=== PATIENT | female | born 1935 | race Caucasian/White ===

== ENCOUNTER → 2018-07-06 14:31 | Outpatient (POV) | payer MEDICAID, SELFPAY | PROVIDERS: Visit Provider Dermatology | DX: Z00.00 Encounter for general adult medical examination without abnormal findings (principal) ==

== ENCOUNTER 2023-04-29 20:09 | Emergency (ER) | payer MEDICARE, MEDICAID, SELFPAY ==
[2023-04-29 20:14] VITALS: BP 160/111; PULSE 98; RESP 20; TEMP 36.6; O2SAT 95; BMI 43.2
--- NOTE | 2023-04-29 20:19 | CT_ITS ---
PROCEDURE INFORMATION: Exam: CT Lumbar Spine Without Contrast Exam date and time: 04/29/2023 9:42 PM Age: 87 years old Clinical indication: Injury or trauma; Fall; Additional info: Fall, pain TECHNIQUE: Imaging protocol: Computed tomography of the lumbar spine without contrast. Radiation optimization: All CT scans at this facility use at least one of these dose optimization techniques: automated exposure control; mA and/or kV adjustment per patient size (includes targeted exams where dose is matched to clinical indication); or iterative reconstruction. REPORTING DATA: Count of CT and Cardiac NM exams in prior 12 months: This patient has received 0 known CTs and 0 known cardiac nuclear medicine studies in the 12 months prior to the current study. COMPARISON: CT THORACIC SPINE WO CON 04/29/2023 9:39 PM FINDINGS: Bones/joints: The lumbar spine demonstrates moderate discogenic and spondylitic degenerative changes at multiple levels. This is manifest by endplate discogenic degenerative changes and marginal osteophytes. There are multiple levels of intervertebral disc space narrowing, most severe at L1-L2. There is extensive vacuum disc phenomenon spanning L1 through S1. Vhge-la-vizsoavt multilevel facet degenerative arthropathy is also present. There is grade 1 anterior spondylolisthesis of L4 on L5. There is slight retrolisthesis of L2 on L3 and L3 on L4. There is mild superior concavity to the L2 and L3 vertebral bodies with Schmorl's node changes also present in these regions. Remaining vertebral body heights are intact. These findings are age indeterminate but likely chronic. Correlate clinically. There are mild degenerative changes of the sacroiliac joints. Otherwise, there is no evidence of acute fracture. Adrenal glands: Bilateral adrenal nodules are described in the associated CT of the thoracic spine from the same date and time. Please reference that report for additional information. Kidneys and ureters: There is a cyst within the lateral right kidney measuring 4.8 cm, incompletely visualized. A small punctate calcification is incompletely seen in this region suggesting mildly complex cyst. Recommend additional evaluation when the patient's condition permits. There is a 9 mm hyperdensity in the superior left kidney which is not optimally characterized on current exam but may reflect a hyperdense cyst. Cannot entirely exclude solid lesion. Recommend additional evaluation when the patient's condition permits. There are several additional bilateral small renal hypodensities which are too small to accurately characterize. Statistically, these may be cysts. Vasculature: The visualized aorta demonstrates mild atherosclerotic calcification. Soft tissues: No significant soft tissue edema. No focal soft tissue masses. Soft tissue calcification in the left posterior low back soft tissues likely reflects injection granuloma. IMPRESSION: Mild superior concavity to the L2 and L3 vertebral bodies with Schmorl's node changes, age indeterminate but likely chronic. Correlate clinically. Otherwise, no acute posttraumatic abnormality. Moderate to severe multilevel discogenic and spondylitic degenerative changes of the lumbar spine. Multiple renal hypo and hyper densities as described above, not optimally evaluated on current exam. Bilateral adrenal nodules, not optimally evaluated on current exam. COMMENTS: Consistent with the [employer]'s Incidental Findings Committee white paper (J Am Yang Radiol 2018): Any incidental renal lesion less than 1 cm or classified as too small to characterize, or any incidental cystic renal lesion characterized as simple-appearing, is likely benign. No follow-up
--- NOTE | 2023-04-29 20:19 | XR_ITS ---
PROCEDURE INFORMATION: Exam: XR Right Femur Exam date and time: 04/29/2023 8:39 PM Age: 87 years old Clinical indication: Injury or trauma; Fall; Blunt trauma; Thigh or upper leg; Right; Additional info: Fall, pain TECHNIQUE: Imaging protocol: Radiologic exam of the right femur. Views: 2 views. Total images: 5 COMPARISON: No relevant prior studies available. FINDINGS: Bones/joints: Osteopenia. No acute fracture or joint dislocation. Enthesophytes greater trochanter. Moderate degenerative change right hip including chondrocalcinosis. Moderate to severe degenerative change right knee. No suprapatellar joint effusion. Patellar enthesophytes. No concerning bone lesions. Dystrophic pelvic calcifications/ossification likely a degenerated fibroid. Soft tissues: Grossly unremarkable soft tissues. Gastrointestinal tract: Moderate rectal stool burden. Vasculature: Numerous pelvic phleboliths. IMPRESSION: 1. No acute osseous abnormality. 2. Chronic findings.
--- NOTE | 2023-04-29 20:19 | CT_ITS ---
PROCEDURE INFORMATION: Exam: CT Pelvis Without Contrast; Skeletal Exam date and time: 04/29/2023 9:45 PM Age: 87 years old Clinical indication: Injury or trauma; Fall; Additional info: Fall, pain TECHNIQUE: Imaging protocol: Computed tomography of the pelvis without contrast. Exam focused on the skeleton. Radiation optimization: All CT scans at this facility use at least one of these dose optimization techniques: automated exposure control; mA and/or kV adjustment per patient size (includes targeted exams where dose is matched to clinical indication); or iterative reconstruction. REPORTING DATA: Count of CT and Cardiac NM exams in prior 12 months: This patient has received 0 known CTs and 0 known cardiac nuclear medicine studies in the 12 months prior to the current study. COMPARISON: CT LUMBAR SPINE WO CON 04/29/2023 9:42 PM FINDINGS: Stomach and bowel: No bowel obstruction identified. Appendix: A normal appendix is identified. Urinary bladder: The bladder is normal. Reproductive: Degenerated uterine leiomyoma. Intraperitoneal space: There is no free intraperitoneal air visualized. There is no evidence of free intraperitoneal or pelvic fluid. Bones/joints: No acute fracture is seen. Anterolisthesis is seen at L4-L5. Severe lower lumbar degenerative changes. Mild to moderate degenerative changes of both hips. No findings of avascular necrosis. Soft tissues: There is heterotopic ossification anterior to the right humeral, possibly sequela remote prior iliopsoas tendon injury. IMPRESSION: 1. No acute fracture identified. 2. Heterotopic ossification anterior to the right humeral, possibly sequela remote prior iliopsoas tendon injury.
--- NOTE | 2023-04-29 20:19 | XR_ITS ---
PROCEDURE INFORMATION: Exam: XR Right Tibia and Fibula Exam date and time: 04/29/2023 8:43 PM Age: 87 years old Clinical indication: Injury or trauma; Fall; Blunt trauma; Lower leg; Right; Additional info: Fall, pain TECHNIQUE: Imaging protocol: Radiologic exam of the right tibia and fibula. Views: 2 views. Total images: 4 COMPARISON: CR XR KNEE RT 3V 04/29/2023 8:41 PM FINDINGS: Bones/joints: Osteopenia. No acute fracture or joint dislocation. No concerning bone lesions. Moderate to severe tricompartment degenerative arthritis right knee. Ankle mortise is maintained. Prominent calcaneal enthesophytes. Benign cortical thickening and periostitis fibular shaft. Soft tissues: Diffuse superficial soft tissue edema. IMPRESSION: 1. No acute osseous abnormality. 2. Diffuse soft tissue edema. 3. Additional chronic findings.
--- NOTE | 2023-04-29 20:19 | XR_ITS ---
PROCEDURE INFORMATION: Exam: XR Chest Exam date and time: 04/29/2023 8:44 PM Age: 87 years old Clinical indication: Injury or trauma; Fall; Blunt trauma (contusions or hematomas); Additional info: Fall, pain TECHNIQUE: Imaging protocol: Radiologic exam of the chest. Views: 1 view. Total images: 1 COMPARISON: No relevant prior studies available. FINDINGS: Lungs: Left basilar atelectasis. Right lung is clear. No pulmonary vascular congestion or interstitial edema. Pleural spaces: Blunting left lateral costophrenic angle. No pneumothorax. Heart/Mediastinum: Mild cardiomegaly. No mediastinal widening. Large hiatal hernia consisting of a intrathoracic stomach, confirmed by thoracic CT same day. Vasculature: Atherosclerotic aorta. Bones/joints: Osteopenia. Moderate to severe degenerative changes thoracolumbar spine. Other findings: Patient rotation to the right. IMPRESSION: 1. Left basilar atelectasis. 2. Small left pleural effusion versus chronic pleural thickening. 3. Intrathoracic stomach. 4. Mild cardiomegaly without vascular congestion.
--- NOTE | 2023-04-29 20:19 | CT_ITS ---
PROCEDURE INFORMATION: Exam: CT Cervical Spine Without Contrast Exam date and time: 04/29/2023 9:37 PM Age: 87 years old Clinical indication: Injury or trauma; Fall; Additional info: Fall, pain TECHNIQUE: Imaging protocol: Computed tomography of the cervical spine without contrast. Radiation optimization: All CT scans at this facility use at least one of these dose optimization techniques: automated exposure control; mA and/or kV adjustment per patient size (includes targeted exams where dose is matched to clinical indication); or iterative reconstruction. REPORTING DATA: Count of CT and Cardiac NM exams in prior 12 months: This patient has received 0 known CTs and 0 known cardiac nuclear medicine studies in the 12 months prior to the current study. COMPARISON: CT HEAD/BRAIN WO CON 04/29/2023 9:35 PM FINDINGS: Bones/joints: No acute fracture. Normal alignment. No significant disc bulge or herniation. No severe spinal canal stenosis. Lungs: Lung apices are normal. Soft tissues: Gplw-ze-fgsdzptv mucosal thickening of the partially included sphenoid, ethmoids and maxillary sinuses. No fluid levels. Mild opacification of some of the inferior right mastoid air cells without air-fluid levels. IMPRESSION: 1. No acute fracture. 2. Incidental paranasal sinus disease and right mastoid sinus disease of uncertain acuity.
--- NOTE | 2023-04-29 20:19 | CT_ITS ---
PROCEDURE INFORMATION: Exam: CT Head Without Contrast Exam date and time: 04/29/2023 9:35 PM Age: 87 years old Clinical indication: Injury or trauma; Fall; Additional info: Fall, pain TECHNIQUE: Imaging protocol: Computed tomography of the head without contrast. Radiation optimization: All CT scans at this facility use at least one of these dose optimization techniques: automated exposure control; mA and/or kV adjustment per patient size (includes targeted exams where dose is matched to clinical indication); or iterative reconstruction. REPORTING DATA: Count of CT and Cardiac NM exams in prior 12 months: This patient has received 0 known CTs and 0 known cardiac nuclear medicine studies in the 12 months prior to the current study. COMPARISON: No relevant prior studies available. FINDINGS: Brain: No intracranial hemorrhage. Generalized atrophic changes of the ventricles and subarachnoid spaces. Extensive chronic small-vessel ischemic changes noted. No mass, mass effect or midline shift. Intracranial atherosclerotic changes are noted. Cerebral ventricles: See Brain finding. Paranasal sinuses: Multifocal moderate mucosal thickening of the maxillary sinuses including mucous retention cysts. Wwinenfs-xn-xtdxuu mucosal thickening opacification of most of the ethmoids and jidw-oe-igofmfuy mucosal thickening of the inferior frontal sinuses and sphenoids. No definite fluid levels. Opacification of some of the inferior right mastoid air cells. Mastoid air cells: See Paranasal sinuses finding. Bones/joints: See Paranasal sinuses finding. Soft tissues: Unremarkable. IMPRESSION: 1. No acute intracranial abnormality. Chronic changes as above. 2. Incidental extensive paranasal sinus disease suggesting sinusitis of uncertain acuity. Mild right mastoid sinus disease suggesting mastoiditis also of uncertain acuity.
--- NOTE | 2023-04-29 20:19 | CT_ITS ---
PROCEDURE INFORMATION: Exam: CT Thoracic Spine Without Contrast Exam date and time: 04/29/2023 9:39 PM Age: 87 years old Clinical indication: Injury or trauma; Fall; Additional info: Fall, pain TECHNIQUE: Imaging protocol: Computed tomography of the thoracic spine without contrast. Radiation optimization: All CT scans at this facility use at least one of these dose optimization techniques: automated exposure control; mA and/or kV adjustment per patient size (includes targeted exams where dose is matched to clinical indication); or iterative reconstruction. REPORTING DATA: Count of CT and Cardiac NM exams in prior 12 months: This patient has received 0 known CTs and 0 known cardiac nuclear medicine studies in the 12 months prior to the current study. COMPARISON: CT CERVICAL SPINE WO CON 04/29/2023 9:37 PM FINDINGS: Bones/joints: The thoracic spine demonstrates mild discogenic and spondylitic degenerative changes at multiple levels. This is predominantly manifest by endplate discogenic degenerative changes and marginal osteophytes. Minor vacuum disc phenomena is also present at T10-11. Mild multilevel facet degenerative arthropathy is also present. There is very slight anterior spondylolisthesis of C7 on T1 and T1 on T2. The alignment is otherwise intact. There is no evidence of acute fracture. No compression fractures. No large focal disc protrusion. No significant central canal stenosis. Soft tissues: The paravertebral soft tissues are within range of normal. Vasculature: The aorta demonstrates moderate atherosclerotic calcification. The aortic arch measures approximately 2.8 cm. The proximal descending thoracic aorta measures approximately 2.9 cm. Lungs: Nonspecific left basilar opacities are consistent with atelectasis, edema, or pneumonia. Adrenal glands: There is a left adrenal mass measuring approximately 2.3 x 1.7 cm, not optimally characterized on current exam. Internal Hounsfield units measure approximately 36. There is a right adrenal nodule measuring approximately 12 x 15 mm, not optimally evaluated on current exam. Internal internal Hounsfield units measure approximately 6 suggesting adenoma. Stomach and bowel: There is a large hiatal hernia, incompletely visualized with an intrathoracic stomach. IMPRESSION: 1. No acute posttraumatic abnormality. 2. Szqn-jy-utmvrkub multilevel discogenic and spondylitic degenerative changes of the thoracic spine. 3. Large hiatal hernia with an intrathoracic stomach, incompletely visualized. 4. Findings suggestive of right adrenal adenoma. 6. Nonspecific left adrenal nodule. 7. Nonspecific left basilar opacities most consistent with atelectasis, edema, or pneumonia.
--- NOTE | 2023-04-29 20:19 | XR_ITS ---
PROCEDURE INFORMATION: Exam: XR Right Knee Exam date and time: 04/29/2023 8:41 PM Age: 87 years old Clinical indication: Injury or trauma; Fall; Blunt trauma; Knee; Right; Additional info: Fall, pain TECHNIQUE: Imaging protocol: Radiologic exam of the right knee. Views: 3 views. Total images: 3 COMPARISON: CR XR FEMUR RT 2V 04/29/2023 8:39 PM FINDINGS: Bones/joints: Osteopenia. No acute fracture, joint dislocation, or joint effusion. Moderate to severe tricompartment degenerative arthritis. Patellar enthesophytes. No concerning bone lesions. Soft tissues: Benign soft tissue calcifications. Prepatellar soft tissue swelling. Superficial soft tissue edema. IMPRESSION: 1. No acute osseous abnormality or joint effusion. 2. Prepatellar soft tissue swelling. 3. Moderate to severe tricompartment degenerative arthritis.
[2023-04-29 21:30] VITALS: BP 162/117; PULSE 85; O2SAT 92
--- NOTE | 2023-04-29 22:05 | HMH.EDGENADL ---
Discharge Plan Disposition Patient Disposition: Xfer SNF Condition: Good Referrals Follow up/Referrals: Provider,Referral, [Primary Care Provider] - See instructions Activity Restrictions/Add. Instructions Additional Instructions/Restrictions: You were evaluated in the emergency department today after a fall. There is some swelling of your knee, but no broken bones. With orthopedics for continued pain. There is also an incidental finding of a pleural effusion as well as a hiatal hernia. There are also incidental findings of bilateral adrenal nodules. Please follow-up with primary care for this. Return to the emergency department for new or worsening symptoms. Clinical Impressions Clinical Impression: Fall, Acute pain of right knee, Pleural effusion, Hiatal hernia, Adrenal nodule Instructions Patient Instructions: How to Prevent Falls Discharge ED Provider: Suzanne Staton General Adult HPI General Chief complaint: Fall Stated complaint: Fall Time Seen by Provider: 04/29/23 20:19 Mode of Arrival: EMS Source of Information: Patient and EMS Limitations: No Limitations Description of Symptoms (Recalled from ER Triage Doc. by RN): EMS reports they were called out to [facility] due to a fall. EMS states she fell and her R knee bent back behind her. pt is confused and unable to answer orientation questions. pt is alert. pt is a poor historian. pt states she has back pain but does not know where. [facility] reports she is normally x&o x4 but has dementia. pt states she has been SOA for a month and arrives with 2L NC. on arrival pt is 95% on room air. reportedly pt is baseline at room air. History of Present Illness HPI narrative: This patient is an 87-year-old female with a history of dementia presented to the emergency department for evaluation with concern for a mechanical ground-level fall. Patient reportedly tripped while she was trying to swat a fly, and her right knee bent underneath her. This report is obtained from EMS, who picked the patient up from [facility]. Patient only complains of right lower extremity pain at this time but denies any other injuries or concerns. She denies any head injury of loss of consciousness. She otherwise states that she is feeling fine and denies any other concerns. According to the nursing facility, she is typically ambulatory at baseline. [facility] Disclaimer: The information contained in this section may have been updated after the patient was seen, as this information can be updated by other users. Social History Smoking Status: Unknown if ever smoked alcohol intake: never current occupational status: retired Travel in the last 8 weeks: None ROS Obtained: Yes All systems reviewed & no additional complaints except as documented Physical Exam General General appearance: alert and in no apparent distress Head Head exam: atraumatic and normocephalic Eye Eye exam: Present normal appearance, PERRL and EOMI ENT ENT exam: Present normal exam, normal oropharynx, mucous membranes moist and normal external ear exam Neck Neck exam: Present normal inspection, full ROM and trachea midline; Absent tenderness Chest Chest inspection: Present normal inspection and symmetric chest wall rise; Absent tenderness Respiratory Respiratory exam: Present normal lung sounds bilaterally; Absent respiratory distress, wheezes, stridor or accessory muscle use Cardiovascular Cardiovascular exam: Present regular rate and normal rhythm Abdominal Exam Abdominal exam: Present soft; Absent distention, tenderness or guarding Extremities Exam Extremities exam: Present full ROM, tenderness (Tenderness to palpation of the right knee. All compartments soft. Neurovascularly intact distally. No obvious bony abnormality. Small amount of soft tissue swelling noted.) and normal capillary refill; Absent edema Back Exa
[2023-04-29 22:15] VITALS: BP 145/95; PULSE 97; O2SAT 91
--- NOTE | 2023-04-29 22:37 | PC.NURSE ---
called [facility] for transfer back to [place]
[2023-04-29 23:14] VITALS: BP 158/72; PULSE 78; RESP 20; TEMP 36.6; O2SAT 97
== END 2023-04-29 23:16 ==
PROVIDERS: Emergency Provider Emergency Medicine
DX: M25.561 Pain in right knee (principal); J90 Pleural effusion, not elsewhere classified; K44.9 Diaphragmatic hernia without obstruction or gangrene; E27.8 Other specified disorders of adrenal gland; F03.90 Unspecified dementia, unspecified severity, without behavioral disturbance, psychotic disturbance, mood disturbance, and anxiety; W18.30XA Fall on same level, unspecified, initial encounter
CPT/HCPCS: 70450; 71045; 72125; 72128; 72131; 72192; 73552; 73562; 73590; 99285

== ENCOUNTER 2025-01-28 12:54 | Inpatient (IN) | payer MEDICARE, MEDICAID, SELFPAY ==
--- OUTSIDE RECORDS SUMMARY | 2025-01-24 06:20 | XMS_ITS | Continuity of Care Document ---
Author Organization [address] [place] [address] Address [address] [facility] ([facility] [address] [place] [address] Phone Care Team Providers Care Historic Sites Registrar Name Role Phone Geneva Hamilton NP Unavailable [...] mg table t, extended release - Active cephalexin 250 mg capsule - Active cephalexin 500 mg capsule - Active nitroglycerin 0.4 mg sublingual tablet - Active loperamide 2 mg capsule - Ac tive sulfamethoxazole 800 mg-trimethoprim 160 mg tablet - Active sulfamethoxazole 400 mg-trimethoprim 80 mg tablet - Active prednisone 5 mg tablet - Act melonie ammonium lactate 12 % lotion - Active losartan 100 mg tablet - Act melonie hydrochlorothiazide 25 mg tablet - Active hydroxyzine HCl 10 mg tablet - Active metoprolol tartrate 25 [...] Diagnoses Date Provider Providers Copied on Encounter [address] [place] [address], [address] [place] [address] 300, [place], [place], [id number], tel:[phone] [facility] ear care exam (chief complaint) Impacted cerumen, bilateral 5 Katy-Hard brandan Geneva. [address] [place] [address], [address], [place], [address], [place]. Referring Provider: Andrew Clark. [address] [place] [address], [address] [place] [address] 300, [place], [place], [id number], tel:[phone] [facility] Nail dystrophyOnych ogryphosisOthe r hammer toe(s) (acquired), left footOther hammer toe(s) (acquired), right footOther specified peripheral vascular diseases 5 [place]. [address] [place] [address], [address] [place] [address] 300, [place], [place], [id number], [place] tel:[phone] [facility] Other abnormalities of gait and mobilityOther specified peripheral vascular diseasesOnycho gryphosisNail dystrophy 5 Roma Shaan. [place]. [address] [place] [address], [id number] [place] [address] 300, [place], [place], [id number], tel:[phone] [facility] Cataract (chief complaint) Age-related nuclear cataract, bilateral 4 IRIS Simmons. Referring Provider: Andrew Clark. [facility] [place], [address] [place], [place] [address]te 300, [place], [place], [id number], [place] tel:[phone] [facility] No Information 4 [place], [place]. [facility] [place], [address] [place] [address] [address], [place], [place], [id number], [place] tel:[phone] [facility] Corns and callositiesTin ea unguiumOther specified peripheral vascular diseasesNail dystrophy 4 Thomas Castellon. [address] [facility] [address], [place], [address], [place]. [facility] [place], [address] [place] [address] 300, [place], [place], [id number], [place] tel:[phone] [facility] Corns and callositiesNai l dystrophyOther specified peripheral vascular diseasesTinea unguium Fe 4 Thomas Castellon. [address] [facility] [address], [place], [address], [place]. Referring Provider: Andrew Clark. [facility] [place], [address] [place], [place] [address] 300, [place], [place], [id number], [place] tel:[phone] [facility] Encounter for dental examination and cleaning without abnormal findings 4 Jan Tijerina. [address] [facility] [address], [place], [place], [id number], [place]. tel:[phone] Referring Provider: Andrew Clark. [facility] [place], [address] [place] [address] [address], [place], [place], [id number], [place] tel:[phone] [facility] Cataract (chief complaint) Age-related nuclear cataract, bilateral Oct-2 3 Jose De Jesus Miller. [address] [facility] [address], [place], [address], [place]. Referring Provider: Andrew Clark. [facility], [address] [place], [place] [address], [place], [place], [address], [place] tel:[phone] [facility] Corns and callositiesNai l dystrophyOther specified peripheral vascular diseasesTinea unguium 3 Thomas Pinto [address] [facility] [address], [place], [address], [place]. Referring Provider: Andrew Clark. [address] [place] [address], [address] [place] [address] 300, [place], [place], [id number], tel:[phone] [facility] Tinea unguiumOther specified peripheral vascular diseasesNail dystrophy 3 Thomas Pinto [address] [facility] [address], [place], [address], [place]. Referring Provider: Andrew Clark. [address] [place] [address], [address] [place] [address] 300, [place], [place], [id number], [place] tel:[phone] [facility] Cataract (chief complaint) Age-related nuclear cataract, bilateralRetin al hemorrhage, right eye 3 Jose De Jesus Miller. [address] [place] [address], [address], [place], [address], [place]. Referring Provider: Andrew Clark. NURSING FAC CARE SUBSEQ [address] [place] [address], [address] [place] [address] 300, [place], [place], [id number], [place] tel:[phone] [place] [address] Tinea unguiumOther specified peripheral vascular diseasesAbrasi on, left foot, initial encounter 3 Thomas Pinto [address] [place] [address], [address], [place], [address], [place]. Referring Provider: Andrew Clark. [address] [place] [address], [address] [place] [address] 300, [place], [place], [id number], [place] tel:[phone] [facility] No Information 3 Thomas Pinto [address] [place] [address], [address], [place], [address], [place]. [address] [place] [address], [address] [place] [address] 300, [place], [place], [address], [place] tel:[phone] [facility] Encounter for dental examination and cleaning without abnormal findings 3 BARNEY Angel. tel:[phone] Referring Provider: Andrew Clark. [facility] [place], [address] [place], [place] [address]te [address], [place], [place], [address], [place] tel:[phone] [facility] Corns and callositiesOth er specified peripheral vascular diseasesTinea unguium 2 Thomas Castellon. [address] [facility] [address], [place], [address], [place]. Referring Provider: Andrew Clark. [facility], [address] [place] [address] [address], [place], [place], [address], [place] tel:[phone] [facility] Tinea unguiumOther specified peripheral vascular diseases 2 Thomas Castellon. [address], [address], [place], [address], [place]. Referring Provider: Andrew Clark. [facility], [address] [place], [place] [address], [place], [place], [address], [place] tel:[phone] [facility] Encounter for dental examination and cleaning without abnormal findings 2 [place]. Referring Provider: Andrew Clark. [facility] [place], [address] [place], [place] [address], [place], [place], [id number], [place] tel:[phone] [facility] Corns and callositiesOth er specified peripheral vascular diseasesTinea unguiumXerosis cutis 2 [place], [place]. Referring Provider: Andrew Clark. [facility] [place], [address] [place] [address] [address], [place], [place], [id number], [place] tel:[phone] [facility] Decreased vision (chief complaint) Age-related nuclear cataract, bilateral 2 Jose De Jesus Miller. [address] [facility] [address], [place], [address], [place]. Referring Provider: Andrew Clark. [facility], [address] [place] [address] 300, [place], [place], [id number], [place] tel:[phone] [facility] Tinea unguiumOther specified peripheral vascular diseasesCorns and callositiesHal lux valgus (acquired), left footHallux valgus (acquired), right footOther hammer toe(s) (acquired), left footOther hammer toe(s) (acquired), right foot 2 Thomas Castellon. [address] [facility] [address], [place], [address], . Referring Provider: Andrew Clark. [address] [place] [address], [address] [place] [address] 300, [place], [address] [place] [address], tel:[phone] [facility] Encounter for dental exam and cleaning w/o abnormal findings 2 Dmitry Yeung. [address] [facility] [address], [place], [place], [address], . tel:[phone] Referring Provider: Andrew Clark. [address] [place] [address], [address] [place] [address], [place], [address] [place] [address], tel:[phone] [facility] Tinea unguiumCorns and callositiesOth er specified peripheral vascular diseasesHallux valgus (acquired), left footHallux valgus (acquired), right footOther hammer toe(s) (acquired), left footOther hammer toe(s) (acquired), right foot 2 Thomas Castellon. [address] [facility] 300, [place], [facility], . Referring Provider: Andrew Clark. [address] [place] [address], [address] [place], [place] [address], [place], [place], [address] [place] [address], tel:[phone] [facility] No Information 2 Jose De Jesus Miller. [address] [facility] [address] Formerly named [facility], [place], [facility], . Family History Family Member Type Diagnosis Age At Onset No Information Payers Payer name Insurance type Covered republican ID Authoriza tion(s) Medicare [facility] [id number] Medicaid [facility] [id number] Social History Type Description Quantity Date Captured Comments Alcohol Use Details Unknown Caffeine Use Details Unknown Tobacco Use Status No Information Smoking Status No Information Sex Female Chief Complaint And Reason For Visit From encounter dated '01/24/2025 10:20'. ear care exam (chief complaint) Reason For Referral Reason For Referral No Information Plan Of Treatment Date Type Action Status Patient Education Earwax Blockage: Care I nstructions [...] localize swelling and venous return, and the penitentiary benefits of using compression stockings. Reinforced the [...] a nail nipper and an electric rotary tool and cutter grinder in an atraumatic fashion as needed [...] localize swelling and venous return, and the penitentiary benefits of using compression stockings. Reinforced the [...] symptoms. Related to Nail dystrophy Impression/Plan - Ca taracts are moderate and are affecting visual acuity; however, no treatment recommended at this time. We will monitor for progression. Related to Age-related nuclear cataract, bilateral Impression/Plan - No t dm, likely htn related. Monitor at next visit Related to Retinal hemorrhage, right eye Toenails 1-5 b/l wer e debrided in [...] foot Assessments Type Assessment Date assessment Impacted pasha, bilateral Patient Care Teams Name Effective Dates (start - stop) Status Members No Information
--- OUTSIDE RECORDS SUMMARY | 2025-01-24 06:20 | XMS_ITS | Continuity of Care Document ---
Author Organization [address] [place] [address] [facility] [address] [place] [address] Phone Care Team Providers Care Orientation And Mobility Specialist Name Role Phone Geneva Hamilton NP Unavailable [...] Diagnoses Date Provider Providers Copied on Encounter [address] [place] [address], [address] [place] [address] 300, [place], [place], [id number], tel:[phone] [facility] ear care exam (chief complaint) Impacted cerumen, bilateral 5 [place]-Hard brandan Geneva. [address] [place] [address], [address], [place], [address], [place]. Referring Provider: Andrew Clark. [address] [place] [address], [address] [place] [address] 300, [place], [place], [id number], tel:[phone] [facility] Nail dystrophyOnych ogryphosisOthe r hammer toe(s) (acquired), left footOther hammer toe(s) (acquired), right footOther specified peripheral vascular diseases 5 [place]. [address] [place] [address], [address] [place] [address] 300, [place], [place], [id number], [place] tel:[phone] [facility] Other abnormalities of gait and mobilityOther specified peripheral vascular diseasesOnycho gryphosisNail dystrophy 5 Roma Sh[place]. [place]. [address] [place] [address], [address] [place] [address] 300, [place], [place], [id number], tel:[phone] [facility] Cataract (chief complaint) Age-related nuclear cataract, bilateral 4 IRIS Simmons. Referring Provider: Andrew Clark. [facility] [place], [address] [place], [place] [address], [place], [place], [id number], [place] tel:[phone] [facility] No Information 4 [place]. [facility] [place], [address] [place] [address] [address], [place], [place], [id number], [place] tel:[phone] [facility] Corns and callositiesTin ea unguiumOther specified peripheral vascular diseasesNail dystrophy [address] [facility], [address], [place], [address], [place]. [facility], [address] [place] [address], [place], [address], [place] tel:[phone] [facility] Corns and callositiesNai l dystrophyOther specified peripheral vascular diseasesTinea unguium Fe [address] [facility], [address], [place], [address], [place]. Referring Provider: Andrew Clark. [facility] [place] [facility], [address] [place], [place] [address], [place], [place], [address], [place] tel:[phone] [facility] Encounter for dental examination and cleaning without abnormal findings [address] [facility], [address], [place], [place], [address], [place]. tel:[phone] Referring Provider: Andrew Clark. [facility] [place] [facility], [address] [place] [address] [address], [place], [place], [id number], [place] tel:[phone] [facility] Cataract (chief complaint) Age-related nuclear cataract, bilateral Oct-2 [address] [facility], [address], [place], [address], [place]. Referring Provider: Andrew Clark. [facility], [address] [place], [place] [address], [place], [place], [address], [place] tel:[phone] [facility] Corns and callositiesNai l dystrophyOther specified peripheral vascular diseasesTinea unguium [address] [facility], [address], [place], [address], [place]. Referring Provider: Andrew Clark. [address] [place] [address], [address] [place] [address], [place], [place], [id number], tel:[phone] [facility] Tinea unguiumOther specified peripheral vascular diseasesNail dystrophy [address] [facility], [address], [place], [address], [place]. Referring Provider: Andrew Clark. [address] [place] [address], [address] [place] [address], [place], [address], [place] tel:[phone] [facility] Cataract (chief complaint) Age-related nuclear cataract, bilateralRetin al hemorrhage, right eye 3 Jose De Jesus Miller. [address] [place] [address], [address], [place], [address], [place]. Referring Provider: Andrew Clark. NURSING FAC CARE SUBSEQ [address] [place] [address], [address] [place] [address] 300, [place], [place], [id number], [place] tel:[phone] [place] [address] Tinea unguiumOther specified peripheral vascular diseasesAbrasi on, left foot, initial encounter 3 Thomas P[address] [place] [address], [address], [place], [address], [place]. Referring Provider: Andrew Clark. [address] [place] [address], [address] [place] [address], [place], [place], [address], [place] tel:[phone] [facility] No Information 3 Thomas Pinto [address] [place] [address], [address], [place], [address], [place]. [address] [place] [address], [address] [place] [address], [place], [id number], [place] tel:[phone] [facility] Encounter for dental examination and cleaning without abnormal findings 3 BARNEY Angel. tel:[phone] Referring Provider: Andrew Clark. [facility] [place], [address] [place], [place] [address], [place], [place], [address], [place] tel:[phone] [facility] Corns and callositiesOth er specified peripheral vascular diseasesTinea unguium [address] [facility], [address], [place], [address], [place]. Referring Provider: Andrew Clark. [facility] [place] [facility], [address] [place] [address] [address], [place], [place], [address], [place] tel:[phone] [facility] Tinea unguiumOther specified peripheral vascular diseases 2 Thomas Castellon. [address], [address], [place], [address], [place]. Referring Provider: Andrew Clark. [facility], [address] [place], [place] [address], [place], [place], [address], [place] tel:[phone] [facility] Encounter for dental examination and cleaning without abnormal findings 2 [place]. Referring Provider: Andrew Clark. [facility], [address] [place], [place] [address], [place], [place], [address], [place] tel:[phone] [facility] Corns and callositiesOth er specified peripheral vascular diseasesTinea unguiumXerosis cutis 2 [place], [place]. Referring Provider: Andrew Clark. [facility], [address] [place] [address] [address], [place], [place], [address], [place] tel:[phone] [facility] Decreased vision (chief complaint) Age-related nuclear cataract, bilateral [address] [facility], [address], [place], [address], [place]. Referring Provider: Andrew Clark. [facility], [address] [place] [address], [place], [place], [address], [place] tel:[phone] [facility] Tinea unguiumOther specified peripheral vascular diseasesCorns and callositiesHal lux valgus (acquired), left footHallux valgus (acquired), right footOther hammer toe(s) (acquired), left footOther hammer toe(s) (acquired), right foot [address] [facility], [address], [place], [address], . Referring Provider: Andrew Clark. [address] [place] [address], [address] [place] [address], [place], [address] [place] [address], tel:[phone] [facility] Encounter for dental exam and cleaning w/o abnormal findings [address] [facility], [address], [place], [place], [address], . tel:[phone] Referring Provider: Andrew Clark. [address] [place] [address], [address] [place] [address], [place], [address] [place] [address], tel:[phone] [facility] Tinea unguiumCorns and callositiesOth er specified peripheral vascular diseasesHallux valgus (acquired), left footHallux valgus (acquired), right footOther hammer toe(s) (acquired), left footOther hammer toe(s) (acquired), right foot [address] [facility], [facility] [place] [address], [place], [facility], . Referring Provider: Andrew Clark. [address] [place] [address], [address] [place], [place] [address], [place], [address] [place] [address], tel:[phone] [facility] No Information 2 Jose De Jesus Miller. [address] [facility], [address] [facility], [place], [facility], . Family History Family Member Type Diagnosis Age At Onset No Information Payers Payer name Insurance type Covered green party ID Authoriza tion(s) Medicare [facility] [id number] Medicaid [facility] [id number] Social History Type Description Quantity Date Captured [...] localize swelling and venous return, and the correction benefits of using compression stockings. Reinforced the [...] a nail nipper and an electric rotary snag grinder in an atraumatic fashion as needed [...] localize swelling and venous return, and the correction benefits of using compression stockings. Reinforced the [...]
[2025-01-28] VITALS (22 sets, daily range): BP systolic 81–153; BP diastolic 31–133; PULSE 8–117; RESP 15–25; TEMP 36.2–36.9; O2SAT 90–99; BMI 43.2
--- OUTSIDE RECORDS SUMMARY | 2025-01-28 13:19 | XMS_ITS | Clinical Summary ---
Author Organization [facility] [place] Address [address] [place] [address] Phone Care Team Providers Care Superintendent [employer] Name Role Phone Unavailable Primary Care Provider Unavailabl e Allergies No known active allergies Medications * This document contains information received from the source organization and may not represent a complete record from that organization. No known medications Active Problems Problem Noted Date Diagnosed Date ROXANNA (generalized anxiety disorder) 04/14/2017 Mental retardation 09/24/2016 Adjustment disorder with anxiety 09/24/2016 Social History Tobacco Use Types Packs/Day Years Used Date Smoking Tobacco: Never Assessed Comments Unknown Sex and Gender Information Value Date Recorded Sex Assigned at Not on file Legal Sex Female 5:11 PM EDT Gender Identity Not on file Sexual Orientation Not on file Obstetrics History Plan of Treatment Health Maintenance Due Date Last Done Comments Wellness Exam Medicare 1938 DTaP/TDaP/Td (1 - Tdap) 1956 Pneumococcal Vaccine 50+ (1 of 1 - PCV) 10/03/1987 Zoster (1 of 2) 10/03/1987 Bone Density Screening 2002 RSV or 60+ (1 - 1-d ose 75+ series) 2012 COVID-19 Vaccine ( - 2023-2 5 season) 2024 Influenza Vaccine (#1) 2025 Hepatitis B Vaccine Aged Out No longe r eligible based on patient's age to complete this topic Meningococcal B Vaccine Aged Out No l onger eligible based on patient's age to complete this topic Insurance [place] [address] MEDICA[place]
--- OUTSIDE RECORDS SUMMARY | 2025-01-28 13:19 | XMS_ITS ---
Author Organization [facility] Care Team Providers Care Director [employer] Name Role Phone Eduardo Michael Unavailable Unavailable Allergies and adverse reactions No Known Allergies Care Team Name Role Address Phone Organization Dates Michael Clark PCP [place], [facility] [place] (Office): : [place] 05/16/2020 - 05/25/2020 Goals Section Goals Description Status Target Date The resident will have no in dications of psychosocial well being problem by/through review date. Active 08/31/2020 Immunizations Immunization Status Vaccine Details Vaccine Code CodeSystem Date Notes Influenza completed Influenza, high-dose, split virus, quadrivalent, injectable, preservative free 197 CVX created date: 05/16/2020 consent date: 05/16/2020 administere d date: 04/21/2020 TB 1 Step Mantoux (PPD) completed tuberculin skin test; unspecified formulation 98 CVX created date: 05/16/2020 administere d date: 07/01/2019 Pneumococcal PPSV23 completed pneumococcal polysaccharide vaccine, 23 valent 33 CVX created date: 05/16/2020 administere d date: 10/25/2017 Mental Status Section Date Assessment Total Score Description 05/25/2020 BIMS 10 moderate cognit melonie impairment CAM 0 No delirium ind icated PHQ-9 10 moderate depres [place] 05/23/2020 BIMS 10 moderate cognit melonie impairment CAM 0 No delirium ind icated PHQ-9 10 moderate depres [place] Problems Problem # Description Date of onset Resolved Date Code CodeSystem Concern Status 1 ALLERGIC RHINITIS, UNSPECIFIED 05/16/[address] active 2 COVID-19 05/16/[address] active 3 ERYTHEMATOUS CONDITION, UNSPECIFIED 05/16/[address] active 4 ESSENTIAL (PRIMARY) HYPERTENSION 05/16/[address] active 5 MILD INTELLECTUAL DISABILITIES 05/16/[address] active 6 UNSPECIFIED DEMENTIA, UNSPECIFIED SEVERITY, WITHOUT BEHAVIORAL DISTURBANCE, PSYCHOTIC DISTURBANCE, MOOD DISTURBANCE, AND ANXIETY 05/16/[address] active Reason for Referral No Reasons for Referral Entered Social History Social History Observation Description Start Date End Date Code Code System Current Smoking Status Tobacco smoking consumption unknown 663189701 SNOMED CT Sex Assigned At Female 1935 18576-3 [facility] Gender Identity Vital Signs Code Code System Vitals Name Values and Units Timing Information 24277-6 [facility] Pain Level Value=0.0 05/25/2020 9279-1 [facility] Respiratory Rate Value=18.0 Units=/m in 05/25/2020 8462-4 [facility] Blood Pressure-Diastolic Value=82 Un its=mmHg 05/25/2020 8480-6 [facility] Blood Pressure-Systolic Zxdko=377 Un its=mmHg 05/25/2020 8310-5 [facility] Body Temperature Value=97.5 Units= F 05/25/2020 8867-4 [facility] Heart rate Value=82.0 Units=/min 09/2019 62036-2 [facility] O2 % BldC Oximetry Value=91.0 Units= % 05/25/2020 27209-6 [facility] Weight Ymejj=007.8 Units=Lbs 8302-2 [facility] Height Value=65.0 Units=Inches 05/16/2020
--- NOTE | 2025-01-28 13:22 | ECG_ITS ---
APPROVED REPORT Exam: Resting ECG HR:82 bpm ECG Measurements Heart Rate 82 AXES QRSd 74 QRS 79 QT 367 T 6 QTc 405 Conclusion ATRIAL FIBRILLATION LOW QRS VOLTAGE IN PRECORDIAL LEADS [QRS DEFLECTION < 1.0 mV IN CHEST LEADS] MODERATE ST DEPRESSION [0.05+ mV ST DEPRESSION] ABNORMAL ECG UNCONFIRMED REPORT A-fib with ventricular rate of [address] elevation or depression. Electronically signed by : JOSE GOODMAN, 01/29/2025 07:18:43
--- NOTE | 2025-01-28 13:22 | XR_ITS ---
PROCEDURE INFORMATION: Exam: XR Chest Exam date and time: 01/28/2025 1:39 PM Age: 89 years old Clinical indication: Shortness of breath; Additional info: Short of breath TECHNIQUE: Imaging protocol: Radiologic exam of the chest. Views: 1 view. COMPARISON: CR XR CHEST PORTABLE 04/29/2023 8:44 PM FINDINGS: Limitations: Patient rotation. Lungs: Pulmonary vascular congestion. Patchy airspace disease in the left mid lung field. Pleural spaces: Unremarkable. No pleural effusion. No pneumothorax. Heart/Mediastinum: Mild-moderate enlargement of the cardiac silhouette. Vasculature: Atherosclerosis. Bones/joints: Unremarkable. Soft tissues: Skin fold projects at the right chest. IMPRESSION: 1. Mild-moderate enlargement of the cardiac silhouette. 2. Pulmonary vascular congestion. 3. Patchy airspace disease in the left mid lung field may represent atelectasis and/or pneumonia.
[2025-01-28 13:25] LABS: Coronavirus 19, PCR Not Detected (NotDetected); Influenza A, PCR Not Detected (NotDetected); Influenza B, PCR Not Detected (NotDetected)
[2025-01-28 13:26] LABS: Hematocrit 45.3 % (37.0-47.0); Hemoglobin 14.2 g/dL (12.2-16.2); Immature Granulocytes % 1.6 %; Mean Corpuscular HGB Conc 31.3 g/dL (31.8-35.4); Mean Corpuscular Hemoglobin 26.7 pg (27.0-31.2); Mean Corpuscular Volume 85.3 fl (81-99); Nucleated Red Blood Cells % 0 %; Platelet Count 155 K/mm3 (142-424); Red Blood Count 5.31 M/mm3 (4.20-5.40); Red Cell Distribution Width-SD 58.4 fL; White Blood Count 25.3 K/mm3 (4.8-10.8)
--- NOTE | 2025-01-28 13:27 | [facility].EDGENADL ---
Discharge Plan Disposition Patient Disposition: Admitted Clinical Impressions Clinical Impression: Pleural effusion, Rhabdomyolysis, Sepsis Discharge ED Provider: Christopher Sutton General Adult HPI <Kourtney Little (ED), [employer] - Last Filed: 01/28/25 15:26> General Chief complaint: Weakness Stated complaint: BLE Edema Time Seen by Provider: 01/28/25 13:20 History of Present Illness HPI narrative: 89-year-old female presents via EMS from [facility] for right lower extremity cellulitis and pain. EMS reports that she just finished Keflex. Patient arrives alert and oriented x 1. She is afebrile and has blood pressure initially systolic 90. Patient does have pain in that right leg. She does have bilateral edema but the redness is only in the right lower. Patient has history of hernia, pleural effusion, falls and dementia. Related Data Allergies Allergy/AdvReac Type Severity Reaction Status Date / Time sulfamethoxazole (From Allergy Intermediate Unknown Verified 01/28/25 13:54 Bactrim) allergy reaction trimethoprim (From Bactrim) Allergy Intermediate Unknown Verified 01/28/25 13:54 allergy reaction PFSH <Kourtney Little (ED), [employer] - Last Filed: 01/28/25 15:26> FOR[facility]LY [facility], LATER [facility] Disclaimer: The information contained in this section may have been updated after the patient was seen, as this information can be updated by other users. Medical History Dementia Morbid obesity CHF (congestive heart failure) Social History Smoking Status: Unknown if ever smoked alcohol intake: never current occupational status: retired Travel in the last 8 weeks?: None Have you lived/traveled outside [place] in past 30 days?: No Contact w/someone who lives/traveled outside US past 30 days?: No Exposure to someone with infectious disease in past 14 days?: No Do you have a fever (greater than 100.4 F or 38 C)?: No Have you tested positive for COVID-19?: No Exposed to someone with COVID-19 in past 14 days?: No Do you have a sore throat?: No Do you have a cough?: No Do you have any weakness?: No Do you have any diarrhea?: No Are you experiencing any unusual bleeding?: No Do you have any muscle aches/pain?: No Do you have any abdominal pain?: No Are you experiencing loss of taste or smell?: No <Kourtney Little (ED), [employer] - Last Filed: 01/28/25 15:26> ROS Obtained: Yes Systems reviewed as appropriate & no additional complaints except as documented Constitutional Constitutional: Reports as per HPI Physical Exam <Kourtney Little (ED), [employer] - Last Filed: 01/28/25 15:26> General General appearance: alert Head Head exam: normocephalic Eye Eye exam: Present PERRL and EOMI ENT ENT exam: Present normal oropharynx and mucous membranes moist Neck Neck exam: Present full ROM and trachea midline Respiratory Respiratory exam: Present normal lung sounds bilaterally Cardiovascular Cardiovascular exam: Present regular rate, normal rhythm, normal heart sounds, +S1 and +S2 Abdominal Exam Abdominal exam: Present soft and normal bowel sounds Extremities Exam Extremities exam: Present tenderness, normal capillary refill and edema (Erythema to right lower extremity) Neurological Exam Neurological exam: Present alert (X 1 which is baseline) Skin Skin exam: Present warm, erythema and other (Erythematous on right lower extremity with some drainage) Medical Decision Making <Kourtney Little (ED), [employer] - Last Filed: 01/28/25 15:26> Medical Records Screening: Per USPSTF and CDC recommendations, given the prevalence of disease in our region, it is our hospital?s policy to screen for HIV and viral Hepatitis for all patients aged 18 and over and those with ongoing risk factors. Jared Inquiry Pt receiving controlled substance: No Jared was queried for this patient: No Vital Signs: 01/28/25 13:19 01/28/25 13:23 01/28/25 13:23 Temperature 97.5 F L 97.5 F L Temperature Source Axillary Oral Pulse Rate 117 H 64 Pulse Rate [Left] 64 Respiratory Rate 18 18 Blood Pressure 90/64 L 90/64 L Blood Pressure [Left Arm] 90/64 L Blood Pressure Mean [Left Arm] 72 02 Sat by Pulse Oximetry 95 94 L 94 L Oxygen Delivery Method Nasal Cannula Room Air Room Air Oxygen Flow Rate (LPM) 2 01/28/25 13:30 01/28/25 14:13 01/28/25 14:30 Temperature Temperature Source Pulse Rate 89 79 74 Pulse Rate [Left] Respiratory Rate Blood Pressure 110/74 95/57 L 99/67 L Blood Pressure [Left Arm] Blood Pressure Mean [Left Arm] 02 Sat by Pulse Oximetry 96 96 96 Oxygen Delivery Method Nasal Cannula Nasal Cannula Nasal Cannula Oxygen Flow Rate (LPM) 2 2 2 01/28/25 14:45 01/28/25 15:00 01/28/25 16:50 Temperature 97.8 F Temperature Source Axillary Pulse Rate 82 81 84 Pulse Rate [Left] Respiratory Rate 20 Blood Pressure 94/41 L 90/52 L 90/56 L Blood Pressure [Left Arm] Blood Pressure Mean [Left Arm] 02 Sat by Pulse Oximetry 95 96 Oxygen Delivery Method Nasal Cannula Nasal Cannula Nasal Cannula Oxygen Flow Rate (LPM) 2 2 2 Lab Data Lab Results 01/28/25 13:12: WBC 25.3 H*, RBC 5.31, Hgb 14.2, Hct 45.3, MCV 85.3, MCH 26.7 L, MCHC 31.3 L, RDW 19.6 H, Plt Count 155, MPV 11.4 H, Neut % (Auto) 92.3 H, Lymph % (Auto) 2.4 L, [place] % (Auto) 3.3, Eos % (Auto) 0.0 L, Baso % (Auto) 0.4, Neut # (Auto) 23.4 H, Lymph # (Auto) 0.6 L, [place] # (Auto) 0.8, Eos # (Auto) 0.0, Baso # (Auto) 0.1, Total Counted 100, Neutrophils % (Manual) 93 H, Lymphocytes % (Manual) 4 L, Monocytes % (Manual) 3, Platelet Estimate Normal, RBC Morphology Normal, ESR 13, PT 12.4, INR 1.13 H, APTT 25.7, Lactate 2.5 H, SARS-CoV-2 (PCR) Not detected, Influenza A Untype (PCR) Not detected, Influenza Type B (PCR) Not detected 01/28/25 13:25: Urine Color Yellow, Urine Appearance Slightly cloudy, Urine pH 5.5, Ur Specific [place] >= 1.030, Urine Protein 1+ A, Urine Glucose (UA) Negative, Urine Ketones Trace, Urine Blood Negative, Urine Nitrate Negative, Urine Bilirubin 1+ A, Urine Urobilinogen 0.2, Ur Leukocyte Esterase Negative, Urine RBC None, Urine WBC 3-5, Ur Squamous Epith Cells 3-5, Amorphous Sediment Trace, Urine Bacteria 3+ 01/28/25 13:28: Sodium 134 L, Potassium 4.1, Chloride 100, Carbon Dioxide 29, Anion Gap 9.1, BUN 51 H, Creatinine 2.10 H, Estimated Creat Clear 15, Estimated GFR 22 L, Est GFR ( Amer) 27 L, Glucose 94, Calcium 8.8, Magnesium 2.6 H, Total Bilirubin 1.0, AST 62 H, ALT 37, Alkaline Phosphatase 96, Total Creatine Kinase 503 H*, Troponin I 0.03, C-Reactive Protein 384.9 H, NT-Pro-B Natriuret Pep 5260 H, Total Protein 5.8 L, Albumin 3.0 L, Globulin 2.8, Albumin/Globulin Ratio 1.1 01/29/25 06:33 01/29/25 06:33 Orders (Tests/Meds): ED MEDICATIONS Generic Name Dose Route Start Last Admin Trade Name Freq PRN Reason Stop Dose Admin Acetaminophen 650 mg 01/28/25 14:55 Acetaminophen 325mg Tab PO 02/27/25 14:54 Q4HP PRN Fever or Mild Pain (1-3) Docusate Sodium 100 mg 01/29/25 09:00 Docusate Sodium 100 Mg Capsule PO 02/28/25 08:59 DAILY RAUL Heparin Sodium (Porcine) 5,000 unit 01/28/25 21:00 01/28/25 20:37 Heparin Sodium 5,000 Unit/Ml Vial SUBCUT 02/27/25 20:59 5,000 unit TID RAUL Administration Piperacillin Sod/Tazobactam 100 mls @ 200 mls/hr 01/28/25 15:00 01/29/25 03:20 Sod 4.5 gm/ Sodium Chloride IV 02/07/25 14:59 200 mls/hr Q12H RAUL Administration Norepinephrine/Dextrose 8 mg in 250 mls @ 3.75 mls/hr 01/28/25 15:54 01/29/25 04:06 Levophed 8mg/250ml-D5w Premix IV 02/27/25 15:53 20 mcg/min .Q24H RAUL 37.5 mls/hr Protocol Infusion 2 MCG/MIN Dopamine HCl/Dextrose 250 mls @ 20.114 mls/hr 01/29/25 04:07 Dopamine 400mg/250ml D5w IV 02/28/25 04:06 .[id number] PRN Hypertensive Emergency Protocol 5 MCG/KG/MIN Miscellaneous 1 each 01/28/25 18:00 01/28/25 18:48 Vancomycin Consult Request NOTAPPLIC 02/27/25 17:59 1 each CONSULT PHARMACY RAUL Administration Morphine Sulfate 4 mg 01/28/25 14:56 Morphine 4mg/Ml Syringe IV 02/27/25 14:55 Q4HP PRN Severe Pain (7-10) Nystatin 1 gm 01/28/25 21:00 01/28/25 22:11 Nystatin Topical Powder 30gm TP 02/27/25 20:59 1 gm QID RAUL Administration Discontinued Medications Generic Name Dose Route Start Last Admin Trade Name Freq PRN Reason Stop Dose Admin Bumetanide 2 mg 01/28/25 17:23 01/28/25 18:33 Bumetanide 1mg/4ml Vial IV 01/28/25 17:24 2 mg ONCE ONE Administration Lactated Ringer's 3,220 mls @ 1,610 mls/hr 01/28/25 13:41 01/28/25 14:09 Lactated Ringer's 1000 Ml Bag 30 ml/kg infuse over 2 hr (3220 ml) 01/28/25 15:40 1,610 mls/hr IV Administration .Q2H ONE Protocol Vancomycin/PEG/NADA/Lysine/Water 1.75 gm in 350 mls @ 175 mls/hr 01/28/25 13:45 01/28/25 14:15 Vancomycin 1.75gm/350ml (Peg) Premix IV 01/28/25 15:44 175 mls/hr ONCE ONE Administration Piperacillin Sod/Tazobactam 50 mls @ 100 mls/hr 01/28/25 14:45 01/28/25 16:16 Sod 3.375 gm/ Sodium Chloride IV 02/07/25 14:44 Not Given Q8H [facility] Sodium Chloride 1,000 mls @ 500 mls/hr 01/29/25 02:30 01/29/25 02:42 Sod Chlor 0.9% 1000ml Bag IV 01/29/25 04:29 500 mls/hr .Q2H ONE Administration Sodium Chloride 1,000 mls @ 500 mls/hr 01/29/25 04:06 01/29/25 04:34 Sod Chlor 0.9% 1000ml Bag IV 01/29/25 06:05 500 mls/hr .Q2H ONE Administration Albumin Human 12.5 gm in 50 mls @ 100 mls/hr 01/29/25 04:30 01/29/25 05:04 Albumin 25% (12.5gm) Soln 50ml Bag IV 01/29/25 05:29 100 mls/hr Q30M RAUL Administration Ketorolac Tromethamine 15 mg 01/29/25 04:25 01/29/25 04:35 Ketorolac 30mg/Ml Vial IV 01/29/25 04:26 15 mg ONCE ONE Administration Miscellaneous 1 each 01/28/25 13:30 01/28/25 14:39 Vancomycin Consult Request NOTAPPLIC 02/27/25 13:29 Not Given CONSULT PHARMACY RAUL ORDERS Category Date Time Status CT chest wo con Stat Cat Scan 01/28/25 14:51 Completed Chest XR -- portable [XR chest portable] Stat Exams 01/28/25 13:22 Completed POCUS Point of Care (ER Only) Stat Exams 01/28/25 13:28 Completed Activated Partial Thrombo Time Stat Lab 01/28/25 13:12 Completed BNP [NT Pro Brain Natriuretic Pep.] Stat Lab 01/28/25 13:28 Completed C-Reactive Protein Stat Lab 01/28/25 13:28 Completed Complete Blood Count Auto Diff AMLAB Lab 01/29/25 06:33 Results Complete Blood Count Auto Diff Stat Lab 01/28/25 13:12 Completed Comprehensive Metabolic Panel AMLAB Lab 01/29/25 06:33 Results Comprehensive Metabolic Panel Stat Lab 01/28/25 13:28 Completed Creatine Kinase Stat Lab 01/28/25 13:28 Completed Erythrocyte Sedimentation Rate Stat Lab 01/28/25 13:12 Completed Lactic Acid Stat Lab 01/28/25 13:12 Completed Magnesium AMLAB Lab 01/29/25 06:33 Results Magnesium Stat Lab 01/28/25 13:28 Completed Prothrombin Time INR Stat Lab 01/28/25 13:12 Completed Rapid PCR Covid and Flu A/B Stat Lab 01/28/25 13:12 Completed Trop I [Troponin I] Stat Lab 01/28/25 13:28 Completed Troponin I Q3H Lab 01/28/25 18:10 Completed Troponin I Q3H Lab 01/28/25 22:21 Completed Urinalysis and Microscopic Stat Lab 01/28/25 13:25 Completed Blood Culture Stat Micro 01/28/25 14:10 Received Urine Culture Stat Micro 01/28/25 13:25 Results CA echo doppler complete Routine Y 01/28/25 14:57 Ordered Medical Decision Narrative: patient is a 89-year-old female presenting to the emergency department for evaluation of right lower extremity edema and cellulitis. Patient is hemodynamically stable and nontoxic-appearing upon arrival, afebrile. Differential diagnosis includes cellulitis, sepsis, erythema, among others. Workup will be conducted with hematologic labs, specific imaging. Initial inventions include crystalloid bolus, analgesics. Initial workup reviewed by me hematologic labs are remarkable for elevated white count at 25.3 BUN 51 creatinine 2.10, lactate 2.5, creatinine kinase 503, BNP 5260, troponin 0.03. I put in for sepsis bolus initially and bank for pharmacy to dose. Since then I got the BNP number back and discussed with Dr Sutton so we are only going to give 1 L of the third and 1/2 L bolus that sepsis recommends due to the BNP number. She does not have a history of heart failure but since BNP was elevated we will adjust for this. The cellulitis in the right lower extremity along with the swelling is pretty significant. Her pulses are good. We chose to go ahead and initiate the Vanco order for that reason and since she failed outpatient treatment with the Keflex in the detention. Dr. Sutton also did a bedside ultrasound and to rule out CHF and DVT in the right leg. Imaging informally interpreted by me and remarkable for pleural effusion. Imaging not read at this time. I discussed with the hospitalist and he wants me to CT without contrast before she comes to the floor. Patient will be admitted to stepdown. <Christopher Sutton MD - Last Filed: 01/29/25 07:27> Vital Signs: 01/28/25 13:19 01/28/25 13:23 01/28/25 13:23 Temperature 97.5 F L 97.5 F L Temperature Source Axillary Oral Pulse Rate 117 H 64 Pulse Rate [Left] 64 Respiratory Rate 18 18 Blood Pressure 90/64 L 90/64 L Blood Pressure [Left Arm] 90/64 L Blood Pressure Mean [Left Arm] 72 02 Sat by Pulse Oximetry 95 94 L 94 L Oxygen Delivery Method Nasal Cannula Room Air Room Air Oxygen Flow Rate (LPM) 2 01/28/25 13:30 01/28/25 14:13 01/28/25 14:30 Temperature Temperature Source Pulse Rate 89 79 74 Pulse Rate [Left] Respiratory Rate Blood Pressure 110/74 95/57 L 99/67 L Blood Pressure [Left Arm] Blood Pressure Mean [Left Arm] 02 Sat by Pulse Oximetry 96 96 96 Oxygen Delivery Method Nasal Cannula Nasal Cannula Nasal Cannula Oxygen Flow Rate (LPM) 2 2 2 01/28/25 14:45 01/28/25 15:00 01/28/25 16:50 Temperature 97.8 F Temperature Source Axillary Pulse Rate 82 81 84 Pulse Rate [Left] Respiratory Rate 20 Blood Pressure 94/41 L 90/52 L 90/56 L Blood Pressure [Left Arm] Blood Pressure Mean [Left Arm] 02 Sat by Pulse Oximetry 95 96 Oxygen Delivery Method Nasal Cannula Nasal Cannula Nasal Cannula Oxygen Flow Rate (LPM) 2 2 2 Lab Data Lab Results 01/28/25 13:12: WBC 25.3 H*, RBC 5.31, Hgb 14.2, Hct 45.3, MCV 85.3, MCH 26.7 L, MCHC 31.3 L, RDW 19.6 H, Plt Count 155, MPV 11.4 H, Neut % (Auto) 92.3 H, Lymph % (Auto) 2.4 L, [place] % (Auto) 3.3, Eos % (Auto) 0.0 L, Baso % (Auto) 0.4, Neut # (Auto) 23.4 H, Lymph # (Auto) 0.6 L, [place] # (Auto) 0.8, Eos # (Auto) 0.0, Baso # (Auto) 0.1, Total Counted 100, Neutrophils % (Manual) 93 H, Lymphocytes % (Manual) 4 L, Monocytes % (Manual) 3, Platelet Estimate Normal, RBC Morphology Normal, ESR 13, PT 12.4, INR 1.13 H, APTT 25.7, Lactate 2.5 H, SARS-CoV-2 (PCR) Not detected, Influenza A Untype (PCR) Not detected, Influenza Type B (PCR) Not detected 01/28/25 13:25: Urine Color Yellow, Urine Appearance Slightly cloudy, Urine pH 5.5, Ur Specific [place] >= 1.030, Urine Protein 1+ A, Urine Glucose (UA) Negative, Urine Ketones Trace, Urine Blood Negative, Urine Nitrate Negative, Urine Bilirubin 1+ A, Urine Urobilinogen 0.2, Ur Leukocyte Esterase Negative, Urine RBC None, Urine WBC 3-5, Ur Squamous Epith Cells 3-5, Amorphous Sediment Trace, Urine Bacteria 3+ 01/28/25 13:28: Sodium 134 L, Potassium 4.1, Chloride 100, Carbon Dioxide 29, Anion Gap 9.1, BUN 51 H, Creatinine 2.10 H, Estimated Creat Clear 15, Estimated GFR 22 L, Est GFR ( Amer) 27 L, Glucose 94, Calcium 8.8, Magnesium 2.6 H, Total Bilirubin 1.0, AST 62 H, ALT 37, Alkaline Phosphatase 96, Total Creatine Kinase 503 H*, Troponin I 0.03, C-Reactive Protein 384.9 H, NT-Pro-B Natriuret Pep 5260 H, Total Protein 5.8 L, Albumin 3.0 L, Globulin 2.8, Albumin/Globulin Ratio 1.1 Orders (Tests/Meds): ED MEDICATIONS Generic Name Dose Route Start Last Admin Trade Name Freq PRN Reason Stop Dose Admin Acetaminophen 650 mg 01/28/25 14:55 Acetaminophen 325mg Tab PO 02/27/25 14:54 Q4HP PRN Fever or Mild Pain (1-3) Docusate Sodium 100 mg 01/29/25 09:00 Docusate Sodium 100 Mg Capsule PO 02/28/25 08:59 DAILY RAUL Heparin Sodium (Porcine) 5,000 unit 01/28/25 21:00 01/28/25 20:37 Heparin Sodium 5,000 Unit/Ml Vial SUBCUT 02/27/25 20:59 5,000 unit TID RAUL Administration Piperacillin Sod/Tazobactam 100 mls @ 200 mls/hr 01/28/25 15:00 01/29/25 03:20 Sod 4.5 gm/ Sodium Chloride IV 02/07/25 14:59 200 mls/hr Q12H RAUL Administration Norepinephrine/Dextrose 8 mg in 250 mls @ 3.75 mls/hr 01/28/25 15:54 01/29/25 04:06 Levophed 8mg/250ml-D5w Premix IV 02/27/25 15:53 20 mcg/min .Q24H RAUL 37.5 mls/hr Protocol Infusion 2 MCG/MIN Dopamine HCl/Dextrose 250 mls @ 20.114 mls/hr 01/29/25 04:07 Dopamine 400mg/250ml D5w IV 02/28/25 04:06 .[id number] PRN Hypertensive Emergency Protocol 5 MCG/KG/MIN Miscellaneous 1 each 01/28/25 18:00 01/28/25 18:48 Vancomycin Consult Request NOTAPPLIC 02/27/25 17:59 1 each CONSULT PHARMACY RAUL Administration Morphine Sulfate 4 mg 01/28/25 14:56 Morphine 4mg/Ml Syringe IV 02/27/25 14:55 Q4HP PRN Severe Pain (7-10) Nystatin 1 gm 01/28/25 21:00 01/28/25 22:11 Nystatin Topical Powder 30gm TP 02/27/25 20:59 1 gm QID RAUL Administration Discontinued Medications Generic Name Dose Route Start Last Admin Trade Name Freq PRN Reason Stop Dose Admin Bumetanide 2 mg 01/28/25 17:23 01/28/25 18:33 Bumetanide 1mg/4ml Vial IV 01/28/25 17:24 2 mg ONCE ONE Administration Lactated Ringer's 3,220 mls @ 1,610 mls/hr 01/28/25 13:41 01/28/25 14:09 Lactated Ringer's 1000 Ml Bag 30 ml/kg infuse over 2 hr (3220 ml) 01/28/25 15:40 1,610 mls/hr IV Administration .Q2H ONE Protocol Vancomycin/PEG/NADA/Lysine/Water 1.75 gm in 350 mls @ 175 mls/hr 01/28/25 13:45 01/28/25 14:15 Vancomycin 1.75gm/350ml (Peg) Premix IV 01/28/25 15:44 175 mls/hr ONCE ONE Administration Piperacillin Sod/Tazobactam 50 mls @ 100 mls/hr 01/28/25 14:45 01/28/25 16:16 Sod 3.375 gm/ Sodium Chloride IV 02/07/25 14:44 Not Given Q8H [facility] Sodium Chloride 1,000 mls @ 500 mls/hr 01/29/25 02:30 01/29/25 02:42 Sod Chlor 0.9% 1000ml Bag IV 01/29/25 04:29 500 mls/hr .Q2H ONE Administration Sodium Chloride 1,000 mls @ 500 mls/hr 01/29/25 04:06 01/29/25 04:34 Sod Chlor 0.9% 1000ml Bag IV 01/29/25 06:05 500 mls/hr .Q2H ONE Administration Albumin Human 12.5 gm in 50 mls @ 100 mls/hr 01/29/25 04:30 01/29/25 05:04 Albumin 25% (12.5gm) Soln 50ml Bag IV 01/29/25 05:29 100 mls/hr Q30M RAUL Administration Ketorolac Tromethamine 15 mg 01/29/25 04:25 01/29/25 04:35 Ketorolac 30mg/Ml Vial IV 01/29/25 04:26 15 mg ONCE ONE Administration Miscellaneous 1 each 01/28/25 13:30 01/28/25 14:39 Vancomycin Consult Request NOTAPPLIC 02/27/25 13:29 Not Given CONSULT PHARMACY RAUL ORDERS Category Date Time Status CT chest wo con Stat Cat Scan 01/28/25 14:51 Completed Chest XR -- portable [XR chest portable] Stat Exams 01/28/25 13:22 Completed POCUS Point of Care (ER Only) Stat Exams 01/28/25 13:28 Completed Activated Partial Thrombo Time Stat Lab 01/28/25 13:12 Completed BNP [NT Pro Brain Natriuretic Pep.] Stat Lab 01/28/25 13:28 Completed C-Reactive Protein Stat Lab 01/28/25 13:28 Completed Complete Blood Count Auto Diff AMLAB Lab 01/29/25 06:33 Results Complete Blood Count Auto Diff Stat Lab 01/28/25 13:12 Completed Comprehensive Metabolic Panel AMLAB Lab 01/29/25 06:33 Results Comprehensive Metabolic Panel Stat Lab 01/28/25 13:28 Completed Creatine Kinase Stat Lab 01/28/25 13:28 Completed Erythrocyte Sedimentation Rate Stat Lab 01/28/25 13:12 Completed Lactic Acid Stat Lab 01/28/25 13:12 Completed Magnesium AMLAB Lab 01/29/25 06:33 Results Magnesium Stat Lab 01/28/25 13:28 Completed Prothrombin Time INR Stat Lab 01/28/25 13:12 Completed Rapid PCR Covid and Flu A/B Stat Lab 01/28/25 13:12 Completed Trop I [Troponin I] Stat Lab 01/28/25 13:28 Completed Troponin I Q3H Lab 01/28/25 18:10 Completed Troponin I Q3H Lab 01/28/25 22:21 Completed Urinalysis and Microscopic Stat Lab 01/28/25 13:25 Completed Blood Culture Stat Micro 01/28/25 14:10 Received Urine Culture Stat Micro 01/28/25 13:25 Results CA echo doppler complete Routine Y 01/28/25 14:57 Ordered Medical Decision Narrative: patient is a 89-year-old female presenting to the emergency department for evaluation of right lower extremity edema and cellulitis. Patient is hemodynamically stable and nontoxic-appearing upon arrival, afebrile. Differential diagnosis includes cellulitis, sepsis, erythema, among others. Workup will be conducted with hematologic labs, specific imaging. Initial inventions include crystalloid bolus, analgesics. Initial workup reviewed by me hematologic labs are remarkable for elevated white count at 25.3 BUN 51 creatinine 2.10, lactate 2.5, creatinine kinase 503, BNP 5260, troponin 0.03. I put in for sepsis bolus initially and bank for pharmacy to dose. Since then I got the BNP number back and discussed with Dr Sutton so we are only going to give 1 L of the third and 1/2 L bolus that sepsis recommends due to the BNP number. She does not have a history of heart failure but since BNP was elevated we will adjust for this. The cellulitis in the right lower extremity along with the swelling is pretty significant. Her pulses are good. We chose to go ahead and initiate the Vanco order for that reason and since she failed outpatient treatment with the Keflex in the detention. Dr. Sutton also did a bedside ultrasound and to rule out CHF and necrotizing infection in the right leg. Imaging informally interpreted by me and remarkable for pleural effusion. Imaging not read at this time. I discussed with the hospitalist and he wants me to CT without contrast before she comes to the floor. Patient will be admitted to stepdown. I was consulted by the LUZ MARIA, and we discussed the complexity of the problems being addressed. I approve the treatment and management plan for this patient's care in the emergency department, thus performing a substantive portion of the medical decision making. Bedside ultrasound showed normal estimated left ventricular ejection fraction without pericardial effusion. No evidence of right heart strain. She has lung sliding bilaterally without B-lines. Several lung windows were difficult to obtain secondary to body habitus, so thoracic lung ultrasound was limited. I did review patient's chest x-ray that looks like she could have a left-sided pleural effusion versus airspace opacity concerning for pneumonia. We did have patient on vancomycin initially for sepsis secondary to her cellulitis and broaden this out to Zosyn. Patient's right lower extremity ultrasound demonstrated cobblestoning consistent with cellulitis without abscess or air. This does not appear to be a necrotizing infection. Christopher Sutton MD Procedures <Christopher Sutton MD - Last Filed: 01/29/25 07:27> Limited Ultrasound Interpretation:: Limited cardiac ultrasound Indication: Swelling Identified cardiac views: -Cardiac parasternal long axis -Cardiac parasternal short axis -Cardiac apical four-chamber -Cardiac subxiphoid Findings: -Cardiac activity present -Wall motion grossly normal -Pericardial effusion absent -Right heart strain absent Impression: - From above Images were saved to permanent archive The study was technically adequate CPT: 55547 This study was performed by ca, and I personally interpreted all images/videos. Based on my clinical judgement, these images were adequate and did not necessitate further imaging. Limited lung ultrasound A focused ultrasound exam of the pleural spaces was performed to evaluate for pneumothorax, pulmonary edema, pleural effusion and/or consolidation. The ultrasound was performed with the following indications, as noted in the H&P: Hypotension Identified structures: RIGHT and LEFT thoracic cavities were examined. Findings: Lung sliding: - Left present - Right present B-lines: - Left absent - Right absent Pleural effusion: - Left poor visualization of lung gonzalez due to body habitus - Right poor visualization of lung gonzalez due to body habitus Consolidation: - Left poor visualization of lung gonzalez due to body habitus - Right poor visualization of lung gonzalez due to body habitus Impression: - Pneumothorax absent - Pleural effusion absent - B-lines absent - Consolidation absent Images were saved to permanent archive The study was technically adequate CPT 70442-45 This study was performed by ca, and I personally interpreted all images/videos. Based on my clinical judgement, these images were not adequate and did necessitate further imaging. Limited MSK/soft tissue ultrasound Indication: Soft tissue swelling and redness of the right lower extremity Identified structures: Location: Distal right lower extremity Findings: Cobblestoning consistent with cellulitis. No abscess, no subcutaneous air Impression: -Cellulitis of soft tissue Images were saved to permanent archive The study was technically adequate Soft Tissue CPT Codes: CPT Lower Extremity: 77690-86 This study was performed by me, and I personally interpreted all images/videos. Based on my clinical judgement, these images were adequate and did not necessitate further imaging. Critical Care <Kourtney Little (ED), DIRECTOR FOOD AND BEVERAGE - Last Filed: 01/28/25 15:26> Critical Care Time Critical Care Time: No
[2025-01-28 13:29] LABS: Microscopic, Urine URINE MICROSCOPIC (MICROSCOPIC)
[2025-01-28 13:34] LABS: Activated Partial Thrombo Time 25.7 seconds (22.8-30.6); INR 1.13 (0.9-1.1); Prothrombin Time 12.4 seconds (10.1-12.5)
[2025-01-28 13:47] LABS: Color,Urine YELLOW (Yellow); Glucose,Urine (UA) Negative (Negative); Ketones,Urine TRACE (Negative); Leukocyte Esterase,Urine Negative (Negative); PH,Urine 5.5 (5.0-8.5); Protein,Urine 1+ (Negative); Specific Gravity, Urine >= 1.030 (1.005-1.030); Urobilinogen,Urine 0.2 EU/dl (0.2)
[2025-01-28 13:49] LABS: Albumin Level 3.0 g/dl (3.5-5.0); Chloride 100 mmol/L (98-107); Magnesium 2.6 mg/dl (1.6-2.3); Potassium 4.1 mmoL/L (3.5-5.1); Sodium 134 mmol/L (136-145)
[2025-01-28 13:51] LABS: Bilirubin,Urine 1+ (Negative)
[2025-01-28 13:52] LABS: Alanine Aminotransferase 37 U/L (12-78); Albumin/Globulin Ratio 1.1 (1.1-1.8); Alkaline Phosphatase 96 U/L (38-126); Anion Gap 9.1 mEq/L (5-15); Aspartate Amino Transferase 62 U/L (14-36); Bilirubin,Total 1.0 mg/dl (0.2-1.3); Blood Urea Nitrogen 51 mg/dl (7-17); Calcium 8.8 mg/dl (8.4-10.2); Carbon Dioxide 29 mmol/L (22.0-30.0); Creatine Kinase 503 U/L (30-135); Creatinine Clearance Estimated 15 mL/min (50-200); Creatinine,Serum 2.10 mg/dl (0.52-1.04); Estimated Glomerular Filt Rate 22 ml/min (>60); GFR (African American) 27 ML/MIN (>60); Globulin 2.8 g/dL (1.3-3.2); Glucose 94 mg/dl (74-100); Total Protein,Serum 5.8 g/dl (6.3-8.2)
[2025-01-28 13:56] LABS: RBC Morphology Normal; Total Cells Counted 100
[2025-01-28 13:59] LABS: NT Pro Brain Natriuretic Pep. 5260 pg/mL (0-450)
[2025-01-28 14:02] LABS: Troponin I 0.03 ng/ml (0.00-0.034)
[2025-01-28 14:09] LABS: Amorphous Sediment,Urine Trace /lpf; Bacteria,Urine 3+ /lpf
[2025-01-28] MEDS: LACTATED RINGERS 1610 ML IV (14:09)
[2025-01-28] MEDS: VANCOMYCIN/WATER FOR INJ (PEG) 1.75 GM/350 ML PIGGYBACK IV (14:15)
--- NOTE | 2025-01-28 14:51 | CT_ITS ---
PROCEDURE INFORMATION: Exam: CT Chest Without Contrast; Diagnostic Exam date and time: 01/28/2025 3:12 PM Age: 89 years old Clinical indication: Other: Pleural effusion TECHNIQUE: Imaging protocol: Diagnostic computed tomography of the chest without contrast. Radiation optimization: All CT scans at this facility use at least one of these dose optimization techniques: automated exposure control; mA and/or kV adjustment per patient size (includes targeted exams where dose is matched to clinical indication); or iterative reconstruction. COMPARISON: CR XR CHEST PORTABLE 01/28/2025 1:39 PM FINDINGS: Lungs: Eventration of the left hemidiaphragm, with decreased left low lung volumes. Platelike opacity in the left lower lobe may represent subsegmental atelectasis versus consolidation. Few small scattered nodules in the right lung measuring 2-4 mm. Mild subsegmental atelectasis in the right lung base. Pleural spaces: Trace left pleural effusion. No distinct right-sided effusion. Heart: Heart size upper limits of normal. No pericardial fluid. Lipomatous hypertrophy of the intra-atrial septum noted. Lymph nodes: Unremarkable. No enlarged lymph nodes. Vasculature: Unremarkable. No aortic aneurysm. 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 Right adrenal gland nodule attenuating at 20 Hounsfield units measuring 1.4 cm is nonspecific. May represent adenoma. If there is malignancy history, may represent metastatic disease. Recommend correlation. Consider dedicated adrenal protocol CT for complete evaluation. Kidneys: Partially seen right renal mass attenuating at 20 Hounsfield units with internal, thin and partially calcified septation, suggestive of a complex cyst. Unless recently performed, consider ultrasound or renal protocol CT for complete evaluation. Moderate bilateral renal atrophy. Bones/joints: Unremarkable. No acute fracture. Soft tissues: Parts of the left breast are not captured on this study. Mild fat stranding in the inferior aspect of the left breast is nonspecific. Cellulitis is not excluded. May also represent imaging artifact. According to clinical discretion, consider repeat CT or mammogram non emergently. Mild subcutaneous stranding in the right lower back (image 81 series 9). Nonspecific. IMPRESSION: 1. Eventration of the left hemidiaphragm, with decreased left low lung volumes. Platelike opacity in the left lower lobe may represent subsegmental atelectasis versus consolidation. 2. Trace left pleural effusion. No distinct right-sided effusion. 3. Few small (2-4 mm) scattered nodules in the right lung. For patients at low risk (minimal or absent history of smoking and of other known risk factors), no routine follow-up is indicated. For patients at high risk (history of smoking or of other known risk factors), consider optional CT Chest at 12 months. (Reference: Jesika) 4. Heart size upper limits of normal. 5. 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 Right adrenal gland nodule attenuating at 20 Hounsfield units measuring 1.4 cm is nonspecific. May represent adenoma. If there is malignancy history, may represent metastatic disease. Recommend correlation. Consider dedicated adrenal protocol CT for complete evaluation. 6. Partially seen right renal mass attenuating at 20 Hounsfield units with internal, thin and partially calcified septation, suggestive of a complex cyst. Unless recently performed, consider ultrasound or renal protocol CT for complete evaluation. Moderate bilateral renal atrophy. 7. Parts of the left breast are not captured on this study. Mild fat stranding in the inferior aspect of the left breast is nonspecific. Cellulitis is not excluded. May also represent imaging artifact. According to clinical discretion, consider repeat CT or mammogram non emergently. 8. Mild subcutaneous stranding in the right lower back. Nonspecific. Correlate for cellulitis. COMMENTS: Consistent with the [employer]'s Incidental Findings Committee white paper (J Am Yang Radiol 2018): Any incidental renal lesion less than 1 cm or classified as too small to characterize, or any incidental cystic renal lesion characterized as simple-appearing, is likely benign. No follow-up imaging is recommended for these lesions per consensus recommendations based on imaging criteria. REFERENCES: Jesika Burgess et al. Guidelines for Management of Incidental Pulmonary Nodules Detected on CT Images: From the Fleischner Society 2017. Radiology. 2017;284(1):228-243.
[2025-01-28 14:53] LABS: C-Reactive Protein 384.9 mg/L (0-4)
--- NOTE | 2025-01-28 14:57 | P.HP_ITS ---
History of Present Illness *Admission Date: 01/28/25 *Reason for visit:: Cellulitis *History of present illness: Ms. Almazan is an 89-year-old female presenting to the ER via EMS from [facility]. We have very little knowledge of her history but it appears she was sent for evaluation of right lower extremity cellulitis, pain. Recently finished course of Keflex but symptoms not gotten any better. Has dementia at baseline. Afebrile but blood pressures are soft with systolics in the 90s. Complains of pain in right leg when she is moved. Severe right lower extremity edema and erythema up to proximal thigh. Patient unable to provide any history or review of systems. Workup in the ER initiated. Labs found to be grossly abnormal with white count of 25. Patient was tachycardic and hypotensive on arrival. BUN 51 creatinine 2.1. Lactate 2.5. BNP elevated at 5200. Initiated on broad-spectrum antibiotics. Significant redness and swelling of right lower extremity. Medicine consulted for admission of septic shock. On my evaluation, patient is oriented to self only. States her legs hurt but does not complain of pain elsewhere. Has pain with any movement. On norepinephrine with MAP of 67 at time of evaluation appears frankly volume overloaded PFSH PFS Disclaimer: The information contained in this section may have been updated after the patient was seen, as this information can be updated by other users. Medical History Dementia Morbid obesity CHF (congestive heart failure) Social History Smoking Status: Unknown if ever smoked alcohol intake: never current occupational status: retired Travel in the last 8 weeks?: None Have you lived/traveled outside US in past 30 days?: No Contact w/someone who lives/traveled outside US past 30 days?: No Exposure to someone with infectious disease in past 14 days?: No Do you have a fever (greater than 100.4 F or 38 C)?: No Have you tested positive for COVID-19?: No Exposed to someone with COVID-19 in past 14 days?: No Do you have a sore throat?: No Do you have a cough?: No Do you have any weakness?: No Do you have any diarrhea?: No Are you experiencing any unusual bleeding?: No Do you have any muscle aches/pain?: No Do you have any abdominal pain?: No Are you experiencing loss of taste or smell?: No Review of Systems Review of Systems Review of systems:: unable to obtain Meds Home Medications and Allergies New Prescriptions to Start Prescriptions: Allergies Allergy/AdvReac Type Severity Reaction Status Date / Time sulfamethoxazole (From Allergy Intermediate Unknown Verified 01/28/25 13:54 Bactrim) allergy reaction trimethoprim (From Bactrim) Allergy Intermediate Unknown Verified 01/28/25 13:54 allergy reaction Exam Data for Last 24 hours Vital signs and Labs for Last 24 Hours: Temp Pulse Resp BP Pulse Ox O2 Del Method O2 Flow Rate 97.5 F L 79 18 95/57 L 96 Nasal Cannula 2 01/28/25 13:23 01/28/25 14:13 01/28/25 13:23 01/28/25 14:13 01/28/25 14:13 01/28/25 14:13 01/28/25 14:13 Laboratory Results - last 24 hr 01/28/25 13:12: WBC 25.3 H*, RBC 5.31, Hgb 14.2, Hct 45.3, MCV 85.3, MCH 26.7 L, MCHC 31.3 L, RDW 19.6 H, Plt Count 155, MPV 11.4 H, Neut % (Auto) 92.3 H, Lymph % (Auto) 2.4 L, Nicholas % (Auto) 3.3, Eos % (Auto) 0.0 L, Baso % (Auto) 0.4, Neut # (Auto) 23.4 H, Lymph # (Auto) 0.6 L, Nicholas # (Auto) 0.8, Eos # (Auto) 0.0, Baso # (Auto) 0.1, Total Counted 100, Neutrophils % (Manual) 93 H, Lymphocytes % (Manual) 4 L, Monocytes % (Manual) 3, Platelet Estimate Normal, RBC Morphology Normal, ESR 13, PT 12.4, INR 1.13 H, APTT 25.7, Lactate 2.5 H, SARS-CoV-2 (PCR) Not detected, Influenza A Untype (PCR) Not detected, Influenza Type B (PCR) Not detected 01/28/25 13:25: Urine Color Yellow, Urine Appearance Slightly cloudy, Urine pH 5.5, Ur Specific [place] >= 1.030, Urine Protein 1+ A, Urine Glucose (UA) Negative, Urine Ketones Trace, Urine Blood Negative, Urine Nitrate Negative, Urine Bilirubin 1+ A, Urine Urobilinogen 0.2, Ur Leukocyte Esterase Negative, Urine RBC None, Urine WBC 3-5, Ur Squamous Epith Cells 3-5, Amorphous Sediment Trace, Urine Bacteria 3+ 01/28/25 13:28: Sodium 134 L, Potassium 4.1, Chloride 100, Carbon Dioxide 29, Anion Gap 9.1, BUN 51 H, Creatinine 2.10 H, Estimated Creat Clear 15, Estimated GFR 22 L, Est GFR ( Amer) 27 L, Glucose 94, Calcium 8.8, Magnesium 2.6 H, Total Bilirubin 1.0, AST 62 H, ALT 37, Alkaline Phosphatase 96, Total Creatine Kinase 503 H*, Troponin I 0.03, C-Reactive Protein 384.9 H, NT-Pro-B Natriuret Pep 5260 H, Total Protein 5.8 L, Albumin 3.0 L, Globulin 2.8, Albumin/Globulin Ratio 1.1 I & O for Last 24 hours: Intake & Output 01/25/25 01/26/25 01/27/25 01/28/25 23:59 23:59 23:59 23:59 Weight 107.275 kg Constitutional Constitutional: moderate distress, morbidly obese, chronically ill appearing, disheveled and somnolent *Routine HEENT Exam Head: Present normocephalic Eye: Present EOMI and PERRL ENT: Present mucous membranes moist *Routine Neck Exam Neck: Present supple; Absent lymphadenopathy *Routine Respiratory Exam Respiratory: Present prolonged expiratory phase and diminished air movement; Absent rhonchi, wheezes or crackles *Routine Cardiovascular Exam Cardiovascular: Present RRR *Routine Abdominal Exam Abdominal: Present soft, normoactive bowel sounds, distended and obese; Absent tenderness Comments: Edema of lower abdominal wall/pannus *Routine Rectal Exam Rectal:: deferred *Routine Genitalia Exam Genitalia:: normal female Comment:: Rob[place] in place *Routine Extremities Exam Extremities: Present edema (2+ right lower extremity; 1+ in left lower extremity. 1+ abdominal wall); Absent cyanosis or clubbing *Routine Skin Exam Skin: Present erythema (Erythema up entire right leg, weeping from anterior right laurent. Intertrigo under breasts bilaterally. Scabbed lesions, approximately 20 on the right posterior shoulder) and warm; Absent rash *Routine Neurological Exam Neurological: Present alert; Absent moving all extremities Comments: Right leg stiff and internally rotated. Tells me her name but does not know any other information. Unsure if this is her baseline Assessment and Plan *Assessment and plan (1) Septic shock: Status: Acute Category: Medical Code(s): A41.9 - Sepsis, unspecified organism; R65.21 - Severe sepsis with septic shock (2) Cellulitis: Status: Acute Category: Medical Code(s): L03.90 - Cellulitis, unspecified (3) Dementia: Status: Chronic Category: Medical Code(s): F03.90 - Unspecified dementia, unspecified severity, without behavioral disturbance, psychotic disturbance, mood disturbance, and anxiety (4) Morbid obesity: Status: Chronic Category: Medical Code(s): E66.01 - Morbid (severe) obesity due to excess calories (5) CHF (congestive heart failure): Status: Acute Category: Medical Code(s): I50.9 - Heart failure, unspecified Plan 89-year-old female from [facility] presents for failure of oral antibiotics for right lower extremity cellulitis. On presentation has findings consistent with septic shock. Discussed case with ER provider, request admission for further management for septic shock and infection. I decided to admit to the ICU for further care. Continuing broad-spectrum IV antibiotics. Received partial sepsis bolus but in light of her worsening blood pressure and concern for CHF, will pause bolus at this time. Appears frankly volume overloaded. Will attempt diuresis with assistance of vasopressors. Problems addressed as follows: Septic shock Cellulitis Leukocytosis -Presents with tachycardia 117, white count of 25, hypotension necessitating initiation of norepinephrine and cellulitis up to her right thigh into her right leg. -Norepinephrine initiated with goal MAP greater than 65 or systolic blood pressure greater than 90. - Initiated on vancomycin renally dosed, monitor for toxicity - Continue Zosyn 4.5 g twice daily renally dosed - Blood cultures and urine cultures pending - CT of chest also shows questionable left lower lobe pneumonia. Currently on 2 L oxygen, goal sats greater 90%. Wean as tolerated - Repeat CBC, CMP, magnesium ordered for the morning - CRP severely elevated at 384 CHF: Enlarged heart on CT of chest and chest x-ray. Presentation consistent with CHF, BNP 5000. Given her edema, strong concern for CHF exacerbation. Will obtain echo on Thursday morning pending patient's course in the meantime. Holding home blood pressure medications given her hypotension - Given emilia volume overload we will attempt diuresis with support to blood pressure with norepinephrine as above. TAD: Unclear baseline however BUN/creatinine ratio is greater than 20-1. BUN 51, creatinine 2.1. Consistent with TAD. Potassium 4.1, magnesium 2.6. Bicarb elevated at 29, suspect patient has a component of CKD. Will monitor kidney f unction daily for improvement and try to obtain records from her care home to establish baseline creatinine. Renally dosing medications Dementia per history, unclear baseline mentation. Oriented to self only at this time. Morbid obesity complicates all aspects of her care Heparin 5000 units 3 times daily subcu Cardiac diet DNR/DNI. Patient has DNR signed by her POA for her nursing facility. Reasonable attempts made to contact POA. We will honor this document at this time. On file in patient's chart
[2025-01-28] MEDS: NOREPINEPHRINE BITARTRATE/D5W 8 MG/250 ML PLAST..BAG 3.75 MG IV (16:10)
[2025-01-28] MEDS: PIPERACILLIN/TAZO 4.5 GM in 0.9 % SODIUM CHLORIDE 100 ML IV (16:36)
--- NOTE | 2025-01-28 16:41 | PC.NURSE ---
Report given to FELIX Collins
[2025-01-28 17:23] LABS: Reflex Lactic Add Lactic Reflex
--- NOTE | 2025-01-28 18:30 | PC.WOUNDNOTE ---
Scabs scattered across patients back.
--- NOTE | 2025-01-28 18:32 | PC.WOUNDNOTE ---
Excoriation and opening in skin on coccyx.
[2025-01-28] MEDS: BUMETANIDE 1MG/4ML VIAL 2 MG IV (18:33)
--- NOTE | 2025-01-28 18:34 | PC.WOUNDNOTE ---
Patients R thigh. Scattered blanching and rash. Patients BLE have scattered scabs and are reddened. Pictures below of R Lower Extremity. R lower extremity warm to touch.
--- NOTE | 2025-01-28 18:40 | PC.NURSE ---
since arrival increased levophed drip to 8mcg/min per md request to keep bp up while giving bumex. attempted to call poa with no answer to either phone number. updated contacts in system per long term paperwork. cre swab obtained. burks placed per md order. bumex given. photos of wounds taken. patient alert to name. only complaints of pain during touching of leg. noted oozing to right leg. marking placed around outer edge of redness to r thigh.
--- NOTE | 2025-01-28 18:43 | PC.NURSE ---
Excoriation between patients breasts
[2025-01-28] MEDS: VANCOMYCIN CONSULT REQUEST 1 EACH NOTAPPLIC (18:48)
[2025-01-28 18:49] LABS: Lactic Acid Follow Up (RFLX 1) 3.7 mmol/L (0.7-2.1)
[2025-01-28 19:01] LABS: Troponin I 0.03 ng/ml (0.00-0.034)
[2025-01-28 19:41] LABS: Microscopic, Urine URINE MICROSCOPIC (MICROSCOPIC)
[2025-01-28 19:49] LABS: Color,Urine YELLOW (Yellow); Glucose,Urine (UA) Negative (Negative); Ketones,Urine TRACE (Negative); Leukocyte Esterase,Urine Negative (Negative); PH,Urine 5.5 (5.0-8.5); Protein,Urine 1+ (Negative); Specific Gravity, Urine >= 1.030 (1.005-1.030); Urobilinogen,Urine 0.2 EU/dl (0.2)
--- OUTSIDE RECORDS SUMMARY | 2025-01-28 19:53 | XMS_ITS ---
Author Organization [facility] Care Team Providers Care Presales Senior Specialist Name Role Phone Eduardo Michael Unavailable Unavailable Allergies and adverse reactions No Known Allergies Care Team Name Role Address Phone Organization Dates Michael Clark PCP Niraj [place], [place], [facility], [place] States (Office): : [facility] 05/16/2020 - 05/25/2020 Goals Section Goals Description [...] Concern Status 1 ALLERGIC RHINITIS, UNSPECIFIED 05/16/[address] active 2 COVID-19 05/16/[address] active 3 ERYTHEMATOUS CONDITION, UNSPECIFIED 05/16/[address] active 4 ESSENTIAL (PRIMARY) HYPERTENSION 05/16/[address] active 5 MILD INTELLECTUAL DISABILITIES 05/16/[address] active 6 UNSPECIFIED DEMENTIA, UNSPECIFIED SEVERITY, WITHOUT BEHAVIORAL DISTURBANCE, PSYCHOTIC DISTURBANCE, MOOD DISTURBANCE, AND ANXIETY 05/16/[address] active Reason for Referral No Reasons for Referral Entered Social History Social History Observation Description Start Date End Date Code Code System Current Smoking Status Tobacco smoking consumption unknown 358598759 SNOMED CT Sex Assigned At Female 1935 28870-5 [facility] Gender Identity Vital Signs Code Code System Vitals Name Values and Units Timing Information 87949-0 [facility] Pain Level Value=0.0 05/25/2020 9279-1 [facility] Respiratory Rate Value=18.0 Units=/m in 05/25/2020 8462-4 [facility] Blood Pressure-Diastolic Value=82 Un its=mmHg 05/25/2020 8480-6 [facility] Blood Pressure-Systolic Wvzgh=727 Un its=mmHg 05/25/2020 8310-5 [facility] Body Temperature Value=97.5 Units= F 05/25/2020 8867-4 [facility] Heart rate Value=82.0 Units=/min 09/2019 51616-8 [facility] O2 % BldC Oximetry Value=91.0 Units= % 05/25/2020 57755-9 [facility] Weight Cryws=943.8 Units=Lbs 8302-2 [facility] Height Value=65.0 Units=Inches 05/16/2020
--- OUTSIDE RECORDS SUMMARY | 2025-01-28 19:54 | XMS_ITS | Clinical Summary ---
Author Organization [facility] Address [address] [place] [address] Phone Care Team Providers Care Graduate Rn Name Role Phone Unavailable Primary Care Provider [...]
[2025-01-28 19:56] LABS: Bilirubin,Urine 1+ (Negative)
[2025-01-28 20:14] LABS: Bacteria,Urine 3+ /lpf
[2025-01-28 20:25] LABS: Reflex Lactic (2 hrs) Add Lactic Reflex
[2025-01-28] MEDS: HEPARIN SODIUM 5,000 UNIT/ML VIAL 5000 UNIT SUBCUT (20:37)
[2025-01-28] MEDS: NYSTATIN TOPICAL POWDER 30GM TP (22:11)
[2025-01-28 22:57] LABS: Troponin I 0.03 ng/ml (0.00-0.034)
[2025-01-28 23:10] LABS: Lactic Acid Follow up (RFLX 2) 2.3 mmol/L (0.7-2.1)
[2025-01-29] VITALS (95 sets, daily range): BP systolic 75–127; BP diastolic 36–71; PULSE 50–133; RESP 13–30; TEMP 36.6–37.7; O2SAT 90–98; BMI 43.9
[2025-01-29] MEDS: 0.9 % SODIUM CHLORIDE 1000ML 1,000 ML 500 ML IV ×2 (02:42→04:34)
[2025-01-29] MEDS: PIPERACILLIN/TAZO 4.5 GM in 0.9 % SODIUM CHLORIDE 100 ML IV ×2 (03:20→15:03)
[2025-01-29] MEDS: NOREPINEPHRINE BITARTRATE/D5W 8 MG/250 ML PLAST..BAG 30 MG IV (03:26)
--- NOTE | 2025-01-29 04:14 | EXP.EVENT.NO ---
Problem: 04:15 Nursing staff informed me they have continue to come up on the Levophed I will wait 20. Heart rate remains in the 70s blood pressure systolic 75.. 500 cc of normal saline was given earlier with no results Exam: Patient is comfortable she is asleep she is not responding to us at this point in time but we are not stimulating her. Respiratory his normal O2 sats from 92-95., Heart rate 75 appears to be A-fib unable on the monitor to see P waves.. Irregular rhythm Skin left leg definitely swollen still red cellulites present., Patient does not have a temperature Plan: At this time we will repeat the normal saline bolus of 500 so she has received a total of 1000 cc of fluid, the Levophed is now at 20., I have ordered dopamine to be started if the nursing staff sees that the systolic blood pressure is maintaining less than 90. The map I am not that worried about I do not think I would not reach the 65 at this time.. Trying to keep perfusion going without causing any secondary problems. Plan is to sleeve the Levophed at 20 since it does not appear to be very effective go for the squeeze add the dopamine started 5 and will increase slowly up to 20 mics as a maximum. We also are going to give 25 cc of albumin to see if this will help also. 04:25 temperature now 100 , going to give the patient 15 mg of Toradol IV.. Good to see if maybe break and the fever will help us also Toradol is known at least for a short period of time to cause vasoconstriction. Nursing staff is waiting to give the albumin. Then if systolic blood pressure greater than 80 or 85 will start dopamine. Blood pressure basically running 80 at this time but has been running mostly 75 systolic
[2025-01-29] MEDS: ALBUMIN HUMAN 12.5 GM/50 ML BAG IV ×2 (04:33→05:04)
[2025-01-29] MEDS: KETOROLAC 30MG/ML VIAL 15 MG IV (04:35)
--- NOTE | 2025-01-29 05:03 | PC.NURSE ---
Pt remains hypotensive with BPs 80s/40s and 70s/30s. Edmundo was notified and new orders were placed. See MAR
[2025-01-29 07:10] LABS: Hematocrit 42.7 % (37.0-47.0); Hemoglobin 13.4 g/dL (12.2-16.2); Immature Granulocytes % 1.3 %; Mean Corpuscular HGB Conc 31.4 g/dL (31.8-35.4); Mean Corpuscular Hemoglobin 26.9 pg (27.0-31.2); Mean Corpuscular Volume 85.6 fl (81-99); Nucleated Red Blood Cells % 0 %; Platelet Count 159 K/mm3 (142-424); Red Blood Count 4.99 M/mm3 (4.20-5.40); Red Cell Distribution Width-SD 58.4 fL; White Blood Count 26.0 K/mm3 (4.8-10.8)
[2025-01-29 07:21] LABS: Albumin Level 3.0 g/dl (3.5-5.0); Chloride 103 mmol/L (98-107); Sodium 134 mmol/L (136-145)
[2025-01-29 07:22] LABS: Potassium 4.0 mmoL/L (3.5-5.1)
[2025-01-29 07:24] LABS: Alanine Aminotransferase 27 U/L (12-78); Albumin/Globulin Ratio 1.3 (1.1-1.8); Alkaline Phosphatase 113 U/L (38-126); Anion Gap 15.0 mEq/L (5-15); Aspartate Amino Transferase 50 U/L (14-36); Bilirubin,Total 1.2 mg/dl (0.2-1.3); Blood Urea Nitrogen 50 mg/dl (7-17); Carbon Dioxide 20 mmol/L (22.0-30.0); Creatinine Clearance Estimated 16 mL/min (50-200); Creatinine,Serum 1.90 mg/dl (0.52-1.04); Estimated Glomerular Filt Rate 25 ml/min (>60); GFR (African American) 30 ML/MIN (>60); Globulin 2.4 g/dL (1.3-3.2); Total Protein,Serum 5.4 g/dl (6.3-8.2)
[2025-01-29 07:25] LABS: Calcium 8.4 mg/dl (8.4-10.2); Glucose 104 mg/dl (74-100); Magnesium 2.5 mg/dl (1.6-2.3)
[2025-01-29] MEDS: DOPAMINE HCL/D5W 250 ML 20.11 MG IV ×2 (08:40→21:05)
--- NOTE | 2025-01-29 08:49 | EXP.PHA.CONS ---
Pharmacy Consult Date: 01/29/25 Time: 08:49 Referring provider: DR. CARREON Reason for Consult:: VANCOMYCIN DOSING Allergies Allergy/AdvReac Type Severity Reaction Status Date / Time sulfamethoxazole (From Allergy Intermediate Unknown Verified 01/28/25 13:54 Bactrim) allergy reaction trimethoprim (From Bactrim) Allergy Intermediate Unknown Verified 01/28/25 13:54 allergy reaction Home Medications ?Medication ?Instructions ?Recorded ?Confirmed ?Type acetaminophen 500 mg tablet 500 mg PO Q4HP PRN Pain 01/29/25 01/29/25 History hydrochlorothiazide 25 mg tablet 25 mg PO DAILY 01/29/25 01/29/25 History loperamide 2 mg tablet 2 mg PO Q6HP PRN Diarrhea 01/29/25 01/29/25 History loratadine 10 mg tablet 10 mg PO DAILY 01/29/25 01/29/25 History losartan 100 mg tablet 100 mg PO DAILY 01/29/25 01/29/25 History metoprolol tartrate 25 mg tablet 25 mg PO BID 01/29/25 01/29/25 History nitroglycerin 0.3 mg sublingual 0.3 mg sublingual Q5M PRN Chest 01/29/25 01/29/25 History tablet Pain ondansetron 4 mg disintegrating 4 mg PO Q6H PRN Nausea And Vomiting 01/29/25 01/29/25 History tablet protein hydrolysate,milk 1 gram-4 1 ea PO DAILY 01/29/25 01/29/25 History kcal/6 mL oral liquid (Liquid Protein Fortifier) New Prescriptions to Start Prescriptions: Height: 1.57 m Weight: 108.3 kg Laboratory Results:: Laboratory Results - last 24 hr 01/28/25 13:12: WBC 25.3 H*, RBC 5.31, Hgb 14.2, Hct 45.3, MCV 85.3, MCH 26.7 L, MCHC 31.3 L, RDW 19.6 H, Plt Count 155, MPV 11.4 H, Neut % (Auto) 92.3 H, Lymph % (Auto) 2.4 L, [place] % (Auto) 3.3, Eos % (Auto) 0.0 L, Baso % (Auto) 0.4, Neut # (Auto) 23.4 H, Lymph # (Auto) 0.6 L, [place] # (Auto) 0.8, Eos # (Auto) 0.0, Baso # (Auto) 0.1, Total Counted 100, Neutrophils % (Manual) 93 H, Lymphocytes % (Manual) 4 L, Monocytes % (Manual) 3, Platelet Estimate Normal, RBC Morphology Normal, ESR 13, PT 12.4, INR 1.13 H, APTT 25.7, Lactate 2.5 H, SARS-CoV-2 (PCR) Not detected, Influenza A Untype (PCR) Not detected, Influenza Type B (PCR) Not detected 01/28/25 13:25: Urine Color Yellow, Urine Appearance Slightly cloudy, Urine pH 5.5, Ur Specific [place] >= 1.030, Urine Protein 1+ A, Urine Glucose (UA) Negative, Urine Ketones Trace, Urine Blood Negative, Urine Nitrate Negative, Urine Bilirubin 1+ A, Urine Urobilinogen 0.2, Ur Leukocyte Esterase Negative, Urine RBC None, Urine WBC 3-5, Ur Squamous Epith Cells 3-5, Amorphous Sediment Trace, Urine Bacteria 3+ 01/28/25 13:28: Sodium 134 L, Potassium 4.1, Chloride 100, Carbon Dioxide 29, Anion Gap 9.1, BUN 51 H, Creatinine 2.10 H, Estimated Creat Clear 15, Estimated GFR 22 L, Est GFR ( Amer) 27 L, Glucose 94, Calcium 8.8, Magnesium 2.6 H, Total Bilirubin 1.0, AST 62 H, ALT 37, Alkaline Phosphatase 96, Total Creatine Kinase 503 H*, Troponin I 0.03, C-Reactive Protein 384.9 H, NT-Pro-B Natriuret Pep 5260 H, Total Protein 5.8 L, Albumin 3.0 L, Globulin 2.8, Albumin/Globulin Ratio 1.1 01/28/25 17:35: Urine Color Yellow, Urine Appearance Clear, Urine pH 5.5, Ur Specific [place] >= 1.030, Urine Protein 1+ A, Urine Glucose (UA) Negative, Urine Ketones Trace, Urine Blood Trace-i, Urine Nitrate Negative, Urine Bilirubin 1+ A, Urine Urobilinogen 0.2, Ur Leukocyte Esterase Negative, Urine RBC 3-5, Urine WBC 3-5, Ur Squamous Epith Cells 3-5, Urine Bacteria 3+ 01/28/25 18:10: Lactate 3.7 H, Troponin I 0.03 01/28/25 22:21: Lactate 2.3 H, Troponin I 0.03 01/29/25 06:33: WBC 26.0 H*, RBC 4.99, Hgb 13.4, Hct 42.7, MCV 85.6, MCH 26.9 L, MCHC 31.4 L, RDW 18.7 H, Plt Count 159, MPV 10.4, Neut % (Auto) 90.6 H, Lymph % (Auto) 3.4 L, [place] % (Auto) 3.5, Eos % (Auto) 0.9, Baso % (Auto) 0.3, Neut # (Auto) 23.6 H, Lymph # (Auto) 0.9, [place] # (Auto) 0.9, Eos # (Auto) 0.2, Baso # (Auto) 0.1, Sodium 134 L, Potassium 4.0, Chloride 103, Carbon Dioxide 20 L, Anion Gap 15.0, BUN 50 H, Creatinine 1.90 H, Estimated Creat Clear 16, Estimated GFR 25 L, Est GFR ( Amer) 30 L, Glucose 104 H, Calcium 8.4, Magnesium 2.5 H, Total Bilirubin 1.2, AST 50 H, ALT 27 D, Alkaline Phosphatase 113, Total Protein 5.4 L, Albumin 3.0 L, Globulin 2.4, Albumin/Globulin Ratio 1.3 Medical History: Medical History (Updated 01/28/25 @ 18:08 by Ronaldo Carreon MD) Dementia Morbid obesity CHF (congestive heart failure) Assessment and Plan Assessment and plan all Dx Assessment and Plan for all problems:: Pharmacokinetic dosing service Objective: Patient: Floor: Age: 89 yo Serum creatinine: 1.90 mg/dL Height: 61.8 Inches Weight (kg): 108.3 Assessment: IBW (kg): 49.64 Dosing wt(kg): 108.3 Estimated Creatinine clearance (ml/min): 16.3 CRCL method: Cockcroft and Gault using ibw(default). Drug selected: Vancomycin Loading dose (mg): Vd (liters): 86.6 (factor used: 0.8 L/kg) Geovanni (hr-1): 0.018 Half life (hrs): 38.51 CLvanco=?? 1.559 L/hr Recommended dose: 1750 mg Interval: 48 hrs Infusion time (hrs): 2.0 Predicted peak (mcg/mL): 34.3 Predicted trough (mcg/mL): 14.99 Total body weight is being used for vancomycin dosing. Recommendations: Give Vancomycin 1750 mg q 48 hrs with an expected Cpeak of 34.3 mcg/ml and an expected Ctrough of 14.99 mcg/ml AUC 0-24 /LEVI Data: LEVI 0.5 mcg/mL:?? AUC/LEVI:? 1122.5 LEVI 1.0 mcg/mL:?? AUC/LEVI:? 561.3 --------- LEVI 1.5 mcg/mL:?? AUC/LEVI:? 374.2 LEVI 2.0 mcg/mL:?? AUC/LEVI:? 280.6 Thank you for the consult, will continue to follow. -WINIFRED NELSOND
[2025-01-29 09:09] LABS: RBC Morphology Normal; Total Cells Counted 100
--- NOTE | 2025-01-29 09:10 | P.PN_ITS ---
Subjective *Date: 01/29/25 *Time: 14:49 Interval history: Afebrile, more hypotensive and bradycardic this morning. Moans when her legs are touched but otherwise no meaningful response on exam Medical Exam Vital signs and Labs for Last 24 Hours: Vital Signs Temp Pulse Pulse Resp BP BP Pulse Ox 01/29/25 08:00 98.6 F 64 16 91/48 L 97 01/29/25 07:45 102/50 L 01/29/25 07:45 99.0 F 53 L 13 97 01/29/25 07:30 99.1 F 58 L 15 97 01/29/25 07:30 92/47 L 01/29/25 07:15 99.3 F 55 L 19 98 01/29/25 07:15 92/49 L 01/29/25 07:00 97/54 L 01/29/25 07:00 99.3 F 66 19 97 01/29/25 07:00 01/29/25 06:45 99.5 F 64 18 95 01/29/25 06:45 93/48 L 01/29/25 06:30 97/54 L 01/29/25 06:30 99.5 F 76 20 95 01/29/25 06:26 99.5 F 73 96 01/29/25 06:26 98/54 L 01/29/25 06:00 99.9 F H 62 15 103/50 L 95 01/29/25 05:01 100 F H 67 16 91/45 L 95 01/29/25 05:00 01/29/25 04:45 98/43 L 01/29/25 04:30 91/46 L 01/29/25 04:15 80/41 L 01/29/25 04:00 80 01/29/25 04:00 95 01/29/25 04:00 99.9 F H 76 20 75/36 L 94 L 01/29/25 03:30 80/36 L 01/29/25 03:00 78/38 L 01/29/25 03:00 99.9 F H 83 25 H 94 L 01/29/25 03:00 01/29/25 03:00 99.9 F H 78 25 H 78/38 L 94 L 01/29/25 02:45 83/39 L 01/29/25 02:15 84/43 L 01/29/25 02:00 99.7 F H 85 28 H 94 L 01/29/25 02:00 99.7 F H 87 26 H 76/50 L 94 L 01/29/25 01:30 99.5 F 95 H 24 95 01/29/25 01:00 99.3 F 80 20 94 L 01/29/25 01:00 81/42 L 01/29/25 01:00 99.3 F 82 20 81/42 L 94 L 01/29/25 01:00 01/29/25 00:00 98.8 F 76 23 96 01/29/25 00:00 98.8 F 72 23 82/36 L 95 01/29/25 00:00 98.8 F 72 23 82/36 L 95 01/29/25 00:00 60 01/29/25 00:00 95 01/28/25 23:01 92/31 L 01/28/25 23:00 98.2 F 68 17 97 01/28/25 23:00 01/28/25 23:00 98.4 F 88 25 H 92/31 L 96 01/28/25 22:00 98.1 F 68 24 88/59 L 95 01/28/25 21:11 81/34 L 01/28/25 21:00 01/28/25 21:00 97.5 F L 70 21 82/33 L 99 01/28/25 20:00 70 01/28/25 20:00 97.2 F L 66 18 98/52 L 96 01/28/25 20:00 90 L 01/28/25 19:00 64 22 98/50 L 94 L 01/28/25 18:56 8 L 01/28/25 18:54 01/28/25 18:15 60 15 95/61 L 92 L 01/28/25 18:05 01/28/25 18:01 66 16 86/43 L 96 01/28/25 17:47 61 21 102/60 L 96 01/28/25 17:31 70 18 83/48 L 95 01/28/25 17:21 71 20 91 L 01/28/25 17:19 63 17 153/133 H 96 01/28/25 16:50 97.8 F 84 20 90/56 L 01/28/25 15:00 81 90/52 L 96 01/28/25 14:45 82 94/41 L 95 01/28/25 14:30 74 99/67 L 96 01/28/25 14:13 79 95/57 L 96 01/28/25 13:30 89 110/74 96 01/28/25 13:23 97.5 F L 64 18 90/64 L 94 L 01/28/25 13:23 97.5 F L 64 18 90/64 L 94 L 01/28/25 13:19 117 H 90/64 L 95 O2 Del Method O2 Flow Rate 01/29/25 08:00 Nasal Cannula 2 01/29/25 07:45 01/29/25 07:45 01/29/25 07:30 01/29/25 07:30 01/29/25 07:15 01/29/25 07:15 01/29/25 07:00 01/29/25 07:00 01/29/25 07:00 Nasal Cannula 2 01/29/25 06:45 01/29/25 06:45 01/29/25 06:30 01/29/25 06:30 01/29/25 06:26 01/29/25 06:26 01/29/25 06:00 Nasal Cannula 2 01/29/25 05:01 Nasal Cannula 2 01/29/25 05:00 Nasal Cannula 2 01/29/25 04:45 01/29/25 04:30 01/29/25 04:15 01/29/25 04:00 01/29/25 04:00 Nasal Cannula 2 01/29/25 04:00 Nasal Cannula 2 01/29/25 03:30 01/29/25 03:00 01/29/25 03:00 Nasal Cannula 01/29/25 03:00 Nasal Cannula 2 01/29/25 03:00 Nasal Cannula 2 01/29/25 02:45 01/29/25 02:15 01/29/25 02:00 Nasal Cannula 2 01/29/25 02:00 Nasal Cannula 2 01/29/25 01:30 Nasal Cannula 2 01/29/25 01:00 Nasal Cannula 2 01/29/25 01:00 01/29/25 01:00 Nasal Cannula 2 01/29/25 01:00 Nasal Cannula 2 01/29/25 00:00 Nasal Cannula 2 01/29/25 00:00 Nasal Cannula 2 01/29/25 00:00 Nasal Cannula 2 01/29/25 00:00 01/29/25 00:00 Nasal Cannula 2 01/28/25 23:01 01/28/25 23:00 01/28/25 23:00 Nasal Cannula 2 01/28/25 23:00 Nasal Cannula 2 01/28/25 22:00 Nasal Cannula 2 01/28/25 21:11 01/28/25 21:00 Nasal Cannula 2 01/28/25 21:00 Nasal Cannula 2 01/28/25 20:00 01/28/25 20:00 Nasal Cannula 2 01/28/25 20:00 Nasal Cannula 2 01/28/25 19:00 Nasal Cannula 2 01/28/25 18:56 01/28/25 18:54 Nasal Cannula 2 01/28/25 18:15 Nasal Cannula 2 01/28/25 18:05 Nasal Cannula 2 01/28/25 18:01 Nasal Cannula 2 01/28/25 17:47 Nasal Cannula 2 01/28/25 17:31 Nasal Cannula 2 01/28/25 17:21 Nasal Cannula 2 01/28/25 17:19 Nasal Cannula 2 01/28/25 16:50 Nasal Cannula 2 01/28/25 15:00 Nasal Cannula 2 01/28/25 14:45 Nasal Cannula 2 01/28/25 14:30 Nasal Cannula 2 01/28/25 14:13 Nasal Cannula 2 01/28/25 13:30 Nasal Cannula 2 01/28/25 13:23 Room Air 01/28/25 13:23 Room Air 01/28/25 13:19 Nasal Cannula 2 Intake and Output 01/28/25 01/29/25 01/29/25 23:59 07:59 15:59 Intake Total 83.750 / 83.750 225 / 225 Output Total 350 / 645 495 / 495 Balance -266.250 / -561.250 -270 / -270 Intake: Intake, Total IV Amount 83.750 / 83.750 225 / 225 Piperacillin/Tazo 4.5 gm In 0.9 100 / 100 % Sodium Chloride 100 ml @ 200 mls/hr IV Q12H [facility] Rx#: [id number] Output: Output, Urine Amount 350 / 645 295 / 295 Output, Urine Amount (Catheter) 200 / 200 [place] 200 / 200 Other: Number of Unmeasured Voids 0 0 Weight 108.3 kg 108.3 kg Patient Weight 01/29/25 23:59 Weight 108.3 kg Laboratory Results - last 24 hr 01/28/25 13:12: WBC 25.3 H*, RBC 5.31, Hgb 14.2, Hct 45.3, MCV 85.3, MCH 26.7 L, MCHC 31.3 L, RDW 19.6 H, Plt Count 155, MPV 11.4 H, Neut % (Auto) 92.3 H, Lymph % (Auto) 2.4 L, [place] % (Auto) 3.3, Eos % (Auto) 0.0 L, Baso % (Auto) 0.4, Neut # (Auto) 23.4 H, Lymph # (Auto) 0.6 L, [place] # (Auto) 0.8, Eos # (Auto) 0.0, Baso # (Auto) 0.1, Total Counted 100, Neutrophils % (Manual) 93 H, Lymphocytes % (Manual) 4 L, Monocytes % (Manual) 3, Platelet Estimate Normal, RBC Morphology Normal, ESR 13, PT 12.4, INR 1.13 H, APTT 25.7, Lactate 2.5 H, SARS-CoV-2 (PCR) Not detected, Influenza A Untype (PCR) Not detected, Influenza Type B (PCR) Not detected 01/28/25 13:25: Urine Color Yellow, Urine Appearance Slightly cloudy, Urine pH 5.5, Ur Specific [place] >= 1.030, Urine Protein 1+ A, Urine Glucose (UA) Negative, Urine Ketones Trace, Urine Blood Negative, Urine Nitrate Negative, Urine Bilirubin 1+ A, Urine Urobilinogen 0.2, Ur Leukocyte Esterase Negative, Urine RBC None, Urine WBC 3-5, Ur Squamous Epith Cells 3-5, Amorphous Sediment Trace, Urine Bacteria 3+ 01/28/25 13:28: Sodium 134 L, Potassium 4.1, Chloride 100, Carbon Dioxide 29, Anion Gap 9.1, BUN 51 H, Creatinine 2.10 H, Estimated Creat Clear 15, Estimated GFR 22 L, Est GFR ( Amer) 27 L, Glucose 94, Calcium 8.8, Magnesium 2.6 H, Total Bilirubin 1.0, AST 62 H, ALT 37, Alkaline Phosphatase 96, Total Creatine Kinase 503 H*, Troponin I 0.03, C-Reactive Protein 384.9 H, NT-Pro-B Natriuret Pep 5260 H, Total Protein 5.8 L, Albumin 3.0 L, Globulin 2.8, Albumin/Globulin Ratio 1.1 01/28/25 17:35: Urine Color Yellow, Urine Appearance Clear, Urine pH 5.5, Ur Specific [place] >= 1.030, Urine Protein 1+ A, Urine Glucose (UA) Negative, Urine Ketones Trace, Urine Blood Trace-i, Urine Nitrate Negative, Urine Bilirubin 1+ A, Urine Urobilinogen 0.2, Ur Leukocyte Esterase Negative, Urine RBC 3-5, Urine WBC 3-5, Ur Squamous Epith Cells 3-5, Urine Bacteria 3+ 01/28/25 18:10: Lactate 3.7 H, Troponin I 0.03 01/28/25 22:21: Lactate 2.3 H, Troponin I 0.03 01/29/25 06:33: WBC 26.0 H*, RBC 4.99, Hgb 13.4, Hct 42.7, MCV 85.6, MCH 26.9 L, MCHC 31.4 L, RDW 18.7 H, Plt Count 159, MPV 10.4, Neut % (Auto) 90.6 H, Lymph % (Auto) 3.4 L, [place] % (Auto) 3.5, Eos % (Auto) 0.9, Baso % (Auto) 0.3, Neut # (Auto) 23.6 H, Lymph # (Auto) 0.9, [place] # (Auto) 0.9, Eos # (Auto) 0.2, Baso # (Auto) 0.1, Total Counted 100, Neutrophils % (Manual) 89 H, Lymphocytes % (Manual) 8 L, Monocytes % (Manual) 3, Platelet Estimate Normal, RBC Morphology Normal, Sodium 134 L, Potassium 4.0, Chloride 103, Carbon Dioxide 20 L, Anion Gap 15.0, BUN 50 H, Creatinine 1.90 H, Estimated Creat Clear 16, Estimated GFR 25 L, Est GFR ( Amer) 30 L, Glucose 104 H, Calcium 8.4, Magnesium 2.5 H, Total Bilirubin 1.2, AST 50 H, ALT 27 D, Alkaline Phosphatase 113, Total Protein 5.4 L, Albumin 3.0 L, Globulin 2.4, Albumin/Globulin Ratio 1.3 I & O for Labs for Last 24 Hours: Intake & Output 01/26/25 01/27/25 01/28/25 01/29/25 23:59 23:59 23:59 23:59 Intake Total 83.750 / 83.750 225 / 225 Output Total 350 / 645 495 / 495 Balance -266.250 / -561.250 -270 / -270 Weight 107.275 kg 108.3 kg Microbiology Reports for the Last 24 Hours: Microbiology 01/28/25 13:25 Urine,Clean Catch Urine Culture - Preliminary Constitutional: Present moderate distress, morbidly obese, chronically ill appearing and somnolent Head: Present atraumatic and normocephalic ENT: Present normal exam Respiratory: Present prolonged expiratory phase, crackles and normal respiratory effort; Absent rhonchi or wheezes Cardiac: Present Irregularly Regular and Bradycardia GI: Present soft and normal bowel sounds; Absent distention or tenderness Comment:: [place] remains in place Extremities: Present normal inspection, full ROM and edema (3+ in lower extremities up to knee, 2+ in thighs and abdomen) Skin: Present intact; Absent erythema Comment:: Numerous wounds, see nursing notes. Has intertrigo and excoriations in her skin folds in her abdomen and under her breasts. Scabbed lesions on right shoulder. All present on admission Neuro: Present Grossly Intact and moves all extremities; Absent alert, awake or oriented x 3 Assessment and Plan *Assessment and plan (1) Septic shock: Status: Acute Category: Medical Code(s): A41.9 - Sepsis, unspecified organism; R65.21 - Severe sepsis with septic shock (2) Cellulitis: Status: Acute Category: Medical Code(s): L03.90 - Cellulitis, unspecified (3) Dementia: Status: Chronic Category: Medical Code(s): F03.90 - Unspecified dementia, unspecified severity, without behavioral disturbance, psychotic disturbance, mood disturbance, and anxiety (4) Morbid obesity: Status: Chronic Category: Medical Code(s): E66.01 - Morbid (severe) obesity due to excess calories (5) CHF (congestive heart failure): Status: Acute Category: Medical Code(s): I50.9 - Heart failure, unspecified Plan 89-year-old female from [facility] [place] presents for failure of oral antibiotics for right lower extremity cellulitis. On presentation has findings consistent with septic shock. Discussed case with ER provider, request admission for further management for septic shock and infection. I decided to admit to the ICU for further care. Continuing broad-spectrum IV antibiotics. Received partial sepsis bolus but in light of her worsening blood pressure and concern for CHF, paused bolus on admission. Condition remains tenuous and critical. Prognosis poor. Less responsive on exam today. Continues to require ICU level care. Problems addressed as follows: Septic shock Cellulitis Leukocytosis - Patient became hypotensive early this morning. White count remains elevated at 26. Continue to titrate norepinephrine. Currently on 20 mcg/min - Will add dopamine at 5 micrograms per kilo per minute -Saw some improvement in heart rate after initiation of dopamine. Will attempt to diurese due to component of heart failure. Patient still has significant sky ma in lower extremities and lower abdomen -Continue vancomycin renally dosed, monitor for toxicity - Continue Zosyn 4.5 g twice daily renally dosed - Blood cultures and urine cultures pending - Currently on 2 L oxygen, goal sats greater 90%. Wean as tolerated - CRP severely elevated at 384 on admission, repeat ordered for the morning CHF: - Enlarged heart on CT of chest and chest x-ray. Presentation consistent with CHF, BNP 5000. Given her edema, strong concern for CHF exacerbation. - Will obtain echo on Thursday morning pending patient's course in the meantime. Holding home blood pressure medications given her hypotension - Given emilia volume overload we will attempt diuresis again today with 2 mg IV Bumex once with support to blood pressure with norepinephrine and dopamine as above. TAD: BUN 50, creatinine 1.9. Still consistent with TAD. Potassium 4.0. Magnesium 2.5. - Bicarb 20. Repeat CBC, CMP, magnesium ordered for the morning. Renally dosing medications Dementia per history, unclear baseline mentation. Oriented to self only at this time. Morbid obesity complicates all aspects of her care Heparin 5000 units 3 times daily subcu Cardiac diet DNR/DNI. Spoke to patient's brother who is her surrogate decision maker today. He wants to keep her DNR/DNI. Understands her current status and risk for decompensation. Was appreciative of the phone call. ICU/Critical care attestation This patient is critically ill with 45 minutes devoted solely to this patient managing life/organ supporting interventions that required physician assessment. This includes time spent making adjustments in ventilator settings, IV fluid administration, titration of pressors, adjustments of medications, discussion of patient with consultants and other care providers as well as updating patient and/or family (if patient by virtue of his/her condition is unable to participate in decision making). This does not include time spent performing separately billed procedures. Time is not concurrent with that of other providers.
[2025-01-29] MEDS: HEPARIN SODIUM 5,000 UNIT/ML VIAL 5000 UNIT SUBCUT ×3 (09:28→20:35)
[2025-01-29] MEDS: NYSTATIN TOPICAL POWDER 30GM TP ×4 (09:31→20:35)
[2025-01-29] MEDS: NOREPINEPHRINE BITARTRATE/D5W 8 MG/250 ML PLAST..BAG 28.13 MG IV (09:56)
[2025-01-29] MEDS: BUMETANIDE 1MG/4ML VIAL 2 MG IV (11:12)
--- NOTE | 2025-01-29 12:14 | P.CONPHA_ITS ---
Pharmacy Intervention Comments: MEDICATION RECONCILIATION COMPLETED ON PATIENT USING MAR FROM ALF. -JUANY ASH, WINIFREDD
--- NOTE | 2025-01-29 12:14 | HMH.PHAINT1 ---
Pharmacy Intervention Comments: MEDICATION RECONCILIATION COMPLETED ON PATIENT USING MAR FROM [facility]. -JUANY ASH, WINIFREDD
--- NOTE | 2025-01-29 13:35 | PC.NURSE ---
morning round noted patient heart rate maintaining 50s. at times would drop in to the 30s. notified md. bp trending low and patient less responsive than previous day. started dopamine per md order. instructed to maintain map of 65 or greater, and to titrate levophed down as tolerated vs the dopamine. when awake noted patient heart rate will jump up in the 130s but trends down with rest. more awake this afternoon. did eat a few bites of meal, including some sandwich, ensure, soda, and chocolate. q2 turns. leaking to r leg noted. remains on 2l o2. md spoke with family. urine output still on lower side after bumex but clear and yellow.
--- NOTE | 2025-01-29 17:47 | XR_ITS ---
PROCEDURE INFORMATION: Exam: XR Right Humerus Exam date and time: 01/29/2025 6:18 PM Age: 89 years old Clinical indication: Pain; Upper arm; Right; Additional info: Right upper extremity pain TECHNIQUE: Imaging protocol: Radiologic exam of the right humerus. Views: 2 or more views. COMPARISON: CT CHEST WO CON 01/28/2025 3:12 PM FINDINGS: Bones/joints: Normal. Soft tissues: Normal. IMPRESSION: No acute findings.
--- NOTE | 2025-01-29 18:40 | PC.NURSE ---
is doing well this evening. notified md of arm pain xray ordered. oral care provided. family visited with patient. urine continues to drain in burks clear yellow. 2 l o2 currently on 5 of dopamine and and 9mcg/min levophed.
[2025-01-29] MEDS: NOREPINEPHRINE BITARTRATE/D5W 8 MG/250 ML PLAST..BAG 16.88 MG IV (18:54)
[2025-01-30] VITALS (60 sets, daily range): BP systolic 58–137; BP diastolic 20–89; PULSE 47–100; RESP 14–28; TEMP 37.2–37.7; O2SAT 2–98; BMI 40.4
[2025-01-30] MEDS: PIPERACILLIN/TAZO 4.5 GM in 0.9 % SODIUM CHLORIDE 100 ML IV ×2 (02:40→16:41)
--- NOTE | 2025-01-30 06:00 | CA_ITS ---
APPROVED REPORT EXAM: Comprehensive 2D, Doppler, and color-flow Echocardiogram [employer] Account Manager: Niki Espinal CRT Ht: 5 ft 2 in Wt: 236lbs BSA: 2.05 BP: 95/57 mmHg Indications: Evaluate Congestive Heart Failure, Cardiomegaly 2D Dimensions LA Volume 75.70 mL LA Volume Index 36.00 mL/m2 (M/F) 16-34 M-Mode Dimensions RVDd 2.32 cm (0.9-2.6) LA Diam 3.91 cm (1.9-4.0) LVDd 3.16 cm (3.5-5.7) LVDs 2.47 cm (3.5-5.7) IVSd 1.31 cm (0.6-1.1) PWd 1.00 cm (0.6-1.1) EF (Teich) 45.30% FS 21.80% EDV (Teich) 39.70 mL TAPSE 0.80 (<1.7) ESV (Teich) 21.70 mL LV Diastology E Decel Time 203 (160-240 msec) E/A Ratio 3.23 MED A' 7.00 cm/s LAT A' 10.00 cm/s Aortic Valve AO Peak GR. 7.90 mmHg Mitral Valve MV E Max Kartik. 116.0 (40-130 cm/s) MV A Velocity 36.0 (40-130 cm/s) E/A Ratio 3.23 MV PHT 60.0 ms Pulmonary Valve PV Peak Velocity 91.0 (50-150 cm/s) Tricuspid Valve TR P. Velocity 331.00 cm/s RAP Estimate 10.00 mmHg RVSP 53.80 mmHg Left Ventricle The left ventricle is normal size. Left ventricular systolic function is normal. The left ventricular ejection fraction is within the normal range. There is increased left ventricular wall thickness. There is normal LV segmental wall motion. The left ventricular diastolic function is indeterminate. LVEF is 60% Right Ventricle The right ventricle is mildly dilated. The right ventricular systolic function is borderline reduced. Atria The left atrium is severely dilated. The right atrium is severely dilated. There is no color Doppler evidence of interatrial shunt. Aortic Valve The aortic valve is mildly thickened. There is no hemodynamically significant aortic valvular stenosis. Trace aortic regurgitation is present. Mitral Valve The mitral valve is normal in structure. No evidence of mitral valve stenosis. Trace mitral regurgitation is present. Tricuspid Valve The tricuspid valve leaflets are thin and pliable. Mild to moderate tricuspid regurgitation. RVSP is 40-45 mmHg. Pulmonic Valve The pulmonary valve is grossly normal in structure. Trace pulmonic valve regurgitation is present. Great Vessels The aortic root is normal in size. IVC is normal in size and collapses >50% with inspiration. Pericardium There is no pericardial effusion. Other Information Study Quality: Technically Difficult Conclusion Technically difficult study. Normal LV systolic function. Mildly dilated RV with borderline reduction in RV function. Severe biatrial dilation. Mild to moderate TR. Elevated RVSP 40-45 mmHg. Electronically signed by : Debi Pereira MD 01/30/2025 08:21:08
[2025-01-30 06:04] LABS: Albumin Level 3.0 g/dl (3.5-5.0); Chloride 93 mmol/L (98-107); Sodium 126 mmol/L (136-145)
[2025-01-30 06:04] LABS: Hematocrit 44.5 % (37.0-47.0); Hemoglobin 14.0 g/dL (12.2-16.2); Immature Granulocytes % 1.1 %; Mean Corpuscular HGB Conc 31.5 g/dL (31.8-35.4); Mean Corpuscular Hemoglobin 26.7 pg (27.0-31.2); Mean Corpuscular Volume 84.9 fl (81-99); Nucleated Red Blood Cells % 0 %; Platelet Count 141 K/mm3 (142-424); Red Blood Count 5.24 M/mm3 (4.20-5.40); Red Cell Distribution Width-SD 56.8 fL; White Blood Count 19.9 K/mm3 (4.8-10.8)
[2025-01-30 06:07] LABS: Alanine Aminotransferase 23 U/L (12-78); Albumin/Globulin Ratio 1.2 (1.1-1.8); Alkaline Phosphatase 107 U/L (38-126); Aspartate Amino Transferase 31 U/L (14-36); Bilirubin,Total 1.6 mg/dl (0.2-1.3); Blood Urea Nitrogen 44 mg/dl (7-17); Carbon Dioxide 24 mmol/L (22.0-30.0); Creatinine Clearance Estimated 25 mL/min (50-200); Creatinine,Serum 1.20 mg/dl (0.52-1.04); Estimated Glomerular Filt Rate 42 ml/min (>60); GFR (African American) 51 ML/MIN (>60); Globulin 2.6 g/dL (1.3-3.2); Total Protein,Serum 5.6 g/dl (6.3-8.2)
[2025-01-30 06:08] LABS: Calcium 7.8 mg/dl (8.4-10.2); Magnesium 2.2 mg/dl (1.6-2.3)
[2025-01-30 07:08] LABS: Potassium 3.1 mmoL/L (3.5-5.1)
[2025-01-30 07:10] LABS: Glucose 445 mg/dl (74-100)
[2025-01-30 07:12] LABS: C-Reactive Protein 389.0 mg/L (0-4)
[2025-01-30 07:13] LABS: Anion Gap 12.1 mEq/L (5-15)
[2025-01-30 07:56] LABS: POC Glucose,Bedside 124 (70-110)
[2025-01-30] MEDS: HEPARIN SODIUM 5,000 UNIT/ML VIAL 5000 UNIT SUBCUT ×3 (08:12→20:15)
--- NOTE | 2025-01-30 08:16 | SW/DCPLANNER ---
Addendum entered by Karina Erickson 02/02/25 07:44: Updated patient information faxed to Ellen w/ [facility]. Original Note: Patient currently resides at [facility] level of care. Updated patient information has been faxed. I will continue to follow up w/ Ellen at [facility] until medically stable for discharge. Discharge date is unknown at this time.
[2025-01-30] MEDS: NYSTATIN TOPICAL POWDER 30GM TP ×4 (08:20→20:15)
[2025-01-30] MEDS: BUMETANIDE 1MG/4ML VIAL 2 MG IV (08:41)
[2025-01-30 09:09] LABS: Albumin Level 3.1 g/dl (3.5-5.0); Chloride 102 mmol/L (98-107)
[2025-01-30 09:10] LABS: Sodium 140 mmol/L (136-145)
[2025-01-30 09:12] LABS: Blood Urea Nitrogen 47 mg/dl (7-17); Creatinine Clearance Estimated 16 mL/min (50-200); Creatinine,Serum 1.90 mg/dl (0.52-1.04); Estimated Glomerular Filt Rate 25 ml/min (>60); GFR (African American) 30 ML/MIN (>60)
[2025-01-30 09:13] LABS: Alanine Aminotransferase 26 U/L (12-78); Albumin/Globulin Ratio 1.1 (1.1-1.8); Alkaline Phosphatase 110 U/L (38-126); Anion Gap 14.0 mEq/L (5-15); Aspartate Amino Transferase 38 U/L (14-36); Bilirubin,Total 1.1 mg/dl (0.2-1.3); Calcium 8.5 mg/dl (8.4-10.2); Carbon Dioxide 27 mmol/L (22.0-30.0); Globulin 2.9 g/dL (1.3-3.2); Glucose 139 mg/dl (74-100); Total Protein,Serum 6.0 g/dl (6.3-8.2)
[2025-01-30 09:20] LABS: Potassium 3.0 mmoL/L (3.5-5.1)
[2025-01-30] MEDS: NOREPINEPHRINE BITARTRATE/D5W 8 MG/250 ML PLAST..BAG 11.25 MG IV (09:20)
[2025-01-30] MEDS: DOPAMINE HCL/D5W 250 ML 20.11 MG IV (09:28)
--- NOTE | 2025-01-30 09:56 | HMH.OTEV ---
OT Inpatient Evaluation Rehab OT IP Evaluation Start: 01/28/25 18:17 Freq: ONCE Status: Active Protocol: Document 01/30/25 09:46 [email or web address] (Rec: 01/30/25 09:55 [email or web address] [id number]) Rehab OT IP Assessment Subjective History Ms. Almazan is an 89-year-old female presenting to the ER via EMS from [facility]. We have very little knowledge of her history but it appears she was sent for evaluation of right lower extremity cellulitis, pain. Recently finished course of Keflex but symptoms not gotten any better. Has dementia at baseline. Afebrile but blood pressures are soft with systolics in the 90s. Complains of pain in right leg when she is moved. Severe right lower extremity edema and erythema up to proximal thigh. Patient unable to provide any history or review of systems. Workup in the ER initiated. Labs found to be grossly abnormal with white count of 25. Patient was tachycardic and hypotensive on arrival. BUN 51 creatinine 2.1. Lactate 2.5. BNP elevated at 5200. Initiated on broad -spectrum antibiotics. Significant redness and swelling of right lower extremity. Medicine consulted for admission of septic shock. On my evaluation, patient is oriented to self only. States her legs hurt but does not complain of pain elsewhere. Has pain with any movement. On norepinephrine with MAP of 67 at time of evaluation appears frankly volume overloaded. Resident of [facility]. Prior to admission, Patient was able to transfers with Min A and was able to ambulate to restroom with usage of RW. ( Per Assisted). Patient is a poor historian and was unable to provide accurate PLOF status during initial evaluation. Subjective Ahhh. Instructed Patient on proper hand and foot placement to complete bed mobility from supine->sit @ EOB requiring total assistance. Patient exhibit discomfort per verbal outburst and facial grimmaces. Assisted patient back in supine position with needs met at end of session. Objective Patient Orientation Name Right Upper WFL Extremity Gross ROM Left Upper Extremity WFL Gross ROM Bed Mobility bed mobility - supine/sit Assist Level Total/Dependent (100%) Rehab OT IP prob,goals,plan Problems Date of Evaluation: 01/30/25 OT IP Problems Bed Mobility,Transfers,Balance,Self care,Safety Rehab Potential Rehab Potential Good Plan OT intervention Plan Bed Mobility,Transfers,Balance,Self care,Safety, Therapeutic Exercise OT Plan Frequency Daily Duration LOS Discharge Plan OT Discharge Plan Recommend patient return back to [facility] after medical d/c from [facility]. While patient is here, Patient would benefit from OT IP services in order to address safety awareness and environmental modification to enhance deficits with activities of daily living and fx'l mobility. Patient exhibit poor trunk control/sitting balance with requiring total for ADLs and fx'l mobility at this time. Eval Complexity Eval Charge Codes 17678 - Low Complexity PHYSICIAN CERTIFICATION: I certify the specified therapy services for Shahnaz Almazan are required, authorized, and reviewed every 30 days.
[2025-01-30] MEDS: POTASSIUM CHLORIDE 10 MEQ, LIDOCAINE HCL/PF 3 ML in 0.9 % SODIUM CHLORIDE 100 ML 108 MEQ IV ×7 (10:44→16:14)
--- NOTE | 2025-01-30 11:58 | HMH.PTEV ---
Physical Therapy Evaluation Rehab PT IP Evaluation Start: 01/28/25 18:17 Freq: ONCE Status: Active Protocol: Document 01/30/25 11:50 SUN (Rec: 01/30/25 11:57 SUN [id number]) Subjective/History History History Per H&P: Ms. Almazan is an 89-year-old female presenting to the ER via EMS from [facility]. We have very little knowledge of her history but it appears she was sent for evaluation of right lower extremity cellulitis, pain. Recently finished course of Keflex but symptoms not gotten any better. Has dementia at baseline. Afebrile but blood pressures are soft with systolics in the 90s. Complains of pain in right leg when she is moved. Severe right lower extremity edema and erythema up to proximal thigh. Patient unable to provide any history or review of systems. Workup in the ER initiated. Labs found to be grossly abnormal with white count of 25. Patient was tachycardic and hypotensive on arrival . BUN 51 creatinine 2.1. Lactate 2.5. BNP elevated at 5200. Initiated on broad-spectrum antibiotics. Significant redness and swelling of right lower extremity. Medicine consulted for admission of septic shock. On my evaluation, patient is oriented to self only. States her legs hurt but does not complain of pain elsewhere. Has pain with any movement. On norepinephrine with MAP of 67 at time of evaluation appears frankly volume overloaded Subjective Subjective Pt reports she lives with her mother. Pt not able to answer questions correctly at this time. [facility] How much help from another person do you currently need... Turning from your A lot back to your side while in a flat bed without using bedrails? Moving from lying on A lot back to sitting on the side of a flat bed without using bedrails? Moving to and from a A lot bed to a chair ( including a wheelchair)? Standing up from a A lot chair using your arms? (e.g., wheelchair, bedside chair) Walking in hospital Total room? Climbing 3-5 steps Total with a railing? Mobility Score [address] [facility] Mobility 4 Move to chair/commode Mobility Calculator Rehab PT IP Eval Objective Appearance Difficulty following moderate instructions Ambulation Patient Able to No Ambulate Balance Ability to Arise Unable Transfers Bed Transfer Ability Maximum x 2 (75% assist) Rehab PT IP prob,goals,plan Problems Date of Evaluation: 01/30/25 PT IP Problems Bed Mobility,Transfers,Gait,Balance,Self care,Safety Rehab Potential Rehab Potential Good Plan PT Intervention Plan Bed Mobility,Transfers,Gait,Balance,Self care,Safety, Therapeutic Exercise Other Intervention 1-2 times Plan PT Plan Frequency Daily Duration LOS Discharge Goals Bed Transfer Ability Maximum x 1 (75% assist) Discharge Plan PT Discharge Plan Initial physical therapy evaluation performed. Patient presents below baseline at this time in functional mobility, transfers, and strength. Pt not safe to return home at this time d/t current level of functional mobility. PT recommending rehabilitation stay upon d/c from [facility]. Pt would benefit from skilled PT while at [facility] to prevent further functional decline and maximize safety with mobility. Eval Complexity Eval Charge Codes 41322 - Moderate Complexity PHYSICIAN CERTIFICATION: I certify the specified therapy services for Shahnaz Almazan are required, authorized, and reviewed every 30 days.
[2025-01-30] MEDS: PHA TO NURSING INSTRUCTION 1 EACH NOTAPPLIC (13:14)
--- NOTE | 2025-01-30 13:30 | P.PN_ITS ---
Subjective *Date: 01/30/25 *Time: 16:47 Interval history: Patient will bit more interactive this morning. Slowly weaning her vasopressors. Having good urine output. Did function stable. Fluid neutral the past 24 hours. Having some improvement in swelling in her right leg. Needing more definitive IV access. Will place midline today. On 1 L oxygen. Medical Exam Vital signs and Labs for Last 24 Hours: Vital Signs Temp Pulse Pulse Resp BP BP Pulse Ox 01/30/25 13:00 01/30/25 13:00 99.0 F 85 24 128/59 L 92 L 01/30/25 12:00 91 H 01/30/25 12:00 99.1 F 91 H 18 128/78 90 L 01/30/25 11:30 91 L 01/30/25 11:00 99.3 F 77 22 89/53 L 91 L 01/30/25 10:56 01/30/25 10:06 99.1 F 78 27 H 113/80 93 L 01/30/25 10:00 99.1 F 78 27 H 93 L 01/30/25 10:00 113/80 01/30/25 09:45 99.1 F 77 24 92 L 01/30/25 09:45 112/68 01/30/25 09:30 84/57 L 01/30/25 09:30 99.5 F 24 01/30/25 09:16 99.5 F 87 28 H 94 L 01/30/25 09:16 106/63 L 01/30/25 09:11 96/68 L 01/30/25 09:11 99.5 F 82 22 94 L 01/30/25 09:04 75/50 L 01/30/25 09:04 99.5 F 76 23 94 L 01/30/25 09:01 99.5 F 82 19 94 L 01/30/25 09:01 58/39 L 01/30/25 09:00 99.5 F 68 18 96/68 L 94 L 01/30/25 08:47 01/30/25 08:01 99.0 F 84 20 102/44 L 98 01/30/25 07:32 95 01/30/25 07:00 99.0 F 66 18 116/63 95 01/30/25 07:00 01/30/25 06:00 99.3 F 85 18 110/71 93 L 01/30/25 06:00 99.1 F 92 H 16 110/71 92 L 01/30/25 05:00 99.3 F 90 24 114/56 L 92 L 01/30/25 05:00 01/30/25 05:00 99.3 F 75 20 114/56 L 92 L 01/30/25 04:00 99.5 F 96 H 22 125/54 L 92 L 01/30/25 04:00 94 L 01/30/25 04:00 99.5 F 80 22 125/54 L 92 L 01/30/25 04:00 99.3 F 80 21 125/54 L 93 L 01/30/25 04:00 84 01/30/25 03:00 99.7 F H 91 H 22 120/62 92 L 01/30/25 03:00 01/30/25 03:00 99.7 F H 100 H 22 120/62 92 L 01/30/25 02:00 99.7 F H 82 21 122/57 L 91 L 01/30/25 01:00 01/30/25 01:00 99.9 F H 99 H 23 120/72 92 L 01/30/25 00:00 95 01/30/25 00:00 99.9 F H 91 H 24 122/65 92 L 01/30/25 00:00 99.9 F H 91 H 24 122/64 2 L 01/30/25 00:00 96 H 01/29/25 23:00 99.5 F 80 21 109/56 L 94 L 01/29/25 23:00 01/29/25 22:00 99.7 F H 69 18 97/55 L 95 01/29/25 21:00 99.5 F 91 H 26 H 113/58 L 94 L 01/29/25 21:00 01/29/25 20:00 78 01/29/25 20:00 96 01/29/25 20:00 99.5 F 78 24 109/54 L 94 L 01/29/25 19:01 99.3 F 98 H 30 H 97/53 L 90 L 01/29/25 18:39 01/29/25 18:00 99.0 F 118 H 19 86/56 L 95 01/29/25 17:00 98.6 F 01/29/25 17:00 01/29/25 17:00 98.6 F 92 H 21 117/55 L 92 L 01/29/25 16:15 98.4 F 87 20 112/53 L 92 L 01/29/25 16:01 98.6 F 88 22 104/58 L 92 L 01/29/25 16:00 01/29/25 16:00 98.6 F 86 20 92 L 01/29/25 16:00 88 01/29/25 15:45 98.6 F 97 H 19 116/60 92 L 01/29/25 15:31 99.0 F 96 H 26 H 104/70 L 91 L 01/29/25 15:27 99.0 F 95 H 126/71 91 L 01/29/25 15:00 99.0 F 77 16 105/56 L 96 01/29/25 15:00 01/29/25 15:00 01/29/25 14:45 99.0 F 79 17 97/59 L 96 01/29/25 14:30 99.0 F 91 H 16 109/53 L 96 01/29/25 14:00 98.8 F 94 H 15 118/65 94 L O2 Del Method O2 Flow Rate 01/30/25 13:00 Room Air 01/30/25 13:00 Room Air 01/30/25 12:00 01/30/25 12:00 Room Air 01/30/25 11:30 Room Air 01/30/25 11:00 01/30/25 10:56 Nasal Cannula 1 01/30/25 10:06 01/30/25 10:00 01/30/25 10:00 01/30/25 09:45 01/30/25 09:45 01/30/25 09:30 01/30/25 09:30 01/30/25 09:16 01/30/25 09:16 01/30/25 09:11 01/30/25 09:11 01/30/25 09:04 01/30/25 09:04 01/30/25 09:01 01/30/25 09:01 01/30/25 09:00 Nasal Cannula 1 01/30/25 08:47 Nasal Cannula 1 01/30/25 08:01 Nasal Cannula 1 01/30/25 07:32 Nasal Cannula 1 01/30/25 07:00 Nasal Cannula 1 01/30/25 07:00 Nasal Cannula 1 01/30/25 06:00 Nasal Cannula 1 01/30/25 06:00 Nasal Cannula 1 01/30/25 05:00 Nasal Cannula 1 01/30/25 05:00 Nasal Cannula 1 01/30/25 05:00 Nasal Cannula 1 01/30/25 04:00 Nasal Cannula 1 01/30/25 04:00 Nasal Cannula 1 01/30/25 04:00 Nasal Cannula 1 01/30/25 04:00 Nasal Cannula 1 01/30/25 04:00 01/30/25 03:00 01/30/25 03:00 Nasal Cannula 2 01/30/25 03:00 Nasal Cannula 1 01/30/25 02:00 Nasal Cannula 1 01/30/25 01:00 Nasal Cannula 2 01/30/25 01:00 Nasal Cannula 2 01/30/25 00:00 Nasal Cannula 2 01/30/25 00:00 Nasal Cannula 2 01/30/25 00:00 Nasal Cannula 01/30/25 00:00 01/29/25 23:00 Nasal Cannula 2 01/29/25 23:00 Nasal Cannula 2 01/29/25 22:00 Nasal Cannula 2 01/29/25 21:00 Nasal Cannula 2 01/29/25 21:00 Nasal Cannula 2 01/29/25 20:00 01/29/25 20:00 Nasal Cannula 2 01/29/25 20:00 Nasal Cannula 2 01/29/25 19:01 Nasal Cannula 2 01/29/25 18:39 Nasal Cannula 2 01/29/25 18:00 Nasal Cannula 2 01/29/25 17:00 01/29/25 17:00 Nasal Cannula 2 01/29/25 17:00 Nasal Cannula 2 01/29/25 16:15 Nasal Cannula 2 01/29/25 16:01 Nasal Cannula 2 01/29/25 16:00 Nasal Cannula 2 01/29/25 16:00 Nasal Cannula 2 01/29/25 16:00 01/29/25 15:45 Nasal Cannula 2 01/29/25 15:31 Nasal Cannula 2 01/29/25 15:27 Nasal Cannula 2 01/29/25 15:00 Nasal Cannula 2 01/29/25 15:00 Nasal Cannula 2 01/29/25 15:00 Nasal Cannula 2 01/29/25 14:45 Nasal Cannula 2 01/29/25 14:30 Nasal Cannula 2 01/29/25 14:00 Nasal Cannula 2 Intake and Output 01/29/25 01/30/25 01/30/25 23:59 07:59 15:59 Intake Total 469.375 / 1865.430 765.836 / 1133.701 367.865 / 1133.701 Output Total 730 / 2110 1350 / 1450 100 / 1450 Balance -260.625 / -244.570 -584.164 / -316.299 267.865 / -316.299 Intake: Intake, Oral Amount 50 / 100 0 / 0 Intake, Total IV Amount 419.375 / 1765.430 765.836 / 1133.701 367.865 / 1133.701 Dopamine HCl/D5w 250 ml @ 5 MCG 70 / 186 266 / 266 /KG/MIN 20.114 mls/hr IV . [id number] PRN Rx#:[id number] Norepinephrine Bitartrate/D5w 8 57 / 597 187 / 187 mg In 250 ml @ 7.5 mls/hr IV . Q24H RAUL Rx#:[id number] Piperacillin/Tazo 4.5 gm In 0.9 100 / 100 % Sodium Chloride 100 ml @ 200 mls/hr IV Q12H RAUL Rx#: [id number] Output: Output, Urine Amount 450 / 745 Output, Urine Amount (Catheter) 280 / 1365 1350 / 1450 100 / 1450 [place] 280 / 1365 1350 / 1450 100 / 1450 Other: Number of Unmeasured Voids 0 300 Weight 99.6 kg Patient Weight 01/30/25 23:59 Weight 99.6 kg Laboratory Results - last 24 hr 01/28/25 13:25: Urine Color Yellow, Urine Appearance Slightly cloudy, Urine pH 5.5, Ur Specific [place] >= 1.030, Urine Protein 1+ A, Urine Glucose (UA) Negative, Urine Ketones Trace, Urine Blood Negative, Urine Nitrate Negative, Urine Bilirubin 1+ A, Urine Urobilinogen 0.2, Ur Leukocyte Esterase Negative, Urine RBC None, Urine WBC 3-5, Ur Squamous Epith Cells 3-5, Amorphous Sediment Trace, Urine Bacteria 3+ 01/30/25 05:26: Sodium 126 L, Potassium 3.1 L D, Chloride 93 L, Carbon Dioxide 24, Anion Gap 12.1, BUN 44 H, Creatinine 1.20 H D, Estimated Creat Clear 25, Estimated GFR 42 L, Est GFR ( Amer) 51 L D, Glucose 445 H* D, Calcium 7.8 L, Magnesium 2.2 D, Total Bilirubin 1.6 H, AST 31 D, ALT 23, Alkaline Phosphatase 107, C-Reactive Protein 389.0 H, Total Protein 5.6 L, Albumin 3.0 L, Globulin 2.6, Albumin/Globulin Ratio 1.2 01/30/25 05:30: WBC 19.9 H, RBC 5.24, Hgb 14.0, Hct 44.5, MCV 84.9, MCH 26.7 L, MCHC 31.5 L, RDW 18.8 H, Plt Count 141 L, MPV 10.5 H, Neut % (Auto) 89.8 H, Lymph % (Auto) 4.6 L, [place] % (Auto) 3.8, Eos % (Auto) 0.3, Baso % (Auto) 0.4, Neut # (Auto) 17.9 H, Lymph # (Auto) 0.9, [place] # (Auto) 0.8, Eos # (Auto) 0.1, Baso # (Auto) 0.1 01/30/25 07:49: POC Glucose 124 H 01/30/25 08:46: Sodium 140, Potassium 3.0 L, Chloride 102, Carbon Dioxide 27, Anion Gap 14.0, BUN 47 H, Creatinine 1.90 H D, Estimated Creat Clear 16, Estimated GFR 25 L, Est GFR ( Amer) 30 L D, Glucose 139 H D, Calcium 8.5, Total Bilirubin 1.1, AST 38 H, ALT 26, Alkaline Phosphatase 110, Total Protein 6.0 L, Albumin 3.1 L, Globulin 2.9, Albumin/Globulin Ratio 1.1 I & O for Labs for Last 24 Hours: Intake & Output 01/27/25 01/28/25 01/29/25 01/30/25 23:59 23:59 23:59 23:59 Intake Total 83.750 / 83.750 1865.430 / 2574.840 8304.701 / 1133.701 Output Total 350 / 645 1760 / 2110 1450 / 1450 Balance -266.250 / -561.250 105.430 / -244.570 -316.299 / -316.299 Weight 107.275 kg 108.3 kg 99.6 kg Microbiology Reports for the Last 24 Hours: Microbiology 01/28/25 13:12 Blood Blood Culture - Preliminary NO GROWTH AFTER 48 HOURS 01/28/25 18:40 Rectum CRE Surveillance Culture - Final Negative 01/28/25 13:25 Urine,Clean Catch Urine Culture - Preliminary Gram Negative Rods 01/28/25 14:10 Blood Blood Culture - Preliminary NO GROWTH AFTER 24 HOURS Constitutional: Present mild distress, morbidly obese, chronically ill appearing and somnolent Head: Present atraumatic and normocephalic ENT: Present normal exam Respiratory: Present prolonged expiratory phase, crackles and normal respiratory effort; Absent rhonchi or wheezes Cardiac: Present Irregularly Regular and Bradycardia GI: Present soft and normal bowel sounds; Absent distention or tenderness Comment:: Rob[place] remains in place Extremities: Present normal inspection, full ROM and edema (Improving, 2+ in right lower extremity to thigh, 2+ in left lower extremity. Wrinkling of right leg. Still erythematous.) Skin: Present intact and erythema Comment:: Numerous wounds, see nursing notes. Has intertrigo and excoriations in her skin folds in her abdomen and under her breasts. Scabbed lesions on right shoulder. All present on admission Neuro: Present Grossly Intact, alert, awake and moves all extremities; Absent oriented x 3 Assessment and Plan *Assessment and plan (1) Septic shock: Status: Acute Category: Medical Code(s): A41.9 - Sepsis, unspecified organism; R65.21 - Severe sepsis with septic shock (2) Cellulitis: Status: Acute Category: Medical Code(s): L03.90 - Cellulitis, unspecified (3) Dementia: Status: Chronic Category: Medical Code(s): F03.90 - Unspecified dementia, unspecified severity, without behavioral disturbance, psychotic disturbance, mood disturbance, and anxiety (4) Morbid obesity: Status: Chronic Category: Medical Code(s): E66.01 - Morbid (severe) obesity due to excess calories (5) CHF (congestive heart failure): Status: Acute Category: Medical Code(s): I50.9 - Heart failure, unspecified (6) Sepsis due to gram-negative UTI: Status: Acute Category: Medical Code(s): A41.50 - Gram-negative sepsis, unspecified; N39.0 - Urinary tract infection, site not specified Plan 89-year-old female from [facility] presents for failure of oral antibiotics for right lower extremity cellulitis. On presentation has findings consistent with septic shock. Discussed case with ER provider, request admission for further management for septic shock and infection. I decided to admit to the ICU for further care. Continuing broad-spectrum IV antibiotics. Received partial sepsis bolus but in light of her worsening blood pressure and concern for CHF, paused bolus on admission. Condition remains tenuous and critical. Prognosis poor. Continues to require ICU level care. Problems addr essed as follows: Septic shock Cellulitis Leukocytosis Urinary tract infection, due to gram-negative rods, present on admission -Patient's blood pressure showing stability. Weaning dopamine and nor epinephrine. Continue to titrate for goal MAP greater than 65 or systolic greater than 90. - Currently on dopamine 2.5 mcg/kg/min. Norepinephrine weaned to 8 mcg/min - Blood cultures remain negative. -Continue vancomycin renally dosed, monitor for toxicity - Continue Zosyn 4.5 g twice daily renally dosed - White count improving at 19. Hemoglobin 14. CRP severely elevated at 389. - Repeat CBC, CMP, magnesium and CRP ordered for the morning. CHF: - Enlarged heart on CT of chest and chest x-ray. Presentation consistent with CHF, BNP 5000. Given her edema, strong concern for CHF exacerbation. -Echo obtained, formal read shows elevated RVSP of 40 to 45 mmHg, EF preserved. Consistent with HFpEF. - Given emilia volume overload we will attempt diuresis again today with 2 mg IV Bumex once with support to blood pressure with norepinephrine and dopamine as above. TAD: - BUN 47, creatinine 1.9. Potassium 3.0, replacing per protocol. Sodium normal at 140. Glucose 139. - Renally dosing medications Dementia per history, unclear baseline mentation. Oriented to self only at this time. Morbid obesity complicates all aspects of her care Heparin 5000 units 3 times daily subcu Cardiac diet DNR/DNI. Spoke to patient's brother who is her surrogate decision maker today. He wants to keep her DNR/DNI. Understands her current status and risk for decompensation. Was appreciative of the phone call. ICU/Critical care attestation This patient is critically ill with 35 minutes devoted solely to this patient managing life/organ supporting interventions that required physician assessment. This includes time spent making adjustments in ventilator settings, IV fluid administration, titration of pressors, adjustments of medications, discussion of patient with consultants and other care providers as well as updating patient and/or family (if patient by virtue of his/her condition is unable to participate in decision making). This does not include time spent performing separately billed procedures. Time is not concurrent with that of other providers.
[2025-01-30 13:54] LABS: Vancomycin,Trough 9.2 ug/mL (5.0-10.0)
[2025-01-30] MEDS: VANCOMYCIN/WATER FOR INJ (PEG) 1.75 GM/350 ML PIGGYBACK IV (14:28)
--- NOTE | 2025-01-30 14:41 | P.PCN_ITS ---
[facility] Procedure Note Date: 01/30/25 Time: 14:00 Procedure Note:: Midline line insertion Time: 1420 Consent was obtained from patient next of kin (brother). Time out preformed. Lab work was reviewed, platelet count was 141. Discussed risk with patient's including but not limited to bleeding, nerve damage, pain, infection. Left arm was placed on table, prepped, and draped in sterile fashion. Under ultrasound guidance, needle was placed into the left brachial vein. A guidewire was then threaded through the vein and advanced without difficulty. Introducer was then placed over the guidewire and guidewire was removed. Midline line catheter was measured and trimmed to appropriate length of 13 cm . Midline catheter was then threaded through introducer without difficulty. Midline line was flushed with 30 mL of normal saline without resistance. Blood return was not noted, midline was visualized with US within the vein. Introducer was removed, midline was secured with StatLock and sterile dressing. Patient tolerated the procedure nicely and was educated on CLABSI, dressing care, PICC line use, infection risk. Blood Loss: 10 cc Length of procedure: 18 mins
--- NOTE | 2025-01-30 14:50 | EXP.PHA.CONS ---
Pharmacy Consult Date: 01/30/25 Time: 14:50 Referring provider: DR. CARREON Reason for Consult:: VANCOMYCIN TROUGH LEVEL Allergies Allergy/AdvReac Type Severity Reaction Status Date / Time sulfamethoxazole (From Allergy Intermediate Unknown Verified 01/28/25 13:54 Bactrim) allergy reaction trimethoprim (From Bactrim) Allergy Intermediate Unknown Verified 01/28/25 13:54 allergy reaction Home Medications ?Medication ?Instructions ?Recorded ?Confirmed ?Type acetaminophen 500 mg tablet 500 mg PO Q4HP PRN Mild Pain 01/29/25 01/29/25 History (Scale Score 1-4) hydrochlorothiazide 25 mg tablet 25 mg PO DAILY 01/29/25 01/29/25 History loperamide 2 mg tablet 2 mg PO Q6HP PRN Diarrhea 01/29/25 01/29/25 History loratadine 10 mg tablet 10 mg PO DAILY 01/29/25 01/29/25 History losartan 100 mg tablet 100 mg PO DAILY 01/29/25 01/29/25 History metoprolol tartrate 25 mg tablet 25 mg PO BID 01/29/25 01/29/25 History nitroglycerin 0.3 mg sublingual 0.3 mg sublingual Q5MINP PRN Chest 01/29/25 01/29/25 History tablet Pain ondansetron 4 mg disintegrating 4 mg PO Q6HP PRN Nausea And 01/29/25 01/29/25 History tablet Vomiting protein hydrolysate,milk 1 gram-4 1 ea PO DAILY 01/29/25 01/29/25 History kcal/6 mL oral liquid (Liquid Protein Fortifier) New Prescriptions to Start Prescriptions: Height: 1.57 m Weight: 99.6 kg Laboratory Results:: Laboratory Results - last 24 hr 01/28/25 13:25: Urine Color Yellow, Urine Appearance Slightly cloudy, Urine pH 5.5, Ur Specific [place] >= 1.030, Urine Protein 1+ A, Urine Glucose (UA) Negative, Urine Ketones Trace, Urine Blood Negative, Urine Nitrate Negative, Urine Bilirubin 1+ A, Urine Urobilinogen 0.2, Ur Leukocyte Esterase Negative, Urine RBC None, Urine WBC 3-5, Ur Squamous Epith Cells 3-5, Amorphous Sediment Trace, Urine Bacteria 3+ 01/30/25 05:26: Sodium 126 L, Potassium 3.1 L D, Chloride 93 L, Carbon Dioxide 24, Anion Gap 12.1, BUN 44 H, Creatinine 1.20 H D, Estimated Creat Clear 25, Estimated GFR 42 L, Est GFR ( Amer) 51 L D, Glucose 445 H* D, Calcium 7.8 L, Magnesium 2.2 D, Total Bilirubin 1.6 H, AST 31 D, ALT 23, Alkaline Phosphatase 107, C-Reactive Protein 389.0 H, Total Protein 5.6 L, Albumin 3.0 L, Globulin 2.6, Albumin/Globulin Ratio 1.2 01/30/25 05:30: WBC 19.9 H, RBC 5.24, Hgb 14.0, Hct 44.5, MCV 84.9, MCH 26.7 L, MCHC 31.5 L, RDW 18.8 H, Plt Count 141 L, MPV 10.5 H, Neut % (Auto) 89.8 H, Lymph % (Auto) 4.6 L, [place] % (Auto) 3.8, Eos % (Auto) 0.3, Baso % (Auto) 0.4, Neut # (Auto) 17.9 H, Lymph # (Auto) 0.9, [place] # (Auto) 0.8, Eos # (Auto) 0.1, Baso # (Auto) 0.1 01/30/25 07:49: POC Glucose 124 H 01/30/25 08:46: Sodium 140, Potassium 3.0 L, Chloride 102, Carbon Dioxide 27, Anion Gap 14.0, BUN 47 H, Creatinine 1.90 H D, Estimated Creat Clear 16, Estimated GFR 25 L, Est GFR ( Amer) 30 L D, Glucose 139 H D, Calcium 8.5, Total Bilirubin 1.1, AST 38 H, ALT 26, Alkaline Phosphatase 110, Total Protein 6.0 L, Albumin 3.1 L, Globulin 2.9, Albumin/Globulin Ratio 1.1 01/30/25 13:15: Vancomycin Trough 9.2 Medical History: Medical History (Updated 01/28/25 @ 18:08 by Ronaldo Carreon MD) Dementia Morbid obesity CHF (congestive heart failure) Assessment and Plan Assessment and plan all Dx Assessment and Plan for all problems:: VANCOMYCIN TROUGH LEVEL AFTER ONE DOSE IS 9.2. BASED ON PATIENT FACTORS AND VANCOMYCIN TROUGH LEVEL, RECOMMEND CONTINUING CURRENT DOSE OF VANCOMYCIN AT 1,750MG EVERY 48 HOURS. PHARMACY WILL CONTINUE TO MONITOR AND WILL ADJUST DOSE APPROPRIATE. -JUANY ASH, PHARMD
[2025-01-30] MEDS: HYDROCORTISONE SOD SUCCINATE 100MG VIAL 50 MG IV ×2 (17:02→22:48)
[2025-01-30] MEDS: NOREPINEPHRINE BITARTRATE/D5W 8 MG/250 ML PLAST..BAG 15 MG IV (17:13)
[2025-01-30 17:20] LABS: POC Glucose,Bedside 111 (70-110)
--- NOTE | 2025-01-30 17:31 | PC.NURSE ---
pt alert to self t/o shift. lung sounds cta. pt on 1LNC. pt attempted to titrate off 1LNC and sats drop to 88%. pt 94% on 1L. pt has been controlled afib on the monitor with rate currently in 70's. abdomen soft, nontender, bowel sounds active. pt has temp sensing f/c in place and draining. no bowel movement this shift. pt q2 turn. BLE elevated, redness and edema noted. pt did have midline placed this shift in left upper arm, spoke with pt's family regarding midline. pt currently weaned off Dopamine. Levophed titrated to keep map >65. pt has refused all meals this shift, pt is a feeder. pt has requested water and soda intermittently.
[2025-01-30 21:07] LABS: Anion Gap 9.6 mEq/L (5-15); Blood Urea Nitrogen 41 mg/dl (7-17); Calcium 8.6 mg/dl (8.4-10.2); Carbon Dioxide 25 mmol/L (22.0-30.0); Chloride 108 mmol/L (98-107); Creatinine Clearance Estimated 17 mL/min (50-200); Creatinine,Serum 1.80 mg/dl (0.52-1.04); Estimated Glomerular Filt Rate 27 ml/min (>60); GFR (African American) 32 ML/MIN (>60); Glucose 135 mg/dl (74-100); Potassium 3.6 mmoL/L (3.5-5.1); Sodium 139 mmol/L (136-145)
--- NOTE | 2025-01-30 21:45 | XR_ITS ---
PROCEDURE INFORMATION: Exam: XR Chest Exam date and time: 01/30/2025 9:56 PM Age: 89 years old Clinical indication: Other: Left arm iv insertion to determine placement TECHNIQUE: Imaging protocol: Radiologic exam of the chest. Views: 1 view. COMPARISON: CT CHEST WO CON 01/28/2025 3:12 PM FINDINGS: Lungs: Bibasilar opacities partially silhouette the diaphragm are favored to represent combination of atelectasis/pleural effusion/consolidation. Pleural spaces: See Lungs finding. Heart/Mediastinum: Unremarkable. No cardiomegaly. Bones/joints: Unremarkable. IMPRESSION: Bibasilar opacities partially silhouette the diaphragm are favored to represent combination of atelectasis/pleural effusion/consolidation.
[2025-01-31] VITALS (46 sets, daily range): BP systolic 77–128; BP diastolic 33–105; PULSE 64–111; RESP 12–29; TEMP 36.3–37.4; O2SAT 87–98; BMI 40.6
[2025-01-31] MEDS: NOREPINEPHRINE BITARTRATE/D5W 8 MG/250 ML PLAST..BAG 13.13 MG IV (00:54)
[2025-01-31 01:25] LABS: POC Glucose,Bedside 162 (70-110)
[2025-01-31] MEDS: PIPERACILLIN/TAZO 4.5 GM in 0.9 % SODIUM CHLORIDE 100 ML IV ×2 (02:50→14:30)
[2025-01-31] MEDS: HYDROCORTISONE SOD SUCCINATE 100MG VIAL 50 MG IV ×2 (05:06→11:31)
[2025-01-31 05:28] LABS: Albumin Level 2.7 g/dl (3.5-5.0); Chloride 105 mmol/L (98-107); Potassium 3.2 mmoL/L (3.5-5.1); Sodium 141 mmol/L (136-145)
[2025-01-31 05:31] LABS: Alanine Aminotransferase 25 U/L (12-78); Albumin/Globulin Ratio 1.0 (1.1-1.8); Alkaline Phosphatase 93 U/L (38-126); Anion Gap 12.2 mEq/L (5-15); Aspartate Amino Transferase 28 U/L (14-36); Bilirubin,Total 0.9 mg/dl (0.2-1.3); Blood Urea Nitrogen 43 mg/dl (7-17); Calcium 8.4 mg/dl (8.4-10.2); Carbon Dioxide 27 mmol/L (22.0-30.0); Creatinine Clearance Estimated 18 mL/min (50-200); Creatinine,Serum 1.70 mg/dl (0.52-1.04); Estimated Glomerular Filt Rate 28 ml/min (>60); GFR (African American) 34 ML/MIN (>60); Globulin 2.7 g/dL (1.3-3.2); Glucose 151 mg/dl (74-100); Total Protein,Serum 5.4 g/dl (6.3-8.2)
[2025-01-31 05:37] LABS: C-Reactive Protein 247.3 mg/L (0-4)
[2025-01-31 05:42] LABS: Hematocrit 39.4 % (37.0-47.0); Hemoglobin 12.8 g/dL (12.2-16.2); Immature Granulocytes % 1.4 %; Mean Corpuscular HGB Conc 32.5 g/dL (31.8-35.4); Mean Corpuscular Hemoglobin 27.6 pg (27.0-31.2); Mean Corpuscular Volume 84.9 fl (81-99); Nucleated Red Blood Cells % 0.1 %; Platelet Count 139 K/mm3 (142-424); Red Blood Count 4.64 M/mm3 (4.20-5.40); Red Cell Distribution Width-SD 56.1 fL; White Blood Count 17.4 K/mm3 (4.8-10.8)
[2025-01-31 06:59] LABS: POC Glucose,Bedside 109 (70-110)
[2025-01-31] MEDS: HEPARIN SODIUM 5,000 UNIT/ML VIAL 5000 UNIT SUBCUT (08:03)
[2025-01-31] MEDS: POTASSIUM CHLORIDE 10 MEQ, LIDOCAINE HCL/PF 3 ML in 0.9 % SODIUM CHLORIDE 100 ML 108 MEQ IV ×6 (08:03→13:22)
[2025-01-31] MEDS: NYSTATIN TOPICAL POWDER 30GM TP ×4 (08:32→21:59)
--- NOTE | 2025-01-31 08:43 | P.PN_ITS ---
Subjective *Date: 01/31/25 *Time: 08:43 Medical Exam Vital signs and Labs for Last 24 Hours: Vital Signs Temp Pulse Pulse Resp BP BP Pulse Ox 01/31/25 08:00 80 01/31/25 08:00 97.7 F 73 21 87/54 L 93 L 01/31/25 07:38 97.7 F 79 17 89 L 01/31/25 07:38 90/69 L 01/31/25 07:16 97.7 F 19 01/31/25 07:16 93/70 L 01/31/25 07:01 97.5 F L 84 19 92 L 01/31/25 07:01 117/63 01/31/25 07:00 01/31/25 07:00 97.7 F 84 22 117/63 93 L 01/31/25 06:46 97.7 F 90 17 93 L 01/31/25 06:46 98/52 L 01/31/25 06:31 108/63 L 01/31/25 06:31 97.7 F 87 28 H 92 L 01/31/25 06:19 113/62 01/31/25 06:19 97.7 F 64 15 93 L 01/31/25 06:16 97.7 F 72 16 93 L 01/31/25 06:16 125/105 H 01/31/25 06:00 103/66 L 01/31/25 06:00 97.7 F 95 H 12 90 L 01/31/25 05:00 97.7 F 90 24 91 L 01/31/25 05:00 121/86 01/31/25 05:00 01/31/25 04:01 115/65 01/31/25 04:00 78 01/31/25 04:00 98.1 F 69 20 115/65 93 L 01/31/25 04:00 98.2 F 75 21 92 L 01/31/25 04:00 92 L 01/31/25 03:30 98.6 F 76 16 92 L 01/31/25 03:30 104/75 L 01/31/25 03:00 01/31/25 02:00 98.8 F 89 25 H 95 01/31/25 02:00 100/63 L 01/31/25 01:00 01/31/25 01:00 99.1 F 87 22 92 L 01/31/25 01:00 101/55 L 01/31/25 00:00 110/67 01/31/25 00:00 99.3 F 88 22 92 L 01/31/25 00:00 99.3 F 82 19 110/67 93 L 01/31/25 00:00 90 01/31/25 00:00 93 L 01/30/25 23:02 99.7 F H 80 25 H 92 L 01/30/25 23:00 99.7 F H 90 27 H 91 L 01/30/25 23:00 103/62 L 01/30/25 23:00 01/30/25 22:02 99.7 F H 77 26 H 92 L 01/30/25 22:01 99.7 F H 84 26 H 93 L 01/30/25 21:00 99.5 F 25 H 01/30/25 21:00 109/66 L 01/30/25 21:00 01/30/25 20:54 99.5 F 83 22 96 01/30/25 20:54 125/77 01/30/25 20:30 99.5 F 80 25 H 92 L 01/30/25 20:30 123/76 01/30/25 20:15 116/76 01/30/25 20:15 99.5 F 21 01/30/25 20:01 99.5 F 76 22 95 01/30/25 20:01 129/64 01/30/25 20:00 99.5 F 81 21 129/64 93 L 01/30/25 20:00 72 01/30/25 20:00 95 01/30/25 20:00 99.5 F 79 19 89 L 01/30/25 19:45 99.5 F 80 23 93 L 01/30/25 19:45 131/65 01/30/25 19:30 124/84 01/30/25 19:30 99.5 F 84 28 H 94 L 01/30/25 19:15 99.5 F 51 L 26 H 96 01/30/25 19:15 126/79 01/30/25 19:01 99.3 F 70 21 95 01/30/25 19:01 129/75 01/30/25 19:00 99.5 F 47 L 21 93 L 01/30/25 18:45 126/69 01/30/25 18:45 99.3 F 79 23 94 L 01/30/25 18:42 01/30/25 18:42 99.3 F 83 24 129/89 94 L 01/30/25 18:37 99.3 F 77 14 92 L 01/30/25 18:37 129/89 01/30/25 18:30 99.3 F 75 24 92 L 01/30/25 18:30 120/74 01/30/25 18:16 99.3 F 74 24 94 L 01/30/25 18:16 114/61 01/30/25 18:00 99.3 F 81 21 92 L 01/30/25 18:00 94/49 L 01/30/25 17:53 99.3 F 82 24 85/58 L 95 01/30/25 17:46 99.1 F 75 25 H 93 L 01/30/25 17:46 85/58 L 01/30/25 17:43 91/57 L 01/30/25 17:43 99.1 F 87 26 H 92 L 01/30/25 17:29 101/49 L 01/30/25 17:29 99.3 F 79 23 92 L 01/30/25 17:25 99.3 F 87 21 95 01/30/25 17:25 82/20 L 01/30/25 17:15 99.1 F 89 21 95 01/30/25 17:15 87/56 L 01/30/25 17:00 99.1 F 73 24 94 L 01/30/25 17:00 88/47 L 01/30/25 16:50 01/30/25 16:50 99.1 F 86 95/52 L 97 01/30/25 16:47 95/52 L 01/30/25 16:47 99.1 F 82 27 H 90 L 01/30/25 16:45 99.1 F 86 26 H 92 L 01/30/25 16:45 98/67 L 01/30/25 16:31 116/51 L 01/30/25 16:31 99.1 F 78 25 H 95 01/30/25 16:15 99.1 F 87 27 H 96 01/30/25 16:15 103/57 L 01/30/25 16:00 95/58 L 01/30/25 16:00 99.1 F 80 22 94 L 01/30/25 16:00 88 01/30/25 16:00 94 L 01/30/25 16:00 99.1 F 75 95/58 L 95 01/30/25 15:45 99.1 F 81 22 93 L 01/30/25 15:45 97/58 L 01/30/25 15:00 01/30/25 15:00 99.1 F 91 H 18 137/61 91 L 01/30/25 14:00 99.3 F 65 18 87/58 L 91 L 01/30/25 13:00 01/30/25 13:00 99.0 F 85 24 128/59 L 92 L 01/30/25 12:00 91 H 01/30/25 12:00 99.1 F 91 H 18 128/78 90 L 01/30/25 11:30 91 L 01/30/25 11:00 99.3 F 77 22 89/53 L 91 L 01/30/25 10:56 01/30/25 10:06 99.1 F 78 27 H 113/80 93 L 01/30/25 10:00 99.1 F 78 27 H 93 L 01/30/25 10:00 113/80 01/30/25 09:45 99.1 F 77 24 92 L 01/30/25 09:45 112/68 01/30/25 09:30 84/57 L 01/30/25 09:30 99.5 F 24 01/30/25 09:16 99.5 F 87 28 H 94 L 01/30/25 09:16 106/63 L 01/30/25 09:11 96/68 L 01/30/25 09:11 99.5 F 82 22 94 L 01/30/25 09:04 75/50 L 01/30/25 09:04 99.5 F 76 23 94 L 01/30/25 09:01 99.5 F 82 19 94 L 01/30/25 09:01 58/39 L 01/30/25 09:00 99.5 F 68 18 96/68 L 94 L 01/30/25 08:47 O2 Del Method O2 Flow Rate 01/31/25 08:00 01/31/25 08:00 Nasal Cannula 2 01/31/25 07:38 01/31/25 07:38 01/31/25 07:16 01/31/25 07:16 01/31/25 07:01 01/31/25 07:01 01/31/25 07:00 Room Air 01/31/25 07:00 Room Air 01/31/25 06:46 01/31/25 06:46 01/31/25 06:31 01/31/25 06:31 01/31/25 06:19 01/31/25 06:19 01/31/25 06:16 01/31/25 06:16 01/31/25 06:00 01/31/25 06:00 01/31/25 05:00 01/31/25 05:00 01/31/25 05:00 Room Air 01/31/25 04:01 01/31/25 04:00 01/31/25 04:00 Room Air 01/31/25 04:00 01/31/25 04:00 Room Air 01/31/25 03:30 01/31/25 03:30 01/31/25 03:00 Room Air 01/31/25 02:00 01/31/25 02:00 01/31/25 01:00 Room Air 01/31/25 01:00 01/31/25 01:00 01/31/25 00:00 01/31/25 00:00 01/31/25 00:00 Room Air 01/31/25 00:00 01/31/25 00:00 Room Air 01/30/25 23:02 01/30/25 23:00 01/30/25 23:00 01/30/25 23:00 Room Air 01/30/25 22:02 01/30/25 22:01 01/30/25 21:00 01/30/25 21:00 01/30/25 21:00 Nasal Cannula 2 01/30/25 20:54 01/30/25 20:54 01/30/25 20:30 01/30/25 20:30 01/30/25 20:15 01/30/25 20:15 01/30/25 20:01 01/30/25 20:01 01/30/25 20:00 Nasal Cannula 2 01/30/25 20:00 01/30/25 20:00 Nasal Cannula 1 01/30/25 20:00 01/30/25 19:45 01/30/25 19:45 01/30/25 19:30 01/30/25 19:30 01/30/25 19:15 01/30/25 19:15 01/30/25 19:01 01/30/25 19:01 01/30/25 19:00 01/30/25 18:45 01/30/25 18:45 01/30/25 18:42 Nasal Cannula 1 01/30/25 18:42 Nasal Cannula 1 01/30/25 18:37 01/30/25 18:37 01/30/25 18:30 01/30/25 18:30 01/30/25 18:16 01/30/25 18:16 01/30/25 18:00 01/30/25 18:00 01/30/25 17:53 Nasal Cannula 1 01/30/25 17:46 01/30/25 17:46 01/30/25 17:43 01/30/25 17:43 01/30/25 17:29 01/30/25 17:29 01/30/25 17:25 01/30/25 17:25 01/30/25 17:15 01/30/25 17:15 01/30/25 17:00 01/30/25 17:00 01/30/25 16:50 Nasal Cannula 1 01/30/25 16:50 Room Air 1 01/30/25 16:47 01/30/25 16:47 01/30/25 16:45 01/30/25 16:45 01/30/25 16:31 01/30/25 16:31 01/30/25 16:15 01/30/25 16:15 01/30/25 16:00 01/30/25 16:00 01/30/25 16:00 01/30/25 16:00 Nasal Cannula 1 01/30/25 16:00 Nasal Cannula 1 01/30/25 15:45 01/30/25 15:45 01/30/25 15:00 Nasal Cannula 1 01/30/25 15:00 Nasal Cannula 1 01/30/25 14:00 Nasal Cannula 1 01/30/25 13:00 Room Air 01/30/25 13:00 Room Air 01/30/25 12:00 01/30/25 12:00 Room Air 01/30/25 11:30 Room Air 01/30/25 11:00 01/30/25 10:56 Nasal Cannula 1 01/30/25 10:06 01/30/25 10:00 01/30/25 10:00 01/30/25 09:45 01/30/25 09:45 01/30/25 09:30 01/30/25 09:30 01/30/25 09:16 01/30/25 09:16 01/30/25 09:11 01/30/25 09:11 01/30/25 09:04 01/30/25 09:04 01/30/25 09:01 01/30/25 09:01 01/30/25 09:00 Nasal Cannula 1 01/30/25 08:47 Nasal Cannula 1 Intake and Output 01/30/25 01/31/25 01/31/25 23:59 07:59 15:59 Intake Total 1479.418 / 2663.219 385.259 / 400.259 15 / 400.259 Output Total 500 / 2150 350 / 477 127 / 477 Balance 979.418 / 513.219 35.259 / -76.741 -112 / -76.741 Intake: Intake, Oral Amount 0 / 0 222 / 237 15 / 237 Intake, Total IV Amount 1479.418 / 2663.219 163.259 / 163.259 Piperacillin/Tazo 4.5 gm In 0.9 200 / 300 100 / 100 % Sodium Chloride 100 ml @ 200 mls/hr IV Q12H RAUL Rx#: [id number] Potassium Chloride 10 meq 800 / 800 Lidocaine HCl/Pf 3 ml In 0.9 % Sodium Chloride 100 ml @ 108 mls/hr IV Q1H RAUL Rx#:[id number] Vancomycin/Water For Inj (Peg) 325 / 325 1.75 gm In 350 ml @ 175 mls/hr IV Q48H RAUL Rx#:[id number] Output: Output, Urine Amount 350 / 350 127 / 127 Output, Urine Amount (Catheter) 150 / 1800 350 / 350 [place] 150 / 1800 350 / 350 Other: Number of Unmeasured Voids 1 0 0 Number of Bowel Movements 1 Weight 100.2 kg Patient Weight 01/31/25 23:59 Weight 100.2 kg Laboratory Results - last 24 hr 01/30/25 08:46: Sodium 140, Potassium 3.0 L, Chloride 102, Carbon Dioxide 27, Anion Gap 14.0, BUN 47 H, Creatinine 1.90 H D, Estimated Creat Clear 16, Estimated GFR 25 L, Est GFR ( Amer) 30 L D, Glucose 139 H D, Calcium 8.5, Total Bilirubin 1.1, AST 38 H, ALT 26, Alkaline Phosphatase 110, Total Protein 6.0 L, Albumin 3.1 L, Globulin 2.9, Albumin/Globulin Ratio 1.1 01/30/25 13:15: Vancomycin Trough 9.2 01/30/25 17:12: POC Glucose 111 H 01/30/25 20:49: Sodium 139, Potassium 3.6, Chloride 108 H, Carbon Dioxide 25, Anion Gap 9.6, BUN 41 H, Creatinine 1.80 H, Estimated Creat Clear 17, Estimated GFR 27 L, Est GFR ( Amer) 32 L, Glucose 135 H, Calcium 8.6 01/31/25 01:16: POC Glucose 162 H 01/31/25 04:59: WBC 17.4 H, RBC 4.64, Hgb 12.8, Hct 39.4, MCV 84.9, MCH 27.6, MCHC 32.5, RDW 18.1 H, Plt Count 139 L, MPV 10.2, Neut % (Auto) 89.5 H, Lymph % (Auto) 4.8 L, [place] % (Auto) 4.0, Eos % (Auto) 0.0 L, Baso % (Auto) 0.3, Neut # (Auto) 15.6 H, Lymph # (Auto) 0.8, [place] # (Auto) 0.7, Eos # (Auto) 0.0, Baso # (Auto) 0.1, Sodium 141, Potassium 3.2 L, Chloride 105, Carbon Dioxide 27, Anion Gap 12.2, BUN 43 H, Creatinine 1.70 H, Estimated Creat Clear 18, Estimated GFR 28 L, Est GFR ( Amer) 34 L, Glucose 151 H, Calcium 8.4, Total Bilirubin 0.9, AST 28 D, ALT 25, Alkaline Phosphatase 93, C-Reactive Protein 247.3 H, Total Protein 5.4 L, Albumin 2.7 L D, Globulin 2.7, Albumin/Globulin Ratio 1.0 L 01/31/25 06:52: POC Glucose 109 I & O for Labs for Last 24 Hours: Intake & Output 01/28/25 01/29/25 01/30/25 01/31/25 23:59 23:59 23:59 23:59 Intake Total 83.750 / 83.750 1865.430 / 8187.327 3837.219 / 2663.219 400.259 / 400.259 Output Total 350 / 645 1760 / 2110 1950 / 2150 477 / 477 Balance -266.250 / -561.250 105.430 / -244.570 713.219 / 513.219 -76.741 / - 76.741 Weight 107.275 kg 108.3 kg 99.6 kg 100.2 kg Microbiology Reports for the Last 24 Hours: Microbiology 01/28/25 13:25 Urine,Clean Catch Urine Culture - Final Escherichia coli 01/28/25 14:10 Blood Blood Culture - Preliminary NO GROWTH AFTER 48 HOURS 01/28/25 13:12 Blood Blood Culture - Preliminary NO GROWTH AFTER 48 HOURS 01/28/25 18:40 Rectum CRE Surveillance Culture - Final Negative The patient's infection will respond to the chosen ABx?: Yes (URINE CX E COLI SENSITIVE TO ZOSYN, AFEBRILE OVER 24 HR) Is the patient receiving the right drug, dose, and route?: Yes Could a more targeted ABx be ordered?: No How long ABx needed (days)?: 7
--- NOTE | 2025-01-31 08:58 | HMH.PTWOUND ---
Rehab Inpt Wound Evaluation Rehab IP Wound Evaluation Start: 01/28/25 14:57 Freq: ONCE Status: Active Protocol: Document 01/31/25 08:52 PHOJONAS (Rec: 01/31/25 08:58 PHORDEEJAY [id number]) Rehab PT Wound Assessment Subjective Subjective Per H&P: Ms. Almazan is an 89-year-old female presenting to the ER via EMS from [facility]. We have very little knowledge of her history but it appears she was sent for evaluation of right lower extremity cellulitis, pain. Recently finished course of Keflex but symptoms not gotten any better. Has dementia at baseline. Afebrile but blood pressures are soft with systolics in the 90s. Complains of pain in right leg when she is moved. Severe right lower extremity edema and erythema up to proximal thigh. Patient unable to provide any history or review of systems. Workup in the ER initiated. Labs found to be grossly abnormal with white count of 25. Patient was tachycardic and hypotensive on arrival . BUN 51 creatinine 2.1. Lactate 2.5. BNP elevated at 5200. Initiated on broad-spectrum antibiotics. Significant redness and swelling of right lower extremity. Medicine consulted for admission of septic shock. Upon admission pt has multiple small open sores across her back and on B LE. B LE also with significant weeping drainage. Plan/Recommendation Comment At this time, B LE edema has decreased and weeping drainage is now mild. Pt c/o tenderness to touch throughout B LE, R worse than L, and continues to have moderate R LE erythema noted. Open sores are now dry on R LE and across her back. Signs and symptoms are most consistent with fluid overload combined with multiple co-morbid conditions. Best course of treatment at this time is to continue elevation of B LE to reduce edema. Pt is not ambulatory at this time and therefore not a good candidate for unna boot placement. She might benefit from elastic bandages for compression to B LE unless her mobility significantly improves. No further needs for debridement currently, but will assist [facility] staff as needed to maintain appropriate treatment and prevent further wounds. Eval Complexity Eval Charge Codes 72611 - High Complexity PHYSICIAN CERTIFICATION: I certify the specified therapy services for Shahnaz Almazan are required, authorized, and reviewed every 30 days.
--- NOTE | 2025-01-31 08:59 | CA_ITS ---
FINAL REPORT CLINICAL HISTORY: Redness with tenderness of right leg COMPARISON: None FINDINGS: DUPLEX VENOUS SONOGRAPHY OF THE RIGHT LOWER EXTREMITY Multiple transverse and longitudinal scans were performed of the femoropopliteal deep venous system, with augmentation and compression maneuvers. HISTORY: Red and tender right leg FINDINGS: Overall image quality is limited secondary to patient refusal to move her leg, and refused to have the entire exam performed. The right popliteal vein and the proximal peroneal vein in particular are limited in evaluation. Normal phasic flow was noted in the portions of the visualized deep venous system allowed by the patient. No intraluminal increased echogenicity is noted to suggest thrombus. There is normal compression and augmentation of the venous structures. No abnormal venous collaterals are seen. IMPRESSION: No evidence of deep venous thrombosis of the right lower extremity, although the exam is limited as described above. There is no DVT present in the visualized veins. Reviewed, Interpreted and Dictated by Renae Vaughan MD Transcribed by Shoshana Hagan Authenticated and [facility]
[2025-01-31] MEDS: NOREPINEPHRINE BITARTRATE/D5W 8 MG/250 ML PLAST..BAG 9.38 MG IV (09:20)
[2025-01-31 09:33] LABS: Magnesium 2.3 mg/dl (1.6-2.3)
[2025-01-31 16:45] LABS: POC Glucose,Bedside 116 (70-110)
[2025-01-31 16:45] LABS: POC Glucose,Bedside 105 (70-110)
--- NOTE | 2025-01-31 16:48 | PC.NURSE ---
patient has done well this shift. did restart levophed this morning because of consistent map less than 65 per md order. bp is improving and currently on 2mcg/min. has been talkative with staff. two bms this shift so mineral oil enema held. heart rate irregular. noted some purple coloring to r hand, some bruising in that area. ivs removed from r arm. bed change this shift and preventative dressings to heels and sacrums replaced. turned patient frequently. heels elevated off bed. no other complaints noted.
--- NOTE | 2025-01-31 18:45 | EXP.PN ---
Subjective *Date: 01/31/25 *Time: 18:45 Interval history: Patient feeling better today, but continues to be weak and requiring Levophed. Urine culture showed ESBL E. coli sensitive to Zosyn. Exam Data for Last 24 hours Vital signs and Labs for Last 24 Hours: Temp Pulse Resp BP Pulse Ox O2 Del Method O2 Flow Rate 98.6 F 99 H 21 93/59 L 95 Nasal Cannula 2 01/31/25 18:00 01/31/25 18:00 01/31/25 18:01/31/25 18:01/31/25 18:00 01/31/25 18:00 01/31/25 18:00 Laboratory Results - last 24 hr 01/30/25 20:49: Sodium 139, Potassium 3.6, Chloride 108 H, Carbon Dioxide 25, Anion Gap 9.6, BUN 41 H, Creatinine 1.80 H, Estimated Creat Clear 17, Estimated GFR 27 L, Est GFR ( Amer) 32 L, Glucose 135 H, Calcium 8.6 01/31/25 01:16: POC Glucose 162 H 01/31/25 04:59: WBC 17.4 H, RBC 4.64, Hgb 12.8, Hct 39.4, MCV 84.9, MCH 27.6, MCHC 32.5, RDW 18.1 H, Plt Count 139 L, MPV 10.2, Neut % (Auto) 89.5 H, Lymph % (Auto) 4.8 L, [place] % (Auto) 4.0, Eos % (Auto) 0.0 L, Baso % (Auto) 0.3, Neut # (Auto) 15.6 H, Lymph # (Auto) 0.8, [place] # (Auto) 0.7, Eos # (Auto) 0.0, Baso # (Auto) 0.1, Sodium 141, Potassium 3.2 L, Chloride 105, Carbon Dioxide 27, Anion Gap 12.2, BUN 43 H, Creatinine 1.70 H, Estimated Creat Clear 18, Estimated GFR 28 L, Est GFR ( Amer) 34 L, Glucose 151 H, Calcium 8.4, Magnesium 2.3, Total Bilirubin 0.9, AST 28 D, ALT 25, Alkaline Phosphatase 93, C-Reactive Protein 247.3 H, Total Protein 5.4 L, Albumin 2.7 L D, Globulin 2.7, Albumin/Globulin Ratio 1.0 L 01/31/25 06:52: POC Glucose 109 01/31/25 12:31: POC Glucose 105 01/31/25 16:37: POC Glucose 116 H I & O for Last 24 hours: Intake & Output 01/28/25 01/29/25 01/30/25 01/31/25 23:59 23:59 23:59 23:59 Intake Total 83.750 / 83.750 1865.430 / 3879.571 2997.219 / 2663.219 1447.068 / 1447.068 Output Total 350 / 645 1760 / 2110 1950 / 2150 815 / 815 Balance -266.250 / -561.250 105.430 / -244.570 713.219 / 513.219 632.068 / 632.068 Weight 107.275 kg 108.3 kg 99.6 kg 100.2 kg Microbiology Reports for the Last 24 Hours: Microbiology 01/28/25 13:25 Urine,Clean Catch Urine Culture - Final Escherichia coli Constitutional Constitutional: no acute distress and obese *Routine HEENT Exam Head: Present normocephalic Eye: Present EOMI and PERRL ENT: Present mucous membranes moist *Routine Neck Exam Neck: Present supple; Absent lymphadenopathy *Routine Respiratory Exam Respiratory: Present CTA bilaterally *Routine Cardiovascular Exam Cardiovascular: Present RRR *Routine Abdominal Exam Abdominal: Present soft and normoactive bowel sounds; Absent tenderness *Routine Extremities Exam Extremities: Present edema; Absent cyanosis or clubbing Comments: Lower extremity pitting edema 3+, bilateral erythema with tenderness right greater than left. *Routine Skin Exam Skin: Present warm; Absent rash *Routine Neurological Exam Neurological: Present alert Assessment and Plan *Assessment and plan (1) Septic shock: Status: Acute Category: Medical Code(s): A41.9 - Sepsis, unspecified organism; R65.21 - Severe sepsis with septic shock (2) Cellulitis: Status: Acute Category: Medical Code(s): L03.90 - Cellulitis, unspecified (3) Dementia: Status: Chronic Category: Medical Code(s): F03.90 - Unspecified dementia, unspecified severity, without behavioral disturbance, psychotic disturbance, mood disturbance, and anxiety (4) Morbid obesity: Status: Chronic Category: Medical Code(s): E66.01 - Morbid (severe) obesity due to excess calories (5) CHF (congestive heart failure): Status: Acute Category: Medical Code(s): I50.9 - Heart failure, unspecified (6) Sepsis due to gram-negative UTI: Status: Acute Category: Medical Code(s): A41.50 - Gram-negative sepsis, unspecified; N39.0 - Urinary tract infection, site not specified Plan Shahnaz Almazan is a 89-year-old female from [facility] presents for failure of oral antibiotics for right lower extremity cellulitis. On presentation has findings consistent with septic shock. Discussed case with ER provider, request admission for further management for septic shock and infection. I decided to admit to the ICU for further care. Continuing broad-spectrum IV antibiotics. Received partial sepsis bolus but in light of her worsening blood pressure and concern for CHF, paused bolus on admission. Condition remains tenuous and critical. Continues to require ICU level care. Septic shock Cellulitis Urinary tract infection, due to gram-negative rods, present on admission - Urine culture showing ESBL E. coli sensitive to Zosyn 4.5 g twice daily and carbapenems among a few other antibiotics. Discontinue vancomycin ? Attempted to wean off Levophed today, MAPs down to mid 50s. Restarted Levophed at 5 mcg. Dopamine had been discontinued in the setting of bradycardia. - Blood cultures remain negative. - White count improving from 19.9 to 17.4. Hemoglobin 12.8. CRP improving from 389-247. Follow-up procalcitonin. - Repeat CBC, CMP, magnesium and CRP, procalcitonin ordered for the morning. ?There is significant erythema with tenderness, right greater than left. In the setting of volume overload. Could be venous stasis dermatitis versus cellulitis. Attempted to get Doppler ultrasound to rule out DVT, however patient could not tolerate the study. Limited study showed no DVT in right lower extremities. HFpEF exacerbation: - Enlarged heart on CT of chest and chest x-ray. Presentation consistent with CHF, BNP 5000. Given her edema, strong concern for CHF exacerbation. - Echo obtained, formal read shows elevated RVSP of 40 to 45 mmHg, EF preserved. Consistent with HFpEF. - Given emilia volume overload we will attempt diuresis again today with with IV Bumex 1 mg daily with support of Levophed. 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 Continue diuresis as above. - Renally dosing medications Dementia per history, unclear baseline mentation. Oriented to self only at this time. Morbid obesity complicates all aspects of her care Next 30 mg Cardiac diet DNR/DNI. Spoke to patient's brother who is her surrogate decision maker today. He wants to keep her DNR/DNI. Understands her current status and risk for decompensation. Was appreciative of the phone call. ICU/Critical care attestation This patient is critically ill with 31 minutes devoted solely to this patient managing life/organ supporting interventions that required physician assessment. This includes time spent making adjustments in ventilator settings, IV fluid administration, titration of pressors, adjustments of medications, discussion of patient with consultants and other care providers as well as updating patient and/or family (if patient by virtue of his/her condition is unable to participate in decision making). This does not include time spent performing separately billed procedures. Time is not concurrent with that of other providers.
[2025-01-31] MEDS: BUMETANIDE 1MG/4ML VIAL 1 MG IV (19:30)
[2025-01-31 19:43] LABS: Chloride 110 mmol/L (98-107); Sodium 142 mmol/L (136-145)
[2025-01-31 19:44] LABS: Potassium 3.5 mmoL/L (3.5-5.1)
[2025-01-31 19:46] LABS: Anion Gap 6.5 mEq/L (5-15); Blood Urea Nitrogen 48 mg/dl (7-17); Carbon Dioxide 29 mmol/L (22.0-30.0); Creatinine Clearance Estimated 20 mL/min (50-200); Creatinine,Serum 1.50 mg/dl (0.52-1.04); Estimated Glomerular Filt Rate 33 ml/min (>60); GFR (African American) 40 ML/MIN (>60)
[2025-01-31 19:47] LABS: Calcium 8.2 mg/dl (8.4-10.2); Glucose 144 mg/dl (74-100)
[2025-01-31 19:48] LABS: POC Glucose,Bedside 184 (70-110)
[2025-02-01] VITALS (43 sets, daily range): BP systolic 86–149; BP diastolic 37–97; PULSE 71–106; RESP 13–28; TEMP 36.2–36.7; O2SAT 90–99; BMI 42.4
[2025-02-01] MEDS: PIPERACILLIN/TAZO 4.5 GM in 0.9 % SODIUM CHLORIDE 100 ML IV ×2 (02:23→15:16)
[2025-02-01 06:05] LABS: Albumin Level 2.4 g/dl (3.5-5.0); Chloride 110 mmol/L (98-107); Sodium 143 mmol/L (136-145)
[2025-02-01 06:07] LABS: Alanine Aminotransferase 24 U/L (12-78); Anion Gap 5.9 mEq/L (5-15); Aspartate Amino Transferase 28 U/L (14-36); Blood Urea Nitrogen 45 mg/dl (7-17); Carbon Dioxide 30 mmol/L (22.0-30.0); Creatinine Clearance Estimated 20 mL/min (50-200); Creatinine,Serum 1.50 mg/dl (0.52-1.04); Estimated Glomerular Filt Rate 33 ml/min (>60); GFR (African American) 40 ML/MIN (>60); Potassium 2.9 mmoL/L (3.5-5.1)
[2025-02-01 06:08] LABS: Albumin/Globulin Ratio 0.9 (1.1-1.8); Alkaline Phosphatase 88 U/L (38-126); Bilirubin,Total 0.7 mg/dl (0.2-1.3); Calcium 8.2 mg/dl (8.4-10.2); Globulin 2.7 g/dL (1.3-3.2); Glucose 127 mg/dl (74-100); Total Protein,Serum 5.1 g/dl (6.3-8.2)
[2025-02-01 06:11] LABS: Hematocrit 38.5 % (37.0-47.0); Hemoglobin 11.9 g/dL (12.2-16.2); Immature Granulocytes % 2.9 %; Mean Corpuscular HGB Conc 30.9 g/dL (31.8-35.4); Mean Corpuscular Hemoglobin 26.6 pg (27.0-31.2); Mean Corpuscular Volume 85.9 fl (81-99); Nucleated Red Blood Cells % 0 %; Platelet Count 137 K/mm3 (142-424); Red Blood Count 4.48 M/mm3 (4.20-5.40); Red Cell Distribution Width-SD 56.6 fL; White Blood Count 12.7 K/mm3 (4.8-10.8)
[2025-02-01 06:15] LABS: C-Reactive Protein 89.8 mg/L (0-4)
[2025-02-01 06:17] LABS: POC Glucose,Bedside 126 (70-110)
[2025-02-01] MEDS: POTASSIUM CHLORIDE 20MEQ TAB 40 MEQ PO ×3 (06:29→15:15)
[2025-02-01 06:38] LABS: D-Dimer 2.01 ug/mL (0.0-0.5)
--- NOTE | 2025-02-01 08:50 | PC.NURSE ---
Primary RN assess patients Midline at this time. Patients Midline appears to be in poor positioning. Midline appears to be dislodged. FELIX Perez verified. notified. Midline removed at this time. Midline catheter intact. New 22 gauge IV placed in right forearm. Continuation of care plan.
[2025-02-01] MEDS: BUMETANIDE 1MG/4ML VIAL 1 MG IV (08:55)
[2025-02-01] MEDS: NYSTATIN TOPICAL POWDER 30GM TP ×4 (08:56→20:23)
[2025-02-01 10:12] LABS: Magnesium 2.1 mg/dl (1.6-2.3)
[2025-02-01 10:29] LABS: Procalcitonin 1.59 ng/mL (0.0-2.0)
[2025-02-01 11:09] LABS: POC Glucose,Bedside 123 (70-110)
--- NOTE | 2025-02-01 15:39 | CT_ITS ---
PROCEDURE INFORMATION: Exam: CT Right Lower Extremity Without and With Contrast, Leg Exam date and time: 02/01/2025 4:11 PM Age: 89 years old Clinical indication: Other: Significant swelling, redness, tenderness TECHNIQUE: Imaging protocol: CT of the right lower extremity without and with intravenous contrast was performed. Exam focused on the lower leg. Radiation optimization: All CT scans at this facility use at least one of these dose optimization techniques: automated exposure control; mA and/or kV adjustment per patient size (includes targeted exams where dose is matched to clinical indication); or iterative reconstruction. Contrast material: ISOVUE; Contrast volume: 75 ml; Contrast route: IV; COMPARISON: CR XR TIBIA FIBULA RT 2V 04/29/2023 8:43 PM FINDINGS: Bones/joints: No acute fracture, gross malalignment, worrisome lytic or blastic osseous lesion, distinct periosteal reaction, cortical thinning or erosions. 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 Ankle joints are unremarkable. Soft tissues: Moderate diffuse atrophy of the imaged lower extremity muscles. Lipoma associated with the distal right dorsalis, possibly left gastrocnemius. No appreciable soft tissue gas or drainable abscess. Trace right prepatellar bursal fluid with enhancement of the bursa. Trace bilateral knee joint effusions. Other findings: Diffuse cstk-ec-picouyyx skin thickening and enhancement in the bilateral lower extremities, right greater than left. IMPRESSION: 1. Diffuse aomt-aw-ahzilmcn skin thickening and enhancement in the bilateral lower extremities, right greater than left. Correlate for cellulitis. 2. Trace right prepatellar bursal fluid with enhancement of the bursa. Suspicious for acute bursitis. Recommend correlation. 3. No appreciable soft tissue gas or drainable abscess. 4. No acute osseous abnormality.
--- NOTE | 2025-02-01 15:39 | CT_ITS ---
PROCEDURE INFORMATION: Exam: CT Left Lower Extremity Without and With Contrast, Leg Exam date and time: 02/01/2025 4:11 PM Age: 89 years old Clinical indication: Other: Significant swelling, redness, tenderness TECHNIQUE: Imaging protocol: CT of the left lower extremity without and with intravenous contrast was performed. Exam focused on the lower leg. Radiation optimization: All CT scans at this facility use at least one of these dose optimization techniques: automated exposure control; mA and/or kV adjustment per patient size (includes targeted exams where dose is matched to clinical indication); or iterative reconstruction. Contrast material: ISOVUE; Contrast volume: 75 ml; Contrast route: IV; COMPARISON: No relevant prior studies available. FINDINGS: Bones/joints: No acute fracture, gross malalignment, worrisome lytic or blastic osseous lesion, distinct periosteal reaction, cortical thinning or erosions. 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 Ankle joints are unremarkable. Soft tissues: Moderate diffuse atrophy of the imaged lower extremity muscles. Lipoma associated with the distal right dorsalis, possibly left gastrocnemius. No appreciable soft tissue gas or drainable abscess. Trace right prepatellar bursal fluid with enhancement of the bursa. Trace bilateral knee joint effusions. Other findings: Diffuse lnac-hc-pkfxaslo skin thickening and enhancement in the bilateral lower extremities, right greater than left. IMPRESSION: 1. Diffuse rvbz-xt-kbuoshom skin thickening and enhancement in the bilateral lower extremities, right greater than left. Correlate for cellulitis. 2. Trace right prepatellar bursal fluid with enhancement of the bursa. Suspicious for acute bursitis. Recommend correlation. 3. No appreciable soft tissue gas or drainable abscess. 4. No acute osseous abnormality.
--- NOTE | 2025-02-01 15:59 | PC.NURSE ---
CT requests 250 mL's of IV fluids be given to patient due to GFR of 33 on morning labs. Primary RN notified at this time. states he does not want to give any IV fluids. CT notified. Continuation of care plan.
--- NOTE | 2025-02-01 16:15 | PC.NURSE ---
Patient taken down to CT via bed with Primary RN and radiology staff at this time.
--- NOTE | 2025-02-01 16:22 | PC.NURSE ---
patient went down for a CT via bed @[id number]
[2025-02-01] MEDS: IOPAMIDOL-370 (76%);100ML BOTTLE 93 ML IV (16:25)
[2025-02-01] MEDS: SODIUM CHLORIDE 0.9% 10ML SYR (RAD ONLY) 10 ML IV (16:25)
--- NOTE | 2025-02-01 16:25 | PC.NURSE ---
patient returned from CT @[phone]
--- NOTE | 2025-02-01 16:27 | PC.NURSE ---
Patient arrived back to ICU from scheduled scan accompanied by radiology staff and Primary RN at this time.Continuation of care plan.
[2025-02-01 16:44] LABS: POC Glucose,Bedside 137 (70-110)
--- NOTE | 2025-02-01 18:59 | P.PN_ITS ---
Subjective *Date: 02/01/25 *Time: 18:59 Interval history: Patient is more confused today, likely from hospital-acquired delirium. Restarted vancomycin, continue Zosyn for cellulitis and UTI. Exam Data for Last 24 hours Vital signs and Labs for Last 24 Hours: Temp Pulse Resp BP Pulse Ox O2 Del Method O2 Flow Rate 97.9 F 76 22 133/92 H 95 Room Air 1 02/01/25 16:30 02/01/25 18:16 02/01/25 18:16 02/01/25 18:00 02/01/25 18:16 02/01/25 18:38 02/01/25 02:01 FiO2 28 01/31/25 22:18 Laboratory Results - last 24 hr 01/31/25 19:25: Sodium 142, Potassium 3.5, Chloride 110 H, Carbon Dioxide 29, Anion Gap 6.5, BUN 48 H, Creatinine 1.50 H, Estimated Creat Clear 20, Estimated GFR 33 L, Est GFR ( Amer) 40 L, Glucose 144 H, Calcium 8.2 L 01/31/25 19:34: POC Glucose 184 H 02/01/25 05:00: WBC 12.7 H D, RBC 4.48, Hgb 11.9 L, Hct 38.5, MCV 85.9, MCH 26.6 L, MCHC 30.9 L, RDW 18.0 H, Plt Count 137 L, MPV 10.2, Neut % (Auto) 80.7 H, Lymph % (Auto) 9.1 L, [place] % (Auto) 6.2, Eos % (Auto) 0.8, Baso % (Auto) 0.3, Neut # (Auto) 10.2 H, Lymph # (Auto) 1.2, [place] # (Auto) 0.8, Eos # (Auto) 0.1, Baso # (Auto) 0.0, D-Dimer 2.01 H, Sodium 143, Potassium 2.9 L*, Chloride 110 H, Carbon Dioxide 30, Anion Gap 5.9, BUN 45 H, Creatinine 1.50 H, Estimated Creat Clear 20, Estimated GFR 33 L, Est GFR ( Amer) 40 L, Glucose 127 H, Calcium 8.2 L, Magnesium 2.1, Total Bilirubin 0.7, AST 28, ALT 24, Alkaline Phosphatase 88, C-Reactive Protein 89.8 H D, Total Protein 5.1 L, Albumin 2.4 L D, Globulin 2.7, Albumin/Globulin Ratio 0.9 L, Procalcitonin 1.59 02/01/25 05:51: POC Glucose 126 H 02/01/25 11:02: POC Glucose 123 H 02/01/25 16:29: POC Glucose 137 H I & O for Last 24 hours: Intake & Output 01/29/25 01/30/25 01/31/25 02/01/25 23:59 23:59 23:59 23:59 Intake Total 1865.430 / 2003.888 1080.219 / 2663.219 1456.938 / 1456.938 319.323 / 319.323 Output Total 1760 / 2110 1950 / 2150 1350 / 1350 1784 / 1784 Balance 105.430 / -244.570 713.219 / 513.219 106.938 / 106.938 -1464.677 / - 1464.677 Weight 108.3 kg 99.6 kg 100.2 kg 104.6 kg Microbiology Reports for the Last 24 Hours: Microbiology 01/28/25 14:10 Blood Blood Culture - Preliminary NO GROWTH AFTER 4 DAYS 01/28/25 13:12 Blood Blood Culture - Preliminary NO GROWTH AFTER 4 DAYS Constitutional Constitutional: no acute distress and obese *Routine HEENT Exam Head: Present normocephalic Eye: Present EOMI and PERRL ENT: Present mucous membranes moist *Routine Neck Exam Neck: Present supple; Absent lymphadenopathy *Routine Respiratory Exam Respiratory: Present CTA bilaterally *Routine Cardiovascular Exam Cardiovascular: Present RRR *Routine Abdominal Exam Abdominal: Present soft and normoactive bowel sounds; Absent tenderness *Routine Extremities Exam Extremities: Present edema; Absent cyanosis or clubbing Comments: Lower extremity pitting edema 3+, bilateral erythema with tenderness right greater than left. *Routine Skin Exam Skin: Present warm; Absent rash *Routine Neurological Exam Neurological: Present alert Assessment and Plan *Assessment and plan (1) Septic shock: Status: Acute Category: Medical Code(s): A41.9 - Sepsis, unspecified organism; R65.21 - Severe sepsis with septic shock (2) Cellulitis: Status: Acute Category: Medical Code(s): L03.90 - Cellulitis, unspecified (3) Dementia: Status: Chronic Category: Medical Code(s): F03.90 - Unspecified dementia, unspecified severity, without behavioral disturbance, psychotic disturbance, mood disturbance, and anxiety (4) Morbid obesity: Status: Chronic Category: Medical Code(s): E66.01 - Morbid (severe) obesity due to excess calories (5) CHF (congestive heart failure): Status: Acute Category: Medical Code(s): I50.9 - Heart failure, unspecified (6) Sepsis due to gram-negative UTI: Status: Acute Category: Medical Code(s): A41.50 - Gram-negative sepsis, unspecified; N39.0 - Urinary tract infection, site not specified Plan Shahnaz Almazan is a 89-year-old female from [facility] presents for failure of oral antibiotics for right lower extremity cellulitis. On presentation has findings consistent with septic shock. Discussed case with ER provider, request admission for further management for septic shock and infection. I decided to admit to the ICU for further care. Continuing broad- spectrum IV antibiotics. Received partial sepsis bolus but in light of her worsening blood pressure and concern for CHF, paused bolus on admission. Condition remains tenuous and critical. Continues to require ICU level care. Septic shock Cellulitis Urinary tract infection, due to gram-negative rods, present on admission - Urine culture showing ESBL E. coli sensitive to Zosyn 4.5 g twice daily and carbapenems among a few other antibiotics. ? Restarted vancomycin given suspected lower extremity cellulitis. Monitor for toxicity. ? Weaned off Levophed today. - Blood cultures remain negative. - White count improving from 19.9 to 17.4 to 12.7. Hemoglobin 12.8. CRP improving from 389-247-89.8. Procalcitonin normal. - Repeat CBC, CMP and CRP, procalcitonin ordered for the morning. ?There is significant erythema with tenderness, right greater than left. In the setting of volume overload. CT lower extremities show moderate skin thickening of bilateral lower extremities, no abscess or fractures. Could be venous stasis dermatitis versus cellulitis. Attempted to get Doppler ultrasound to rule out DVT, however patient could not tolerate the study. Limited study showed no DVT in right lower extremities. HFpEF exacerbation: - Enlarged heart on CT of chest and chest x-ray. Presentation consistent with CHF, BNP 5000. Given her edema, strong concern for CHF exacerbation. - Echo obtained, formal read shows elevated RVSP of 40 to 45 mmHg, EF preserved. Consistent with HFpEF. - Given emilia volume overload we will attempt diuresis again today with with IV Bumex 1 mg daily. Diuresing well. 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 Continue diuresis as above. - Renally dosing medications Dementia per history, unclear baseline mentation. Oriented to self only at this time. Morbid obesity complicates all aspects of her care Next 30 mg Cardiac diet DNR/DNI.
[2025-02-01] MEDS: VANCOMYCIN HCL 2,000 MG in 0.9 % SODIUM CHLORIDE 250 ML 125 MG IV (19:57)
[2025-02-01] MEDS: VANCOMYCIN CONSULT REQUEST 1 EACH NOTAPPLIC (20:07)
[2025-02-02] VITALS (15 sets, daily range): BP systolic 104–135; BP diastolic 60–87; PULSE 75–90; RESP 14–22; TEMP 36.5–36.7; O2SAT 94–98; BMI 42.0
[2025-02-02] MEDS: PIPERACILLIN/TAZO 4.5 GM in 0.9 % SODIUM CHLORIDE 100 ML IV (02:52)
[2025-02-02 05:55] LABS: Hematocrit 38.5 % (37.0-47.0); Hemoglobin 12.1 g/dL (12.2-16.2); Immature Granulocytes % 4.9 %; Mean Corpuscular HGB Conc 31.4 g/dL (31.8-35.4); Mean Corpuscular Hemoglobin 27.2 pg (27.0-31.2); Mean Corpuscular Volume 86.5 fl (81-99); Nucleated Red Blood Cells % 0 %; Platelet Count 138 K/mm3 (142-424); Red Blood Count 4.45 M/mm3 (4.20-5.40); Red Cell Distribution Width-SD 57.1 fL; White Blood Count 13.4 K/mm3 (4.8-10.8)
[2025-02-02 06:15] LABS: Albumin Level 2.5 g/dl (3.5-5.0); Chloride 109 mmol/L (98-107); Potassium 3.7 mmoL/L (3.5-5.1); Sodium 144 mmol/L (136-145)
[2025-02-02 06:17] LABS: Alanine Aminotransferase 24 U/L (12-78); Alkaline Phosphatase 86 U/L (38-126); Anion Gap 8.7 mEq/L (5-15); Aspartate Amino Transferase 26 U/L (14-36); Bilirubin,Total 0.6 mg/dl (0.2-1.3); Blood Urea Nitrogen 37 mg/dl (7-17); Carbon Dioxide 30 mmol/L (22.0-30.0); Creatinine Clearance Estimated 27 mL/min (50-200); Creatinine,Serum 1.10 mg/dl (0.52-1.04); Estimated Glomerular Filt Rate 47 ml/min (>60); GFR (African American) 57 ML/MIN (>60)
[2025-02-02 06:18] LABS: Albumin/Globulin Ratio 0.9 (1.1-1.8); Calcium 8.0 mg/dl (8.4-10.2); Globulin 2.7 g/dL (1.3-3.2); Glucose 114 mg/dl (74-100); Magnesium 2.2 mg/dl (1.6-2.3); Total Protein,Serum 5.2 g/dl (6.3-8.2)
[2025-02-02 06:24] LABS: C-Reactive Protein 68.3 mg/L (0-4)
[2025-02-02 07:56] LABS: RBC Morphology Normal; Total Cells Counted 100
[2025-02-02] MEDS: SPIRONOLACTONE 25MG TABLET 25 MG PO (08:00)
[2025-02-02] MEDS: BUMETANIDE 1MG/4ML VIAL 1 MG IV ×2 (08:00→09:17)
[2025-02-02] MEDS: NYSTATIN TOPICAL POWDER 30GM TP ×3 (08:01→17:07)
--- NOTE | 2025-02-02 08:39 | EXP.PHA.CONS ---
Pharmacy Consult Date: 02/02/25 Time: 08:39 Referring provider: DR. ZIMMERMAN Reason for Consult:: VANCOMYCIN DOSING Allergies Allergy/AdvReac Type Severity Reaction Status Date / Time sulfamethoxazole (From Allergy Intermediate Unknown Verified 01/28/25 13:54 Bactrim) allergy reaction trimethoprim (From Bactrim) Allergy Intermediate Unknown Verified 01/28/25 13:54 allergy reaction Home Medications ?Medication ?Instructions ?Recorded ?Confirmed ?Type acetaminophen 500 mg tablet 500 mg PO Q4HP PRN Mild Pain 01/29/25 01/29/25 History (Scale Score 1-4) hydrochlorothiazide 25 mg tablet 25 mg PO DAILY 01/29/25 01/29/25 History loperamide 2 mg tablet 2 mg PO Q6HP PRN Diarrhea 01/29/25 01/29/25 History loratadine 10 mg tablet 10 mg PO DAILY 01/29/25 01/29/25 History losartan 100 mg tablet 100 mg PO DAILY 01/29/25 01/29/25 History metoprolol tartrate 25 mg tablet 25 mg PO BID 01/29/25 01/29/25 History nitroglycerin 0.3 mg sublingual 0.3 mg sublingual Q5MINP PRN Chest 01/29/25 01/29/25 History tablet Pain ondansetron 4 mg disintegrating 4 mg PO Q6HP PRN Nausea And 01/29/25 01/29/25 History tablet Vomiting protein hydrolysate,milk 1 gram-4 1 ea PO DAILY 01/29/25 01/29/25 History kcal/6 mL oral liquid (Liquid Protein Fortifier) New Prescriptions to Start Prescriptions: Height: 1.57 m Weight: 103.8 kg Laboratory Results:: Laboratory Results - last 24 hr 02/01/25 05:00: Magnesium 2.1, Procalcitonin 1.59 02/01/25 11:02: POC Glucose 123 H 02/01/25 16:29: POC Glucose 137 H 02/02/25 05:13: WBC 13.4 H, RBC 4.45, Hgb 12.1 L, Hct 38.5, MCV 86.5, MCH 27.2, MCHC 31.4 L, RDW 18.1 H, Plt Count 138 L, MPV 9.8, Neut % (Auto) 82.6 H, Lymph % (Auto) 6.4 L, [place] % (Auto) 4.1, Eos % (Auto) 1.6, Baso % (Auto) 0.4, Neut # (Auto) 11.1 H, Lymph # (Auto) 0.9, [place] # (Auto) 0.6, Eos # (Auto) 0.2, Baso # (Auto) 0.1, Total Counted 100, Neutrophils % (Manual) 84 H, Lymphocytes % (Manual) 12, Atypical Lymphs % 1.0, Monocytes % (Manual) 2, Eosinophils % (Manual) 1, Platelet Estimate Slight decrease, RBC Morphology Normal, Sodium 144, Potassium 3.7 D, Chloride 109 H, Carbon Dioxide 30, Anion Gap 8.7, BUN 37 H, Creatinine 1.10 H D, Estimated Creat Clear 27, Estimated GFR 47 L, Est GFR ( Amer) 57 L D, Glucose 114 H, Calcium 8.0 L, Magnesium 2.2, Total Bilirubin 0.6, AST 26, ALT 24, Alkaline Phosphatase 86, C-Reactive Protein 68.3 H, Total Protein 5.2 L, Albumin 2.5 L, Globulin 2.7, Albumin/Globulin Ratio 0.9 L Medical History: Medical History (Updated 01/30/25 @ 21:35 by Nurys Beltran RN) Hypertension Intellectual disability Dementia Morbid obesity CHF (congestive heart failure) Assessment and Plan Assessment and plan all Dx Assessment and Plan for all problems:: Pharmacokinetic dosing service Objective: Patient: Floor: Age: 89 yo Serum creatinine: 1.1 mg/dL Height: 61.8 Inches Weight (kg): 103.8 Assessment: IBW (kg): 49.64 Dosing wt(kg): 103.8 Estimated Creatinine clearance (ml/min): 28.2 CRCL method: Cockcroft and Gault using ibw(default). Drug selected: Vancomycin Loading dose (mg): 0 Vd (liters): 83.0 (factor used: 0.8 L/kg) Geovanni (hr-1): 0.028 Half life (hrs): 24.76 Recommended dose: 1750 mg Interval: 36 hrs Infusion time (hrs): 2.0 Predicted peak (mcg/mL): 32.3 Predicted trough (mcg/mL): 12.47 Total body weight is being used for vancomycin dosing. Recommendations: Give Vancomycin 1750 mg q 36 hrs with an expected Cpeak of 32.3 mcg/ml and an expected Ctrough of 12.47 mcg/ml ----Vanco only - ignore for aminoglycosides----- CLvanco= 2.32 L/hr AUC 0-24 /LEVI Data: LEVI 0.5 mcg/mL: AUC/LEVI: 1005.7 LEVI 1.0 mcg/mL: AUC/LEVI: 502.9 --------- LEVI 1.5 mcg/mL: AUC/LEVI: 335.2 LEVI 2.0 mcg/mL: AUC/LEVI: 251.4
--- NOTE | 2025-02-02 08:55 | PC.NURSE ---
ADMISSIONS AWARE OF TRANSFER FROM SC TO MED SURG
--- NOTE | 2025-02-02 08:57 | PC.NURSE ---
PER HOUSE PT IS GOING TO ROOM 215. ADMISSIONS AWARE.
--- NOTE | 2025-02-02 09:15 | PC.NURSE ---
CALLED REPORT TO PEARL WASHINGTON
--- NOTE | 2025-02-02 09:29 | PC.NURSE ---
PT AT BEDSIDE WORKING WITH PT.
--- NOTE | 2025-02-02 09:42 | PC.NURSE ---
IVY CALLED AND SAID FOR PT TO STAY IN ICU. ADMISSIONS AWARE. MAY POSSIBLY DC LATER THIS AFTERNOON PER MD
--- NOTE | 2025-02-02 11:15 | DIET.NUTRFU ---
Patients po intake continues to be poor, spoke to nursing staff and she did eat a bag of potato chips last night and drink a ensure. She likes pepsi, nursing aid was going to offer a pepsi float today for extra calories. Provider feels she will improve when in her own setting and will possibly return back to [place] today. Will continue current diet and supplements.
--- NOTE | 2025-02-02 12:53 | P.DS_ITS ---
General Admission date:: 01/28/25 HPI HPI HPI: Ms. Almazan is an 89-year-old female presenting to the ER via EMS from [facility]. We have very little knowledge of her history but it appears she was sent for evaluation of right lower extremity cellulitis, pain. Recently finished course of Keflex but symptoms not gotten any better. Has dementia at baseline. Afebrile but blood pressures are soft with systolics in t he 90s. Complains of pain in right leg when she is moved. Severe right lower extremity edema and erythema up to proximal thigh. Patient unable to provide any history or review of systems. Workup in the ER initiated. Labs found to be grossly abnormal with white count of 25. Patient was tachycardic and hypotensive on arrival. BUN 51 creatinine 2.1. Lactate 2.5. BNP elevated at 5200. Initiated on broad-spectrum antibiotics. Significant redness and swelling of right lower extremity. Medicine consulted for admission of septic shock. On my evaluation, patient is oriented to self only. States her legs hurt but does not complain of pain elsewhere. Has pain with any movement. On norepinephrine with MAP of 67 at time of evaluation appears frankly volume overloaded Hospital Course Hospital Course Hospital Course: Shahnaz Almazan is a 89-year-old female from [facility] with weakness and was admitted for septic shock secondary to UTI, suspected cellulitis. #Septic shock, resolved #UTI, present on admission #Suspected cellulitis ? Clinically improved with broad-spectrum antibiotics including vancomycin and Zosyn. Weaned off Levophed. WBC, CRP both improved. - Urine culture showed ESBL E. coli sensitive to Zosyn, ertapenem. Will transition to IM ertapenem. ? Patient has been in the ICU since admission, unfortunately has acquired hospital-acquired delirium in the setting of infection. Mentation has improved, but appetite below baseline which she had improved after return to senior living. ? Continues to have bilateral lower extremity erythema, swelling, tenderness (right greater than left), but significantly improving with diuresis. This may be more related to dermatitis from significant volume overload rather than cellulitis, but will continue to treat empirically with doxycycline. Vancomycin discontinued. Patient cannot fully tolerate lower extremity ultrasound to rule out DVT, but limited images obtained did not show DVT. ? Lower extremity CT also shows nonspecific skin thickening without abscess or fracture. ? Will need IM ertapenem 500 mg daily for 2 more days. Last dose given 02/02/2025 at 1:30 PM. ? Discharged with doxycycline 100 mg for 5 more days. 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 Presentation consistent with CHF, BNP 5000. Given her significant lower extremity edema edema, strong concern for CHF exacerbation. - Echo obtained, formal read shows elevated RVSP of 40 to 45 mmHg, EF preserved. Consistent with HFpEF. - Improving with IV Bumex diuresis, transitioned to oral Bumex 1 mg daily, spironolactone 25 mg. ? Creatinine also improved from 2.1-1.1 with diuresis, suggesting cardiorenal volume overload. ? Discontinued hydrochlorothiazide, losartan, metoprolol tartrate as BP stable without this medications. ? Follow-up with cardiology within 1 week. #Dementia ? Pleasant, but intermittently confused. Really wants to go back to senior living. Continue supportive care. Morbid obesity complicates all aspects of her care Total time spent on discharge: 34 minutes on chart review, counseling, documentation, and direct care with patient. Exam Data for Last 24 hours Vital signs and Labs for Last 24 Hours: Temp Pulse Resp BP Pulse Ox O2 Del Method O2 Flow Rate 97.7 F 78 22 104/60 L 98 Nasal Cannula 2 02/02/25 12:00 02/02/25 12:00 02/02/25 12:00 02/02/25 12:00 02/02/25 12:00 02/02/25 12:00 02/02/25 12:00 FiO2 28 01/31/25 22:18 Laboratory Results - last 24 hr 02/01/25 16:29: POC Glucose 137 H 02/02/25 05:13: WBC 13.4 H, RBC 4.45, Hgb 12.1 L, Hct 38.5, MCV 86.5, MCH 27.2, MCHC 31.4 L, RDW 18.1 H, Plt Count 138 L, MPV 9.8, Neut % (Auto) 82.6 H, Lymph % (Auto) 6.4 L, [place] % (Auto) 4.1, Eos % (Auto) 1.6, Baso % (Auto) 0.4, Neut # (Auto) 11.1 H, Lymph # (Auto) 0.9, [place] # (Auto) 0.6, Eos # (Auto) 0.2, Baso # (Auto) 0.1, Total Counted 100, Neutrophils % (Manual) 84 H, Lymphocytes % (Manual) 12, Atypical Lymphs % 1.0, Monocytes % (Manual) 2, Eosinophils % (Manual) 1, Platelet Estimate Slight decrease, RBC Morphology Normal, Sodium 144, Potassium 3.7 D, Chloride 109 H, Carbon Dioxide 30, Anion Gap 8.7, BUN 37 H, Creatinine 1.10 H D, Estimated Creat Clear 27, Estimated GFR 47 L, Est GFR ( Amer) 57 L D, Glucose 114 H, Calcium 8.0 L, Magnesium 2.2, Total Bilir ubin 0.6, AST 26, ALT 24, Alkaline Phosphatase 86, C-Reactive Protein 68.3 H, Total Protein 5.2 L, Albumin 2.5 L, Globulin 2.7, Albumin/Globulin Ratio 0.9 L I & O for Last 24 hours: Intake & Output 01/30/25 01/31/25 02/01/25 02/02/25 23:59 23:59 23:59 23:59 Intake Total 2663.219 / 2663.219 1456.938 / 1456.938 319.323 / 319.323 100 / 100 Output Total 1950 / 2150 1350 / 1350 2034 / 2084 900 / 900 Balance 713.219 / 513.219 106.938 / 106.938 -1714.677 / -1764.677 -800 / -800 Weight 99.6 kg 100.2 kg 104.6 kg 103.8 kg Microbiology Reports for the Last 24 Hours: Microbiology 01/28/25 14:10 Blood Blood Culture - Preliminary NO GROWTH AFTER 4 DAYS 01/28/25 13:12 Blood Blood Culture - Preliminary NO GROWTH AFTER 4 DAYS Constitutional Constitutional: no acute distress and obese *Routine HEENT Exam Head: Present normocephalic Eye: Present EOMI and PERRL ENT: Present mucous membranes moist *Routine Neck Exam Neck: Present supple; Absent lymphadenopathy *Routine Respiratory Exam Respiratory: Present CTA bilaterally *Routine Cardiovascular Exam Cardiovascular: Present RRR *Routine Abdominal Exam Abdominal: Present soft and normoactive bowel sounds; Absent tenderness *Routine Extremities Exam Extremities: Present edema; Absent cyanosis or clubbing Comments: Lower extremity pitting edema 2+, bilateral erythema with tenderness right greater than left. *Routine Skin Exam Skin: Present warm; Absent rash *Routine Neurological Exam Neurological: Present alert Results Data Completed and Pending Labs on day of discharge: Labs from last 24 hours 02/02/25 02/01/25 05:13 16:29 WBC 13.4 H RBC 4.45 Hgb 12.1 L Hct 38.5 MCV 86.5 MCH 27.2 MCHC 31.4 L RDW 18.1 H Plt Count 138 L MPV 9.8 Neut % (Auto) 82.6 H Lymph % (Auto) 6.4 L [place] % (Auto) 4.1 Eos % (Auto) 1.6 Baso % (Auto) 0.4 Neut # (Auto) 11.1 H Lymph # (Auto) 0.9 [place] # (Auto) 0.6 Eos # (Auto) 0.2 Baso # (Auto) 0.1 Total Counted 100 Neutrophils % (Manual) 84 H Lymphocytes % (Manual) 12 Atypical Lymphs % 1.0 Monocytes % (Manual) 2 Eosinophils % (Manual) 1 Platelet Estimate Slight decrease RBC Morphology Normal Sodium 144 Potassium 3.7 D Chloride 109 H Carbon Dioxide 30 Anion Gap 8.7 BUN 37 H Creatinine 1.10 H D Estimated Creat Clear 27 Estimated GFR 47 L Est GFR ( Amer) 57 L D Glucose 114 H POC Glucose 137 H Calcium 8.0 L Magnesium 2.2 Total Bilirubin 0.6 AST 26 ALT 24 Alkaline Phosphatase 86 C-Reactive Protein 68.3 H Total Protein 5.2 L Albumin 2.5 L Globulin 2.7 Albumin/Globulin Ratio 0.9 L Preliminary micro results at discharge 01/28/25 14:10 Blood Culture - Preliminary Blood NO GROWTH AFTER 4 DAYS 01/28/25 13:12 Blood Culture - Preliminary Blood NO GROWTH AFTER 4 DAYS DS: Diagnosis Discharge Diagnosis (1) Septic shock: Status: Acute Code(s): A41.9 - Sepsis, unspecified organism; R65.21 - Severe sepsis with septic shock (2) Cellulitis: Status: Acute Code(s): L03.90 - Cellulitis, unspecified (3) Dementia: Status: Chronic Code(s): F03.90 - Unspecified dementia, unspecified severity, without behavioral disturbance, psychotic disturbance, mood disturbance, and anxiety (4) Morbid obesity: Status: Chronic Code(s): E66.01 - Morbid (severe) obesity due to excess calories (5) CHF (congestive heart failure): Status: Acute Code(s): I50.9 - Heart failure, unspecified (6) Sepsis due to gram-negative UTI: Status: Acute Code(s): A41.50 - Gram-negative sepsis, unspecified; N39.0 - Urinary tract infection, site not specified Meds Home Medications and Allergies Home Medications ?Medication ?Instructions ?Recorded ?Confirmed ?Type acetaminophen 500 mg tablet 500 mg PO Q4HP PRN Mild Pa in 01/29/25 01/29/25 History (Scale Score 1-4) loperamide 2 mg tablet 2 mg PO Q6HP PRN Diarrhea 01/29/25 History loratadine 10 mg tablet 10 mg PO DAILY 01/29/2501/20 History nitroglycerin 0.3 mg sublingual 0.3 mg sublingual Q5MI KITCHEN STEWARDESS PRN Chest 01/29/25 01/29/25 History tablet Pain ondansetron 4 mg disintegrating 4 mg PO Q6HP PRN Nause a And 01/29/25 01/29/25 History tablet Vomiting protein hydrolysate,milk 1 gram-4 1 ea PO DAILY 01/29/25 History kcal/6 mL oral liquid (Liquid Protein Fortifier) bumetanide 1 mg tablet 1 mg PO DAILY 30 days #30 ta bs 02/02/25 Rx doxycycline monohydrate 100 mg 100 mg PO BID 5 days #1 0 caps 02/02/25 Rx capsule spironolactone 25 mg tablet 25 mg PO DAILY 30 days #30 tabs 02/02/25 Rx New Prescriptions to Start Prescriptions: danielmetYonatan Obrien doxycycline monohydrate Yonatan Valencia spironolactone Yonatan Valencia Allergies Allergy/AdvReac Type Severity Reaction Status Date / Time sulfamethoxazole (From Allergy Intermediate Unknown Verified 01/28/25 13:54 Bactrim) allergy reaction trimethoprim (From Bactrim) Allergy Intermediate Unknown Verified 01/28/25 13:54 allergy reaction Discharge Plan Disposition Patient Disposition: [facility] Condition: Fair Discharge Order Discharge Orders: Discharge Order (Routine); Ordered 02/02/25 Ordered By: Yonatan Valencia Follow up Plan Follow up with: Christopher Pratt PA [Physician Product Designer, Cardiology] - 02/09/25 11:00 am Referral Note: Heart failure Provider,Referral, MD [Primary Care Provider, Medical] - Enter time for follow up Referral Note: MD AT [facility] WILL FOLLOW UP WITH PT Prescriptions/Medication Reconciliation: New spironolactone 25 mg Tablet 25 mg PO DAILY 30 Days Qty: 30 0RF bumetanide 1 mg tablet 1 mg PO DAILY 30 Days Qty: 30 0RF doxycycline monohydrate 100 mg capsule 100 mg PO BID 5 Days Qty: 10 0RF Continued loperamide 2 mg tablet 2 mg PO Q6HP PRN (Reason: Diarrhea) loratadine 10 mg tablet 10 mg PO DAILY nitroglycerin 0.3 mg Tablet, Sublingual 0.3 mg SUBLINGUAL Q5MINP PRN (Reason: Chest Pain) Rx Instructions: do not exceed 3 doses per episode acetaminophen 500 mg Tablet 500 mg PO Q4HP PRN (Reason: Mild Pain (Scale Score 1-4)) ondansetron 4 mg Tablet,Disintegrating 4 mg PO Q6HP PRN (Reason: Nausea And Vomiting) Liquid Protein Fortifier 1 gram-4 kcal/6 mL Liquid 1 ea PO DAILY Discontinued hydrochlorothiazide 25 mg tablet 25 mg PO DAILY losartan 100 mg tablet 100 mg PO DAILY metoprolol tartrate 25 mg tablet 25 mg PO BID Problem Reconciliation Problems Reviewed?: Yes Patient Discharge Instructions Patient Instructions: Cordella Pulmonary Artery Sensor Post-Implant Instructions Print Language: Polish Providers Primary Care Provider: Provider,Referral Admit Provider: Ronaldo Ojeda Attending Provider: Ronaldo Ojeda
[2025-02-02 13:13] LABS: Creatine Kinase 25 U/L (30-135)
[2025-02-02] MEDS: ERTAPENEM SODIUM 0.5 GM in 0.9 % SODIUM CHLORIDE 50 ML IV (13:32)
--- NOTE | 2025-02-02 13:51 | PC.NURSE ---
CALLED REPORT TO FLORI WASHINGTON AT [facility].
--- NOTE | 2025-02-02 15:21 | PC.NURSE ---
[facility] AWARE OF TRANSFER.
[2025-02-02 17:05] LABS: POC Glucose,Bedside 124 (70-110)
[2025-02-02 17:05] LABS: POC Glucose,Bedside 132 (70-110)
[2025-02-02 17:05] LABS: POC Glucose,Bedside 113 (70-110)
[2025-02-02 17:05] LABS: POC Glucose,Bedside 102 (70-110)
== END 2025-02-02 17:36 | DRG 871 ==
LOC: ER 15:02 → ICU 18:02
PROVIDERS: Nurse Practitioner; Student in an Organized Health Care Education/Training Program; Admitting Provider Internal Medicine Adolescent Medicine; Emergency Provider Student in an Organized Health Care Education/Training Program; Visit Provider Internal Medicine Adolescent Medicine
DX: A41.51 Sepsis due to Escherichia coli [E. coli] (principal); E43 Unspecified severe protein-calorie malnutrition; I50.33 Acute on chronic diastolic (congestive) heart failure; R65.21 Severe sepsis with septic shock; L03.115 Cellulitis of right lower limb; N39.0 Urinary tract infection, site not specified; F05 Delirium due to known physiological condition; I13.0 Hypertensive heart and chronic kidney disease with heart failure and stage 1 through stage 4 chronic kidney disease, or unspecified chronic kidney disease; N17.9 Acute kidney failure, unspecified; Z68.41 Body mass index [BMI] 40.0-44.9, adult; F03.918 Unspecified dementia, unspecified severity, with other behavioral disturbance; Z66 Do not resuscitate; N18.31 Chronic kidney disease, stage 3a; E66.01 Morbid (severe) obesity due to excess calories; I87.2 Venous insufficiency (chronic) (peripheral); R00.1 Bradycardia, unspecified; Z79.899 Other long term (current) drug therapy; Z88.2 Allergy status to sulfonamides
CPT/HCPCS: 36410; 36415; 51702; 71045; 71250; 73060; 73702; 80048; 80053; 80202; 81001; 82550; 82962; 83605; 83735; 83880; 84145; 84484; 85007; 85025; 85378; 85610; 85651; 85730; 86140; 87040; 87081; 87086; 87088; 87186; 87636; 93005; 93306; 93971; 97162; 97165; 97530; 97535; C1751; J1265; J1335; J1644; J1650; J1720; J1885; J1939; J2003; J2543; J3373; J3375; J3480; J7030; J7050; J7120; P9047; Q9967

== ENCOUNTER 2025-02-21 12:30 | Outpatient (CLI) | payer MEDICARE, MEDICAID, SELFPAY ==
--- OUTSIDE RECORDS SUMMARY | 2025-01-24 06:20 | XMS_ITS | Continuity of Care Document ---
Author Organization [address] [place] [address] Address [address] [facility] [address] [place] [address] Phone Care Team Providers Care Heavy Equipment Rental Manager Name Role Phone Geneva Hamilton NP Unavailable [...] Diagnoses Date Provider Providers Copied on Encounter [address] [place] [address], [address] [place] [address] 300, [place], [place], [id number], tel:[phone] [facility] ear care exam (chief complaint) Impacted cerumen, bilateral 5 Cochran-Hard brandan Geneva. [address] [place] [address], [address], [place], [address], [place]. Referring Provider: Andrew Clark. [address] [place] [address], [address] [place] [address] 300, [place], [place], [id number], tel:[phone] [facility] Nail dystrophyOnych ogryphosisOthe r hammer toe(s) (acquired), left footOther hammer toe(s) (acquired), right footOther specified peripheral vascular diseases 5 [place]. [address] [place] [address], [address] [place] [address] 300, [place], [place], [id number], [place] tel:[phone] [facility] Other abnormalities of gait and mobilityOther specified peripheral vascular diseasesOnycho gryphosisNail dystrophy 5 Roma Shaan. [place]. [address] [place] [address], [address] [place] [address] 300, [place], [place], [id number], tel:[phone] [facility] Cataract (chief complaint) Age-related nuclear cataract, bilateral 4 IRIS Simmons. Referring Provider: Andrew Clark. [facility] [place], [address] [place], [place] [address], [place], [place], [address], [place] tel:[phone] [facility] No Information 4 [place], [place]. [facility] [place], [address] [place] [address] [address], [place], [place], [address], [place] tel:[phone] [facility] Corns and callositiesTin ea unguiumOther specified peripheral vascular diseasesNail dystrophy 4 Thoams Castellon. [address] [facility], [address], [place], [address], [place]. [facility], [address] [place] [address] 300, [place], [place], [address], [place] tel:[phone] [facility] Corns and callositiesNai l dystrophyOther specified peripheral vascular diseasesTinea unguium Fe 4 Thomas Castellon. [address] [facility], [address], [place], [address], [place]. Referring Provider: Andrew Clark. [facility] [place], [address] [place], [place] [address], [place], [place], [address], [place] tel:[phone] [facility] Encounter for dental examination and cleaning without abnormal findings 4 Jan Tijerina. [address] [facility], [address], [place], [place], [address], [place]. tel:[phone] Referring Provider: Andrew Clark. [facility], [address] [place] [address] [address], [place], [place], [address], [place] tel:[phone] [facility] Cataract (chief complaint) Age-related nuclear cataract, bilateral Oct-2 3 Jose De Jesus Miller. [address] [facility], [address], [place], [address], [place]. Referring Provider: Andrew Clark. [facility], [address] [place], [place] [address], [place], [place], [address], [place] tel:[phone] [facility] Corns and callositiesNai l dystrophyOther specified peripheral vascular diseasesTinea unguium 3 Thomas Pinto [address] [facility], [address], [place], [address], [place]. Referring Provider: Andrew Clark. [address] [place] [address], [address] [place] [address] 300, [place], [place], [address], tel:[phone] [facility] Tinea unguiumOther specified peripheral vascular diseasesNail dystrophy 3 Thomas Pinto [address] [facility], [address], [place], [address], [place]. Referring Provider: Andrew Clark. [address] [place] [address], [address] [place] [address] 300, [place], [place], [id number], [place] tel:[phone] [facility] Cataract (chief complaint) Age-related nuclear cataract, bilateralRetin al hemorrhage, right eye 3 Jose De Jesus Miller. [address] [place] [address], [address], [place], [address], [place]. Referring Provider: Andrew Clark. NURSING FAC CARE SUBSEQ [address] [place] [address], [address] [place] [address] 300, [place], [place], [address], [place] tel:[phone] [place] [address] Tinea unguiumOther specified peripheral vascular diseasesAbrasi on, left foot, initial encounter 3 Thomas Pinto [address] [place] [address], [address], [place], [address], [place]. Referring Provider: Andrew Clark. [address] [place] [address], [address] [place] [address] 300, [place], [place], [address], [place] tel:[phone] [facility] No Information 3 Thomas Pinto [address] [place] [address], [address], [place], [address], [place]. [address] [place] [address], [address] [place] [address] 300, [place], [place], [address], [place] tel:[phone] [facility] Encounter for dental examination and cleaning without abnormal findings 3 BARNEY Angel. tel:[phone] Referring Provider: Andrew Clark. [facility], [address] [place], [place] [address] 300, [place], [place], [address], [place] tel:[phone] [facility] Corns and callositiesOth er specified peripheral vascular diseasesTinea unguium 2 Thomas Castellon. [address] [facility], [address], [place], [address], [place]. Referring Provider: Andrew Clark. [facility], [address] [place] [address] [address], [place], [place], [address], [place] tel:[phone] [facility] Tinea unguiumOther specified peripheral vascular diseases 2 Thomas Castellon. [address], [address], [place], [address], [place]. Referring Provider: Andrew Clark. [facility], [address] [place], [place] [address], [place], [place], [address], [place] tel:[phone] [facility] Encounter for dental examination and cleaning without abnormal findings 2 [place]. Referring Provider: Andrew Clark. [facility], [address] [place], [place] [address], [place], [place], [address], [place] tel:[phone] [facility] Corns and callositiesOth er specified peripheral vascular diseasesTinea unguiumXerosis cutis 2 [place], [place]. Referring Provider: Andrew Clark. [facility], [address] [place] [address] [address], [place], [place], [id number], [place] tel:[phone] [facility] Decreased vision (chief complaint) Age-related nuclear cataract, bilateral 2 Jose De Jesus Miller. [address] [facility], [address], [place], [address], [place]. Referring Provider: Andrew Clark. [facility], [address] [place] [address] 300, [place], [place], [address], [place] tel:[phone] [facility] Tinea unguiumOther specified peripheral vascular diseasesCorns and callositiesHal lux valgus (acquired), left footHallux valgus (acquired), right footOther hammer toe(s) (acquired), left footOther hammer toe(s) (acquired), right foot 2 Thomas Castellon. [address] [facility], [address], [place], [address], . Referring Provider: Andrew Clark. [address] [place] [address], [address] [place] [address] 300, [place], [address] [place] [address], tel:[phone] [facility] Encounter for dental exam and cleaning w/o abnormal findings 2 Dmitry Yeung. [address] [facility], [address], [place], [place], [address], . tel:[phone] Referring Provider: Andrew Clark. [address] [place] [address], [address] [place] [address], [place], [address] [place] [address], tel:[phone] [facility] Tinea unguiumCorns and callositiesOth er specified peripheral vascular diseasesHallux valgus (acquired), left footHallux valgus (acquired), right footOther hammer toe(s) (acquired), left footOther hammer toe(s) (acquired), right foot 2 Thomas Castellon. [address] [facility], [facility] 300, [place], [facility], . Referring Provider: Andrew Clark. [address] [place] [address], [address] [place], [place] [address], [place], [address] [place] [address], tel:[phone] [facility] No Information 2 Jose De Jesus Miller. [address] [facility], [address] [facility], [place], [facility], . Family History Family Member Type Diagnosis Age At Onset No Information Payers Payer name Insurance type Covered libertarian ID Authoriza tion(s) Medicare [facility] [id number] Medicaid [facility] [id number] Social History Type Description Quantity Date Captured Comments Alcohol Use Details Unknown Caffeine Use Details Unknown Tobacco Use Status No Information Smoking Status No Information Sex Female Chief Complaint And Reason For Visit From encounter dated '01/24/2025 10:20'. ear care exam (chief complaint) Reason For Referral Reason For Referral No Information Plan Of Treatment Date Type Action Status Appointment Shahnaz Almazan Medicaid Only . BOOKED Appointment Shahnaz Almzaan BOOKED Patient Education Earwax Blockage: Care I [...] localize swelling and venous return, and the middle or intermediate school principal benefits of using compression stockings. Reinforced the [...] a nail nipper and an electric rotary crystal flat grinder in an atraumatic fashion as needed [...] localize swelling and venous return, and the middle or intermediate school principal benefits of using compression stockings. Reinforced the [...] in 2-3 months. Related to Tinea unguium Impression/Plan - Ca taracts are moderate and [...] foot Assessments Type Assessment Date assessment Impacted aris pak Patient Care Teams Name Effective Dates (start - stop) Status Members No Information
--- OUTSIDE RECORDS SUMMARY | 2025-02-21 12:32 | XMS_ITS ---
Author Organization [facility] Care Team Providers Care Tour Escort Name Role Phone Eduardo Michael Unavailable Unavailable Allergies and adverse reactions No Known Allergies Care Team Name Role Address Phone Organization Dates Michael Clark [place]CP [place], [facility], [facility] (Office): : [facility] 05/16/2020 - 05/25/2020 Goals Section Goals Description [...] Concern Status 1 ALLERGIC RHINITIS, UNSPECIFIED 05/16/[address] active 2 COVID-19 05/16/[address] active 3 ERYTHEMATOUS CONDITION, UNSPECIFIED 05/16/[address] active 4 ESSENTIAL (PRIMARY) HYPERTENSION 05/16/[address] active 5 MILD INTELLECTUAL DISABILITIES 05/16/[address] active 6 UNSPECIFIED DEMENTIA, UNSPECIFIED SEVERITY, WITHOUT BEHAVIORAL DISTURBANCE, PSYCHOTIC DISTURBANCE, MOOD DISTURBANCE, AND ANXIETY 05/16/[address] active Reason for Referral No Reasons for Referral Entered Social History Social History Observation Description Start Date End Date Code Code System Current Smoking Status Tobacco smoking consumption unknown 419881425 SNOMED CT Sex Assigned At Female 1935 54072-[address] [facility] Gender Identity Vital Signs Code Code System Vitals Name Values and Units Timing Information 23016-[address] [facility] Pain Level Value=0.0 05/25/2020 9279-[address] [facility] Respiratory Rate Value=18.0 Units=/m in 05/25/2020 8462-[address] [facility] Blood Pressure-Diastolic Value=82 Un its=mmHg 05/25/2020 8480-6 [facility] Blood Pressure-Systolic Oxmtn=350 Un its=mmHg 05/25/2020 8310-[address] [facility] Body Temperature Value=97.5 Units= F 05/25/2020 8867-[address] [facility] Heart rate Value=82.0 Units=/min 09/2019 64957-[address] [facility] O2 % BldC Oximetry Value=91.0 Units= % 05/25/2020 41095-[address] [facility] Weight Xhlhq=314.8 Units=Lbs 8302-[address] [facility] Height Value=65.0 Units=Inches 05/16/2020
--- OUTSIDE RECORDS SUMMARY | 2025-02-21 12:33 | XMS_ITS | Clinical Summary ---
Author Organization [place] [facility] Address [address] [place] [address] Phone Care Team Providers Care Administrative Resources Associate Name Role Phone Unavailable Primary Care Provider [...]
--- NOTE | 2025-02-21 13:00 | CA_ITS ---
FINAL REPORT TECHNIQUE: Graded compression, spectral analysis and ultrasound images of the venous system of the right upper extremity were obtained. CLINICAL HISTORY: Rule out blood clot, pain in right upper extremity x 2 days. Denies trauma. Recent bloodwork with venipuncture. FINDINGS: The jugular vein, subclavian vein, axillary vein, brachial vein, and basilic venous system are fully compressible and demonstrate no evidence of thrombosis. There is visible thrombus in the right mid cephalic vein. IMPRESSION: Visible thrombosis right mid cephalic vein. Reviewed, Interpreted and Dictated by Ld Rushing MD Transcribed by Karina Cabrera Authenticated and [facility]
== END 2025-02-21 23:59 | disposition home or self-care (01) ==
LOC: RT 12:31
PROVIDERS: PCP Family Medicine; Visit Provider Nurse Practitioner Family
DX: I82.611 Acute embolism and thrombosis of superficial veins of right upper extremity (principal)
CPT/HCPCS: 93971

== ENCOUNTER 2025-02-25 19:16 | Inpatient (IN) | payer MEDICARE, MEDICAID, SELFPAY ==
--- OUTSIDE RECORDS SUMMARY | 2025-01-24 06:20 | XMS_ITS | Continuity of Care Document ---
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 Role Phone Geneva Hamilton NP Unavailable Sienna vailable Allergies, Adverse Reactions, Alerts Substance Reaction Status Criticality trimethoprim Active No Information sulfamethoxazole Active No Informat ion Medications Medication Instructions Dosage Effective Dates (start - stop) Status Comments loratadine 10 mg tablet - Ac tive acetaminophen 500 mg tablet - Active diphenhydramine 25 mg tablet - Active Nyamyc 100,000 unit/gram topical powder - Active ondansetron HCl 4 mg tablet - Active nystatin 100,000 unit/gram topical cream - Active Mucus Relief ER 600 mg table t, extended release - Active nitroglycerin 0.4 mg sublingual tablet - Active cephalexin 500 mg capsule - Active cephalexin 250 mg capsule - Active loperamide 2 mg capsule - Ac tive sulfamethoxazole 800 mg-trimethoprim 160 mg tablet - Active sulfamethoxazole 400 mg-trimethoprim 80 mg tablet - Active prednisone 5 mg tablet - Act melonie ammonium lactate 12 % lotion - Active losartan 100 mg tablet - Act melonie hydroxyzine HCl 10 mg tablet - Active hydrochlorothiazide 25 mg tablet - Active metoprolol tartrate 25 mg tablet - Active azithromycin 250 mg tablet - Active nystatin 100,000 unit/gram topical powder - Active Procedures Procedure Date REMOVE IMPACTED EAR WAX Trim normal nail, any number Debride mycotic nails 5 or less 025 Trim nail(s) DEBRIDE NAIL 1-5 COMPRE OPH EXAM EST PT 1/> PARING/CUTG B9 HYPRKER LES 1 DEBRIDE NAIL 1-5 Trim nail(s) PARNG/CUTG B9 HYPRKR LES 2-4 DEBRIDE NAIL 1-5 Trim nail(s) Periodic Oral Evaluation EYE EXAM & TREATMENT TRIM SKIN LESIONS 2 TO 4 DEBRIDE NAIL 1-5 TRIM NAIL(S) DEBRIDE NAIL 1-5 TRIM NAIL(S) FUNDUS PHOTOGRAPHY EYE EXAM & TREATMENT DEBRIDE NAIL 6 OR MORE NURSING FAC CARE SUBSEQ Compsve Oral Eval- New/Est Pat 23 Prophylaxis - Adult Intraoral-Perpical First Radiographic Im age Intraoral Peripical Each Addl Radiograph ic Image Intraoral Peripical Each Addl Radiograph ic Image Intraoral Peripical Each Addl Radiograph ic Image Intraoral Peripical Each Addl Radiograph ic Image TRIM SKIN LESIONS 2 TO 4 DEBRIDE NAIL 6 OR MORE DEBRIDE NAIL 6 OR MORE Complete Series Of Radiographic Images J House/Extended Care Facility Call DEBRIDE NAIL 6 OR MORE TRIM SKIN LESIONS 2 TO 4 EYE EXAM NEW PATIENT TRIM SKIN LESION DEBRIDE NAIL 6 OR MORE Compsve Oral Eval- New/Est Pat Prophylaxis - Adult TRIM SKIN LESIONS 2 TO 4 DEBRIDE NAIL 6 OR MORE Advance Directives Directive Yes / No Effective Date File Name No Information Encounters Encounter Description Practice Location Reason(s) For Visit Diagnoses Date Provider Providers Copied on Encounter [address] [place] [address], [address] [place] [address] [address], [place], [place], [id number], tel:[phone] [facility] ear care exam (chief complaint) Impacted cerumen, bilateral 5 [place] brandan [place]. [address] [place] [address], [address], [place], [address], [place]. Referring Provider: Andrew Clark. [address] [place] [address], [address] [place] [address], [place], [place], [id number], tel:[phone] [facility] Nail dystrophyOnych ogryphosisOthe r hammer toe(s) (acquired), left footOther hammer toe(s) (acquired), right footOther specified peripheral vascular diseases 5 [place]. [address] [place] [address], [address] [place] [address], [place], [place], [id number], [place] tel:[phone] [facility] Other abnormalities of gait and mobilityOther specified peripheral vascular diseasesOnycho gryphosisNail dystrophy 5 Roma Shaan. [place]. [address] [place] [address], [address] [place] [address], [place], [place], [id number], tel:[phone] [facility] Cataract (chief complaint) Age-related nuclear cataract, bilateral 4 IRIS Simmons. Referring Provider: Andrew Clark. [facility], [id number] [place], [place] [address], [place], [place], [id number], [place] tel:[phone] [facility] No Information 4 [place]. [facility], [address] [place] [address] [address], [place], [place], [id number], [place] tel:[phone] [facility] Corns and callositiesTin ea unguiumOther specified peripheral vascular diseasesNail dystrophy 4 Thomas Castellon. [address] [facility], [address], [place], [address], [place]. [facility], [address] [place] [address], [place], [place], [id number], [place] tel:[phone] [facility] Corns and callositiesNai l dystrophyOther specified peripheral vascular diseasesTinea unguium Fe 4 Thomas Castellon. [address] [facility], [address], [place], [address], [place]. Referring Provider: Andrew Clark. [facility], [address] [place], [place] [address], [place], [place], [id number], [place] tel:[phone] [facility] Encounter for dental examination and cleaning without abnormal findings 4 Jan Tijerina. [address] [facility], [address], [place], [place], [id number], [place]. tel:[phone] Referring Provider: Anrdew Clark. [facility], [address] [place] [address] [address], [place], [place], [id number], [place] tel:[phone] [facility] Cataract (chief complaint) Age-related nuclear cataract, bilateral Oct-2 3 Jose De Jesus Miller. [address] [facility], [address], [place], [address], [place]. Referring Provider: Andrew Clark. [facility], [address] [place], [place] [address], [place], [place], [id number], [place] tel:[phone] [facility] Corns and callositiesNai l dystrophyOther specified peripheral vascular diseasesTinea unguium 3 Thomas Pinto [address] [facility], [address], [place], [address], [place]. Referring Provider: Andrew Clark. [address] [place] [address], [address] [place] [address], [place], [place], [id number], tel:[phone] [facility] Tinea unguiumOther specified peripheral vascular diseasesNail dystrophy 3 Thomas Pinto [address] [facility], [address], [place], [address], [place]. Referring Provider: Andrew Clark. [address] [place] [address], [address] [place] [address], [place], [place], [id number], [place] tel:[phone] [facility] Cataract (chief complaint) Age-related nuclear cataract, bilateralRetin al hemorrhage, right eye 3 Jose De Jesus Miller. [address] [place] [address], [address], [place], [address], [place]. Referring Provider: Andrew Clark. NURSING FAC CARE SUBSEQ [address] [place] [address], [address] [place] [address], [place], [place], [id number], [place] tel:[phone] [place] [address] Tinea unguiumOther specified peripheral vascular diseasesAbrasi on, left foot, initial encounter [id number] [place] [address], [address], [place], [address], [place]. Referring Provider: Andrew Clark. [address] [place] [address], [address] [place] [address], [place], [place], [id number], [place] tel:[phone] [facility] No Information [address] [place] [address], [address], [place], [address], [place]. [address] [place] [address], [address] [place] [address], [place], [id number], [place] tel:[phone] [facility] Encounter for dental examination and cleaning without abnormal findings 3 BARNEY Angel. tel:[phone] Referring Provider: Andrew Clark. [facility], [address] [place], [place] [address], [place], [place], [id number], [place] tel:[phone] [facility] Corns and callositiesOth er specified peripheral vascular diseasesTinea unguium 2 Thomas Castellon. [address] [facility], [address], [place], [address], [place]. Referring Provider: Andrew Clark. [facility], [address] [place] [address] [address], [place], [place], [id number], [place] tel:[phone] [facility] Tinea unguiumOther specified peripheral vascular diseases 2 Thomas Castellon. [address], [address], [place], [address], [place]. Referring Provider: Andrew Clark. [facility], [address] [place], [place] [address], [place], [place], [id number], [place] tel:[phone] [facility] Encounter for dental examination and cleaning without abnormal findings 2 [place], [place]. Referring Provider: Andrew Clark. [facility], [address] [place], [place] [address], [place], [place], [id number], [place] tel:[phone] [facility] Corns and callositiesOth er specified peripheral vascular diseasesTinea unguiumXerosis cutis 2 [place], [place]. Referring Provider: Andrew Clark. [facility], [address] [place] [address] [address], [place], [place], [id number], [place] tel:[phone] [facility] Decreased vision (chief complaint) Age-related nuclear cataract, bilateral 2 Jose De Jesus Miller. [address] [facility], [address], [place], [address], [place]. Referring Provider: Andrew Clark. [facility], [address] [place] [address], [place], [place], [id number], [place] tel:[phone] [facility] Tinea unguiumOther specified peripheral vascular diseasesCorns and callositiesHal lux valgus (acquired), left footHallux valgus (acquired), right footOther hammer toe(s) (acquired), left footOther hammer toe(s) (acquired), right foot 2 Thomas Castellon. [address] [facility], [address], [place], [address], . Referring Provider: Andrew Clark. [address] [place] [address], [address] [place] [address], [place], [address] [place] [address], tel:[phone] [facility] Encounter for dental exam and cleaning w/o abnormal findings 2 Dmitry Yeung. [address] [facility], [address], [place], [place], [id number], . tel:[phone] Referring Provider: Andrew Clark. [address] [place] [address], [address] [place] [address], [place], [address] [place] [address], tel:[phone] [facility] Tinea unguiumCorns and callositiesOth er specified peripheral vascular diseasesHallux valgus (acquired), left footHallux valgus (acquired), right footOther hammer toe(s) (acquired), left footOther hammer toe(s) (acquired), right foot 2 Thomas Castellon. [address] [facility], [facility] [address], [place], [place], [facility], . Referring Provider: Andrew Clark. [address] [place] [address], [address] [place], [place] [address], [place], [address] [place] [address], tel:[phone] [facility] No Information 2 Jose De Jesus Miller. [address] [facility], [address] [facility], [place], [place], [facility], . Family History Family Member Type Diagnosis Age At Onset No Information Payers Payer name Insurance type Covered democrat ID Authoriza tion(s) Medicare [facility] [id number] Medicaid [facility] [id number] Social History Type Description Quantity Date Captured Comments Alcohol Use Details Unknown Caffeine Use Details Unknown Tobacco Use Status No Information Smoking Status No Information Sex Female Chief Complaint And Reason For Visit From encounter dated '01/24/2025 10:20'. ear care exam (chief complaint) Reason For Referral Reason For Referral No Information Plan Of Treatment Date Type Action Status Appointment Shahnaz Almazan Dental Medica id Only. BOOKED Appointment Shahnaz Almazan BOOKED Appointment Shahnaz Almazan BOOKED Patient Education Earwax Blockage: Care I nstructions completed Patient Education Learning About Dental Care and Your Health Problem completed Patient Education Dental X-Ray: About Thi s Test completed Patient Education Learning About Dental Care and Your Health Problem completed History Of Present Illness Encounter Date Complaint History Of Prese nt Illness Cataract The 88 year old patient presents for evaluation of Cataract in the right eye and left eye. It occurs always. The onset was gradual. The symptom is constant. Cataract The 87 year old patient presents for evaluation of Cataract in the right eye and left eye. It occurs all the time. The onset was gradual. It affects both near and far vision. Cataract The 87 year old female presents for evaluation of Cataract in the right eye and left eye. It occurs all the time. The onset was gradual. It affects both near and far vision. Decreased vision The 86 year old female presents for evaluation of Decreased vision in the right eye and left eye. It occurs all the time. The onset was progressive. It affects both near and far vision. The symptom is frequent. Eye health eval Functional Status Date Functional Assessmen t No Information Instructions Date Instruction Additional Infor mation may refer to audiolo gy if pt, family, and/or facility wish to pursue. Follow up in 6-9 months or sooner if needed. Related to Impacted cerumen, bilateral Would monitor pedal deformities, no tight foot wear, wide toe box foot wear suggested. discussed with staff. Related to Other hammer toe(s) (acquired), right foot Discussed using comp ression stockings to assist in localize swelling and venous return, and the fdc benefits of using compression stockings. Reinforced the importance of proper adherence to using the james hose, and compression stockings. Will continue to monitor. Related to Other specified peripheral vascular diseases All documented dystr ophic nails were reduced in length as needed to prevent pain and other symptoms. Patient tolerated procedure well. Related to Nail dystrophy All of the documente d thickened nails (which includes those nails 2 mm or more in thickness, and possible mycotic component to the nails) were debrided in both length and thickness using both a nail nipper and an electric rotary outer diameter grinder in an atraumatic fashion as needed ; this was performed in an attempt to prevent pain and reduce risk of infection. Alcohol applied to the digits afterwards. PT tolerated procedure well. Related to Onychogryphosis Would monitor pedal deformities, no tight foot wear, wide toe box foot wear suggested. discussed with staff. Related to Other hammer toe(s) (acquired), left foot PT instructed to con tinue use of DME equipment for safety, mobility, and reducing risk of falls/injury. Will continue to monitor. Pt denies recent falls in the past 3 months. Related to Other abnormalities of gait and mobility Discussed using comp ression stockings to assist in localize swelling and venous return, and the physician representative benefits of using compression stockings. Reinforced the importance of proper adherence to using the james hose, and compression stockings. Will continue to monitor. Related to Other specified peripheral vascular diseases All documented thick ened nails were debrided using a rotary tool and nail nipper. Related to Onychogryphosis All documented dystr ophic nails were reduced in length as needed to prevent pain and other symptoms. Related to Nail dystrophy Return in 12-15 evans hs for dilated fundus exam. Related to Age-related nuclear cataract, bilateral Follow up - Return i n 12-15 months for dilated fundus exam. Related to Age-related nuclear cataract, bilateral Impression/Plan - Ca taracts are mild; we will monitor for progression. Related to Age-related nuclear cataract, bilateral All dystrophic nails were debrided in length and thickness as needed to prevent pain and other symptoms. Related to Nail dystrophy All of the calluses were debrided/pared to prevent further tissue breakdown and pain. Related to Corns and callosities Toenails 1 b/l were debrided in length and thickness without incident. Follow up in 2-3 months. Related to Tinea unguium All of the calluses were debrided/pared to prevent further tissue breakdown and pain. Related to Corns and callosities All dystrophic nails were debrided in length and thickness as needed to prevent pain and other symptoms. Related to Nail dystrophy Toenails 1 b/l were debrided in length and thickness without incident. Follow up in 2-3 months. Related to Tinea unguium We will schedule an appoinment in 12-15 months for a dilated fundus exam. Related to Age-related nuclear cataract, bilateral Impression/Plan - Ca taracts are moderate and are affecting visual acuity; however, no treatment recommended at this time. We will monitor for progression. Related to Age-related nuclear cataract, bilateral Follow up - We will schedule an appoinment in 12-15 months for a dilated fundus exam. Related to Age-related nuclear cataract, bilateral All dystrophic nails were debrided in length and thickness as needed to prevent pain and other symptoms. Related to Nail dystrophy Toenails 1 b/l were debrided in length and thickness without incident. Follow up in 2-3 months. Related to Tinea unguium All of the calluses were debrided/pared to prevent further tissue breakdown and pain. Related to Corns and callosities Toenails 1 b/l were debrided in length and thickness without incident. Follow up in 2-3 months. Related to Tinea unguium All dystrophic nails were debrided in length and thickness as needed to prevent pain and other symptoms. Related to Nail dystrophy Impression/Plan - No t dm, likely htn related. 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 We will monitor for progression. Related to Age-related nuclear cataract, bilateral Toenails 1-5 b/l wer e debrided in length and thickness without incident. Follow up in 2-3 months. Related to Tinea unguium Discussed with the rosalva lai. No dressing needed at this time. Monitor for infection. Related to Abrasion, left foot, initial encounter All of the calluses were debrided/pared to prevent further tissue breakdown and pain. Related to Corns and callosities Toenails 1-5 b/l wer e debrided in length and thickness without incident. Follow up in 2-3 months. Related to Tinea unguium Toenails 1-5 b/l wer e debrided in length and thickness without incident. Follow up in 2-3 months. Related to Tinea unguium All of the calluses were debrided/pared to prevent further tissue breakdown and pain. Related to Corns and callosities Toenails 1-5 b/l wer e debrided in length and thickness without incident. Follow up in 2-3 months. 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 Related to Age-related nuclear cataract, bilateral Impression/Plan - Ca taracts are moderate and are affecting visual acuity; however, no treatment recommended at this time. We will monitor for progression. Related to Age-related nuclear cataract, bilateral Follow up - We will schedule an appoinment in 12-15 months for a dilated fundus exam. Related to Age-related nuclear cataract, bilateral Toenails 1-5 b/l wer e debrided in length and thickness without incident. Follow up in 2-3 months. Related to Tinea unguium All of the calluses were debrided/pared to prevent further tissue breakdown and pain. Related to Corns and callosities Shoes are adequate t o accommodate the bunion and hammertoe deformities. Related to Hallux valgus (acquired), left foot Toenails 1-5 b/l wer e debrided in length and thickness without incident. Follow up in 2-3 months. Related to Tinea unguium All of the calluses were debrided/pared to prevent further tissue breakdown and pain. Related to Corns and callosities Shoes are adequate t o accommodate the bunion and hammertoe deformities. Related to Hallux valgus (acquired), left foot Assessments Type Assessment Date assessment Impacted cerumen, bilateral Patient Care Teams Name Effective Dates (start - stop) Status Members No Information
--- OUTSIDE RECORDS SUMMARY | 2025-01-24 06:20 | XMS_ITS | Continuity of Care Document ---
Author Organization [address] [place] [address] Address [address] [facility] [address] [place] [address] Phone Care Team Providers Care Quality Improvement Specialist Name Role Phone Geneva Hamilton NP [...] Diagnoses Date Provider Providers Copied on Encounter [address] [place] [address], [address] [place] [address] 300, [place], [place], [id number], tel:[phone] [facility] ear care exam (chief complaint) Impacted cerumen, bilateral 5 [place]-Hard brandan Geneva. [address] [place] [address], [address], [place], [address], [place]. Referring Provider: Andrew Clark. [address] [place] [address], [address] [place] [address] 300, [place], [place], [address], tel:[phone] [facility] Nail dystrophyOnych ogryphosisOthe r hammer toe(s) (acquired), left footOther hammer toe(s) (acquired), right footOther specified peripheral vascular diseases 5 [place], [place]. [address] [place] [address], [address] [place] [address] 300, [place], [place], [address], [place] tel:[phone] [facility] Other abnormalities of gait and mobilityOther specified peripheral vascular diseasesOnycho gryphosisNail dystrophy 5 Roma Sh[place]. [place]. [address] [place] [address], [address] [place] [address] 300, [place], [place], [address], tel:[phone] [facility] Cataract (chief complaint) Age-related nuclear cataract, bilateral 4 IRIS Simmons. Referring Provider: Andrew Clark. [facility] [place], [address] [place], [place] [address], [place], [place], [address], [place] tel:[phone] [facility] No Information 4 [place], [place]. [facility], [address] [place] [address] [address], [place], [place], [address], [place] tel:[phone] [facility] Corns and callositiesTin ea unguiumOther specified peripheral vascular diseasesNail dystrophy 4 Thomas Castellon. [address] [facility], [address], [place], [address], [place]. [facility] [place], [address] [place] [address] 300, [place], [place], [address], [place] tel:[phone] [facility] Corns and callositiesNai l dystrophyOther specified peripheral vascular diseasesTinea unguium Fe 4 Thomas Castellon. [address] [facility], [address], [place], [address], [place]. Referring Provider: Andrew Clark. [facility], [address] [place], [place] [address], [place], [place], [address], [place] tel:[phone] [facility] Encounter for dental examination and cleaning without abnormal findings 4 Jan Tijerina. [address] [facility], [address], [place], [place], [address], [place]. tel:[phone] Referring Provider: Andrew Clark. [facility], [address] [place] [address] [address], [place], [place], [address], [place] tel:[phone] [facility] Cataract (chief complaint) Age-related nuclear cataract, bilateral Oct-2 3 Jose De Jesus Miller. [address] [facility], [address], [place], [address], [place]. Referring Provider: Andrew Clark. [facility], [address] [place], [place] [address], [place], [place], [address], [place] tel:[phone] [facility] Corns and callositiesNai l dystrophyOther specified peripheral vascular diseasesTinea unguium 3 Thomas Pinto [address] [facility], [address], [place], [address], [place]. Referring Provider: Andrew Clark. [address] [place] [address], [address] [place] [address] 300, [place], [place], [address], tel:[phone] [facility] Tinea unguiumOther specified peripheral vascular diseasesNail dystrophy 3 Thomas Pinto [address] [facility], [address], [place], [address], [place]. Referring Provider: Andrew Clark. [address] [place] [address], [address] [place] [address] 300, [place], [place], [address], [place] tel:[phone] [facility] Cataract (chief complaint) Age-related nuclear cataract, bilateralRetin al hemorrhage, right eye 3 Jose De Jesus Miller. [address] [place] [address], [address], [place], [address], [place]. Referring Provider: Andrew Clark. NURSING FAC CARE SUBSEQ [address] [place] [address], [address] [place] [address] 300, [place], [place], [id number], [place] tel:[phone] [place] [address] Tinea unguiumOther specified peripheral vascular diseasesAbrasi on, left foot, initial encounter 3 Thomas Pinto [address] [place] [address], [address], [place], [address], [place]. Referring Provider: Andrew Clark. [address] [place] [address], [address] [place] [address] 300, [place], [place], [address], [place] tel:[phone] [facility] No Information 3 Thomas Pinto [address] [place] [address], [address], [place], [address], [place]. [address] [place] [address], [address] [place] [address] 300, [place], [place], [address], [place] tel:[phone] [facility] Encounter for dental examination and cleaning without abnormal findings 3 BARNEY Angel. tel:[phone] Referring Provider: Andrew Clark. [facility], [address] [place], [place] [address], [place], [place], [address], [place] tel:[phone] [facility] Corns and callositiesOth er specified peripheral vascular diseasesTinea unguium 2 Thomas Castellon. [address] [facility], [address], [place], [address], [place]. Referring Provider: Andrew Clark. [facility], [address] [place] [address] [address], [place], [address], [place] tel:[phone] [facility] Tinea unguiumOther specified peripheral vascular diseases 2 Thomas Castellon. [address], [address], [place], [address], [place]. Referring Provider: Andrew Clark. [facility], [address] [place], [place] [address], [place], [place], [address], [place] tel:[phone] [facility] Encounter for dental examination and cleaning without abnormal findings 2 [place], [place]. Referring Provider: Andrew Clark. [facility] [place], [address] [place], [place] [address], [place], [place], [address], [place] tel:[phone] [facility] Corns and callositiesOth er specified peripheral vascular diseasesTinea unguiumXerosis cutis 2 [place]. Referring Provider: Andrew Clark. [facility], [address] [place] [address] [address], [place], [place], [address], [place] tel:[phone] [facility] Decreased vision (chief complaint) Age-related nuclear cataract, bilateral 2 Jose De Jesus Miller. [address] [facility], [address], [place], [address], [place]. Referring Provider: Andrew Clark. [facility], [address] [place] [address] 300, [place], [place], [address], [place] tel:[phone] [facility] Tinea unguiumOther specified peripheral vascular diseasesCorns and callositiesHal lux valgus (acquired), left footHallux valgus (acquired), right footOther hammer toe(s) (acquired), left footOther hammer toe(s) (acquired), right foot 2 Thomas Castellon. [address] [facility], [address], [place], [address], . Referring Provider: Andrew Clark. [address] [place] [address], [address] [place] [address] 300, [place], [address] [place] [address], tel:[phone] [facility] Encounter for dental exam and cleaning w/o abnormal findings 2 Dmitry Yeung. [address] [facility], [address], [place], [place], [address], . tel:[phone] Referring Provider: Andrew Clark. [address] [place] [address], [address] [place] [address], [place], [address] [place] [address], tel:[phone] [facility] Tinea unguiumCorns and callositiesOth er specified peripheral vascular diseasesHallux valgus (acquired), left footHallux valgus (acquired), right footOther hammer toe(s) (acquired), left footOther hammer toe(s) (acquired), right foot 2 Thomas Castellon. [address] [facility], [facility] [address], [place], [facility], . Referring Provider: Andrew Clark. [address] [place] [address], [address] [place], [place] [address], [place], [address] [place] [address], tel:[phone] [facility] No Information 2 Jose De Jesus Miller. [address] [facility], [address] [facility], [place], [facility], . Family History Family Member Type Diagnosis Age At Onset No Information Payers Payer name Insurance type Covered republican ID Authoriza tion(s) Medicare [facility] [id number] Medicaid [facility] [id number] Social History Type Description Quantity Date Captured [...] localize swelling and venous return, and the residential benefits of using compression stockings. Reinforced the importance of proper adherence to using the jaems hose, and compression stockings. Will continue to [...] a nail nipper and an electric rotary terrazzo grinder in an atraumatic fashion as needed [...] localize swelling and venous return, and the hospice volunteer benefits of using compression stockings. Reinforced the [...]
[2025-02-25] VITALS (10 sets, daily range): BP systolic 102–134; BP diastolic 69–113; PULSE 81–89; RESP 12–21; TEMP 33.1–34.5; O2SAT 93–98; BMI 37.4
--- OUTSIDE RECORDS SUMMARY | 2025-02-25 19:20 | XMS_ITS | Clinical Summary ---
Author Organization [place] [facility] Address [address] [place] [address] Phone Care Team Providers Care [place] Attorney Name Role Phone Unavailable Primary Care Provider [...] COVID-19 Vaccine ( - 2023-2 5 season) 2025 Influenza Vaccine (#1) 2025 Hepatitis B Vaccine Aged Out No longe r eligible based on patient's age to complete this topic Meningococcal B Vaccine Aged Out No l onger eligible based on patient's age to complete this topic Insurance [place] [address] MEDICAID [id number]
--- OUTSIDE RECORDS SUMMARY | 2025-02-25 19:20 | XMS_ITS ---
Author Organization [facility] Care Team Providers Care Wireless Engineer Name Role Phone Eduardo Michael Unavailable Unavailable Allergies and adverse reactions No Known Allergies Care Team Name Role Address Phone Organization Dates Michael Clark [place]CP [place], [facility], [facility] (Office): : [facility] 05/16/2020 - 05/25/2020 Goals Section Goals Description [...] Concern Status 1 ALLERGIC RHINITIS, UNSPECIFIED 05/16/[address] active 2 COVID-19 05/16/[address] active 3 ERYTHEMATOUS CONDITION, UNSPECIFIED 05/16/[address] active 4 ESSENTIAL (PRIMARY) HYPERTENSION 05/16/[address] active 5 MILD INTELLECTUAL DISABILITIES 05/16/[address] active 6 UNSPECIFIED DEMENTIA, UNSPECIFIED SEVERITY, WITHOUT BEHAVIORAL DISTURBANCE, PSYCHOTIC DISTURBANCE, MOOD DISTURBANCE, AND ANXIETY 05/16/[address] active Reason for Referral No Reasons for Referral Entered Social History Social History Observation Description Start Date End Date Code Code System Current Smoking Status Tobacco smoking consumption unknown 838161597 SNOMED CT Sex Assigned At Female 1935 49843-0 [facility] Gender Identity Vital Signs Code Code System Vitals Name Values and Units Timing Information 79783-2 [facility] Pain Level Value=0.0 05/25/2020 9279-1 [facility] Respiratory Rate Value=18.0 Units=/m in 05/25/2020 8462-4 [facility] Blood Pressure-Diastolic Value=82 Un its=mmHg 05/25/2020 8480-6 [facility] Blood Pressure-Systolic Lhmeo=157 Un its=mmHg 05/25/2020 8310-5 [facility] Body Temperature Value=97.5 Units= F 05/25/2020 8867-4 [facility] Heart rate Value=82.0 Units=/min 09/2019 82685-8 [facility] O2 % BldC Oximetry Value=91.0 Units= % 05/25/2020 07915-1 [facility] Weight Nxwdp=435.8 Units=Lbs 8302-2 [facility] Height Value=65.0 Units=Inches 05/16/2020
--- NOTE | 2025-02-25 19:26 | ECG_ITS ---
APPROVED REPORT Exam: Resting ECG HR:84 bpm ECG Measurements Heart Rate 84 AXES QRSd 80 QRS 8 QT 375 T 244 QTc [address] DEVIATION AND MODERATE T-WAVE ABNORMALITY, CONSIDER INFERIOR ISCHEMIA [-0.1+ mV T-WAVE IN II/aVF] ABNORMAL ECG UNCONFIRMED REPORT Electronically signed by : MARITO REYES, 02/27/2025 23:06:42
--- NOTE | 2025-02-25 19:26 | CT_ITS ---
PROCEDURE INFORMATION: Exam: CT Abdomen And Pelvis Without Contrast Exam date and time: 02/25/2025 9:13 PM Age: 89 years old Clinical indication: Injury or trauma; Fall; Blunt; Abdominal wall; Additional info: On eliquis, concern for lower gi bleed TECHNIQUE: Imaging protocol: Computed tomography of the abdomen and pelvis without contrast. Radiation optimization: All CT scans at this facility use at least one of these dose optimization techniques: automated exposure control; mA and/or kV adjustment per patient size (includes targeted exams where dose is matched to clinical indication); or iterative reconstruction. COMPARISON: CT BONY PELVIS 04/29/2023 9:45 PM FINDINGS: Diaphragm: Very large hiatal hernia Liver: Normal. No mass. Gallbladder and biliary ducts: Distended gallbladder Roberson catheter is present in the urinary bladder Pancreas: Normal. No ductal dilation. Spleen: Normal. No splenomegaly. 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 Intraperitoneal space: Unremarkable. No free air. No significant fluid collection. Vasculature: Unremarkable. No abdominal aortic aneurysm. Lymph nodes: Unremarkable. No enlarged lymph nodes. Urinary bladder: Unremarkable as visualized. Reproductive: Unremarkable as visualized. Bones/joints: Grade 1 anterolisthesis of L4 on L5 levels caused by facet hypertrophy Soft tissues: Unremarkable. IMPRESSION: 1. Findings consistent with colitis 2. No bowel obstruction 3. Indeterminate right kidney cyst or mass measures 28 x 35 mm. Comparison imaging would be helpful. Consider ultrasound for further characterization COMMENTS: 1. Consistent with the [employer]'s Incidental Findings Committee white paper (J Am Yang Radiol 2017): For any incidental adrenal lesion greater than or equal to 1 cm but less than or equal to 4 cm classified in this report as benign, likely benign, or containing fat (including classification as an adenoma or myelolipoma), no follow-up imaging is recommended per consensus recommendations based on imaging criteria. Further lab evaluation could be pursued if warranted based on clinical findings. 2. Consistent with the [employer]'s Incidental Findings Committee white paper (J Am Yang Radiol 2018): Any incidental renal lesion less than 1 cm or classified as too small to characterize, or any incidental cystic renal lesion characterized as simple-appearing, is likely benign. No follow-up imaging is recommended for these lesions per consensus recommendations based on imaging criteria.
--- NOTE | 2025-02-25 19:30 | HMH.EDGENADL ---
Discharge Plan Disposition Patient Disposition: Still a Patient Condition: Serious Prescriptions Prescriptions: No Action nystatin 100,000 unit/gram powder topical Eliquis DVT-PE Treat 30D Start 5 mg (74 tabs) tablets,dose pack See Rx Instructions PO PER PKG DIR Qty: 74 0RF Rx Instructions: PO PER PKG DIR loperamide 2 mg tablet 2 mg PO Q6HP PRN (Reason: Diarrhea) loratadine 10 mg tablet 10 mg PO DAILY nitroglycerin 0.3 mg Tablet, Sublingual 0.3 mg SUBLINGUAL Q5MINP PRN (Reason: Chest Pain) Rx Instructions: do not exceed 3 doses per episode acetaminophen 500 mg Tablet 500 mg PO Q4HP PRN (Reason: Mild Pain (Scale Score 1-4)) ondansetron 4 mg Tablet,Disintegrating 4 mg PO Q6HP PRN (Reason: Nausea And Vomiting) Liquid Protein Fortifier 1 gram-4 kcal/6 mL Liquid 1 ea PO DAILY spironolactone 25 mg Tablet 25 mg PO DAILY 30 Days Qty: 30 0RF bumetanide 1 mg tablet 1 mg PO DAILY 30 Days Qty: 30 0RF Referrals Follow up/Referrals: Provider,Referral, MD [Primary Care Provider, Medical] - See instructions Clinical Impressions Clinical Impression: Hypothermia, SIRS (systemic inflammatory response syndrome), Acute lower gastrointestinal bleeding Instructions Patient Instructions: DI for Gastrointestinal Bleeding Print Language Print Language: Georgian Discharge ED Provider: Ventura Constantino JR General Adult HPI General Chief complaint: GI Bleed Stated complaint: blood in stool Time Seen by Provider: 02/25/25 19:20 Mode of Arrival: EMS Limitations: Altered Mental Status (Patient only oriented to person at baseline) History of Present Illness HPI narrative: 89-year-old female with history of heart failure, previous admission for right upper extremity DVT was on Xarelto now on Eliquis presenting from alf for evaluation of lower GI bleeding. Blood was noted to be in the diaper today at alf. Occult blood test positive for blood at alf. Patient also reportedly had been bleeding from her vagina. Arrives oriented to person only which apparently is patient's baseline. Related Data Home Medications ?Medication ?Instructions ?Recorded ?Confirmed acetaminophen 500 mg tablet 500 mg PO Q4HP PRN Mild Pain 01/29/25 02/21/25 (Scale Score 1-4) loperamide 2 mg tablet 2 mg PO Q6HP PRN Diarrhea 01/29/25 02/21/25 loratadine 10 mg tablet 10 mg PO DAILY 01/29/25 02/21/25 nitroglycerin 0.3 mg sublingual 0.3 mg sublingual Q5MINP PRN Chest 01/29/25 02/21/25 tablet Pain ondansetron 4 mg disintegrating 4 mg PO Q6HP PRN Nausea And 01/29/25 02/21/25 tablet Vomiting protein hydrolysate,milk 1 gram-4 1 ea PO DAILY 01/29/25 02/21/25 kcal/6 mL oral liquid (Liquid Protein Fortifier) nystatin 100,000 unit/gram topical topical 02/21/25 02/21/25 powder Previous Rx's ?Medication ?Instructions ?Recorded bumetanide 1 mg tablet 1 mg PO DAILY 30 days #30 tabs 02/02/25 spironolactone 25 mg tablet 25 mg PO DAILY 30 days #30 tabs 02/02/25 apixaban 5 mg (74 tabs) tablets in See Rx Instructions PO PER PKG DIR 02/22/25 a dose pack (EliquDecisive BI DVT-PE Treat #74 tabs 30D Start) Allergies Allergy/AdvReac Type Severity Reaction Status Date / Time sulfamethoxazole (From Allergy Intermediate Unknown Verified 02/25/25 19:51 Bactrim) allergy reaction trimethoprim (From Bactrim) Allergy Intermediate Unknown Verified 02/25/25 19:51 allergy reaction [facility] Disclaimer: The information contained in this section may have been updated after the patient was seen, as this information can be updated by other users. Medical History (Updated 02/25/25 @ 23:36 by Ventura Constantino JR, DO) Encounter for screening mammogram for malignant neoplasm of breast Swelling of right upper extremity Right arm pain Pulmonary nodules Abnormal CT of the chest Right renal mass (HFpEF) heart failure with preserved ejection fraction Hypertension Intellectual disability Dementia Morbid obesity CHF (congestive heart failure) Social History Smoking Status: Never smoker alcohol intake: never current occupational status: retired Travel in the last 8 weeks?: None Have you lived/traveled outside [place] in past 30 days?: No Contact w/someone who lives/traveled outside [place] past 30 days?: No Exposure to someone with infectious disease in past 14 days?: No Do you have a fever (greater than 100.4 F or 38 C)?: No Have you tested positive for COVID-19?: No Exposed to someone with COVID-19 in past 14 days?: No Do you have a sore throat?: No Do you have a cough?: No Do you have any weakness?: No Do you have any diarrhea?: No Are you experiencing any unusual bleeding?: No Do you have any muscle aches/pain?: No Do you have any abdominal pain?: No Are you experiencing loss of taste or smell?: No Other Medical History Have you received the Flu Vaccine for this season: No Have you received the Pneumonia Vaccine: No ROS Obtained: Yes All systems reviewed & no additional complaints except as documented and Yes Systems reviewed as appropriate & no additional complaints except as documented Constitutional Constitutional: Reports system reviewed and no additional complaints, except as documented and Reports as per HPI Eyes Eyes: Reports system reviewed and no additional complaints, except as documented and Reports as per HPI ENT Ears, Nose, Mouth, and Throat: Reports system reviewed and no additional complaints, except as documented and Reports as per HPI Cardiovascular Cardiovascular: Reports system reviewed and no additional complaints, except as documented and Reports as per HPI Respiratory Respiratory: Reports system reviewed and no additional complaints, except as documented and Reports as per HPI Gastrointestinal Gastrointestingal: Reports hematochezia and other (Passing obvious clots from rectum) Genitourinary Female Genitourinary: Reports other (Vaginal bleeding) Musculoskeletal Musculoskeletal: Reports system reviewed and no additional complaints, except as documented and Reports as per HPI Neurologic Neurologic: Reports system reviewed and no additional complaints, except as documented Physical Exam General General appearance: alert and in no apparent distress Head Head exam: atraumatic and normocephalic Eye Eye exam: Present normal appearance ENT ENT exam: Present normal exam Chest Chest inspection: Present normal inspection Respiratory Respiratory exam: Present normal lung sounds bilaterally; Absent respiratory distress, wheezes, stridor or accessory muscle use Cardiovascular Cardiovascular exam: Present regular rate, normal rhythm and other (Hypotensive) Abdominal Exam Abdominal exam: Present soft; Absent tenderness Rectal Exam Rectal exam: Present other (obvious passing of bright red clots) Extremities Exam Extremities exam: Present edema (Bilateral lower EXTR edema, bruising to lower extremities) Back Exam Back exam: Present normal inspection Neurological Exam Neurological exam: Present alert and oriented X3 (Oriented to person only) Skin Skin exam: Present dry, pallor and other (Cool skin) Medical Decision Making Medical Records Medical records reviewed: Yes I reviewed the patient's medical records. Screening: Per USPSTF and CDC recommendations, given the prevalence of disease in our region, it is our hospital?s policy to screen for HIV and viral Hepatitis for all patients aged 18 and over and those with ongoing risk factors. Jared Inquiry Pt receiving controlled substance: No Vital Signs: 02/25/25 19:44 02/25/25 20:29 02/25/25 20:30 Temperature 92.2 F L 91.6 F L 91.6 F L Temperature Source Rectal Pulse Rate 85 87 Pulse Rate [Left] 87 Respiratory Rate 16 17 13 Blood Pressure 115/83 102/77 L Blood Pressure [Right Arm] 131/113 H Blood Pressure Mean [Right Arm] 119 Blood Pressure Source [Right Arm] Automatic Cuff Blood Pressure Position [Right Arm] Sitting 02 Sat by Pulse Oximetry 98 96 97 Oxygen Delivery Method Room Air 02/25/25 21:38 02/25/25 22:03 02/25/25 22:30 Temperature 93.4 F L 93.6 F L 93.7 F L Temperature Source Pulse Rate 89 87 82 Pulse Rate [Left] Respiratory Rate 15 17 21 Blood Pressure 134/101 H 123/101 H 122/86 Blood Pressure [Right Arm] Blood Pressure Mean [Right Arm] Blood Pressure Source [Right Arm] Blood Pressure Position [Right Arm] 02 Sat by Pulse Oximetry 96 96 93 L Oxygen Delivery Method Lab Data Lab Results 02/25/25 20:10: WBC 13.0 H, RBC 5.46 H, Hgb 14.7, Hct 45.9, MCV 84.1, MCH 26.9 L, MCHC 32.0, RDW 19.6 H, Plt Count 91 L, Neut % (Auto) 89.8 H, Lymph % (Auto) 5.2 L, [place] % (Auto) 4.0, Eos % (Auto) 0.0 L, Baso % (Auto) 0.2, Neut # (Auto) 11.6 H, Lymph # (Auto) 0.7, [place] # (Auto) 0.5, Eos # (Auto) 0.0, Baso # (Auto) 0.0, PT 13.4 H, INR 1.23 H, Sodium 134 L, Potassium 3.7, Chloride 103, Carbon Dioxide 23, Anion Gap 11.7, BUN 56 H, Creatinine 1.70 H, Estimated Creat Clear 36, Estimated GFR 28 L, Est GFR ( Amer) 34 L, Glucose 119 H, Calcium 8.4, Total Bilirubin 1.3, AST 58 H, ALT 47, Alkaline Phosphatase 132 H, Total Protein 5.7 L, Albumin 3.0 L, Globulin 2.7, Albumin/Globulin Ratio 1.1, HCV Ab KOMAL w/Rflx PCR Qn Negative, HIV Ag/Ab Combo Qual Negative, Blood Type B Positive, Antibody Screen Negative 02/25/25 20:20: Urine Color Yellow, Urine Appearance Clear, Urine pH 5.5, Ur Specific [place] 1.025, Urine Protein Negative, Urine Glucose (UA) Negative, Urine Ketones Negative, Urine Blood Negative, Urine Nitrate Negative, Urine Bilirubin 1+ A, Urine Urobilinogen 0.2, Ur Leukocyte Esterase Trace, Urine RBC Occasional, Urine WBC 3-5, Ur Squamous Epith Cells 3-5, Calcium Oxalate Crystal Trace, Urine Yeast 4+ 02/25/25 20:10 02/25/25 20:10 Orders (Tests/Meds): ED MEDICATIONS Generic Name Dose Route Start Last Admin Trade Name Freq PRN Reason Stop Dose Admin Piperacillin Sod/Tazobactam 100 mls @ 200 mls/hr 02/25/25 20:45 Sod 4.5 gm/ Sodium Chloride IV 03/07/25 20:44 Q6H RAUL Miscellaneous 1 each 02/25/25 20:45 Vancomycin Consult Request NOTAPPLIC 03/27/25 20:44 CONSULT PHARMACY [facility] Discontinued Medications Generic Name Dose Route Start Last Admin Trade Name Freq PRN Reason Stop Dose Admin Lactated Ringer's 1,000 mls @ 999 mls/hr 02/25/25 19:26 02/25/25 23:02 Lactated Ringer's 1000 Ml Bag IV 02/25/25 20:26 Infused .Q1H1M ONE Infusion Vancomycin HCl 2,000 mg/ 250 mls @ 125 mls/hr 02/25/25 21:00 02/25/25 22:54 Sodium Chloride IV 02/25/25 22:59 125 mls/hr ONCE ONE Administration Lactated Ringer's 1,000 mls @ 999 mls/hr 02/25/25 20:58 02/25/25 23:01 Lactated Ringer's 1000 Ml Bag IV 02/25/25 21:58 999 mls/hr .Q1H1M ONE Administration ORDERS Category Date Time Status Type and Screen Stat BBK 02/25/25 20:[address] abdomen pelvis wo con Stat Cat Scan 02/25/25 19:26 Completed XR chest portable Stat Exams 02/25/25 20:43 Ordered Complete Blood Count Auto Diff Stat Lab 02/25/25 20:10 Completed Comprehensive Metabolic Panel Stat Lab 02/25/25 20:10 Completed HIV Combo Stat Lab 02/25/25 20:10 Completed Hepatitis C Ab Qual. W/ RFX Stat Lab 02/25/25 20:10 Completed Lactic Acid Stat Lab 02/25/25 19:26 Ordered Prothrombin Time INR Stat Lab 02/25/25 20:10 Completed Urinalysis and Microscopic Stat Lab 02/25/25 20:20 Completed Blood Culture Stat Micro 02/25/25 22:44 Received Medical Decision Narrative: 89-year-old female with history of CHF, right extremity DVT, currently on Eliquis, presenting with a GI bleed from alf. We will order CT abdomen due to presence of vaginal bleeding as well. Will order basic labs, coags, EKG. Will give fluids. Arrives oriented to person only. This appears to be patient's baseline. Patient is DNR. SBP 109/76, HR 71. Initial temperature 92.2. Starting Suellen hugger. Had episode of passing obvious bright red clots from rectum. Patient meets SIRS criteria. We will start vancomycin and Zosyn. Temperature 92. White count 13. [place] score 12. Will likely need to be admitted for colonoscopy with GI. BUN and creatinine are elevated at baseline. Giving IV fluids for suspected sepsis. GFR 28. We will switch to a Noncon CT scan. CT imaging IMPRESSION: 1. Findings consistent with colitis 2. No bowel obstruction 3. Indeterminate right kidney cyst or mass measures 28 x 35 mm. Comparison imaging would be helpful. Consider ultrasound for further characterization UA negative for UTI. Patient meeting criteria for admission for colonoscopy. Had an episode of passing bright red clots here in the ED from rectum. Hypothermic. Elevated white count. Meeting SIRS criteria. Starting vancomycin and Zosyn. I consulted the hospitalist for admission. Etiology sepsis due to unknown source at this point (could be colitis visualized on CT imaging) versus lower GI bleed. Procedures EJ/Peripheral Line Arm L: Time Out Performed: No Skin Cleansed in Sterile Fashion: Yes Size (gauge): 18 IV Secured and Dressing Applied: Yes Patient Tolerated Procedure: well Critical Care Critical Care Time Critical Care Time: Yes Attestation: On 02/25/25, the high probability of a clinically significant, sudden or life threatening deterioration of the following system(s) required my full and direct attention, intervention and personal management. The time I documented below is in addition to time spent performing reported procedures but includes the following listed in this critical care notation. Total Time Total Critical Care Time: 45
--- NOTE | 2025-02-25 19:59 | PC.NURSE ---
Pt's had temp of 92.2 rectally. Pt was placed under bear hugger.
[2025-02-25 20:31] LABS: Hematocrit 45.9 % (37.0-47.0); Hemoglobin 14.7 g/dL (12.2-16.2); Immature Granulocytes % 0.8 %; Mean Corpuscular HGB Conc 32.0 g/dL (31.8-35.4); Mean Corpuscular Hemoglobin 26.9 pg (27.0-31.2); Mean Corpuscular Volume 84.1 fl (81-99); Nucleated Red Blood Cells % 0.5 %; Platelet Count 91 K/mm3 (142-424); Red Blood Count 5.46 M/mm3 (4.20-5.40); Red Cell Distribution Width-SD 57.4 fL; White Blood Count 13.0 K/mm3 (4.8-10.8)
[2025-02-25] MEDS: LACTATED RINGERS 1000ML 1,000 ML 999 ML IV ×2 (20:33→23:01)
[2025-02-25 20:43] LABS: INR 1.23 (0.9-1.1); Prothrombin Time 13.4 seconds (10.1-12.5)
[2025-02-25 20:45] LABS: Chloride 103 mmol/L (98-107)
[2025-02-25 20:46] LABS: Albumin Level 3.0 g/dl (3.5-5.0); Potassium 3.7 mmoL/L (3.5-5.1); Sodium 134 mmol/L (136-145)
[2025-02-25 20:49] LABS: Alanine Aminotransferase 47 U/L (12-78); Albumin/Globulin Ratio 1.1 (1.1-1.8); Alkaline Phosphatase 132 U/L (38-126); Anion Gap 11.7 mEq/L (5-15); Aspartate Amino Transferase 58 U/L (14-36); Bilirubin,Total 1.3 mg/dl (0.2-1.3); Blood Urea Nitrogen 56 mg/dl (7-17); Carbon Dioxide 23 mmol/L (22.0-30.0); Creatinine Clearance Estimated 36 mL/min (50-200); Creatinine,Serum 1.70 mg/dl (0.52-1.04); Estimated Glomerular Filt Rate 28 ml/min (>60); GFR (African American) 34 ML/MIN (>60); Globulin 2.7 g/dL (1.3-3.2); Total Protein,Serum 5.7 g/dl (6.3-8.2)
[2025-02-25 20:50] LABS: Calcium 8.4 mg/dl (8.4-10.2); Glucose 119 mg/dl (74-100)
[2025-02-25 21:01] LABS: Microscopic, Urine URINE MICROSCOPIC (MICROSCOPIC)
[2025-02-25 21:03] LABS: Color,Urine YELLOW (Yellow); Glucose,Urine (UA) Negative (Negative); Ketones,Urine Negative (Negative); Leukocyte Esterase,Urine TRACE (Negative); PH,Urine 5.5 (5.0-8.5); Protein,Urine Negative (Negative); Specific Gravity, Urine 1.025 (1.005-1.030); Urobilinogen,Urine 0.2 EU/dl (0.2)
[2025-02-25 21:06] LABS: Bilirubin,Urine 1+ (Negative)
[2025-02-25 21:33] LABS: RBC,Urine Occasional #/hpf (0-3)
[2025-02-25 21:34] LABS: Calcium Oxalate Crystals,Urine Trace /lpf
[2025-02-25 21:37] LABS: Hepatitis C Ab Qual. W/ RFX NEGATIVE (Negative)
--- NOTE | 2025-02-25 22:18 | PC.NURSE ---
Multiple attempts made to obtain second set of blood cultures. Dr. Constantino attempted to obtain IV access and was not successful. Pt has 20g in L hand placed by EMS SILVERING APPLICATOR.
--- NOTE | 2025-02-25 22:22 | PC.NURSE ---
Lab notified to draw second set of blood cultures.
[2025-02-25] MEDS: VANCOMYCIN HCL 2,000 MG in 0.9 % SODIUM CHLORIDE 250 ML 125 MG IV (22:54)
--- NOTE | 2025-02-25 23:32 | EXP.HP ---
History of Present Illness *Admission Date: 02/25/25 *Reason for visit:: GI bleed, hypothermia *History of present illness: Ms. Almazan is an 89-year-old female who presented to the ER via EMS from [facility]. She was sent to the ER because of finding of bloody bowel movement at her custodial. Previously admitted to the hospital, developed a DVT in her right upper extremity and was started on Xarelto that was later switched to Eliquis. Had a positive stool guaiac at her custodial. On arrival to the ER, patient had bloody bowel movement, passed clots. Labs with elevated white count of 13. Hemoglobin 14.7. Kidney function abnormal with BUN 56, creatinine 1.7. Chronic INR 1.2. Temperature 91. CT obtained of abdomen and pelvis. Found to have colitis. Initiated on broad-spectrum antibiotics with vancomycin and Zosyn due to concern for sepsis with her hypothermia, white count, colitis on imaging. Discussed case with ER physician, request admission for treatment of suspected GI bleed, sepsis, further goals of care discussions. Patient also has history of HFpEF. Previously admitted and diuresed aggressively with improvement in kidney function approximately 1.5-1.7 but then dropped to 1.1 prior to discharge. Suspect this is her baseline kidney function. Patient admitted to ICU because of her hypothermia and concern for sepsis. On my evaluation, patient is oriented to self only. Legs tender on exam. Has peripheral edema that is improved from previous admission but still quite prominent at 2+ to the knees. Previous admission, required pressors for hypotension. [facility] Disclaimer: The information contained in this section may have been updated after the patient was seen, as this information can be updated by other users. Medical History Encounter for screening mammogram for malignant neoplasm of breast Swelling of right upper extremity Right arm pain Pulmonary nodules Abnormal CT of the chest Right renal mass (HFpEF) heart failure with preserved ejection fraction Hypertension Intellectual disability Dementia Morbid obesity CHF (congestive heart failure) Social History Smoking Status: Never smoker alcohol intake: never current occupational status: retired Travel in the last 8 weeks?: None Have you lived/traveled outside US in past 30 days?: No Contact w/someone who lives/traveled outside US past 30 days?: No Exposure to someone with infectious disease in past 14 days?: No Do you have a fever (greater than 100.4 F or 38 C)?: No Have you tested positive for COVID-19?: No Exposed to someone with COVID-19 in past 14 days?: No Do you have a sore throat?: No Do you have a cough?: No Do you have any weakness?: No Do you have any diarrhea?: No Are you experiencing any unusual bleeding?: No Do you have any muscle aches/pain?: No Do you have any abdominal pain?: No Are you experiencing loss of taste or smell?: No Other Medical History Have you received the Flu Vaccine for this season: No Have you received the Pneumonia Vaccine: No Review of Systems Review of Systems Review of systems:: unable to obtain Review of systems (narrative): pt is a poor historian, oriented to self only Meds Home Medications and Allergies Home Medications ?Medication ?Instructions ?Recorded ?Confirmed ?Type acetaminophen 500 mg tablet 500 mg PO Q4HP PRN Mild Pain 01/29/25 02/21/25 History (Scale Score 1-4) loperamide 2 mg tablet 2 mg PO Q6HP PRN Diarrhea 01/29/25 02/21/25 History loratadine 10 mg tablet 10 mg PO DAILY 01/29/25 02/21/25 History nitroglycerin 0.3 mg sublingual 0.3 mg sublingual Q5MINP PRN Chest 01/29/25 02/21/25 History tablet Pain ondansetron 4 mg disintegrating 4 mg PO Q6HP PRN Nausea And 01/29/25 02/21/25 History tablet Vomiting protein hydrolysate,milk 1 gram-4 1 ea PO DAILY 01/29/25 02/21/25 History kcal/6 mL oral liquid (Liquid Protein Fortifier) bumetanide 1 mg tablet 1 mg PO DAILY 30 days #30 tabs 02/02/25 02/21/25 Rx spironolactone 25 mg tablet 25 mg PO DAILY 30 days #30 tabs 02/02/25 02/21/25 Rx nystatin 100,000 unit/gram topical topical 02/21/25 02/21/25 History powder apixaban 5 mg (74 tabs) tablets in See Rx Instructions PO PER PKG DIR 02/22/25 Rx a dose pack ([employer] DVT-PE Treat #74 tabs 30D Start) New Prescriptions to Start Prescriptions: Allergies Allergy/AdvReac Type Severity Reaction Status Date / Time sulfamethoxazole (From Allergy Intermediate Unknown Verified 02/25/25 19:51 Bactrim) allergy reaction trimethoprim (From Bactrim) Allergy Intermediate Unknown Verified 02/25/25 19:51 allergy reaction Exam Data for Last 24 hours Vital signs and Labs for Last 24 Hours: Temp Pulse Resp BP Pulse Ox O2 Del Method 93.7 F L 82 21 122/86 93 L Room Air 02/25/25 22:30 02/25/25 22:30 02/25/25 22:30 02/25/25 22:30 02/25/25 22:30 02/25/25 19:44 Laboratory Results - last 24 hr 02/25/25 20:10: WBC 13.0 H, RBC 5.46 H, Hgb 14.7, Hct 45.9, MCV 84.1, MCH 26.9 L, MCHC 32.0, RDW 19.6 H, Plt Count 91 L, Neut % (Auto) 89.8 H, Lymph % (Auto) 5.2 L, [place] % (Auto) 4.0, Eos % (Auto) 0.0 L, Baso % (Auto) 0.2, Neut # (Auto) 11.6 H, Lymph # (Auto) 0.7, [place] # (Auto) 0.5, Eos # (Auto) 0.0, Baso # (Auto) 0.0, PT 13.4 H, INR 1.23 H, Sodium 134 L, Potassium 3.7, Chloride 103, Carbon Dioxide 23, Anion Gap 11.7, BUN 56 H, Creatinine 1.70 H, Estimated Creat Clear 36, Estimated GFR 28 L, Est GFR ( Amer) 34 L, Glucose 119 H, Calcium 8.4, Total Bilirubin 1.3, AST 58 H, ALT 47, Alkaline Phosphatase 132 H, Total Protein 5.7 L, Albumin 3.0 L, Globulin 2.7, Albumin/Globulin Ratio 1.1, HCV Ab KOMAL w/Rflx PCR Qn Negative, HIV Ag/Ab Combo Qual Negative, Blood Type B Positive, Antibody Screen Negative 02/25/25 20:20: Urine Color Yellow, Urine Appearance Clear, Urine pH 5.5, Ur Specific [place] 1.025, Urine Protein Negative, Urine Glucose (UA) Negative, Urine Ketones Negative, Urine Blood Negative, Urine Nitrate Negative, Urine Bilirubin 1+ A, Urine Urobilinogen 0.2, Ur Leukocyte Esterase Trace, Urine RBC Occasional, Urine WBC 3-5, Ur Squamous Epith Cells 3-5, Calcium Oxalate Crystal Trace, Urine Yeast 4+ I & O for Last 24 hours: Intake & Output 02/22/25 02/23/25 02/24/25 02/25/25 23:59 23:59 23:59 23:59 Intake Total 1000 / 1000 Balance 1000 / 1000 Weight 98.883 kg Constitutional Constitutional: mild distress, morbidly obese, chronically ill appearing, disheveled and somnolent *Routine HEENT Exam Head: Present normocephalic Eye: Present EOMI and PERRL ENT: Present mucous membranes moist *Routine Neck Exam Neck: Present supple; Absent lymphadenopathy *Routine Respiratory Exam Respiratory: Present prolonged expiratory phase and diminished air movement; Absent rhonchi, wheezes or crackles *Routine Cardiovascular Exam Cardiovascular: Present RRR *Routine Abdominal Exam Abdominal: Present soft, normoactive bowel sounds, distended and obese; Absent tenderness Comments: Edema of lower abdominal wall/pannus *Routine Rectal Exam Rectal:: deferred *Routine Genitalia Exam Genitalia:: normal female Comment:: Roberson in place *Routine Extremities Exam Extremities: Present edema (2+ BL lower extremity); Absent cyanosis or clubbing *Routine Skin Exam Skin: Present erythema (Erythema bilateral lower extremities) and warm; Absent rash Comments: Stage I wound and gluteal fissure with split in fold through the epidermis. Also has what appears to be scratch or abrasion on right hip. Multiple healing scratches on right posterior shoulder *Routine Neurological Exam Neurological: Present alert; Absent moving all extremities Comments: Right leg stiff and internally rotated. Tells me her name but does not know any other information. Appears at baseline mentation per report Assessment and Plan *Assessment and plan (1) TAD (acute kidney injury): Status: Acute Category: Medical Code(s): N17.9 - Acute kidney failure, unspecified (2) Acute lower gastrointestinal bleeding: Status: Acute Category: Medical Code(s): K92.2 - Gastrointestinal hemorrhage, unspecified (3) SIRS (systemic inflammatory response syndrome): Status: Acute Category: Medical Code(s): R65.10 - Systemic inflammatory response syndrome (SIRS) of non-infectious origin without acute organ dysfunction (4) Hypothermia: Status: Acute Qualifiers: Encounter type: initial encounter Qualified Code(s): T68.XXXA - Hypothermia, initial encounter Category: Medical Code(s): T68.XXXA - Hypothermia, initial encounter (5) (HFpEF) heart failure with preserved ejection fraction: Status: Acute Qualifiers: Heart failure chronicity: chronic Qualified Code(s): I50.32 - Chronic diastolic (congestive) heart failure Category: Medical Code(s): I50.30 - Unspecified diastolic (congestive) heart failure (6) Dementia: Status: Chronic Qualifiers: Dementia behavioral or psychological symptom: unspecified whether behavioral, psychotic, or mood disturbance or anxiety Dementia severity: unspecified severity Dementia type: vascular dementia Qualified Code(s): F01.50 - Vascular dementia, unspecified severity, without behavioral disturbance, psychotic disturbance, mood disturbance, and anxiety Category: Medical Code(s): F03.90 - Unspecified dementia, unspecified severity, without behavioral disturbance, psychotic disturbance, mood disturbance, and anxiety (7) Morbid obesity: Status: Chronic Category: Medical Code(s): E66.01 - Morbid (severe) obesity due to excess calories Plan Shahnaz Almazan is a 89-year-old female from [facility] who presents with reported bloody stool. While in the ER, passed blood clots per rectum. CT imaging concerning for colitis. Patient hypothermic with elevated white count. Meeting sepsis criteria. Medicine consulted for admission. After discussion with ER physician, request admission for treatment of GI bleeding given elevated [place] score of 11. I agreed to admit for serial labs, treatment of sepsis, and further goals of care discussions. Will consider scope in the coming days pending goals of care. Necessitating ICU level care due to hypothermia and Suellen hugger in the setting of sepsis. Continue broad-spectrum IV antibiotics. Problems addressed as follows: SIRS for sepsis Hypothermia - Hypothermic core temp 91.6, WBC 13, colitis on ct abd/pelvis - Strong suspicion for sepsis. Initiated on broad-spectrum antibiotics with vancomycin and Zosyn. Continue Zosyn renally dosed 3.375 g every 8 hours - Unsure if colitis is infectious or inflammatory. - Potassium 3.7, replace per protocol - Continue Suellen hugger to warm patient. - Status post 1 L IV fluids. Hold on further sepsis bolus due to recent admission for volume overload and heart failure necessitating pressors to diurese - Roberson in place, urinalysis obtained. Not consistent with UTI however culture pending. Previous ESBL UTI within the past 6 weeks GI bleed - Suspect lower GI bleed from colitis. Holding anticoagulation at this time. Risk of continuing and bleeding outweighs benefit at this time. Reevaluate in the coming days - Hemoglobin 14.7. Transfusion threshold hemoglobin less than 7 - Repeat CBC, CMP, magnesium ordered for the morning - Consider GI consult pending goals of care discussion with family HFpEF exacerbation: - Echo obtained 01/30/2025. Severe biatrial dilation with RVSP of 40 to 45 mmHg. Normal LV systolic function. Dilated RV and reduced RV function -Patient still edematous. Cautious with fluids for SIRS/sepsis above. - Plan to resume diuresis when stable -On spironolactone 25 mg and Bumex 1 mg daily - Monitor on continuous telemetry -Stable on room air at this time. No crackles on lung exam TAD on CKD: Creatinine 1.7, bun 56 on admission, baseline 1.1. caution with renal toxins, renally dose medications Dementia per history, unclear baseline mentation. Oriented to self only at this time. Morbid obesity complicates all aspects of her care VTE contraindicated; SCDs NPO DNR/DNI.
[2025-02-25] MEDS: PIPERACILLIN/TAZO 4.5 GM in 0.9 % SODIUM CHLORIDE 100 ML IV (23:48)
[2025-02-26] VITALS (22 sets, daily range): BP systolic 92–139; BP diastolic 52–95; PULSE 79–112; RESP 11–24; TEMP 34.5–37.7; O2SAT 90–95; BMI 36.8
[2025-02-26 06:31] LABS: Platelet Count 87 K/mm3 (142-424)
[2025-02-26 06:38] LABS: Hematocrit 38.6 % (37.0-47.0); Hemoglobin 12.7 g/dL (12.2-16.2); Immature Granulocytes % 1.2 %; Mean Corpuscular HGB Conc 32.9 g/dL (31.8-35.4); Mean Corpuscular Hemoglobin 27.5 pg (27.0-31.2); Mean Corpuscular Volume 83.7 fl (81-99); Nucleated Red Blood Cells % 1.8 %; Red Blood Count 4.61 M/mm3 (4.20-5.40); Red Cell Distribution Width-SD 55.5 fL; White Blood Count 10.5 K/mm3 (4.8-10.8)
[2025-02-26 06:46] LABS: Alanine Aminotransferase 39 U/L (12-78); Albumin Level 2.5 g/dl (3.5-5.0); Albumin/Globulin Ratio 1.1 (1.1-1.8); Alkaline Phosphatase 109 U/L (38-126); Anion Gap 11.5 mEq/L (5-15); Aspartate Amino Transferase 35 U/L (14-36); Bilirubin,Total 1.1 mg/dl (0.2-1.3); Blood Urea Nitrogen 56 mg/dl (7-17); Calcium 7.9 mg/dl (8.4-10.2); Carbon Dioxide 25 mmol/L (22.0-30.0); Chloride 102 mmol/L (98-107); Creatinine Clearance Estimated 31 mL/min (50-200); Creatinine,Serum 2.00 mg/dl (0.52-1.04); Estimated Glomerular Filt Rate 24 ml/min (>60); GFR (African American) 29 ML/MIN (>60); Globulin 2.3 g/dL (1.3-3.2); Glucose 70 mg/dl (74-100); Magnesium 2.1 mg/dl (1.6-2.3); Potassium 3.5 mmoL/L (3.5-5.1); Sodium 135 mmol/L (136-145); Total Protein,Serum 4.8 g/dl (6.3-8.2)
--- NOTE | 2025-02-26 06:46 | PC.NURSE ---
Pt arrived to the unit at 0000. Temp 94.5F on arrival to the unit. Temp is currently 98.2F. Pt had 2 BMs since 0000. Minimal blood
--- NOTE | 2025-02-26 06:49 | PC.NURSE ---
Pt arrived to the unit at 0000. Temp 94.5F at 0000. Temp is currently 98.2F. BM x2. Oriented only to self. Vital signs stable.
[2025-02-26 07:10] LABS: NT Pro Brain Natriuretic Pep. 1100 pg/mL (0-450)
--- NOTE | 2025-02-26 07:40 | PC.NURSE ---
Called [facility] to receive a current MAR on patient. They will be faxing it over soon.
--- NOTE | 2025-02-26 08:29 | P.CONPHA_ITS ---
Pharmacy Consult Date: 02/26/25 Time: 08:29 Referring provider: DR. CARREON Reason for Consult:: VANCOMYCIN DOSING Allergies Allergy/AdvReac Type Severity Reaction Status Date / Time sulfamethoxazole (From Allergy Intermediate Unknown Verified 02/25/25 19:51 Bactrim) allergy reaction trimethoprim (From Bactrim) Allergy Intermediate Unknown Verified 02/25/25 19:51 allergy reaction Home Medications ?Medication ?Instructions ?Recorded ?Confirmed ?Type acetaminophen 500 mg tablet 500 mg PO Q4HP PRN Mild Pa in 01/29/25 02/26/25 History (Scale Score 1-4) loperamide 2 mg tablet 2 mg PO Q6HP PRN Diarrhea 02/26/25 History loratadine 10 mg tablet 10 mg PO DAILY 01/29/2501/13 History nitroglycerin 0.3 mg sublingual 0.3 mg sublingual Q5MI COLORER MACHINE PRN Chest 01/29/25 02/26/25 History tablet Pain ondansetron 4 mg disintegrating 4 mg PO Q6HP PRN Nause a And 01/29/25 02/26/25 History tablet Vomiting protein hydrolysate,milk 1 gram-4 1 ea PO DAILY 02/26/25 History kcal/6 mL oral liquid (Liquid Protein Fortifier) bumetanide 1 mg tablet 1 mg PO DAILY 30 days #30 ta bs 02/02/25 02/26/25 Rx spironolactone 25 mg tablet 25 mg PO DAILY 30 days #30 tabs 02/02/25 02/26/25 Rx apixaban 5 mg tablet (Eliquis) 5 mg PO DAILY 02/26/25 02/26/25 History polyethylene glycol 3350 17 gram 17 g PO DAILY PRN Con stipation 02/26/25 02/26/25 History oral powder packet (Miralax) New Prescriptions to Start Prescriptions: Height: 1.63 m Weight: 97.8 kg Laboratory Results:: Laboratory Results - last 24 hr 02/25/25 20:10: WBC 13.0 H, RBC 5.46 H, Hgb 14.7, Hct 45.9, MCV 84.1, MCH 26.9 L , MCHC 32.0, RDW 19.6 H, Plt Count 91 L, Neut % (Auto) 89.8 H, Lymph % (Auto) 5.2 L, [place] % (Auto) 4.0, Eos % (Auto) 0.0 L, Baso % (Auto) 0.2, Neut # (Auto) 11.6 H, Lymph # (Auto) 0.7, [place] # (Auto) 0.5, Eos # (Auto) 0.0, Baso # (Auto) 0.0, PT 13.4 H, INR 1.23 H, Sodium 134 L, Potassium 3.7, Chloride 103, Carbon Dioxide 23, Anion Gap 11.7, BUN 56 H, Creatinine 1.70 H, Estimated Creat Clear 36, Estimated GFR 28 L, Est GFR ( Amer) 34 L, Glucose 119 H, Calcium 8.4, Total Bilirubin 1.3, AST 58 H, ALT 47, Alkaline Phosphatase 132 H, Total Protein 5.7 L, Albumin 3.0 L, Globulin 2.7, Albumin/Globulin Ratio 1.1, HCV Ab KOMAL w/Rflx PCR Qn Negative, HIV Ag/Ab Combo Qual Negative, Blood Type B Positive, Antibody Screen Negative 02/25/25 20:20: Urine Color Yellow, Urine Appearance Clear, Urine pH 5.5, Ur Specific [place] 1.025, Urine Protein Negative, Urine Glucose (UA) Negative, Urine Ketones Negative, Urine Blood Negative, Urine Nitrate Negative, Urine Bilirubin 1+ A, Urine Urobilinogen 0.2, Ur Leukocyte Esterase Trace, Urine RBC Occasional, Urine WBC 3-5, Ur Squamous Epith Cells 3-5, Calcium Oxalate Crystal Trace, Urine Yeast 4+ 02/26/25 06:05: WBC 10.5, RBC 4.61, Hgb 12.7 D, Hct 38.6, MCV 83.7, MCH 27.5, MCHC 32.9, RDW 19.1 H, Plt Count 87 L, MPV TNP, Neut % (Auto) 81.1 H, Lymph % (Auto) 10.4, [place] % (Auto) 6.9, Eos % (Auto) 0.2, Baso % (Auto) 0.2, Neut # (Auto) 8.5 H, Lymph # (Auto) 1.1, [place] # (Auto) 0.7, Eos # (Auto) 0.0, Baso # (Auto) 0.0, Sodium 135 L, Potassium 3.5, Chloride 102, Carbon Dioxide 25, Anion Gap 11.5, BUN 56 H, Creatinine 2.00 H, Estimated Creat Clear 31, Estimated GFR 24 L, Est GFR ( Amer) 29 L, Glucose 70 L D, Lactate 1.3, Calcium 7.9 L, Magnesium 2.1, Total Bilirubin 1.1, AST 35 D, ALT 39, Alkaline Phosphatase 109, NT-Pro-B Natriuret Pep 1100 H, Total Protein 4.8 L, Albumin 2.5 L D, Globulin 2.3, Albumin/Globulin Ratio 1.1 Medical History: Medical History (Updated 02/26/25 @ 03:25 by Ronaldo Carreon MD) Encounter for screening mammogram for malignant neoplasm of breast Swelling of right upper extremity Right arm pain Pulmonary nodules Abnormal CT of the chest Right renal mass (HFpEF) heart failure with preserved ejection fraction Hypertension Intellectual disability Dementia Morbid obesity CHF (congestive heart failure) Assessment and Plan Assessment and plan all Dx Assessment and Plan for all problems:: Pharmacokinetic dosing service Objective: Patient: Floor: Age: 89 yo Serum creatinine: 2 mg/dL Height: 64.2 Inches Weight (kg): 98 Assessment: IBW (kg): 55.16 Dosing wt(kg): 98 Estimated Creatinine clearance (ml/min): 17.3 CRCL method: Cockcroft and Gault using ibw(default). Drug selected: Vancomycin Loading dose (mg): 0 Vd (liters): 78.4 (factor used: 0.8 L/kg) Geovanni (hr-1): 0.019 Half life (hrs): 36.48 Recommended dose: 1750 mg Interval: 48 hrs Infusion time (hrs): 2.0 Predicted peak (mcg/mL): 36.6 Predicted trough (mcg/mL): 15.27 Total body weight is being used for vancomycin dosing. Recommendations: Give Vancomycin 1750 mg q 48 hrs with an expected Cpeak of 36.6 mcg/ml and an expected Ctrough of 15.27 mcg/ml ----Vanco only - ignore for aminoglycosides----- CLvanco= 1.49 L/hr AUC 0-24 /LEVI Data: LEVI 0.5 mcg/mL: AUC/LEVI: 1174.5 LEVI 1.0 mcg/mL: AUC/LEVI: 587.2 --------- LEVI 1.5 mcg/mL: AUC/LEVI: 391.5 LEVI 2.0 mcg/mL: AUC/LEVI: 293.6
[2025-02-26] MEDS: PIPERACILLIN/TAZO 4.5 GM in 0.9 % SODIUM CHLORIDE 100 ML IV ×2 (09:03→16:38)
[2025-02-26] MEDS: NYSTATIN TOPICAL POWDER 30GM TP ×3 (09:04→20:04)
[2025-02-26 10:17] LABS: Iron 76 ug/dL (37-170)
[2025-02-26] MEDS: BUMETANIDE 1MG/4ML VIAL 1 MG IV (10:23)
[2025-02-26] MEDS: SPIRONOLACTONE 25MG TABLET 25 MG PO (10:24)
[2025-02-26 10:26] LABS: Total Iron Binding Capacity 211 ug/dL (265-497)
[2025-02-26 10:53] LABS: Ferritin 197 ng/ml (11.1-264)
[2025-02-26] MEDS: FLUCONAZOLE 200MG TABLET 200 MG PO (11:17)
[2025-02-26 13:13] LABS: Acinetobacter calcoaceticus-ba Not Detected; Bacteroides fragilis Not Detected; CTX-M Detected; Candida auris Not Detected; Candida glabrata Not Detected; Enterobacterales Detected; Enterococcus faecalis Not Detected; Enterococcus faecium Not Detected; IMP Not Detected; KPC Not Detected; Klebsiella aerogenes Not Detected; Klebsiella pneumoniae grp Not Detected; NDM Not Detected; OXA-48-like Not Detected; Proteus spp. Not Detected; Salmonella spp. Not Detected; Serratia marcescens Not Detected; Staphylococcus epidermidis Not Detected; Staphylococcus lugdunensis Not Detected; Staphylococcus spp. Not Detected; Stenotrophomonas maltophilia Not Detected; Streptococcus agalactiae(GrpB) Not Detected; Streptococcus pyogenes Group A Not Detected; Streptococcus spp. Not Detected; VIM Not Detected; mcr-1 Not Detected
--- NOTE | 2025-02-26 14:09 | P.CONPHA_ITS ---
Pharmacy Intervention Comments: MED LIST COMPARED TO CUSTODIAL MAR
--- NOTE | 2025-02-26 14:09 | HMH.PHAINT1 ---
Pharmacy Intervention Comments: MED LIST COMPARED TO LONG-TERM MAR
--- NOTE | 2025-02-26 14:17 | PC.NURSE ---
Patient's core temp dropped to 96.6, applied katherine hugger and warm blankets.
--- OUTSIDE RECORDS SUMMARY | 2025-02-26 14:42 | XMS_ITS ---
Author Organization [facility] Care Team Providers Care Metal Hardener Name Role Phone Eduardo Michael Unavailable Unavailable Allergies and adverse reactions No Known Allergies Care Team Name Role Address Phone Organization Dates Michael Clark PCP [place], [place], [facility][note 3], [facility] (Office): : [facility] 05/16/2020 - 05/25/2020 Goals Section Goals Description [...] Concern Status 1 ALLERGIC RHINITIS, UNSPECIFIED 05/16/[address] active 2 COVID-19 05/16/[address] active 3 ERYTHEMATOUS CONDITION, UNSPECIFIED 05/16/[address] active 4 ESSENTIAL (PRIMARY) HYPERTENSION 05/16/[address] active 5 MILD INTELLECTUAL DISABILITIES 05/16/[address] active 6 UNSPECIFIED DEMENTIA, UNSPECIFIED SEVERITY, WITHOUT BEHAVIORAL DISTURBANCE, PSYCHOTIC DISTURBANCE, MOOD DISTURBANCE, AND ANXIETY 05/16/[address] active Reason for Referral No Reasons for Referral Entered Social History Social History Observation Description Start Date End Date Code Code System Current Smoking Status Tobacco smoking consumption unknown 109854293 SNOMED CT Sex Assigned At Female 1935 99639-7 [facility] Gender Identity Vital Signs Code Code System Vitals Name Values and Units Timing Information 58281-2 [facility] Pain Level Value=0.0 05/25/2020 9279-1 [facility] Respiratory Rate Value=18.0 Units=/m in 05/25/2020 8462-4 [facility] Blood Pressure-Diastolic Value=82 Un its=mmHg 05/25/2020 8480-6 [facility] Blood Pressure-Systolic Vsqkl=339 Un its=mmHg 05/25/2020 8310-5 [facility] Body Temperature Value=97.5 Units= F 05/25/2020 8867-4 [facility] Heart rate Value=82.0 Units=/min 09/2019 60083-9 [facility] O2 % BldC Oximetry Value=91.0 Units= % 05/25/2020 72612-8 [facility] Weight Nuqpn=182.8 Units=Lbs 8302-2 [facility] Height Value=65.0 Units=Inches 05/16/2020
--- OUTSIDE RECORDS SUMMARY | 2025-02-26 14:42 | XMS_ITS | Clinical Summary ---
Author Organization Castella [facility] Address [address] [place] [address] Phone Care Team Providers Care Mellowing Machine Operator Name Role Phone Unavailable Primary Care Provider [...]
--- NOTE | 2025-02-26 15:11 | PC.NURSE ---
Report given to FELIX Tam patient to be transferred to Med surg room 217.
--- NOTE | 2025-02-26 17:38 | PC.NURSE ---
SHAMAR FRANKEL HAS REMAINED IN PLACE SINCE ARRIVAL TO MED-SURG FLOOR FROM [facility]. JONES CATH IN PLACE. ORIENTED TO SELF ONLY
--- NOTE | 2025-02-26 18:42 | EXP.PN ---
Subjective *Date: 02/26/25 *Time: 22:09 Interval history: Patient continues to be pleasantly demented, only oriented to self. No acute concerns. No abdominal pain. Continues to have bright red blood per rectum intermittently today. Spoke with POA and son, would want to proceed with the scope if that is what GI recommends in the morning. Hemoglobin stable. Continue IV Zosyn for E. coli bacteremia. Exam Data for Last 24 hours Vital signs and Labs for Last 24 Hours: Temp Pulse Resp BP Pulse Ox O2 Del Method 98.3 F 108 H 20 114/71 93 L Room Air 02/26/25 17:12 02/26/25 16:00 02/26/25 16:00 02/26/25 16:00 02/26/25 16:00 02/26/25 16:00 Laboratory Results - last 24 hr 02/25/25 20:10: WBC 13.0 H, RBC 5.46 H, Hgb 14.7, Hct 45.9, MCV 84.1, MCH 26.9 L, MCHC 32.0, RDW 19.6 H, Plt Count 91 L, Neut % (Auto) 89.8 H, Lymph % (Auto) 5.2 L, [place] % (Auto) 4.0, Eos % (Auto) 0.0 L, Baso % (Auto) 0.2, Neut # (Auto) 11.6 H, Lymph # (Auto) 0.7, [place] # (Auto) 0.5, Eos # (Auto) 0.0, Baso # (Auto) 0.0, PT 13.4 H, INR 1.23 H, Sodium 134 L, Potassium 3.7, Chloride 103, Carbon Dioxide 23, Anion Gap 11.7, BUN 56 H, Creatinine 1.70 H, Estimated Creat Clear 36, Estimated GFR 28 L, Est GFR ( Amer) 34 L, Glucose 119 H, Calcium 8.4, Total Bilirubin 1.3, AST 58 H, ALT 47, Alkaline Phosphatase 132 H, Total Protein 5.7 L, Albumin 3.0 L, Globulin 2.7, Albumin/Globulin Ratio 1.1, HCV Ab KOMAL w/Rflx PCR Qn Negative, HIV Ag/Ab Combo Qual Negative, Blood Type B Positive, Antibody Screen Negative 02/25/25 20:20: Urine Color Yellow, Urine Appearance Clear, Urine pH 5.5, Ur Specific [place] 1.025, Urine Protein Negative, Urine Glucose (UA) Negative, Urine Ketones Negative, Urine Blood Negative, Urine Nitrate Negative, Urine Bilirubin 1+ A, Urine Urobilinogen 0.2, Ur Leukocyte Esterase Trace, Urine RBC Occasional, Urine WBC 3-5, Ur Squamous Epith Cells 3-5, Calcium Oxalate Crystal Trace, Urine Yeast 4+ 02/25/25 21:08: A. baumannii (PCR) Not detected, Bacteroides fragilis Not detected, Lala albicans (PCR) Not detected, Lala auris (PCR) Not detected, C. glabrata (PCR) Not detected, C. krusei (PCR) Not detected, C. parapsilosis (PCR) Not detected, C. tropicalis (PCR) Not detected, Cryptococcus neoformans PCR Not detected, Enterobacterales (PCR) Detected, Enterococc faecalis PCR Not detected, Enterococc faecium PCR Not detected, E. coli (PCR) Detected, H. influenzae DNA Not detected, Klebsiella aerogenes (PCR) Not detected, Klebsiella oxytoca PCR Not detected, K. pneumoniae group (PCR) Not detected, List. monocytogenes PCR Not detected, N. meningitidis (PCR) Not detected, Proteus species (PCR) Not detected, Salmonella spp. (PCR) Not detected, Serratia marcescens PCR Not detected, Staphylococcus sp PCR Not detected, Staph aureus (PCR) Not detected, mecA/C & MREJ Resist Gene Not applicable, mecA/C-Methicil Resis Gene Not applicable, Staph epidermidis (PCR) Not detected, Staph lugdunensis (TEM-PCR) Not detected, S. maltophilia (PCR) Not detected, Streptococcus sp PCR Not detected, S.agalactiae Grp B AINSLEY Not detected, Strep pneumoniae (PCR) Not detected, S. pyogenes GrpA [place] Not detected, P. aeruginosa (PCR) Not detected, Daniel/B-Vanco Res Genes Not applicable, blaIMP Car res Gene PCR Not detected, KPC-Carbap Res Gene PCR Not detected, blaNDM Car Res Gene PCR Not detected, OXA-48 Carbapenem Resis Gene (PCR) Not detected, blaVIM Car Res Gene PCR Not detected, CTX-M Gene Resistance (PCR) Detected, MCR-1 Resistance Gene Not detected 02/26/25 06:05: WBC 10.5, RBC 4.61, Hgb 12.7 D, Hct 38.6, MCV 83.7, MCH 27.5, MCHC 32.9, RDW 19.1 H, Plt Count 87 L, MPV TNP, Neut % (Auto) 81.1 H, Lymph % (Auto) 10.4, [place] % (Auto) 6.9, Eos % (Auto) 0.2, Baso % (Auto) 0.2, Neut # (Auto) 8.5 H, Lymph # (Auto) 1.1, [place] # (Auto) 0.7, Eos # (Auto) 0.0, Baso # (Auto) 0.0, Sodium 135 L, Potassium 3.5, Chloride 102, Carbon Dioxide 25, Anion Gap 11.5, BUN 56 H, Creatinine 2.00 H, Estimated Creat Clear 31, Estimated GFR 24 L, Est GFR ( Amer) 29 L, Glucose 70 L D, Lactate 1.3, Calcium 7.9 L, Magnesium 2.1, Iron 76, TIBC 211 L, Iron Saturation 36.19112, Ferritin 197, Total Bilirubin 1.1, AST 35 D, ALT 39, Alkaline Phosphatase 109, NT-Pro-B Natriuret Pep 1100 H, Total Protein 4.8 L, Albumin 2.5 L D, Globulin 2.3, Albumin/Globulin Ratio 1.1 I & O for Last 24 hours: Intake & Output 02/23/25 02/24/25 02/25/25 02/26/25 23:59 23:59 23:59 23:59 Intake Total 1000 / 2300 1620 / 1620 Output Total 550 / 550 Balance 1000 / 2100 1070 / 1070 Weight 98.883 kg 97.8 kg Microbiology Reports for the Last 24 Hours: Microbiology 02/25/25 21:08 Blood Blood Culture - Preliminary Constitutional Constitutional: no acute distress Comments: Pleasantly demented. Alert only to self. *Routine HEENT Exam Head: Present normocephalic Eye: Present EOMI and PERRL ENT: Present mucous membranes moist *Routine Neck Exam Neck: Present supple; Absent lymphadenopathy *Routine Respiratory Exam Respiratory: Present CTA bilaterally *Routine Cardiovascular Exam Cardiovascular: Present RRR *Routine Abdominal Exam Abdominal: Present soft and normoactive bowel sounds; Absent tenderness *Routine Extremities Exam Extremities: Present edema; Absent cyanosis or clubbing *Routine Skin Exam Skin: Present warm; Absent rash *Routine Neurological Exam Neurological: Present alert and oriented X3 Assessment and Plan *Assessment and plan (1) TAD (acute kidney injury): Status: Acute Category: Medical Code(s): N17.9 - Acute kidney failure, unspecified (2) Acute lower gastrointestinal bleeding: Status: Acute Category: Medical Code(s): K92.2 - Gastrointestinal hemorrhage, unspecified (3) SIRS (systemic inflammatory response syndrome): Status: Acute Category: Medical Code(s): R65.10 - Systemic inflammatory response syndrome (SIRS) of non-infectious origin without acute organ dysfunction (4) Hypothermia: Status: Acute Qualifiers: Encounter type: initial encounter Qualified Code(s): T68.XXXA - Hypothermia, initial encounter Category: Medical Code(s): T68.XXXA - Hypothermia, initial encounter (5) (HFpEF) heart failure with preserved ejection fraction: Status: Acute Qualifiers: Heart failure chronicity: chronic Qualified Code(s): I50.32 - Chronic diastolic (congestive) heart failure Category: Medical Code(s): I50.30 - Unspecified diastolic (congestive) heart failure (6) Dementia: Status: Chronic Qualifiers: Dementia behavioral or psychological symptom: unspecified whether behavioral, psychotic, or mood disturbance or anxiety Dementia severity: unspecified severity Dementia type: vascular dementia Qualified Code(s): F01.50 - Vascular dementia, unspecified severity, without behavioral disturbance, psychotic disturbance, mood disturbance, and anxiety Category: Medical Code(s): F03.90 - Unspecified dementia, unspecified severity, without behavioral disturbance, psychotic disturbance, mood disturbance, and anxiety (7) Morbid obesity: Status: Chronic Category: Medical Code(s): E66.01 - Morbid (severe) obesity due to excess calories Plan Shahnaz Almazan is a 89-year-old female from [facility] who presents with reported bloody stool. While in the ER, passed blood clots per rectum. CT imaging concerning for colitis. Patient hypothermic with elevated white count. Meeting sepsis criteria. Medicine consulted for admission. After discussion with ER physician, request admission for treatment of GI bleeding given elevated [place] score of 11. #Sepsis #E. coli bacteremia with history of ESBL #Hypothermia - Presented with hypothermic core temp 91.6, WBC 13, colitis on on CT abdomen/pelvis. ? Blood culture today growing E. coli, with history of ESBL. Sensitivities pending. ? Patient's temperature normalized this morning, but dropped slightly to 96.6 this afternoon. Continue Suellen hugger to warm patient. ? Continue Zosyn 4.5 g every 8 hours, renally dosed. Follow-up blood culture sensitivities. ? WBC improved to 10.7 today. ? Follow-up morning CBC, procalcitonin, CRP. #GI bleed - Suspect lower GI bleed from colitis. Recently started on Eliquis for right upper extremity DVT. Risk of continuing and bleeding outweighs benefit of DOAC for DVT at this time. ? Spoke with brother and medical POA, Oswaldo Almazan, who stated he would want to pursue with a scope if that is what GI recommends in the morning. Patient at this time only alert to self. - Hemoglobin stable at 12.6 today. Patient has had a few episodes of bright red blood per rectum. - Repeat CBC, CMP, magnesium ordered for the morning ? GI consulted, pending further recommendations. N.p.o. at midnight. 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 Severe biatrial dilation with RVSP of 40 to 45 mmHg. Normal LV systolic function. Dilated RV and reduced RV function - Patient still edematous. Cautious with fluids for SIRS/sepsis above. - Given Bumex 1 mg and spironolactone 25 mg, creatinine bumped from 2.0-2.4. Ordered 500 mL liter bolus. ? Follow-up morning CMP. ? Caution with renal toxins, renally dose medications. #Right kidney mass ? Will need to discuss with medical POA regarding further workup. Dementia per history, unclear baseline mentation. Oriented to self only at this time. Morbid obesity complicates all aspects of her care VTE contraindicated; SCDs Clear liquid diet DNR/DNI.
[2025-02-26 19:12] LABS: Hematocrit 38.6 % (37.0-47.0); Hemoglobin 12.6 g/dL (12.2-16.2); Immature Granulocytes % 2.1 %; Mean Corpuscular HGB Conc 32.6 g/dL (31.8-35.4); Mean Corpuscular Hemoglobin 27.5 pg (27.0-31.2); Mean Corpuscular Volume 84.1 fl (81-99); Nucleated Red Blood Cells % 2.8 %; Platelet Count 94 K/mm3 (142-424); Red Blood Count 4.59 M/mm3 (4.20-5.40); Red Cell Distribution Width-SD 58.1 fL; White Blood Count 10.7 K/mm3 (4.8-10.8)
[2025-02-26 19:18] LABS: Albumin Level 2.6 g/dl (3.5-5.0); Chloride 106 mmol/L (98-107); Potassium 3.6 mmoL/L (3.5-5.1); Sodium 136 mmol/L (136-145)
[2025-02-26 19:21] LABS: Alanine Aminotransferase 37 U/L (12-78); Albumin/Globulin Ratio 1.1 (1.1-1.8); Alkaline Phosphatase 108 U/L (38-126); Anion Gap 9.6 mEq/L (5-15); Aspartate Amino Transferase 36 U/L (14-36); Bilirubin,Total 1.0 mg/dl (0.2-1.3); Blood Urea Nitrogen 57 mg/dl (7-17); Calcium 8.3 mg/dl (8.4-10.2); Carbon Dioxide 24 mmol/L (22.0-30.0); Creatinine Clearance Estimated 25 mL/min (50-200); Creatinine,Serum 2.40 mg/dl (0.52-1.04); Estimated Glomerular Filt Rate 19 ml/min (>60); GFR (African American) 23 ML/MIN (>60); Globulin 2.3 g/dL (1.3-3.2); Glucose 85 mg/dl (74-100); Total Protein,Serum 4.9 g/dl (6.3-8.2)
[2025-02-26] MEDS: LACTATED RINGERS 1000ML 500 ML IV (20:06)
[2025-02-27] VITALS (18 sets, daily range): BP systolic 99–143; BP diastolic 39–84; PULSE 59–118; RESP 12–18; TEMP 34.3–37.1; O2SAT 94–97; BMI 38.4
[2025-02-27] MEDS: PIPERACILLIN/TAZO 4.5 GM in 0.9 % SODIUM CHLORIDE 100 ML IV ×2 (00:15→09:06)
[2025-02-27 06:34] LABS: Hematocrit 39.2 % (37.0-47.0); Hemoglobin 12.2 g/dL (12.2-16.2); Immature Granulocytes % 2.9 %; Mean Corpuscular HGB Conc 31.1 g/dL (31.8-35.4); Mean Corpuscular Hemoglobin 26.6 pg (27.0-31.2); Mean Corpuscular Volume 85.6 fl (81-99); Nucleated Red Blood Cells % 1.2 %; Platelet Count 90 K/mm3 (142-424); Red Blood Count 4.58 M/mm3 (4.20-5.40); Red Cell Distribution Width-SD 59.4 fL; White Blood Count 9.2 K/mm3 (4.8-10.8)
[2025-02-27 06:52] LABS: Alanine Aminotransferase 35 U/L (12-78); Albumin Level 2.4 g/dl (3.5-5.0); Albumin/Globulin Ratio 1.0 (1.1-1.8); Alkaline Phosphatase 106 U/L (38-126); Anion Gap 12.2 mEq/L (5-15); Aspartate Amino Transferase 34 U/L (14-36); Bilirubin,Total 1.0 mg/dl (0.2-1.3); Blood Urea Nitrogen 56 mg/dl (7-17); Calcium 8.0 mg/dl (8.4-10.2); Carbon Dioxide 25 mmol/L (22.0-30.0); Chloride 104 mmol/L (98-107); Creatinine Clearance Estimated 24 mL/min (50-200); Creatinine,Serum 2.70 mg/dl (0.52-1.04); Estimated Glomerular Filt Rate 17 ml/min (>60); GFR (African American) 20 ML/MIN (>60); Globulin 2.4 g/dL (1.3-3.2); Glucose 87 mg/dl (74-100); Potassium 3.2 mmoL/L (3.5-5.1); Sodium 138 mmol/L (136-145); Total Protein,Serum 4.8 g/dl (6.3-8.2)
[2025-02-27 07:01] LABS: C-Reactive Protein 61.1 mg/L (0-4)
[2025-02-27 07:12] LABS: Procalcitonin 0.312 ng/mL (0.0-2.0)
--- NOTE | 2025-02-27 07:20 | P.CONS_ITS ---
History of Present Illness *Admission Date: 02/25/25 *History of present illness: Ms. Almazan is an 89-year-old female who presented to the ER via EMS from [facility]. She was sent to the ER because of finding of bloody bowel movement at her correction. Previously admitted to the hospital, developed a DVT in her right upper extremity and was started on Xarelto that was later switched to Eliquis. Had a positive stool guaiac at her correction. On arrival to the ER, patient had bloody bowel movement, passed clots. Labs with elevated white count of 13. Hemoglobin 14.7. Kidney function abnormal with BUN 56, creatinine 1.7. Chronic INR 1.2. Temperature 91. CT obtained of abdomen and pelvis. Found to have colitis. Initiated on broad-spectrum antibiotics with vancomycin and Zosyn due to concern for sepsis with her hypothermia, white count, colitis on imaging. Discussed case with ER physician, request admission for treatment of suspected GI bleed, sepsis, further goals of care discussions. Patient also has history of HFpEF. Previously admitted and diuresed aggressively with improvement in kidney function approximately 1.5-1.7 but then dropped to 1.1 prior to discharge. Suspect this is her baseline kidney function. Patient admitted to ICU because of her hypothermia and concern for sepsis. On my evaluation, patient is oriented to self only. Legs tender on exam. Has peripheral edema that is improved from previous admission but still quite prominent at 2+ to the knees. Previous admission, required pressors for hypotension. [facility] Disclaimer: The information contained in this section may have been updated after the patient was seen, as this information can be updated by other users. Medical History Encounter for screening mammogram for malignant neoplasm of breast Swelling of right upper extremity Right arm pain Pulmonary nodules Abnormal CT of the chest Right renal mass (HFpEF) heart failure with preserved ejection fraction Hypertension Intellectual disability Dementia Morbid obesity CHF (congestive heart failure) Social History Smoking Status: Never smoker alcohol intake: never current occupational status: retired Travel in the last 8 weeks?: None Have you lived/traveled outside [place] in past 30 days?: No Contact w/someone who lives/traveled outside US past 30 days?: No Exposure to someone with infectious disease in past 14 days?: No Do you have a fever (greater than 100.4 F or 38 C)?: No Have you tested positive for COVID-19?: No Exposed to someone with COVID-19 in past 14 days?: No Do you have a sore throat?: No Do you have a cough?: No Do you have any weakness?: No Do you have any diarrhea?: No Are you experiencing any unusual bleeding?: No Do you have any muscle aches/pain?: No Do you have any abdominal pain?: No Are you experiencing loss of taste or smell?: No Review of Systems *Neurologic Neurologic: Reports system reviewed and no additional complaints, except as documented Meds Home Medications and Allergies Home Medications ?Medication ?Instructions ?Recorded ?Confirmed ?Type acetaminophen 500 mg tablet 500 mg PO Q4HP PRN Mild Pa in 01/29/25 02/26/25 History (Scale Score 1-4) loperamide 2 mg tablet 2 mg PO Q6HP PRN Diarrhea 02/26/25 History loratadine 10 mg tablet 10 mg PO DAILY 01/29/25/01/13 History ondansetron 4 mg disintegrating 4 mg PO Q6HP PRN Nause a And 01/29/25 02/26/25 History tablet Vomiting protein hydrolysate,milk 1 gram-4 1 ea PO DAILY 02/26/25 History kcal/6 mL oral liquid (Liquid Protein Fortifier) bumetanide 1 mg tablet 1 mg PO DAILY 30 days #30 ta bs 02/02/25 02/26/25 Rx spironolactone 25 mg tablet 25 mg PO DAILY 30 days #30 tabs 02/02/25 02/26/25 Rx apixaban 5 mg tablet (Eliquis) 5 mg PO BID START 5 MG BID 02/28/25 02/26/25 02/26/25 History PM apixaban 5 mg tablet (Eliquis) 10 mg PO BID LAST DOSE 02/28/25 AM 02/26/25 02/26/25 History nitroglycerin 0.4 mg sublingual 0.4 mg sublingual Q5MI SPINE NURSE PRN Chest 02/26/25 02/26/25 History tablet Pain polyethylene glycol 3350 17 gram 17 g PO DAILY PRN Con stipation 02/26/25 02/26/25 History oral powder packet (Miralax) New Prescriptions to Start Prescriptions: Allergies Allergy/AdvReac Type Severity Reaction Status Date / Time sulfamethoxazole (From Allergy Intermediate Unknown Verified 02/25/25 19:51 Bactrim) allergy reaction trimethoprim (From Bactrim) Allergy Intermediate Unknown Verified 02/25/25 19:51 allergy reaction Exam (Inpt) Vital signs and Labs for Last 24 Hours: Temp Pulse Resp BP Pulse Ox O2 Del Method 98 F 80 16 140/70 97 Room Air 02/27/25 04:00 02/27/25 04:00 02/27/25 04:00 02/27/25 04:00 02/27/25 04:00 02/27/25 06:38 Laboratory Results - last 24 hr 02/25/25 21:08: A. baumannii (PCR) Not detected, Bacteroides fragilis Not detected, Lala albicans (PCR) Not detected, Lala auris (PCR) Not detected, C. glabrata (PCR) Not detected, C. krusei (PCR) Not detected, C. parapsilosis (PCR) Not detected, C. tropicalis (PCR) Not detected, Cryptococcus neoformans PCR Not detected, Enterobacterales (PCR) Detected, Enterococc faecalis PCR Not detected, Enterococc faecium PCR Not detected, E. coli (PCR) Detected, H. influenzae DNA Not detected, Klebsiella aerogenes (PCR) Not detected, Klebsiella oxytoca PCR Not detected, K. pneumoniae group (PCR) Not detected, List. monocytogenes PCR Not detected, N. meningitidis (PCR) Not detected, Proteus species (PCR) Not detected, Salmonella spp. (PCR) Not detected, Serratia marcescens PCR Not detected, Staphylococcus sp PCR Not detected, Staph aureus (PCR) Not detected, mecA/C & MREJ Resist Gene Not applicable, mecA/C-Methicil Resis Gene Not applicable, Staph epidermidis (PCR) Not detected, Staph lugdunensis (TEM-PCR) Not detected, S. maltophilia (PCR) Not detected, Streptococcus sp PCR Not detected, S.agalactiae Grp B AINSLEY Not detected, Strep pneumoniae (PCR) Not detected, S. pyogenes GrpA A[place]LEY Not detected, P. aeruginosa (PCR) Not detected, Daniel/B-Vanco Res Genes Not applicable, blaIMP Car res Gene PCR Not detected, KPC-Carbap Res Gene PCR Not detected, blaNDM Car Res Gene PCR Not detected, OXA-48 Carbapenem Resis Gene (PCR) Not detected, blaVIM Car Res Gene PCR Not detected, CTX-M Gene Resistance (PCR) Detected, MCR-1 Resistance Gene Not detected 02/26/25 06:05: Iron 76, TIBC 211 L, Iron Saturation 36.49972, Ferritin 197 02/26/25 19:05: WBC 10.7, RBC 4.59, Hgb 12.6, Hct 38.6, MCV 84.1, MCH 27.5, MCHC 32.6, RDW 19.8 H, Plt Count 94 L, MPV 12.2 H, Neut % (Auto) 79.5, Lymph % (Auto) 10.9, [place] % (Auto) 7.2, Eos % (Auto) 0.1, Baso % (Auto) 0.2, Neut # (Auto) 8.5 H, Lymph # (Auto) 1.2, [place] # (Auto) 0.8, Eos # (Auto) 0.0, Baso # (Auto) 0.0, Sodium 136, Potassium 3.6, Chloride 106, Carbon Dioxide 24, Anion Gap 9.6, BUN 57 H, Creatinine 2.40 H, Estimated Creat Clear 25, Estimated GFR 19 L*, Est GFR ( Amer) 23 L D, Glucose 85 D, Calcium 8.3 L, Total Bilirubin 1.0, AST 36, ALT 37, Alkaline Phosphatase 108, Total Protein 4.9 L, Albumin 2.6 L, Globulin 2.3, Albumin/Globulin Ratio 1.1 02/27/25 05:22: WBC 9.2, RBC 4.58, Hgb 12.2, Hct 39.2, MCV 85.6, MCH 26.6 L, M CHC 31.1 L, RDW 19.9 H, Plt Count 90 L, MPV 12.3 H, Neut % (Auto) 79.3, Lymph % (Auto) 11.4, [place] % (Auto) 6.0, Eos % (Auto) 0.1, Baso % (Auto) 0.3, Neut # (Auto) 7.3, Lymph # (Auto) 1.0, [place] # (Auto) 0.6, Eos # (Auto) 0.0, Baso # (Auto) 0.0, Sodium 138, Potassium 3.2 L, Chloride 104, Carbon Dioxide 25, Anion Gap 12.2, BUN 56 H, Creatinine 2.70 H, Estimated Creat Clear 24, Estimated GFR 17 L*, Est GFR ( Amer) 20 L, Glucose 87, Calcium 8.0 L, Total Bilirubin 1.0, AST 34, ALT 35, Alkaline Phosphatase 106, C-Reactive Protein 61.1 H, Total Protein 4.8 L, Albumin 2.4 L, Globulin 2.4, Albumin/Globulin Ratio 1.0 L, Procalcitonin 0.312 I & O for Labs for Last 24 Hours: Intake & Output 02/24/25 02/25/25 02/26/25 02/27/25 23:59 23:59 23:59 23:59 Intake Total 1000 / 2300 2120 / 2120 100 / 100 Output Total 550 / 550 Balance 1000 / 2100 1570 / 1570 100 / 100 Weight 218 lb 215 lb 9.793 oz 225 lb Microbiology Reports for the Last 24 Hours: Microbiology 02/25/25 22:44 Blood Blood Culture - Preliminary NO GROWTH AFTER 24 HOURS 02/25/25 21:08 Blood Blood Culture - Preliminary Comments:: Normoactive bowel sounds, soft, benign abdomen Results Labs 02/27/25 05:22 02/27/25 05:22 Labs: Laboratory Results - last 24 hr 02/25/25 21:08: A. baumannii (PCR) Not detected, Bacteroides fragilis Not detected, Lala albicans (PCR) Not detected, Lala auris (PCR) Not detected, C. glabrata (PCR) Not detected, C. krusei (PCR) Not detected, C. parapsilosis (PCR) Not detected, C. tropicalis (PCR) Not detected, Cryptococcus neoformans PCR Not detected, Enterobacterales (PCR) Detected, Enterococc faecalis PCR Not detected, Enterococc faecium PCR Not detected, E. coli (PCR) Detected, H. influenzae DNA Not detected, Klebsiella aerogenes (PCR) Not detected, Klebsiella oxytoca PCR Not detected, K. pneumoniae group (PCR) Not detected, List. monocytogenes PCR Not detected, N. meningitidis (PCR) Not detected, Proteus species (PCR) Not detected, Salmonella spp. (PCR) Not detected, Serratia marcescens PCR Not detected, Staphylococcus sp PCR Not detected, Staph aureus (PCR) Not detected, mecA/C & MREJ Resist Gene Not applicable, mecA/C-Methicil Resis Gene Not applicable, Staph epidermidis (PCR) Not detected, Staph lugdunensis (TEM-PCR) Not detected, S. maltophilia (PCR) Not detected, Streptococcus sp PCR Not detected, S.agalactiae Grp B AINSLEY Not detected, Strep pneumoniae (PCR) Not detected, S. pyogenes GrpA A[place]LEY Not detected, P. aeruginosa (PCR) Not detected, Daniel/B-Vanco Res Genes Not applicable, blaIMP Car res Gene PCR Not detected, KPC-Carbap Res Gene PCR Not detected, blaNDM Car Res Gene PCR Not detected, OXA-48 Carbapenem Resis Gene (PCR) Not detected, blaVIM Car Res Gene PCR Not detected, CTX-M Gene Resistance (PCR) Detected, MCR-1 Resistance Gene Not detected 02/26/25 06:05: Iron 76, TIBC 211 L, Iron Saturation 36.58329, Ferritin 197 02/26/25 19:05: WBC 10.7, RBC 4.59, Hgb 12.6, Hct 38.6, MCV 84.1, MCH 27.5, MCHC 32.6, RDW 19.8 H, Plt Count 94 L, MPV 12.2 H, Neut % (Auto) 79.5, Lymph % (Auto) 10.9, [place] % (Auto) 7.2, Eos % (Auto) 0.1, Baso % (Auto) 0.2, Neut # (Auto) 8.5 H, Lymph # (Auto) 1.2, [place] # (Auto) 0.8, Eos # (Auto) 0.0, Baso # (Auto) 0.0, Sodium 136, Potassium 3.6, Chloride 106, Carbon Dioxide 24, Anion Gap 9.6, BUN 57 H, Creatinine 2.40 H, Estimated Creat Clear 25, Estimated GFR 19 L*, Est GFR ( Amer) 23 L D, Glucose 85 D, Calcium 8.3 L, Total Bilirubin 1.0, AST 36, ALT 37, Alkaline Phosphatase 108, Total Protein 4.9 L, Albumin 2.6 L, Globulin 2.3, Albumin/Globulin Ratio 1.1 02/27/25 05:22: WBC 9.2, RBC 4.58, Hgb 12.2, Hct 39.2, MCV 85.6, MCH 26.6 L, M CHC 31.1 L, RDW 19.9 H, Plt Count 90 L, MPV 12.3 H, Neut % (Auto) 79.3, Lymph % (Auto) 11.4, [place] % (Auto) 6.0, Eos % (Auto) 0.1, Baso % (Auto) 0.3, Neut # (Auto) 7.3, Lymph # (Auto) 1.0, [place] # (Auto) 0.6, Eos # (Auto) 0.0, Baso # (Auto) 0.0, Sodium 138, Potassium 3.2 L, Chloride 104, Carbon Dioxide 25, Anion Gap 12.2, BUN 56 H, Creatinine 2.70 H, Estimated Creat Clear 24, Estimated GFR 17 L*, Est GFR ( Amer) 20 L, Glucose 87, Calcium 8.0 L, Total Bilirubin 1.0, AST 34, ALT 35, Alkaline Phosphatase 106, C-Reactive Protein 61.1 H, Total Protein 4.8 L, Albumin 2.4 L, Globulin 2.4, Albumin/Globulin Ratio 1.0 L, Procalcitonin 0.312 Assessment and Plan *Assessment and plan (1) Bright red rectal bleeding: Status: Acute Category: Medical Code(s): K62.5 - Hemorrhage of anus and rectum Plan 1. Bright red rectal bleeding. Family is not available this morning but according to notes, family would like consideration of colonoscope to assess etiology. The patient clearly cannot tolerate bowel preparation and was not prepped overnight. Her hemoglobin/hematocrit are normal which makes me feel that the etiology may be hemorrhoidal or something at the anorectal junction. CT imaging of the abdomen showed findings consistent with colitis. I would recommend stool testing with PCR panel to rule out microbial colitis. I will also plan sigmoidoscopy today.
--- NOTE | 2025-02-27 07:41 | SW/DCPLANNER ---
Addendum entered by Karina Erickson 03/01/25 10:01: I have updated Ellen henriquez/ [facility] that patient may discharge back this afternoon. Patient will have midline and IV antibiotics. Addendum entered by Karina Erickson 02/28/25 10:40: Updated patient information has been faxed to Ellen henriquez/ [facility]. Original Note: Patient currently resides at [facility] level of care. Per Ellen henriquez/ [facility] she would like to skill patient at return. Updated patient information has been faxed to Ellen. Discharge date is unknown at this time. GILBERTO will continue to follow up.
[2025-02-27] MEDS: SODIUM PHOS/BIPHOSPHATE FLEET 133ML ENEMA 133 ML RC ×2 (09:05→13:45)
[2025-02-27] MEDS: NYSTATIN TOPICAL POWDER 30GM TP ×3 (09:05→21:48)
[2025-02-27] MEDS: FLUCONAZOLE 200MG TABLET 200 MG PO (09:09)
--- NOTE | 2025-02-27 09:21 | HMH.PTEV ---
Physical Therapy Evaluation Rehab PT IP Evaluation Start: 02/26/25 03:36 Freq: ONCE Status: Active Protocol: Document 02/27/25 09:07 SUN (Rec: 02/27/25 09:16 SUN [id number]) Subjective/History History History Per H&P: Ms. Almazan is an 89-year-old female who presented to the ER via EMS from [facility]. She was sent to the ER because of finding of bloody bowel movement at her longterm. Previously admitted to the hospital, developed a DVT in her right upper extremity and was started on Xarelto that was later switched to Eliquis. Had a positive stool guaiac at her longterm. On arrival to the ER , patient had bloody bowel movement, passed clots. Labs with elevated white count of 13. Hemoglobin 14.7. Kidney function abnormal with BUN 56, creatinine 1.7. Chronic INR 1.2. Temperature 91. CT obtained of abdomen and pelvis. Found to have colitis. Initiated on broad-spectrum antibiotics with vancomycin and Zosyn due to concern for sepsis with her hypothermia, white count, colitis on imaging. Discussed case with ER physician, request admission for treatment of suspected GI bleed, sepsis, further goals of care discussions. Patient also has history of HFpEF. Previously admitted and diuresed aggressively with improvement in kidney function approximately 1.5-1.7 but then dropped to 1.1 prior to discharge. Suspect this is her baseline kidney function. Patient admitted to ICU because of her hypothermia and concern for sepsis. On my evaluation, patient is oriented to self only. Legs tender on exam. Has peripheral edema that is improved from previous admission but still quite prominent at 2+ to the knees. Previous admission, required pressors for hypotension. Subjective Subjective Pt only able to state her name. Pt not oriented to bday, place, or situation. Confirm social history with care management. New diagnosis of No cancer in past 12 months? [facility] How much help from another person do you currently need... Turning from your A lot back to your side while in a flat bed without using bedrails? Moving from lying on A lot back to sitting on the side of a flat bed without using bedrails? Moving to and from a A lot bed to a chair ( including a wheelchair)? Standing up from a A lot chair using your arms? (e.g., wheelchair, bedside chair) Walking in hospital Total room? Climbing 3-5 steps Total with a railing? Mobility Score 10 Mobility Level [facility] Mobility 4 Move to chair/commode Mobility Calculator Rehab PT IP Eval Objective Appearance Patient Behavior Appropriate,Cooperative Patient Orientation Person Difficulty following mild instructions Speech Pattern Soft-Spoken,Mumbled Ambulation Patient Able to No Ambulate Balance Ability to Arise Able, uses arms to help Sitting Balance Leans or slides in chair Transfers Bed Transfer Ability Moderate x 2 (50% assist) Rehab PT IP prob,goals,plan Problems Date of Evaluation: 02/27/25 PT IP Problems Bed Mobility,Transfers,Gait,Balance,Self care,Safety Rehab Potential Rehab Potential Fair Plan PT Intervention Plan Bed Mobility,Transfers,Gait,Balance,Self care,Safety, Therapeutic Exercise Other Intervention 1-2 time Plan PT Plan Frequency Daily Duration LOS Discharge Goals Bed Transfer Ability Moderate x 1 (50% assist) Sit to Stand Chair Moderate x 2 (50% assist) Transfer Ability Discharge Plan PT Discharge Plan Initial physical therapy evaluation performed. Patient presents below baseline at this time in functional mobility, transfers, and strength. PT recommending pt receive skilled rehab services upon d/c from [facility]. Pt would benefit from skilled PT while at [facility] to prevent further functional decline and maximize safety with mobility. Eval Complexity Eval Charge Codes 39601 - Moderate Complexity PHYSICIAN CERTIFICATION: I certify the specified therapy services for Shahnaz Almazan are required, authorized, and reviewed every 30 days.
--- NOTE | 2025-02-27 09:29 | HMH.OTEV ---
OT Evaluation Rehab OT IP Evaluation Start: 02/26/25 03:36 Freq: ONCE Status: Active Protocol: [facility]25 09[facility] (Rec: 02/27/25 09:29 [facility] [id number]) Rehab OT IP Assessment Subjective History Pt oriented to self on arrival. Pt agreeable to engage in therapy evaluation. Pt admitted on 02/25/25 due to GI bleed. History and physical: Ms. Almazan is an 89-year-old female who presented to the ER via EMS from [facility]. She was sent to the ER because of finding of bloody bowel movement at her alf. Previously admitted to the hospital, developed a DVT in her right upper extremity and was started on Xarelto that was later switched to Eliquis. Had a positive stool guaiac at her alf. On arrival to the ER, patient had bloody bowel movement, passed clots. Labs with elevated white count of 13. Hemoglobin 14.7. Kidney function abnormal with BUN 56, creatinine 1.7. Chronic INR 1.2. Temperature 91. CT obtained of abdomen and pelvis. Found to have colitis. Initiated on broad- spectrum antibiotics with vancomycin and Zosyn due to concern for sepsis with her hypothermia, white count, colitis on imaging. Discussed case with ER physician, request admission for treatment of suspected GI bleed, sepsis, further goals of care discussions. Patient also has history of HFpEF. Previously admitted and diuresed aggressively with improvement in kidney function approximately 1.5-1.7 but then dropped to 1.1 prior to discharge. Suspect this is her baseline kidney function. Patient admitted to ICU because of her hypothermia and concern for sepsis. On my evaluation, patient is oriented to self only. Legs tender on exam. Has peripheral edema that is improved from previous admission but still quite prominent at 2+ to the knees. Previous admission, required pressors for hypotension. Subjective Pt only able to state her name. Pt not oriented to bday, place, or situation. Pt unable to provide any prior level of functioning. Objective Patient Orientation Person Right Upper Min Limitation <25% Extremity Gross ROM Left Upper Extremity Min Limitation <25% Gross ROM Shoulder ROM Muscle Weakness Limitations Elbow ROM Muscle Weakness Limitations Wrist Limitations of Muscle Weakness Range of Motion Bed Mobility bed mobility-scooting,bed mobility - supine/sit Assist Level Moderate x 2 (50% assist) Rehab OT IP prob,goals,plan Problems Date of Evaluation: 02/27/25 OT IP Problems Bed Mobility,Transfers,Balance,Self care,Safety Rehab Potential Rehab Potential Good Equipment Needs Assistive Devices Rolling / Wheeled Walker,Wheelchair Plan OT intervention Plan Bed Mobility,Transfers,Balance,Self care,Safety, Therapeutic Exercise OT Plan Frequency Daily Duration LOS Discharge Goals Bed Mobility Ability Assistance x1 Sit to Stand Chair Moderate x 1 (50% assist) Transfer Ability Chair Transfer Moderate x 1 (50% assist) Ability Chair Transfer Stand Step Pivot Technique Chair Transfer Rolling Walker Assistive Devices Lower Body Dressing Moderate Assistance Ability Upper Body Dressing Minimal Assistance Ability Bathing Ability Moderate Assistance Performing Toilet Moderate Assistance Hygiene Ability Overall Commode/ Moderate Assistance Toilet Transfer Ability Commode/Toilet Stand Step Pivot Transfer Technique Discharge Plan OT Discharge Plan Pt will continue to be seen for OT services while at [facility]. Pt would benefit from short term rehab once she returns to SNF. Continued skilled therapy is important in order for patient to improve strength, safety, endurance, ADL independence, and functional transfers to reach PLOF. Eval Complexity Eval Charge Codes 36320 - Moderate Complexity PHYSICIAN CERTIFICATION: I certify the specified therapy services for Shahnaz Almazan are required, authorized, and reviewed every 30 days.
--- NOTE | 2025-02-27 11:24 | P.CONCA_ITS ---
History of Present Illness History of Present Illness Consult date: 02/27/25 Requesting physician: Ronaldo Ojeda Chief complaint: GI bleed History of present illness: This is an 89-year-old white female who presented to the emergency department from [facility] due to bloody bowel movements. The patient was seen in cardiology clinic last week and started on Eliquis due to a DVT in her right upper extremity. She had a positive occult stool at the senior living and had bloody bowel movements at the senior living and was passing clots. On upon arrival here at the hospital the patient was found to have an elevated white count of 13,000, hemoglobin 14.7, creatinine 1.7 and a temperature of [address] of the abdomen pelvis showed colitis so she has been started on antibiotics due to her concern of sepsis with hypothermia, elevated white count and colitis on imaging. GI has been consulted due to her GI bleed. Her hemoglobin remains normal at this time. Cardiology has been consulted due to to her GI bleed on anticoagulation for DVT in the right upper extremity. She does have a history of HFpEF. Her creatinine is up to 2.7 today and she does have edema on exam. The patient is demented. She is alert to self but is unable to tell me her birthdate. She does not know time or place. She denies any symptoms during my review exam. She is holding a baby doll and saying that it is her baby during my examination. [facility] Disclaimer: The information contained in this section may have been updated after the patient was seen, as this information can be updated by other users. Medical History (Updated 02/27/25 @ 11:34 by Crystal Morrow APRN) Acute deep vein thrombosis (DVT) of right upper extremity Encounter for screening mammogram for malignant neoplasm of breast Swelling of right upper extremity Right arm pain Pulmonary nodules Abnormal CT of the chest Right renal mass (HFpEF) heart failure with preserved ejection fraction Hypertension Intellectual disability Dementia Morbid obesity CHF (congestive heart failure) Social History Smoking Status: Never smoker alcohol intake: never current occupational status: retired Travel in the last 8 weeks?: None Have you lived/traveled outside [place] in past 30 days?: No Contact w/someone who lives/traveled outside US past 30 days?: No Exposure to someone with infectious disease in past 14 days?: No Do you have a fever (greater than 100.4 F or 38 C)?: No Have you tested positive for COVID-19?: No Exposed to someone with COVID-19 in past 14 days?: No Do you have a sore throat?: No Do you have a cough?: No Do you have any weakness?: No Do you have any diarrhea?: No Are you experiencing any unusual bleeding?: No Do you have any muscle aches/pain?: No Do you have any abdominal pain?: No Are you experiencing loss of taste or smell?: No Review of Systems Review of Systems Review of systems:: unable to obtain (Unable to obtain due to his dementia) Exam Data for Last 24 hours Vital signs and Labs for Last 24 Hours: Temp Pulse Resp BP Pulse Ox O2 Del Method 97.4 F L 74 12 114/72 96 Room Air 02/27/25 08:00 02/27/25 08:00 02/27/25 08:00 02/27/25 08:00 02/27/25 08:00 02/27/25 11:00 Laboratory Results - last 24 hr 02/25/25 21:08: A. baumannii (PCR) Not detected, Bacteroides fragilis Not detected, Lala albicans (PCR) Not detected, Lala auris (PCR) Not detected, C. glabrata (PCR) Not detected, C. krusei (PCR) Not detected, C. parapsilosis (PCR) Not detected, C. tropicalis (PCR) Not detected, Cryptococcus neoformans PCR Not detected, Enterobacterales (PCR) Detected, Enterococc faecalis PCR Not detected, Enterococc faecium PCR Not detected, E. coli (PCR) Detected, H. influenzae DNA Not detected, Klebsiella aerogenes (PCR) Not detected, Klebsiella oxytoca PCR Not detected, K. pneumoniae group (PCR) Not detected, List. monocytogenes PCR Not detected, N. meningitidis (PCR) Not detected, Proteus species (PCR) Not detected, Salmonella spp. (PCR) Not detected, Serratia marcescens PCR Not detected, Staphylococcus sp PCR Not detected, Staph aureus (PCR) Not detected, mecA/C & MREJ Resist Gene Not applicable, mecA/C-Methicil Resis Gene Not applicable, Staph epidermidis (PCR) Not detected, Staph lugdunensis (TEM-PCR) Not detected, S. maltophilia (PCR) Not detected, Streptococcus sp PCR Not detected, S.agalactiae Grp B AINSLEY Not detected, Strep pneumoniae (PCR) Not detected, S. pyogenes GrpA AINSLEY Not detected, P. aeruginosa (PCR) Not detected, Daniel/B-Vanco Res Genes Not applicable, blaIMP Car res Gene PCR Not detected, KPC-Carbap Res Gene PCR Not detected, blaNDM Car Res Gene PCR Not detected, OXA-48 Carbapenem Resis Gene (PCR) Not detected, blaVIM Car Res Gene PCR Not detected, CTX-M Gene Resistance (PCR) Detected, MCR-1 Resistance Gene Not detected 02/26/25 19:05: WBC 10.7, RBC 4.59, Hgb 12.6, Hct 38.6, MCV 84.1, MCH 27.5, MCHC 32.6, RDW 19.8 H, Plt Count 94 L, MPV 12.2 H, Neut % (Auto) 79.5, Lymph % (Auto) 10.9, [place] % (Auto) 7.2, Eos % (Auto) 0.1, Baso % (Auto) 0.2, Neut # (Auto) 8.5 H, Lymph # (Auto) 1.2, [place] # (Auto) 0.8, Eos # (Auto) 0.0, Baso # (Auto) 0.0, Sodium 136, Potassium 3.6, Chloride 106, Carbon Dioxide 24, Anion Gap 9.6, BUN 57 H, Creatinine 2.40 H, Estimated Creat Clear 25, Estimated GFR 19 L*, Est GFR ( Amer) 23 L D, Glucose 85 D, Calcium 8.3 L, Total Bilirubin 1.0, AST 36, ALT 37, Alkaline Phosphatase 108, Total Protein 4.9 L, Albumin 2.6 L, Globulin 2.3, Albumin/Globulin Ratio 1.1 02/27/25 05:22: WBC 9.2, RBC 4.58, Hgb 12.2, Hct 39.2, MCV 85.6, MCH 26.6 L, MCHC 31.1 L, RDW 19.9 H, Plt Count 90 L, MPV 12.3 H, Neut % (Auto) 79.3, Lymph % (Auto) 11.4, [place] % (Auto) 6.0, Eos % (Auto) 0.1, Baso % (Auto) 0.3, Neut # (Auto) 7.3, Lymph # (Auto) 1.0, [place] # (Auto) 0.6, Eos # (Auto) 0.0, Baso # (Auto) 0.0, Sodium 138, Potassium 3.2 L, Chloride 104, Carbon Dioxide 25, Anion Gap 12.2, BUN 56 H, Creatinine 2.70 H, Estimated Creat Clear 24, Estimated GFR 17 L*, Est GFR ( Amer) 20 L, Glucose 87, Calcium 8.0 L, Total Bilirubin 1.0, AST 34, ALT 35, Alkaline Phosphatase 106, C-Reactive Protein 61.1 H, Total Protein 4.8 L, Albumin 2.4 L, Globulin 2.4, Albumin/Globulin Ratio 1.0 L, Procalcitonin 0.312 I & O for Last 24 hours: Intake & Output 02/24/25 02/25/25 02/26/25 02/27/25 23:59 23:59 23:59 23:59 Intake Total 1000 / 2300 2120 / 2120 100 / 100 Output Total 550 / 550 400 / 400 Balance 1000 / 2100 1570 / 1570 -300 / -300 Weight 218 lb 215 lb 9.793 oz 225 lb Microbiology Reports for the Last 24 Hours: Microbiology 02/25/25 21:08 Blood Blood Culture - Preliminary Gram Negative Rods 02/25/25 22:44 Blood Blood Culture - Preliminary NO GROWTH AFTER 24 HOURS Constitutional Constitutional: no acute distress and obese *Routine HEENT Exam Head: Present normocephalic and atraumatic ENT: Present mucous membranes moist *Routine Neck Exam Neck: Present supple, full ROM and normal carotid upstroke; Absent JVD, carotid bruit or lymphadenopathy *Routine Respiratory Exam Respiratory: Present CTA bilaterally, normal respiratory effort, able to speak in complete sentences and symmetric chest movement *Routine Cardiovascular Exam Cardiovascular: Present RRR, Normal S1 and Normal S2; Absent murmur or gallop *Routine Abdominal Exam Abdominal: Present soft and normoactive bowel sounds; Absent tenderness, distended or organomegaly *Routine Extremities Exam Extremities: Present edema, full ROM, pulses intact and normal capillary refill; Absent cyanosis or clubbing *Routine Skin Exam Skin: Present intact and warm; Absent erythema *Routine Neurological Exam Neurological: Present alert (To person only) and altered mental status Meds Home Medications and Allergies Home Medications ?Medication ?Instructions ?Recorded ?Confirmed ?Type acetaminophen 500 mg tablet 500 mg PO Q4HP PRN Mild Pa in 01/29/25 02/26/25 History (Scale Score 1-4) loperamide 2 mg tablet 2 mg PO Q6HP PRN Diarrhea 02/26/25 History loratadine 10 mg tablet 10 mg PO DAILY 01/29/25 09/01/13 History ondansetron 4 mg disintegrating 4 mg PO Q6HP PRN Nause a And 01/29/25 02/26/25 History tablet Vomiting protein hydrolysate,milk 1 gram-4 1 ea PO DAILY 02/26/25 History kcal/6 mL oral liquid (Liquid Protein Fortifier) bumetanide 1 mg tablet 1 mg PO DAILY 30 days #30 ta bs 02/02/25 02/26/25 Rx spironolactone 25 mg tablet 25 mg PO DAILY 30 days #30 tabs 02/02/25 02/26/25 Rx apixaban 5 mg tablet (Eliquis) 5 mg PO BID START 5 MG BID 02/28/25 02/26/25 02/26/25 History PM apixaban 5 mg tablet (Eliquis) 10 mg PO BID LAST DOSE 02/28/25 AM 02/26/25 02/26/25 History nitroglycerin 0.4 mg sublingual 0.4 mg sublingual Q5MI CRNA PRN Chest 02/26/25 02/26/25 History tablet Pain polyethylene glycol 3350 17 gram 17 g PO DAILY PRN Con stipation 02/26/25 02/26/25 History oral powder packet (Miralax) New Prescriptions to Start Prescriptions: Allergies Allergy/AdvReac Type Severity Reaction Status Date / Time sulfamethoxazole (From Allergy Intermediate Unknown Verified 02/25/25 19:51 Bactrim) allergy reaction trimethoprim (From Bactrim) Allergy Intermediate Unknown Verified 02/25/25 19:51 allergy reaction Assessment and Plan *Assessment and plan (1) Acute deep vein thrombosis (DVT) of right upper extremity: Status: Acute Qualifiers: Affected thrombotic vein of extremity: brachial Qualified Code(s): I82.621 - Acute embolism and thrombosis of deep veins of right upper extremity Category: Medical Code(s): I82.621 - Acute embolism and thrombosis of deep veins of right upper extremity (2) (HFpEF) heart failure with preserved ejection fraction: Status: Acute Qualifiers: Heart failure chronicity: acute on chronic Qualified Code(s): I50.33 - Acute on chronic diastolic (congestive) heart failure Category: Medical Code(s): I50.30 - Unspecified diastolic (congestive) heart failure (3) Bright red rectal bleeding: Status: Acute Category: Medical Code(s): K62.5 - Hemorrhage of anus and rectum (4) TAD (acute kidney injury): Status: Acute Category: Medical Code(s): N17.9 - Acute kidney failure, unspecified (5) Acute lower gastrointestinal bleeding: Status: Acute Category: Medical Code(s): K92.2 - Gastrointestinal hemorrhage, unspecified (6) Hypothermia: Status: Acute Qualifiers: Encounter type: initial encounter Qualified Code(s): T68.XXXA - Hypothermia, initial encounter Category: Medical Code(s): T68.XXXA - Hypothermia, initial encounter (7) Hypertension: Status: Acute Qualifiers: Hypertension type: primary hypertension Qualified Code(s): I10 - Esse ntial (primary) hypertension Category: Medical Code(s): I10 - Essential (primary) hypertension Plan Plan: 1. The patient was admitted to the hospital due to blood in the stool. She did have a positive guaiac stool at the senior living and was passing bloody stools with clots. The patient has been consulted by GI and is scheduled to undergo sigmoidoscopy today. There is concern with proceeding with full colonoscopy due to her mentation and not having appropriate prep. 2. The patient was started on Eliquis last week due to a DVT in the right upper extremity. The patient was found to have an acute thrombosis to the cephalic vein. Her anticoagulation is currently being held due to her GI bleed. Will await the results of her sigmoidoscopy before determining what anticoagulation she will need to be on. 3. The patient does have a history of HFpEF. She is likely having an acute exacerbation. Her BNP is elevated and her creatinine is also worsening. She would likely benefit from IV diuretics. Will start her on IV Bumex 1 mg IV twice daily. 4. On admission the patient was hypothermic with an elevated white blood cell count and imaging showing colitis. She is currently being treated for sepsis with IV antibiotics. Will defer to the hospitalist. 5. Her blood pressure is well-controlled. 6. Her LDL goal is less than 100. Will get a lipid panel in the morning. 7. Further recommendations were made pending the patient's response to treatment and the results of her colon sigmoidoscopy today. Thank you for the opportunity to help participate in the care of this patient. All recommendations and orders are per Dr. Pereira.
[2025-02-27] MEDS: BUMETANIDE 1MG/4ML VIAL 1 MG IV (13:45)
--- NOTE | 2025-02-27 14:33 | P.PNANES_ITS ---
[facility] Disclaimer: The information contained in this section may have been updated after the patient was seen, as this information can be updated by other users. Medical History (Updated 02/27/25 @ 11:34 by Crystal Morrow APRN) Acute deep vein thrombosis (DVT) of right upper extremity Encounter for screening mammogram for malignant neoplasm of breast Swelling of right upper extremity Right arm pain Pulmonary nodules Abnormal CT of the chest Right renal mass (HFpEF) heart failure with preserved ejection fraction Hypertension Intellectual disability Dementia Morbid obesity CHF (congestive heart failure) Social History Smoking Status: Never smoker alcohol intake: never substance use type: denies use current occupational status: retired Travel in the last 8 weeks?: None [facility] Anesthesia Checklist Patient Identification Patient Identification: Arm Band and Verbal (Name & ) Structural Data Admitted From: Inpatient Planned Operative Procedure/s: Flex sigmoidoscopy Verified Documents: Surgical Consent NPO Status Verified Time NPO: 00:00 Chart Verification Results Verified: CBC, BMP and ECG Additional verifications Anesthesia Reactions: No Airway Assessment Mallampati Score:: Class II C-Spine Mobility Assessed: No TMJ Mobility Assessed: No Dentition: Poor Dentition Neurological Assessment Level of Consciousness: Awake, Alert and Appropriate Hx Seizures: No Numbness or tingling in extremities: No Anesthesia Plan Anesthesia Risk discussed: Yes Anesthesia Plan: Verified ASA Class: III Anesthesia Type: MAC
--- NOTE | 2025-02-27 15:04 | P.PCN_ITS ---
[facility] Procedure Note Date: 02/27/25 Time: 15:30 Procedure Note:: Flexible Sigmoidoscopy Procedure Report: Sigmoidoscopy with snare cautery, cold snare polypectomy and monopolar ablation/coagulation of internal hemorrhoids Endoscopist: Koffi Ortega II, MD Referring physician: Yonatan Valencia MD Date of Procedure: February 27, 2025 Equipment: Olympus 180 variable stiffness pediatric colonoscope Sedation: MAC sedation Indication: Mrs. Soto is an 89-year-old female who was sent from [facility] because of bloody bowel movements. She has been on Xarelto and was later switched to Eliquis. She was Hemoccult positive at the custodial. It is not known when she had her last colonoscopy. Her CAT scan did show evidence of colonic wall thickening suggestive of colitis. The patient's hemoglobin and hematocrit have remained stable with hemoglobin 12.2 and hemato crit 39.2. Procedure: Prior to the procedure, a history and physical exam was performed, and patient's medications and allergies were reviewed. The risks, benefits and alternatives of the sedation and procedure were discussed with the patient. All questions were answered and informed consent was obtained. The patient was brought to the procedure room. Patient identification and proposed procedure were verified by the physician and the nurse. The patient was placed in a left lateral decubitus position and the scope was passed under direct vision. Throughout the procedure, the patient's blood pressure, pulse, and oxygen saturations were monitored continuously. The colonoscopy was accomplished without difficulty. The patient tolerated the procedure well. Findings: On digital rectal examination there was slightly normal rectal tone with no external hemorrhoids. The scope was then inserted through the anal canal into the rectum and advanced to 60 cm. There were scattered diverticuli throughout the distal descending and sigmoid colon. Within the sigmoid colon and rectum were 4 colonic polyps (sigmoid x 3 (7, 8 and 11 mm) and rectum x 1 (7 mm)). These were removed via cold snare polypectomy but the larger 11 mm pedunculated polyp was removed via snare cautery. Within the rectum, the scope was retroflexed and there were grade 1-2 internal hemorrhoids with evidence of active cryptitis active pectinate line. The hemorrhoids were ablated/coagulated using monopolar ablation. Impression: 1. Colonic polyps x 4 (ranging in size from 7 to 11 mm) 2. Left-sided diverticulosis 3. Grade 1-2 internal hemorrhoids with active cryptitis status post monopolar ablation/coagulation of the hemorrhoid columns Plan: I do suspect that the patient's bleeding was hemorrhoidal bleeding and related to anticoagulation (Eliquis). I would hold this for 7 to 10 days. I would encourage bulking fiber (FiberCon). There is no obvious colitis in the lower colon and given her age and cognitive status, I do not feel that full colonoscopy is warranted.
[2025-02-27] MEDS: ERTAPENEM SODIUM 0.5 GM in 0.9 % SODIUM CHLORIDE 50 ML IV (17:16)
--- NOTE | 2025-02-27 17:49 | P.PN_ITS ---
Subjective *Date: 02/27/25 *Time: 18:04 Interval history: Plan on exam this morning. Appears in no acute distress. Maintaining body temperature originally on exam this morning. Roberson still in place. On room air. No nausea or vomiting. Denies any pain Medical Exam Vital signs and Labs for Last 24 Hours: Vital Signs Temp Pulse Resp BP BP Pulse Ox O2 Del Method 02/27/25 16:05 64 143/70 H 97 Room Air 02/27/25 15:55 68 18 127/76 96 02/27/25 15:45 73 128/76 95 Room Air 02/27/25 15:35 97.0 F L 64 18 108/66 L 96 Room Air 02/27/25 13:56 97.3 F L 59 L 12 135/84 96 Room Air 02/27/25 13:00 Room Air 02/27/25 12:00 97.3 F L 59 L 12 135/84 96 Room Air 02/27/25 11:00 Room Air 02/27/25 09:00 Room Air 02/27/25 08:00 Room Air 02/27/25 08:00 97.4 F L 74 12 114/72 96 Room Air 02/27/25 06:38 Room Air 02/27/25 05:00 Room Air 02/27/25 04:00 98 F 80 16 140/70 97 Room Air 02/27/25 03:00 Room Air 02/27/25 01:00 Room Air 02/27/25 00:00 98.7 F 98 H 18 130/79 96 Room Air 02/26/25 23:00 Room Air 02/26/25 21:00 Room Air 02/26/25 20:00 Room Air 02/26/25 20:00 99.8 F H 108 H 18 110/61 95 Room Air 02/26/25 19:00 Room Air Intake and Output 02/27/25 02/27/25 02/27/25 07:59 15:59 23:59 Intake Total 100 / 200 100 / 200 Output Total 400 / 400 Balance 100 / -200 -300 / -200 Intake: Intake, Oral Amount 0 / 0 Intake, Total IV Amount 100 / 200 100 / 200 Piperacillin/Tazo 4.5 gm In 0.9 100 / 200 100 / 200 % Sodium Chloride 100 ml @ 200 mls/hr IV Q8H [facility] Rx#:[id number] Output: Output, Urine Amount (Catheter) 400 / 400 Roberson 400 / 400 Other: Number of Bowel Movements 1 Weight 102.058 kg Patient Weight 02/27/25 23:59 Weight 102.058 kg Laboratory Results - last 24 hr 02/26/25 19:05: WBC 10.7, RBC 4.59, Hgb 12.6, Hct 38.6, MCV 84.1, MCH 27.5, MCHC 32.6, RDW 19.8 H, Plt Count 94 L, MPV 12.2 H, Neut % (Auto) 79.5, Lymph % (Auto) 10.9, Hemphill % (Auto) 7.2, Eos % (Auto) 0.1, Baso % (Auto) 0.2, Neut # (Auto) 8.5 H, Lymph # (Auto) 1.2, Hemphill # (Auto) 0.8, Eos # (Auto) 0.0, Baso # (Auto) 0.0, Sodium 136, Potassium 3.6, Chloride 106, Carbon Dioxide 24, Anion Gap 9.6, BUN 57 H, Creatinine 2.40 H, Estimated Creat Clear 25, Estimated GFR 19 L*, Est GFR ( Amer) 23 L D, Glucose 85 D, Calcium 8.3 L, Total Bilirubin 1.0, AST 36, ALT 37, Alkaline Phosphatase 108, Total Protein 4.9 L, Albumin 2.6 L, Globulin 2.3, Albumin/Globulin Ratio 1.1 02/27/25 05:22: WBC 9.2, RBC 4.58, Hgb 12.2, Hct 39.2, MCV 85.6, MCH 26.6 L, MCHC 31.1 L, RDW 19.9 H, Plt Count 90 L, MPV 12.3 H, Neut % (Auto) 79.3, Lymph % (Auto) 11.4, Hemphill % (Auto) 6.0, Eos % (Auto) 0.1, Baso % (Auto) 0.3, Neut # (Auto) 7.3, Lymph # (Auto) 1.0, Hemphill # (Auto) 0.6, Eos # (Auto) 0.0, Baso # (Auto) 0.0, Sodium 138, Potassium 3.2 L, Chloride 104, Carbon Dioxide 25, Anion Gap 12.2, BUN 56 H, Creatinine 2.70 H, Estimated Creat Clear 24, Estimated GFR 17 L*, Est GFR ( Amer) 20 L, Glucose 87, Calcium 8.0 L, Total Bilirubin 1.0, AST 34, ALT 35, Alkaline Phosphatase 106, C-Reactive Protein 61.1 H, Total Protein 4.8 L, Albumin 2.4 L, Globulin 2.4, Albumin/Globulin Ratio 1.0 L, Procalcitonin 0.312 I & O for Labs for Last 24 Hours: Intake & Output 02/24/25 02/25/25 02/26/25 02/27/25 23:59 23:59 23:59 23:59 Intake Total 1000 / 2300 2120 / 2120 200 / 200 Output Total 550 / 550 400 / 400 Balance 1000 / 2100 1570 / 1570 -200 / -200 Weight 98.883 kg 97.8 kg 102.058 kg Microbiology Reports for the Last 24 Hours: Microbiology 02/25/25 21:08 Blood Blood Culture - Preliminary Gram Negative Rods 02/25/25 22:44 Blood Blood Culture - Preliminary NO GROWTH AFTER 24 HOURS Constitutional: Present no acute distress, morbidly obese, chronically ill appearing and somnolent Head: Present atraumatic and normocephalic ENT: Present normal exam Respiratory: Present prolonged expiratory phase and normal respiratory effort; Absent rhonchi, wheezes or crackles Cardiac: Present Irregularly Regular and Bradycardia GI: Present soft and normal bowel sounds; Absent distention or tenderness Comment:: Roberson remains in place Extremities: Present normal inspection, full ROM and edema (Improving, 2+ in right lower extremity to thigh, 2+ in left lower extremity. Wrinkling of right leg. Still erythematous.) Skin: Present intact and erythema Comment:: Numerous wounds, see nursing notes. Has intertrigo and excoriations in her skin folds in her abdomen and under her breasts. Scabbed lesions on right shoulder. All present on admission Neuro: Present Grossly Intact, alert, awake and moves all extremities; Absent oriented x 3 Comment:: Oriented to self only Assessment and Plan *Assessment and plan (1) TAD (acute kidney injury): Status: Acute Category: Medical Code(s): N17.9 - Acute kidney failure, unspecified (2) Acute lower gastrointestinal bleeding: Status: Acute Category: Medical Code(s): K92.2 - Gastrointestinal hemorrhage, unspecified (3) SIRS (systemic inflammatory response syndrome): Status: Acute Category: Medical Code(s): R65.10 - Systemic inflammatory response syndrome (SIRS) of non-infectious origin without acute organ dysfunction (4) Hypothermia: Status: Acute Qualifiers: Encounter type: initial encounter Qualified Code(s): T68.XXXA - Hypothermia, initial encounter Category: Medical Code(s): T68.XXXA - Hypothermia, initial encounter (5) (HFpEF) heart failure with preserved ejection fraction: Status: Acute Qualifiers: Heart failure chronicity: acute on chronic Qualified Code(s): I50.33 - Acute on chronic diastolic (congestive) heart failure Category: Medical Code(s): I50.30 - Unspecified diastolic (congestive) heart failure (6) Dementia: Status: Chronic Qualifiers: Dementia behavioral or psychological symptom: unspecified whether behavioral, psychotic, or mood disturbance or anxiety Dementia severity: unspecified severity Dementia type: vascular dementia Qualified Code(s): F01.50 - Vascular dementia, unspecified severity, without behavioral disturbance, psychotic disturbance, mood disturbance, and anxiety Category: Medical Code(s): F03.90 - Unspecified dementia, unspecified severity, without behavioral disturbance, psychotic disturbance, mood disturbance, and anxiety (7) Morbid obesity: Status: Chronic Category: Medical Code(s): E66.01 - Morbid (severe) obesity due to excess calories Plan Shahnaz Almazan is a 89-year-old female from [facility] who presents with reported bloody stool. While in the ER, passed blood clots per rectum. CT imaging concerning for colitis. Patient hypothermic with elevated white count. Meeting sepsis criteria. Medicine consulted for admission. After discussion with ER physician, request admission for treatment of GI bleeding given elevated Mckenzie score of 11. Being evaluated by GI today. Planning on sigmoidoscopy. #Sepsis #E. coli bacteremia with history of ESBL #Hypothermia - Presented with hypothermic core temp 91.6, WBC 13, colitis on on CT abdomen/pelvis. ? Blood culture remains positive for E. coli; history of ESBL. Sensitivities pending. ? Temperature remained normal this morning. Continue Suellen hugger as needed if temperature drops. ? Continue Zosyn 4.5 g every 8 hours, renally dosed. Follow-up blood culture sensitivities. ? White count normal at 9.2, hemoglobin 12.2. Remained stable. WBC improved to 10.7 today. ? CRP improving at 61, Pro-Taiwo 0.3; repeat CBC, CRP, CMP, magnesium ordered for the morning - Yeast in her urine, continue fluconazole decreased to 50 mg daily for renal dosing #GI bleed - Suspect lower GI bleed from colitis. Recently started on Eliquis for right upper extremity DVT. Risk of continuing and bleeding outweighs benefit of DOAC for DVT at this time. ? Discussed with GI, recommend sigmoidoscopy today. Found hemorrhoids and diverticulum but no emilia colitis. Suspect hemorrhoids are the source of her bleeding. Recommend holding anticoagulation for 7 to 10 days and reevaluating resumption at that time. Also had 4 polyps removed. - Hemoglobin remained stable at 12.2. 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 Severe biatrial dilation with RVSP of 40 to 45 mmHg. Normal LV systolic function. Dilated RV and reduced RV function - Patient still edematous. Cautious with fluids for SIRS/sepsis above. - Resume Bumex 1 mg IV twice daily, BUN 56, creatinine 2.7, suspect this is secondary to her volume overload as her kidney function got worse with IV fluids yesterday. Remains quite edematous. - Cardiology evaluating today - Repeat BMP ordered for the afternoon to monitor kidney function ? Caution with renal toxins, renally dose medications. #Right kidney mass: Will need to discuss with medical POA regarding further workup. Dementia per history, unclear baseline mentation. Oriented to self only at this time. Morbid obesity complicates all aspects of her care VTE contraindicated; SCDs advance to regular diet DNR/DNI.
--- NOTE | 2025-02-27 18:11 | PC.NURSE ---
patient is alert to self only. rectal temp at 1630 was 93.8, katherine hugger applied, warm blankets applied and room temp increased. MD notified. rechecked temp at 1801 95.1 rectal. when checking rectal temp at 1801 patient had a moderate bloody BM, MD aware. VSS. patient reports no pain. bed alarm in place, no current requests at this time.
--- NOTE | 2025-02-27 18:55 | PC.WOUNDNOTE ---
open area to intergluteal cleft
[2025-02-27 19:11] LABS: Anion Gap 9.7 mEq/L (5-15); Blood Urea Nitrogen 52 mg/dl (7-17); Calcium 7.8 mg/dl (8.4-10.2); Carbon Dioxide 26 mmol/L (22.0-30.0); Chloride 107 mmol/L (98-107); Creatinine Clearance Estimated 28 mL/min (50-200); Creatinine,Serum 2.30 mg/dl (0.52-1.04); Estimated Glomerular Filt Rate 20 ml/min (>60); GFR (African American) 24 ML/MIN (>60); Glucose 70 mg/dl (74-100); Sodium 140 mmol/L (136-145)
[2025-02-27 19:19] LABS: Potassium 2.7 mmoL/L (3.5-5.1)
[2025-02-27 19:42] LABS: Thyroid Stimulating Hormone 8.84 uIU/mL (0.465-4.68)
[2025-02-27] MEDS: POTASSIUM CHLORIDE 20MEQ TAB 40 MEQ PO ×2 (19:42→21:48)
[2025-02-27] MEDS: LEVOTHYROXINE SODIUM 100 MCG VIAL IV (20:14)
[2025-02-28] VITALS: BP 109/65; PULSE 94; RESP 17; TEMP 36.4; O2SAT 93
[2025-02-28 04:00] VITALS: BP 100/64; PULSE 91; RESP 17; TEMP 36.1; O2SAT 94; BMI 36.1
--- NOTE | 2025-02-28 04:00 | PC.NURSE ---
Addendum entered by Serenity Silver RN 02/28/25 04:50: Patient had one, mucus-like bowel movement this morning (red-brown in color, mild odor). Female purewick was changed, new brief applied. Patient reported having soreness in her perineum during erik-care. GA temperature was taken due to inability to obtain an oral temperature (thermometer would not continuous pickling line pickler). Core temperature was 97.0 rectally; new warm blankets were given, and her room temperature remains increased. Original Note: Patient is alert and oriented to herself and her name. She was observed to be resting in bed with eyes closed, respirations even and unlabored on room air, and no apparent distress throughout the majority of the night. Personal baby doll has remained with her for means of comfort. Suellen hugger was removed during this shift after achieving normothermic temperatures (98.3 rectal temp at 22:00). Repositioned/turned in bed appropriately. Patient requires max assistance during transfers. Scheduled medications were administered as appropriately per AUG. Potassium replaced per MD orders. On telemetry + datascope pulse ox. Auscultation of heart, lungs, and bowels within normal findings. A female purewick remains in place for voiding needs (incontinent). Patient tolerated consumption of applesauce very well this shift; no coughing or difficulties with swallowing noted. Aspiration precautions taken, assistance with feeding provided. Soft mechanical diet (advanced as tolerated per Jordan MARCUS). Skin issues documented accordingly. Significant swelling + redness noted to bilateral lower extremities. At this time, the patient is resting in bed without any further complaints. No new needs thus far. Bed alarm on. Call light within reach.
[2025-02-28] MEDS: LEVOTHYROXINE 50MCG (0.05MG) TAB 50 MCG PO (06:00)
[2025-02-28 06:10] LABS: Hematocrit 37.9 % (37.0-47.0); Hemoglobin 12.0 g/dL (12.2-16.2); Immature Granulocytes % 2.3 %; Mean Corpuscular HGB Conc 31.7 g/dL (31.8-35.4); Mean Corpuscular Hemoglobin 27.3 pg (27.0-31.2); Mean Corpuscular Volume 86.3 fl (81-99); Nucleated Red Blood Cells % 1.4 %; Platelet Count 91 K/mm3 (142-424); Red Blood Count 4.39 M/mm3 (4.20-5.40); Red Cell Distribution Width-SD 61.7 fL; White Blood Count 8.6 K/mm3 (4.8-10.8)
[2025-02-28 06:17] LABS: Alanine Aminotransferase 37 U/L (12-78); Albumin Level 2.5 g/dl (3.5-5.0); Albumin/Globulin Ratio 1.0 (1.1-1.8); Alkaline Phosphatase 93 U/L (38-126); Anion Gap 10.6 mEq/L (5-15); Aspartate Amino Transferase 33 U/L (14-36); Bilirubin,Total 0.8 mg/dl (0.2-1.3); Blood Urea Nitrogen 50 mg/dl (7-17); Calcium 8.0 mg/dl (8.4-10.2); Carbon Dioxide 25 mmol/L (22.0-30.0); Chloride 110 mmol/L (98-107); Creatinine Clearance Estimated 27 mL/min (50-200); Creatinine,Serum 2.20 mg/dl (0.52-1.04); Estimated Glomerular Filt Rate 21 ml/min (>60); GFR (African American) 26 ML/MIN (>60); Globulin 2.4 g/dL (1.3-3.2); Glucose 61 mg/dl (74-100); Potassium 3.6 mmoL/L (3.5-5.1); Sodium 142 mmol/L (136-145); Total Protein,Serum 4.9 g/dl (6.3-8.2)
[2025-02-28 06:22] LABS: C-Reactive Protein 44.2 mg/L (0-4)
[2025-02-28 06:27] LABS: Cholesterol 113 mg/dl (140-200); HDL Cholesterol 38 mg/dl (40-60); Triglycerides 109 mg/dl (30-150)
[2025-02-28 07:37] VITALS: BP 111/65; PULSE 89; RESP 16; TEMP 36.5; O2SAT 96
[2025-02-28 09:05] LABS: Total Iron Binding Capacity 172 ug/dL (265-497)
[2025-02-28] MEDS: BUMETANIDE 1MG/4ML VIAL 1 MG IV ×2 (09:31→16:48)
[2025-02-28 09:32] LABS: Ferritin 183 ng/ml (11.1-264)
[2025-02-28] MEDS: NYSTATIN TOPICAL POWDER 30GM TP ×4 (09:32→20:13)
[2025-02-28] MEDS: FLUCONAZOLE 100MG TABLET 50 MG PO (09:32)
[2025-02-28] MEDS: POTASSIUM CHLORIDE 20MEQ TAB 40 MEQ PO ×2 (09:34→20:14)
[2025-02-28 09:37] LABS: Free T4 (Free Thyroxine) 1.23 ng/dl (0.78-2.19)
[2025-02-28 10:28] LABS: Iron 54 ug/dL (37-170)
--- NOTE | 2025-02-28 10:50 | P.PN_ITS ---
Subjective Subjective Date: 02/28/25 Time: 09:00 Principal diagnosis: GI bleed, acute on chronic HFpEF Interval history: This is an 89-year-old white female who presented to the emergency department from [facility] due to bloody bowel movements. The patient was Hemoccult stool positive. However her hemoglobin remained stable. She had recently been started on Eliquis due to a DVT in her right upper extremity. Her Eliquis is currently on hold and she underwent sigmoidoscopy yesterday. She was found to have colonic polyps x 4 that were removed. She also had diverticulosis. She had grade 1-2 hemorrhoids with active cryptitis status post ablation and coagulation yesterday. The patient is pleasantly confused. She is alert to self only. She denies any complaints today. She denies any chest pain or shortness of breath. She denies any fever, chills, nausea, vomiting or diarrhea. Exam Data for Last 24 hours Vital signs and Labs for Last 24 Hours: Temp Pulse Resp BP Pulse Ox O2 Del Method 97.7 F 89 16 111/65 96 Room Air 02/28/25 07:37 02/28/25 07:37 02/28/25 07:37 02/28/25 07:37 02/28/25 07:37 02/28/25 09:00 Laboratory Results - last 24 hr 02/27/25 18:47: Sodium 140, Potassium 2.7 L*, Chloride 107, Carbon Dioxide 26, Anion Gap 9.7, BUN 52 H, Creatinine 2.30 H, Estimated Creat Clear 28, Estimated GFR 20 L, Est GFR ( Amer) 24 L, Glucose 70 L, Calcium 7.8 L, TSH 8.84 H 02/28/25 05:54: WBC 8.6, RBC 4.39, Hgb 12.0 L, Hct 37.9, MCV 86.3, MCH 27.3, MCHC 31.7 L, RDW 20.0 H, Plt Count 91 L, MPV 11.5 H, Neut % (Auto) 78.4, Lymph % (Auto) 10.8, Mellette % (Auto) 7.8, Eos % (Auto) 0.5, Baso % (Auto) 0.2, Neut # (Auto) 6.7, Lymph # (Auto) 0.9, Mellette # (Auto) 0.7, Eos # (Auto) 0.0, Baso # (Auto) 0.0, Sodium 142, Potassium 3.6 D, Chloride 110 H, Carbon Dioxide 25, Anion Gap 10.6, BUN 50 H, Creatinine 2.20 H, Estimated Creat Clear 27, Estimated GFR 21 L, Est GFR ( Amer) 26 L, Glucose 61 L, Calcium 8.0 L, Iron 54 D, TIBC 172 L, Iron Saturation 31.46833, Ferritin 183, Total Bilirubin 0.8, AST 33, ALT 37, Alkaline Phosphatase 93, C-Reactive Protein 44.2 H D, Total Protein 4.9 L, Albumin 2.5 L, Globulin 2.4, Albumin/Globulin Ratio 1.0 L, Triglycerides 109, Cholesterol 113 L, LDL Cholesterol Direct 48.37 L, VLDL Cholesterol 22, HDL Cholesterol 38 L, Cholesterol/HDL Ratio 3.0, Free T4 1.23 I & O for Last 24 hours: Intake & Output 02/25/25 02/26/25 02/27/25 02/28/25 23:59 23:59 23:59 23:59 Intake Total 1000 / 2300 2120 / 2120 250 / 400 170 / 170 Output Total 550 / 550 1600 / 1600 0 / 0 Balance 1000 / 2100 1570 / 1570 -1350 / -1200 170 / 170 Weight 218 lb 215 lb 9.793 oz 225 lb 211 lb 13.828 oz Microbiology Reports for the Last 24 Hours: Microbiology 02/25/25 21:08 Blood Blood Culture - Final Escherichia coli 02/25/25 22:44 Blood Blood Culture - Preliminary NO GROWTH AFTER 48 HOURS Constitutional Constitutional: no acute distress and obese *Routine HEENT Exam Head: Present normocephalic and atraumatic ENT: Present mucous membranes moist *Routine Neck Exam Neck: Present supple, full ROM and normal carotid upstroke; Absent JVD, carotid bruit or lymphadenopathy *Routine Respiratory Exam Respiratory: Present CTA bilaterally, normal respiratory effort, able to speak in complete sentences and symmetric chest movement *Routine Cardiovascular Exam Cardiovascular: Present RRR, Normal S1 and Normal S2; Absent murmur or gallop *Routine Abdominal Exam Abdominal: Present soft and normoactive bowel sounds; Absent tenderness, distended or organomegaly *Routine Extremities Exam Extremities: Present edema, full ROM, pulses intact and normal capillary refill; Absent cyanosis or clubbing *Routine Skin Exam Skin: Present intact and warm; Absent erythema *Routine Neurological Exam Neurological: Present alert (To person only) and altered mental status Progress Note: A&P Assessment and plan (1) (HFpEF) heart failure with preserved ejection fraction: Status: Acute (2) TAD (acute kidney injury): Status: Acute (3) Acute lower gastrointestinal bleeding: Status: Acute (4) SIRS (systemic inflammatory response syndrome): Status: Acute (5) Hypothermia: Status: Acute (6) Dementia: Status: Chronic (7) Morbid obesity: Status: Chronic (8) Acute deep vein thrombosis (DVT) of right upper extremity: Status: Acute (9) Colonic polyp: Status: Acute (10) Internal hemorrhoids: Status: Acute (11) Hypertension: Status: Acute Assessment and Plan Assessment and Plan for All Diagnoses:: Plan: 1. The patient was admitted to the hospital due to blood in the stool. She did have a positive guaiac stool at the senior care and was passing bloody stools with clots. Hemoglobin remained stable. She underwent sigmoidoscopy yesterday and was found to have 4 colonic polyps which were removed. Diverticulosis and grade of 1-2 hemorrhoids with active cryptitis. She is status post ablation/coagulation for the hemorrhoids. They do recommend holding Eliquis for 7 to 10 days. However the patient does have an active thrombus in her right upper extremity. 2. The patient was started on Eliquis last week due to a DVT in the right upper extremity. The patient was found to have an acute thrombosis to the cephalic vein. Her anticoagulation is currently being held due to her GI bleed. Cardiology will recommend holding Eliquis for 5 to 7 days due to the GI bleed. 3. The patient does have a history of HFpEF. She is likely having an acute exacerbation. Her BNP is elevated and her creatinine is also worsening. She would likely benefit from IV diuretics. Continue IV Bumex at this time. 4. On admission the patient was hypothermic with an elevated white blood cell count and imaging showing colitis. She is currently being treated for sepsis with IV antibiotics. Will defer to the hospitalist. 5. Her blood pressure is well-controlled. 6. Her LDL goal is less than 100. Will get a lipid panel in the morning. 7. Further recommendations will be made pending the patient's response to treatment. Thank you for the opportunity to help participate in the care of this patient. All recommendations and orders are per Dr. Pereira.
--- NOTE | 2025-02-28 10:50 | EXP.PN ---
Subjective *Date: 02/28/25 *Time: 12:12 Interval history: Patient continues to be pleasant, demented. No acute distress or concerns at this time. Exam Data for Last 24 hours Vital signs and Labs for Last 24 Hours: Temp Pulse Resp BP Pulse Ox O2 Del Method 97.7 F 89 16 111/65 96 Room Air 02/28/25 07:37 02/28/25 07:37 02/28/25 07:37 02/28/25 07:37 02/28/25 07:37 02/28/25 09:00 Laboratory Results - last 24 hr 02/27/25 18:47: Sodium 140, Potassium 2.7 L*, Chloride 107, Carbon Dioxide 26, Anion Gap 9.7, BUN 52 H, Creatinine 2.30 H, Estimated Creat Clear 28, Estimated GFR 20 L, Est GFR ( Amer) 24 L, Glucose 70 L, Calcium 7.8 L, TSH 8.84 H 02/28/25 05:54: WBC 8.6, RBC 4.39, Hgb 12.0 L, Hct 37.9, MCV 86.3, MCH 27.3, MCHC 31.7 L, RDW 20.0 H, Plt Count 91 L, MPV 11.5 H, Neut % (Auto) 78.4, Lymph % (Auto) 10.8, [place] % (Auto) 7.8, Eos % (Auto) 0.5, Baso % (Auto) 0.2, Neut # (Auto) 6.7, Lymph # (Auto) 0.9, [place] # (Auto) 0.7, Eos # (Auto) 0.0, Baso # (Auto) 0.0, Sodium 142, Potassium 3.6 D, Chloride 110 H, Carbon Dioxide 25, Anion Gap 10.6, BUN 50 H, Creatinine 2.20 H, Estimated Creat Clear 27, Estimated GFR 21 L, Est GFR ( Amer) 26 L, Glucose 61 L, Calcium 8.0 L, Iron 54 D, TIBC 172 L, Iron Saturation 31.39437, Ferritin 183, Total Bilirubin 0.8, AST 33, ALT 37, Alkaline Phosphatase 93, C-Reactive Protein 44.2 H D, Total Protein 4.9 L, Albumin 2.5 L, Globulin 2.4, Albumin/Globulin Ratio 1.0 L, Triglycerides 109, Cholesterol 113 L, LDL Cholesterol Direct 48.37 L, VLDL Cholesterol 22, HDL Cholesterol 38 L, Cholesterol/HDL Ratio 3.0, Free T4 1.23 I & O for Last 24 hours: Intake & Output 02/25/25 02/26/25 02/27/25 02/28/25 23:59 23:59 23:59 23:59 Intake Total 1000 / 2300 2120 / 2120 250 / 400 170 / 170 Output Total 550 / 550 1600 / 1600 0 / 0 Balance 1000 / 2100 1570 / 1570 -1350 / -1200 170 / 170 Weight 98.883 kg 97.8 kg 102.058 kg 96.1 kg Microbiology Reports for the Last 24 Hours: Microbiology 02/25/25 21:08 Blood Blood Culture - Final Escherichia coli 02/25/25 22:44 Blood Blood Culture - Preliminary NO GROWTH AFTER 48 HOURS Constitutional Constitutional: no acute distress Comments: Pleasantly demented. Alert only to self. *Routine HEENT Exam Head: Present normocephalic Eye: Present EOMI and PERRL ENT: Present mucous membranes moist *Routine Neck Exam Neck: Present supple; Absent lymphadenopathy *Routine Respiratory Exam Respiratory: Present CTA bilaterally *Routine Cardiovascular Exam Cardiovascular: Present RRR *Routine Abdominal Exam Abdominal: Present soft and normoactive bowel sounds; Absent tenderness *Routine Extremities Exam Extremities: Present edema; Absent cyanosis or clubbing *Routine Skin Exam Skin: Present warm; Absent rash *Routine Neurological Exam Neurological: Present alert and oriented X3 Assessment and Plan *Assessment and plan (1) TAD (acute kidney injury): Status: Acute Category: Medical Code(s): N17.9 - Acute kidney failure, unspecified (2) Acute lower gastrointestinal bleeding: Status: Acute Category: Medical Code(s): K92.2 - Gastrointestinal hemorrhage, unspecified (3) SIRS (systemic inflammatory response syndrome): Status: Acute Category: Medical Code(s): R65.10 - Systemic inflammatory response syndrome (SIRS) of non-infectious origin without acute organ dysfunction (4) Hypothermia: Status: Acute Qualifiers: Encounter type: initial encounter Qualified Code(s): T68.XXXA - Hypothermia, initial encounter Category: Medical Code(s): T68.XXXA - Hypothermia, initial encounter (5) (HFpEF) heart failure with preserved ejection fraction: Status: Acute Qualifiers: Heart failure chronicity: acute on chronic Qualified Code(s): I50.33 - Acute on chronic diastolic (congestive) heart failure Category: Medical Code(s): I50.30 - Unspecified diastolic (congestive) heart failure (6) Dementia: Status: Chronic Qualifiers: Dementia behavioral or psychological symptom: unspecified whether behavioral, psychotic, or mood disturbance or anxiety Dementia severity: unspecified severity Dementia type: vascular dementia Qualified Code(s): F01.50 - Vascular dementia, unspecified severity, without behavioral disturbance, psychotic disturbance, mood disturbance, and anxiety Category: Medical Code(s): F03.90 - Unspecified dementia, unspecified severity, without behavioral disturbance, psychotic disturbance, mood disturbance, and anxiety (7) Morbid obesity: Status: Chronic Category: Medical Code(s): E66.01 - Morbid (severe) obesity due to excess calories Plan Shahnaz Almazan is a 89-year-old female from [facility] who presents with reported bloody stool. While in the ER, passed blood clots per rectum. CT imaging concerning for colitis. Patient hypothermic with elevated white count. Meeting sepsis criteria. Medicine consulted for admission. After discussion with ER physician, request admission for treatment of GI bleeding given elevated Dundy score of 11. Being evaluated by GI today. Planning on sigmoidoscopy. #Sepsis, resolved #ESBL E. coli bacteremia #Hypothermia - Presented with hypothermic core temp 91.6, WBC 13, colitis on on CT abdomen/pelvis. ? Blood culture positive for ESBL E. coli sensitive to ertapenem. Sensitivities pending. Repeat blood cultures pending. ? Patient hypothermic to 95 Fahrenheit overnight, placed on Suellen hugger with improvement late this morning. Will monitor overnight to ensure patient is euthermic. ? Midline placed, continue IV ertapenem 0.5 g daily (renally dosed) day 09/29 for bacteremia. ? WBC 8.6, no further signs of sepsis. Patient without acute distress. CRP improving, 44 today. - Yeast in her urine, continue fluconazole 50 mg daily for renal dosing ? Follow-up morning CBC, CRP, blood cultures. #GI bleed #Hemorrhoids #Polyps - Recently started on Eliquis for right upper extremity DVT. ? Discussed with GI, s/p sigmoidoscopy on 02/27/2025. Found hemorrhoids and diverticulum but no emilia colitis. Suspect hemorrhoids are the source of her bleeding. Recommend holding anticoagulation for 7 to 10 days and reevaluating resumption at that time with which cardiology agreed. Also had 4 polyps removed. - Hemoglobin remained stable at 12.0. 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 Severe biatrial dilation with RVSP of 40 to 45 mmHg. Normal LV systolic function. Dilated RV and reduced RV function - Lower extremity edema improving. Cautious with fluids for SIRS/sepsis above. - Continue Bumex 1 mg IV twice daily. ? Creatinine improved from 2.7-2.2 today with diuresis. ? Follow-up RFT's in the morning. ? Minimize nephrotoxic medications, renally dose medications. #Right kidney mass: Will need to discuss with medical POA regarding further workup. #Possible subclinical hypothyroidism ? TSH elevated to 8.84, free T4 normal. TSH can be skewed in acute illness. ? Recommend repeating TSH in 2 weeks once more stable, and consider starting levothyroxine if still elevated. Dementia per history, unclear baseline mentation. Oriented to self only at this time. TSH high, see above. B12 normal. Folate pending. Morbid obesity complicates all aspects of her care VTE contraindicated; SCDs advance to regular diet DNR/DNI.
[2025-02-28 11:02] VITALS: BMI 36.1
[2025-02-28 11:25] LABS: Vitamin B12 718 pg/mL (239-931)
[2025-02-28 12:00] VITALS: BP 114/85; PULSE 90; RESP 18; TEMP 36.7; O2SAT 95
[2025-02-28 16:00] VITALS: BP 127/78; PULSE 83; RESP 21; TEMP 36.3; O2SAT 93
[2025-02-28] MEDS: ERTAPENEM SODIUM 0.5 GM in 0.9 % SODIUM CHLORIDE 50 ML IV (16:48)
--- NOTE | 2025-02-28 17:18 | PC.NURSE ---
Pt is awake sitting up in bed. Declines to eat her food but will drink her liquids. She is more alert this afternoon. Midline DSG changed this afternoon. IV ABX infusing at this time. Call light within reach.
[2025-02-28 20:00] VITALS: BP 130/90; PULSE 84; RESP 16; TEMP 36.5; O2SAT 96
[2025-03-01] VITALS: BP 124/81; PULSE 97; RESP 16; TEMP 36.5; O2SAT 97
[2025-03-01 04:00] VITALS: BP 93/61; PULSE 81; RESP 16; TEMP 36.6; O2SAT 94; BMI 38.7
[2025-03-01 05:59] LABS: Hematocrit 37.3 % (37.0-47.0); Hemoglobin 11.8 g/dL (12.2-16.2); Immature Granulocytes % 3.0 %; Mean Corpuscular HGB Conc 31.6 g/dL (31.8-35.4); Mean Corpuscular Hemoglobin 27.7 pg (27.0-31.2); Mean Corpuscular Volume 87.6 fl (81-99); Nucleated Red Blood Cells % 0.8 %; Platelet Count 92 K/mm3 (142-424); Red Blood Count 4.26 M/mm3 (4.20-5.40); Red Cell Distribution Width-SD 63.5 fL; White Blood Count 8.4 K/mm3 (4.8-10.8)
[2025-03-01 06:02] LABS: Alanine Aminotransferase 36 U/L (12-78); Albumin Level 2.5 g/dl (3.5-5.0); Albumin/Globulin Ratio 1.0 (1.1-1.8); Alkaline Phosphatase 92 U/L (38-126); Anion Gap 9.1 mEq/L (5-15); Aspartate Amino Transferase 33 U/L (14-36); Bilirubin,Total 0.7 mg/dl (0.2-1.3); Blood Urea Nitrogen 43 mg/dl (7-17); Calcium 8.7 mg/dl (8.4-10.2); Carbon Dioxide 26 mmol/L (22.0-30.0); Chloride 112 mmol/L (98-107); Creatinine Clearance Estimated 36 mL/min (50-200); Creatinine,Serum 1.80 mg/dl (0.52-1.04); Estimated Glomerular Filt Rate 27 ml/min (>60); GFR (African American) 32 ML/MIN (>60); Globulin 2.4 g/dL (1.3-3.2); Glucose 80 mg/dl (74-100); Potassium 4.1 mmoL/L (3.5-5.1); Sodium 143 mmol/L (136-145); Total Protein,Serum 4.9 g/dl (6.3-8.2)
[2025-03-01 06:07] LABS: C-Reactive Protein 33.9 mg/L (0-4)
[2025-03-01 07:38] LABS: Folate 5.63 ng/mL
--- NOTE | 2025-03-01 07:45 | EXP.PN ---
Subjective *Date: 03/01/25 *Time: 07:45 Interval history: The patient did have some bloody stools and mucus overnight. Patient appears in no distress but certainly not alert or oriented. Exam Data for Last 24 hours Vital signs and Labs for Last 24 Hours: Temp Pulse Resp BP Pulse Ox O2 Del Method 97.8 F 81 16 93/61 L 94 L Room Air 03/01/25 04:00 03/01/25 04:00 03/01/25 04:00 03/01/25 04:00 03/01/25 04:00 03/01/25 06:17 Laboratory Results - last 24 hr 02/28/25 05:54: Iron 54 D, TIBC 172 L, Iron Saturation 31.46447, Ferritin 183, Vitamin B12 718, Free T4 1.23 03/01/25 05:31: WBC 8.4, RBC 4.26, Hgb 11.8 L, Hct 37.3, MCV 87.6, MCH 27.7, MCHC 31.6 L, RDW 20.2 H, Plt Count 92 L, MPV 11.3 H, Neut % (Auto) 76.2, Lymph % (Auto) 12.5, [place] % (Auto) 6.8, Eos % (Auto) 1.3, Baso % (Auto) 0.2, Neut # (Auto) 6.4, Lymph # (Auto) 1.1, [place] # (Auto) 0.6, Eos # (Auto) 0.1, Baso # (Auto) 0.0, Sodium 143, Potassium 4.1, Chloride 112 H, Carbon Dioxide 26, Anion Gap 9.1, BUN 43 H, Creatinine 1.80 H, Estimated Creat Clear 36, Estimated GFR 27 L, Est GFR ( Amer) 32 L D, Glucose 80 D, Calcium 8.7, Total Bilirubin 0.7, AST 33, ALT 36, Alkaline Phosphatase 92, C-Reactive Protein 33.9 H, Total Protein 4.9 L, Albumin 2.5 L, Globulin 2.4, Albumin/Globulin Ratio 1.0 L, Folate 5.63 I & O for Last 24 hours: Intake & Output 02/26/25 02/27/25 02/28/25 03/01/25 23:59 23:59 23:59 23:59 Intake Total 3470 / 3470 250 / 400 340 / 590 250 / 250 Output Total 550 / 550 1600 / 1600 0 / 0 300 / 300 Balance 2920 / 2920 -1350 / -1200 340 / 590 -50 / -50 Weight 215 lb 9.793 oz 225 lb 211 lb 13.828 oz 227 lb 1.218 oz Microbiology Reports for the Last 24 Hours: Microbiology 02/25/25 21:08 Blood Blood Culture - Final Escherichia coli *Routine Abdominal Exam Abdominal: Present soft and normoactive bowel sounds Comments: Normoactive bowel sounds, soft, nontender tender, nondistended, benign abdomen Assessment and Plan *Assessment and plan (1) Bright red rectal bleeding: Status: Acute Category: Medical Code(s): K62.5 - Hemorrhage of anus and rectum (2) Bleeding internal hemorrhoids: Status: Acute Category: Medical Code(s): K64.8 - Other hemorrhoids Plan 1. Bright red rectal bleeding. Sigmoidoscopy did not show any blood in the distal colon but hemorrhoids with active cryptitis which were ablated. There were a cluster of polyps that were slightly larger than average sized which were removed. I do feel that the bleeding is still residual effect of Eliquis and hemorrhoids especially since her hemoglobin/hematocrit have not declined. She also had diverticulosis. I am going to recommend Anusol HC suppository. I did not view the mid or proximal colon and I do feel that preparation would be difficult without prepping via NG tube. Given her age and cognitive status, would only consider diagnostic colonoscopy if family and patient directives desire more aggressive approach. I will obtain CEA level.
[2025-03-01 08:00] VITALS: BP 107/66; PULSE 77; RESP 17; TEMP 36.6; O2SAT 98
[2025-03-01 08:42] LABS: Thyroid Stimulating Hormone 11.80 uIU/mL (0.465-4.68)
[2025-03-01] MEDS: BUMETANIDE 1MG/4ML VIAL 2 MG IV (09:47)
[2025-03-01] MEDS: LEVOTHYROXINE 50MCG (0.05MG) TAB 50 MCG PO (09:47)
[2025-03-01] MEDS: NYSTATIN TOPICAL POWDER 30GM TP (09:48)
[2025-03-01] MEDS: POTASSIUM CHLORIDE 20MEQ TAB 40 MEQ PO (09:48)
[2025-03-01] MEDS: HYDROCORTISONE 30MG SUPPOSITORY 30 MG RC (09:48)
[2025-03-01] MEDS: FLUCONAZOLE 100MG TABLET 50 MG PO (09:48)
--- NOTE | 2025-03-01 10:04 | P.DS_ITS ---
<Statement entered by Yonatan Valencia MD - 03/02/25 10:49> Personally evaluated patient and agree with the plan of care as outlined by the [employer]. General Admission date:: 02/25/25 Discharge date: 03/01/25 HPI HPI HPI: Ms. Almazan is an 89-year-old female who presented to the ER via EMS from [facility]. She was sent to the ER because of finding of bloody bowel movement at her assisted. Previously admitted to the hospital, developed a DVT in her right upper extremity and was started on Xarelto that was later switched to Eliquis. Had a positive stool guaiac at her assisted. On arrival to the ER, patient had bloody bowel movement, passed clots. Labs with elevated white count of 13. Hemoglobin 14.7. Kidney function abnormal with BUN 56, creatinine 1.7. Chronic INR 1.2. Temperature 91. CT obtained of abdomen and pelvis. Found to have colitis. Initiated on broad-spectrum antibiotics with vancomycin and Zosyn due to concern for sepsis with her hypothermia, white count, colitis on imaging. Discussed case with ER physician, request admission for treatment of suspected GI bleed, sepsis, further goals of care discussions. Patient also has history of HFpEF. Previously admitted and diuresed aggressively with improvement in kidney function approximately 1.5-1.7 but then dropped to 1.1 prior to discharge. Suspect this is her baseline kidney function. Patient admitted to ICU because of her hypothermia and concern for sepsis. On my evaluation, patient is oriented to self only. Legs tender on exam. Has peripheral edema that is improved from previous admission but still quite prominent at 2+ to the knees. Previous admission, required pressors for hypotension. Hospital Course Hospital Course Hospital Course: Shahnaz Almazan is a 89-year-old female from [facility] who presents with reported bloody stool. While in the ER, passed blood clots per rectum. CT imaging concerning for colitis. Patient hypothermic with elevated white count and meet sepsis criteria on admission. Medicine consulted for admission. After discussion with ER physician, request admission for treatment of GI bleeding given elevated [place] score of 11. #Sepsis, resolved #ESBL E. coli bacteremia #Hypothermia ?Presented with hypothermic core temp 91.6, WBC 13, colitis on on CT abdomen/pelvis. Patient temperature has been stable, 97.8-day of discharge. Patient has had bloody mucus like stools post sigmoidoscopy and hemorrhoid banding, polypectomy. ? Blood culture positive for ESBL E. coli sensitive to ertapenem. Repeat blood culture showed no growth after 24 hours. Patient has received 5 days of IV antibiotics in the inpatient setting, will continue 5 more days of Invanz daily at discharge, renally dosed. Patient had midline placed for access during admission. Midline may be discontinued after antibiotic infusions. ? WBC stable at 8.4, no further signs of sepsis. Patient without acute distress. - Yeast in her urine, continue fluconazole 50 mg daily for renal dosing, will continue for a total of 7 days. #GI bleed #Hemorrhoids #Polyps - Recently started on Eliquis for right upper extremity DVT. ? Discussed with GI, s/p sigmoidoscopy on 02/27/2025. Found hemorrhoids and diverticulum but no emilia colitis. Suspect hemorrhoids are the source of her bleeding, hemorrhoids were ablated. Recommendations to hold anticoagulation (Eliquis) for 7 to 10 days; cardiology recommends 5 to 7 days due to cephalic vein thrombus. Will plan to hold Eliquis for 7 days total. ? GI obtain CEA level. - Hemoglobin remained stable at 11.8. 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 Severe biatrial dilation with RVSP of 40 to 45 mmHg. Normal LV systolic function. Dilated RV and reduced RV function - Lower extremity edema improving. Will change Bumex to 2 mg daily at discharge. Cautious with fluids for SIRS/sepsis above. ? Creatinine improved from 2.7- 1.8 today at discharge. #Right kidney mass: Will defer to PCP for further management/workup. #Possible subclinical hypothyroidism ? TSH elevated to 11.80, free T4 normal. Will initiate Synthroid 50 mcg at discharge. Continue to evalaute per PCP. Dementia per history, unclear baseline mentation. Oriented to self only at this time. Total time spent on discharge 35 minutes in counseling, documentation, chart review, and direct care with patient. Exam Data for Last 24 hours Vital signs and Labs for Last 24 Hours: Temp Pulse Resp BP Pulse Ox O2 Del Method 97.8 F 77 17 107/66 L 98 Room Air 03/01/25 08:00 03/01/25 08:00 03/01/25 08:00 03/01/25 08:00 03/01/25 08:00 03/01/25 08:30 Laboratory Results - last 24 hr 02/28/25 05:54: Iron 54 D, Vitamin B12 718 03/01/25 05:31: WBC 8.4, RBC 4.26, Hgb 11.8 L, Hct 37.3, MCV 87.6, MCH 27.7, MCHC 31.6 L, RDW 20.2 H, Plt Count 92 L, MPV 11.3 H, Neut % (Auto) 76.2, Lymph % (Auto) 12.5, [place] % (Auto) 6.8, Eos % (Auto) 1.3, Baso % (Auto) 0.2, Neut # (Auto) 6.4, Lymph # (Auto) 1.1, [place] # (Auto) 0.6, Eos # (Auto) 0.1, Baso # (Auto) 0.0, Sodium 143, Potassium 4.1, Chloride 112 H, Carbon Dioxide 26, Anion Gap 9.1, BUN 43 H, Creatinine 1.80 H, Estimated Creat Clear 36, Estimated GFR 27 L, Est GFR ( Amer) 32 L D, Glucose 80 D, Calcium 8.7, Total Bilirubin 0.7, AST 33, ALT 36, Alkaline Phosphatase 92, C-Reactive Protein 33.9 H, Total Protein 4.9 L, Albumin 2.5 L, Globulin 2.4, Albumin/Globulin Ratio 1.0 L, Folate 5.63, TSH 11.80 H D I & O for Last 24 hours: Intake & Output 02/26/25 02/27/25 02/28/25 03/01/25 23:59 23:59 23:59 23:59 Intake Total 3470 / 3470 250 / 400 340 / 590 270 / 270 Output Total 550 / 550 1600 / 1600 0 / 0 900 / 900 Balance 2920 / 2920 -1350 / -1200 340 / 590 -630 / -630 Weight 97.8 kg 102.058 kg 96.1 kg 103 kg Microbiology Reports for the Last 24 Hours: Microbiology 02/25/25 21:08 Blood Blood Culture - Final Escherichia coli Constitutional Constitutional: no acute distress and obese *Routine HEENT Exam Head: Present normocephalic and atraumatic ENT: Present mucous membranes moist *Routine Neck Exam Neck: Present supple, full ROM and normal carotid upstroke; Absent JVD, carotid bruit or lymphadenopathy *Routine Respiratory Exam Respiratory: Present CTA bilaterally, normal respiratory effort, able to speak in complete sentences and symmetric chest movement *Routine Cardiovascular Exam Cardiovascular: Present RRR, Normal S1 and Normal S2; Absent murmur or gallop *Routine Abdominal Exam Abdominal: Present soft and normoactive bowel sounds; Absent tenderness, distended or organomegaly *Routine Extremities Exam Extremities: Present edema, full ROM, pulses intact and normal capillary refill; Absent cyanosis or clubbing *Routine Skin Exam Skin: Present intact and warm; Absent erythema *Routine Neurological Exam Neurological: Present alert (To person only) and altered mental status Results Data Completed and Pending Labs on day of discharge: Labs from last 24 hours 03/01/25 02/28/25 05:31 05:54 WBC 8.4 RBC 4.26 Hgb 11.8 L Hct 37.3 MCV 87.6 MCH 27.7 MCHC 31.6 L RDW 20.2 H Plt Count 92 L MPV 11.3 H Neut % (Auto) 76.2 Lymph % (Auto) 12.5 [place] % (Auto) 6.8 Eos % (Auto) 1.3 Baso % (Auto) 0.2 Neut # (Auto) 6.4 Lymph # (Auto) 1.1 [place] # (Auto) 0.6 Eos # (Auto) 0.1 Baso # (Auto) 0.0 Sodium 143 Potassium 4.1 Chloride 112 H Carbon Dioxide 26 Anion Gap 9.1 BUN 43 H Creatinine 1.80 H Estimated Creat Clear 36 Estimated GFR 27 L Est GFR ( Amer) 32 L D Glucose 80 D Calcium 8.7 Iron 54 D Total Bilirubin 0.7 AST 33 ALT 36 Alkaline Phosphatase 92 C-Reactive Protein 33.9 H Total Protein 4.9 L Albumin 2.5 L Globulin 2.4 Albumin/Globulin Ratio 1.0 L Vitamin B12 718 Folate 5.63 TSH 11.80 H D Preliminary micro results at discharge 02/25/25 22:44 Blood Culture - Preliminary Blood NO GROWTH AFTER 48 HOURS DS: Diagnosis Discharge Diagnosis (1) Bright red rectal bleeding: Status: Acute Code(s): K62.5 - Hemorrhage of anus and rectum (2) Bleeding internal hemorrhoids: Status: Acute Code(s): K64.8 - Other hemorrhoids (3) Colonic polyp: Status: Acute Code(s): K63.5 - Polyp of colon (4) Acute deep vein thrombosis (DVT) of right upper extremity: Status: Acute Code(s): I82.621 - Acute embolism and thrombosis of deep veins of right upper extremity Qualifiers: Affected thrombotic vein of extremity: brachial Qualified Code(s): I82.621 - Acute embolism and thrombosis of deep veins of right upper extremity (5) SIRS (systemic inflammatory response syndrome): Status: Acute Code(s): R65.10 - Systemic inflammatory response syndrome (SIRS) of non-infectious origin without acute organ dysfunction (6) TAD (acute kidney injury): Status: Acute Code(s): N17.9 - Acute kidney failure, unspecified (7) Hypothermia: Status: Acute Code(s): T68.XXXA - Hypothermia, initial encounter Qualifiers: Encounter type: initial encounter Qualified Code(s): T68.XXXA - Hypothermia, initial encounter (8) Right renal mass: Status: Acute Code(s): N28.89 - Other specified disorders of kidney and ureter (9) Hypertension: Status: Acute Code(s): I10 - Essential (primary) hypertension Qualifiers: Hypertension type: primary hypertension Qualified Code(s): I10 - Essential (primary) hypertension (10) (HFpEF) heart failure with preserved ejection fraction: Status: Acute Code(s): I50.30 - Unspecified diastolic (congestive) heart failure Qualifiers: Heart failure chronicity: acute on chronic Qualified Code(s): I50.33 - Acute on chronic diastolic (congestive) heart failure (11) Dementia: Status: Chronic Code(s): F03.90 - Unspecified dementia, unspecified severity, without behavioral disturbance, psychotic disturbance, mood disturbance, and anxiety Qualifiers: Dementia type: vascular dementia Dementia severity: unspecified severity Dementia behavioral or psychological symptom: unspecified whether behavioral, psychotic, or mood disturbance or anxiety Qualified Code(s): F01.50 - Vascular dementia, unspecified severity, without behavioral disturbance, psychotic disturbance, mood disturbance, and anxiety Meds Home Medications and Allergies Home Medications ?Medication ?Instructions ?Recorded ?Confirmed ?Type acetaminophen 500 mg tablet 500 mg PO Q4HP PRN Mild Pa in 01/29/25 02/26/25 History (Scale Score 1-4) loperamide 2 mg tablet 2 mg PO Q6HP PRN Diarrhea 02/26/25 History loratadine 10 mg tablet 10 mg PO DAILY 01/29/25 09/01/13 History ondansetron 4 mg disintegrating 4 mg PO Q6HP PRN Nause a And 01/29/25 02/26/25 History tablet Vomiting protein hydrolysate,milk 1 gram-4 1 ea PO DAILY 02/26/25 History kcal/6 mL oral liquid (Liquid Protein Fortifier) spironolactone 25 mg tablet 25 mg PO DAILY 30 days #30 tabs 02/02/25 02/26/25 Rx apixaban 5 mg tablet (Eliquis) 5 mg PO BID START 5 MG BID 02/28/25 02/26/25 02/26/25 History Held on 03/01/25. PM Instructions: Resume on 03/07/25. apixaban 5 mg tablet (Eliquis) 10 mg PO BID LAST DOSE 02/28/25 AM 02/26/25 02/26/25 History nitroglycerin 0.4 mg sublingual 0.4 mg sublingual Q5MI [employer] PRN Chest 02/26/25 02/26/25 History tablet Pain polyethylene glycol 3350 17 gram 17 g PO DAILY PRN Con stipation 02/26/25 02/26/25 History oral powder packet (Miralax) Ertapenem Sodium [Invanz 1gm Vial] 100 mls/hr IV Q24H Infection 03/01/25 Rx 0.5 gm bumetanide 1 mg tablet 2 mg (2 x 1 mg) PO DAILY 30 days 03/01/25 02/26/25 Rx #30 tabs fluconazole 100 mg tablet 50 mg (1/2 x 100 mg) PO OSCAR Y 5 03/01/25 Rx days #3 tabs levothyroxine 50 mcg tablet 50 mcg PO DAILYDM 30 days #30 tabs 03/01/25 Rx (Synthroid) New Prescriptions to Start Prescriptions: fluconazole Theresa Pratt levothyroxine [Synthroid] Theresa Pratt Ertapenem Sodium [Invanz 1gm Vial] 0.5 gm 0.9 % Sodium Chloride [Sod Chlor 0.9% 50mL bag] 50 ml 100 mls/hr IV Q24H Allergies Allergy/AdvReac Type Severity Reaction Status Date / Time sulfamethoxazole (From Allergy Intermediate Unknown Verified 02/25/25 19:51 Bactrim) allergy reaction trimethoprim (From Bactrim) Allergy Intermediate Unknown Verified 02/25/25 19:51 allergy reaction Discharge Plan Disposition Patient Disposition: er [facility] Condition: Fair Discharge Order Discharge Orders: Discharge Order (Routine); Ordered 03/01/25 Ordered By: Theresa Pratt Follow up Plan Follow up with: Crystal Morrow APRN [Nurse Practitioner, Cardiology] - 03/22/25 11:00 am Koffi Ortega II, MD [Staff Physician, Gastroenterology] - 05/31/25 1:00 pm Prescriptions/Medication Reconciliation: New fluconazole 100 mg Tablet 50 mg PO DAILY 5 Days Qty: 3 0RF levothyroxine [Synthroid] 50 mcg Tablet 50 mcg PO DAILYDM 30 Days Qty: 30 0RF Ertapenem Sodium [Invanz 1gm Vial] 0.5 GM 0.9 % Sodium Chloride [Sod Chlor 0.9% 50mL bag] 50 ML 100 mls/hr IV Q24H Reason for use: Infection Ordered By: Theresa Pratt APRN Last Taken: 02/28/25 16:48 100 mls/hr Continued polyethylene glycol 3350 [Miralax] 17 gram Powder In Packet 17 g PO DAILY PRN (Reason: Constipation) Eliquis 5 mg Tablet 10 mg PO BID Rx Instructions: TAKE 10 MG BID TIL 02/28/25 THEN SWITCH TO 5 MG BID nitroglycerin 0.4 mg Tablet, Sublingual 0.4 mg SUBLINGUAL Q5MINP PRN (Reason: Chest Pain) Rx Instructions: do not exceed 3 doses per episode loperamide 2 mg tablet 2 mg PO Q6HP PRN (Reason: Diarrhea) loratadine 10 mg tablet 10 mg PO DAILY acetaminophen 500 mg Tablet 500 mg PO Q4HP PRN (Reason: Mild Pain (Scale Score 1-4)) ondansetron 4 mg Tablet,Disintegrating 4 mg PO Q6HP PRN (Reason: Nausea And Vomiting) Liquid Protein Fortifier 1 gram-4 kcal/6 mL Liquid 1 ea PO DAILY spironolactone 25 mg Tablet 25 mg PO DAILY 30 Days Qty: 30 0RF Changed bumetanide 1 mg tablet 2 mg PO DAILY 30 Days Qty: 30 0RF Held Eliquis 5 mg Tablet 5 mg PO BID Hold Instructions: Resume on 03/07/25. Rx Instructions: TAKE 10 MG BID TIL 02/28/25 THEN SWITCH TO 5 MG BID Problem Reconciliation Problems Reviewed?: Yes Patient Discharge Instructions ACTIVITY: Continue current activity, Ambulate as tolerated and Up with assistance DIET: continue same diet Patient Instructions: DI for Hypothermia, DI for Flexible Sigmoidoscopy, DI for Gastrointestinal Bleeding, DI for Acute Kidney Injury, Catheter-Associated Urinary Tract Infection Print Language: Slovak Providers Primary Care Provider: Provider,Referral Admit Provider: Ronaldo Ojeda Attending Provider: Ronaldo Ojeda
--- NOTE | 2025-03-01 10:21 | P.PN_ITS ---
Subjective Subjective Date: 03/01/25 Time: 09:30 Principal diagnosis: GI bleed, acute on chronic HFpEF Interval history: This is an 89-year-old white female who presented to the emergency department from [facility] due to bloody bowel movements. The patient was Hemoccult stool positive. However her hemoglobin remained stable. She had recently been started on Eliquis due to a DVT in her right upper extremity. Her Eliquis is currently on hold and she underwent sigmoidoscopy this hospital stay. She was found to have colonic polyps x 4 that were removed. She also had diverticulosis. She had grade 1-2 hemorrhoids with active cryptitis status post ablation and coagulation. The patient is pleasantly confused. She is alert to self only. She denies any complaints today. She denies any chest pain or shortness of breath. She denies any fever, chills, nausea, vomiting or diarrhea. Exam Data for Last 24 hours Vital signs and Labs for Last 24 Hours: Temp Pulse Resp BP Pulse Ox O2 Del Method 97.8 F 77 17 107/66 L 98 Room Air 03/01/25 08:00 03/01/25 08:00 03/01/25 08:00 03/01/25 08:00 03/01/25 08:00 03/01/25 08:30 Laboratory Results - last 24 hr 02/28/25 05:54: Iron 54 D, Vitamin B12 718 03/01/25 05:31: WBC 8.4, RBC 4.26, Hgb 11.8 L, Hct 37.3, MCV 87.6, MCH 27.7, MCHC 31.6 L, RDW 20.2 H, Plt Count 92 L, MPV 11.3 H, Neut % (Auto) 76.2, Lymph % (Auto) 12.5, [place] % (Auto) 6.8, Eos % (Auto) 1.3, Baso % (Auto) 0.2, Neut # (Auto) 6.4, Lymph # (Auto) 1.1, [place] # (Auto) 0.6, Eos # (Auto) 0.1, Baso # (Auto) 0.0, Sodium 143, Potassium 4.1, Chloride 112 H, Carbon Dioxide 26, Anion Gap 9.1, BUN 43 H, Creatinine 1.80 H, Estimated Creat Clear 36, Estimated GFR 27 L, Est GFR ( Amer) 32 L D, Glucose 80 D, Calcium 8.7, Total Bilirubin 0.7, AST 33, ALT 36, Alkaline Phosphatase 92, C-Reactive Protein 33.9 H, Total Protein 4.9 L, Albumin 2.5 L, Globulin 2.4, Albumin/Globulin Ratio 1.0 L, Folate 5.63, TSH 11.80 H D I & O for Last 24 hours: Intake & Output 02/26/25 02/27/25 02/28/25 03/01/25 23:59 23:59 23:59 23:59 Intake Total 3470 / 3470 250 / 400 340 / 590 270 / 270 Output Total 550 / 550 1600 / 1600 0 / 0 900 / 900 Balance 2920 / 2920 -1350 / -1200 340 / 590 -630 / -630 Weight 215 lb 9.793 oz 225 lb 211 lb 13.828 oz 227 lb 1.218 oz Microbiology Reports for the Last 24 Hours: Microbiology 02/25/25 21:08 Blood Blood Culture - Final Escherichia coli Constitutional Constitutional: no acute distress and obese *Routine HEENT Exam Head: Present normocephalic and atraumatic ENT: Present mucous membranes moist *Routine Neck Exam Neck: Present supple, full ROM and normal carotid upstroke; Absent JVD, carotid bruit or lymphadenopathy *Routine Respiratory Exam Respiratory: Present CTA bilaterally, normal respiratory effort, able to speak in complete sentences and symmetric chest movement *Routine Cardiovascular Exam Cardiovascular: Present RRR, Normal S1 and Normal S2; Absent murmur or gallop *Routine Abdominal Exam Abdominal: Present soft and normoactive bowel sounds; Absent tenderness, distended or organomegaly *Routine Extremities Exam Extremities: Present edema, full ROM, pulses intact and normal capillary refill; Absent cyanosis or clubbing *Routine Skin Exam Skin: Present intact and warm; Absent erythema *Routine Neurological Exam Neurological: Present alert (To person only) and altered mental status Progress Note: A&P Assessment and plan (1) (HFpEF) heart failure with preserved ejection fraction: Status: Acute (2) Bright red rectal bleeding: Status: Acute (3) Bleeding internal hemorrhoids: Status: Acute (4) Acute deep vein thrombosis (DVT) of right upper extremity: Status: Acute (5) Colonic polyp: Status: Acute (6) TAD (acute kidney injury): Status: Acute (7) Hypothermia: Status: Acute (8) SIRS (systemic inflammatory response syndrome): Status: Acute (9) Hypertension: Status: Acute Assessment and Plan Assessment and Plan for All Diagnoses:: Plan: 1. The patient was admitted to the hospital due to blood in the stool. [facility] and was passing bloody stools with clots. Hemoglobin remained stable. She underwent sigmoidoscopy and was found to have 4 colonic polyps which were removed. Diverticulosis and grade of 1-2 hemorrhoids with active cryptitis. She is status post ablation/coagulation for the hemorrhoids. They do recommend holding Eliquis for 7 to 10 days. However the patient does have an active thrombus in her right upper extremity. 2. The patient was started on Eliquis last week due to a DVT in the right upper extremity. The patient was found to have an acute thrombosis to the cephalic vein. Her anticoagulation is currently being held due to her GI bleed. Cardiology will recommend holding Eliquis for 5 to 7 days due to the GI bleed. 3. The patient does have a history of HFpEF. She is likely having an acute exacerbation. Her BNP is elevated on admission. She is being diuresed with IV Bumex. Continue IV Bumex at this time and at discharge she will need to go home on Bumex 2 mg p.o. daily. 4. Continue spironolactone for diuresis as well. 5. Once she is euvolemic consider starting Jardiance. 6. Her blood pressure is on the lower side. Will hold off on starting beta- goyo and TAMMY/ARB/ARNI at this time due to her lower blood pressure. 7. On admission the patient was hypothermic with an elevated white blood cell count and imaging showing colitis. She is currently being treated for sepsis with IV antibiotics. Will defer to the hospitalist. 8. Her LDL goal is less than 100. Her LDL is 48. 9. Further recommendations will be made pending the patient's response to treatment. Thank you for the opportunity to help participate in the care of this patient. All recommendations and orders are per Dr. Pereira.
[2025-03-02 12:15] LABS: CEA 7.1 ng/mL (0.0-4.7)
== END 2025-03-01 15:27 | DRG 871 ==
LOC: ER 23:36 → ICU 02-26 00:17 → 2ND 02-26 14:57
PROVIDERS: Internal Medicine Gastroenterology; Nurse Practitioner Family; Student in an Organized Health Care Education/Training Program; Admitting Provider Internal Medicine Adolescent Medicine; Emergency Provider Student in an Organized Health Care Education/Training Program; Visit Provider Internal Medicine Adolescent Medicine
PROC: 0DJD8ZZ Inspection of Lower Intestinal Tract, Via Natural or Artificial Opening Endoscopic (ICD-10-PCS; CPT 45330; principal; 2025-02-27 15:00)
DX: A41.51 Sepsis due to Escherichia coli [E. coli] (principal); I50.33 Acute on chronic diastolic (congestive) heart failure; N17.9 Acute kidney failure, unspecified; Z16.12 Extended spectrum beta lactamase (ESBL) resistance; I13.0 Hypertensive heart and chronic kidney disease with heart failure and stage 1 through stage 4 chronic kidney disease, or unspecified chronic kidney disease; K62.5 Hemorrhage of anus and rectum; I82.621 Acute embolism and thrombosis of deep veins of right upper extremity; D68.32 Hemorrhagic disorder due to extrinsic circulating anticoagulants; F01.50 Vascular dementia, unspecified severity, without behavioral disturbance, psychotic disturbance, mood disturbance, and anxiety; E66.01 Morbid (severe) obesity due to excess calories; Z68.37 Body mass index [BMI] 37.0-37.9, adult; N18.9 Chronic kidney disease, unspecified; K64.1 Second degree hemorrhoids; K63.5 Polyp of colon; K57.30 Diverticulosis of large intestine without perforation or abscess without bleeding; E03.8 Other specified hypothyroidism; N28.89 Other specified disorders of kidney and ureter; Z66 Do not resuscitate; Z88.2 Allergy status to sulfonamides; Z79.890 Hormone replacement therapy; Z79.01 Long term (current) use of anticoagulants; Z79.899 Other long term (current) drug therapy; T45.515A Adverse effect of anticoagulants, initial encounter
CPT/HCPCS: 36410; 36415; 74176; 80048; 80053; 80061; 81001; 82378; 82607; 82728; 82746; 83540; 83550; 83605; 83735; 83880; 84145; 84439; 84443; 85025; 85610; 86140; 86803; 86850; 87040; 87077; 87154; 87186; 87389; 88305; 93005; 97162; 97166; 99285; J0650; J1335; J1939; J2003; J2543; J2704; J3373; J7050; J7120